=== PATIENT | female | born 1950 | race Caucasian/White ===

== ENCOUNTER → 2016-11-04 | Outpatient (CLI) | payer MEDICARE, MEDICAID | LOC: OD 08:57 | PROVIDERS: ATTEND Family Medicine | DX: R07.81 Pleurodynia (principal) ==

== ENCOUNTER 2016-12-26 09:07 | Emergency (ER) | payer MEDICARE, MEDICAID ==
[2016-12-26] MEDS ORDERED: LIDOCAINE 5% (700 MG) TRANSDERMAL ADH..PATCH TP ONE (09:23)
--- NOTE | 2016-12-26 10:14 | RADIOLOGY REPORT (SQ) ---
EXAM DESCRIPTION: T SPINE AP/LAT COMPLETED DATE/TIME: 12/26/2016 10:01 am REASON FOR STUDY: back pain 2-3 weeks COMPARISON: 12/04/2013. NUMBER OF VIEWS: Two views. TECHNIQUE: AP and lateral radiographic images acquired of the thoracic spine. LIMITATIONS: None. FINDINGS: MINERALIZATION: Normal. ALIGNMENT: Normal. No scoliosis. VERTEBRAE: No fracture or bone lesion. Maintained height, normal segmentation. DISCS: Multilevel disc space narrowing with osteophytes. HARDWARE: None in the spine. MEDIASTINUM AND SOFT TISSUES: Normal heart size and aortic contour. No soft tissue abnormality. VISUALIZED LUNG LUCAS: Clear. OTHER: No other significant finding. IMPRESSION: SPONDYLOSIS WITHOUT BONE LESION OR FRACTURE. TECHNICAL DOCUMENTATION: JOB ID: [id number] [employer]- All Rights Reserved
--- NOTE | 2016-12-26 10:15 | RADIOLOGY REPORT (SQ) ---
EXAM DESCRIPTION: L SPINE 2 VIEWS COMPLETED DATE/TIME: 12/26/2016 10:02 am REASON FOR STUDY: back pain 2-3 weeks COMPARISON: 12/10/2013. NUMBER OF VIEWS: Three views. TECHNIQUE: AP, lateral, and inferior coned down lateral views of the lumbar spine. LIMITATIONS: None. FINDINGS: MINERALIZATION: Normal. SEGMENTATION: Normal. No transitional anatomy. ALIGNMENT: Normal. VERTEBRAE: Maintained height. No fracture or worrisome bone lesion. DISCS: Multilevel disc space narrowing with osteophytes. POSTERIOR ELEMENTS: Pedicles and facets are intact. No pars defect or posterior arch defects. Facet arthropathy is present. HARDWARE: None in the spine. PARASPINAL SOFT TISSUES: Normal. PELVIS: Intact as visualized. No fractures or worrisome bone lesions. SI joints intact. OTHER: No other significant finding. IMPRESSION: SPONDYLOSIS WITHOUT BONE LESION OR FRACTURE. TECHNICAL DOCUMENTATION: JOB ID: [id number] [employer]- All Rights Reserved
--- NOTE | 2016-12-26 10:28 | ER Document Report ---
ED General - General Chief Complaint: Back Pain Stated Complaint: BACK PAIN Time Seen by Provider: 12/26/16 09:20 TRAVEL OUTSIDE OF THE [place] IN LAST 30 DAYS: No - HPI Patient complains to provider of: Right paraspinal back pain Notes: Patient is coming in from local [place] [facility] facility for evaluation of right paraspinal back pain. Patient states ongoing for the last 2-3 weeks. Patient denies fever chills nausea vomiting. Patient denies any trauma. Patient states she is under given Tylenol in a [place] [facility]. Patient denies any urinary frequency or dysuria - Related Data Allergies/Adverse Reactions: haloperidol [From Haldol] Allergy (Severe, Verified 02/28/16 04:32) LOCKJAW haloperidol lactate [From Haldol] Allergy (Severe, Verified 02/28/16 04:32) LOCKJAW chlorpromazine HCl [From Thorazine] Allergy (Verified 02/28/16 04:32) chocolate Allergy (Uncoded 02/28/16 04:32) Past Medical History - Social History Smoking Status: Never Smoker Chew tobacco use (# tins/day): No Frequency of alcohol use: None Drug Abuse: None Family History: CAD - dad and uncle with MIs in their 60s, DM - mom - Past Medical History Cardiac Medical History: Reports: Hx Hypercholesterolemia, Hx Hypertension Pulmonary Medical History: Reports: Hx Bronchitis Neurological Medical History: Reports: Hx Seizures - ? Endocrine Medical History: Reports: Hx Diabetes Mellitus Type 2, Hx Hypothyroidism GI Medical History: Reports: Hx Gastroesophageal Reflux Disease Musculoskeltal Medical History: Reports Hx Arthritis Psychiatric Medical History: Reports: Hx Bipolar Disorder, Hx Depression, Hx Schizoaffective Disorder Past Surgical History: Reports: Hx Cholecystectomy, Hx Neurologic Surgery - carpal tunnel, Hx Tonsillectomy - 1956, Hx Tubal Ligation - Immunizations Hx Diphtheria, Pertussis, Tetanus Vaccination: Yes Hx Pneumococcal Vaccination: 11/08/13 Review of Systems - Review of Systems Constitutional: No symptoms reported EENT: No symptoms reported Cardiovascular: No symptoms reported Respiratory: No symptoms reported Gastrointestinal: No symptoms reported Genitourinary: No symptoms reported Female Genitourinary: No symptoms reported Musculoskeletal: Back pain Skin: No symptoms reported Hematologic/Lymphatic: No symptoms reported Neurological/Psychological: No symptoms reported -: Yes All other systems reviewed and negative Physical Exam - Vital signs Vitals: Temp Pulse Resp BP Pulse Ox 98.9 F 56 L 16 143/46 H 96 12/26/16 09:10 12/26/16 09:10 12/26/16 09:10 12/26/16 09:10 12/26/16 09:10 Interpretation: Normal - General General appearance: Appears well, Alert - HEENT Head: Normocephalic, Atraumatic Eyes: Normal Pupils: PERRL - Respiratory Respiratory status: No respiratory distress Chest status: Nontender Breath sounds: Normal Chest palpation: Normal - Cardiovascular Rhythm: Regular Heart sounds: Normal auscultation Murmur: No - Abdominal Inspection: Normal Distension: No distension Bowel sounds: Normal Tenderness: Nontender Organomegaly: No organomegaly - Back Back: Normal, Tender - Mild paraspinal tenderness to the right thoracic right lumbar region. - Extremities General upper extremity: Normal inspection, Nontender, Normal color, Normal ROM , Normal temperature General lower extremity: Normal inspection, Nontender, Normal color, Normal ROM , Normal temperature, Normal weight bearing. No: Melody's sign - Neurological Neuro grossly intact: Yes Cognition: Normal Orientation: AAOx4 [place] Coma Scale Eye Opening: Spontaneous [place] Coma Scale Verbal: Oriented [place] Coma Scale Motor: Obeys Commands [place] Coma Scale Total: 15 Speech: Normal Motor strength normal: LUE, RUE, LLE, RLE Sensory: Normal - Psychological Associated symptoms: Normal affect, Normal mood - Skin Skin Temperature: Warm Skin Moisture: Dry Skin Color: Normal Course - Re-evaluation Re-evalutation: 12/26/16 15:55 Patient seen for back pain no critical etiology seenThe patient presents with low back pain without signs of spinal cord compression, cauda equina syndrome, infection, aneurysm, or other serious etiology. The patient is neurologically intact. Given the extremely low risk of these diagnoses further testing and evaluation for these possibilities does not appear to be indicated at this time. The patient has been instructed to return if the symptoms worsen or change in any way. .. - Vital Signs Vital signs: Temp Pulse Resp BP Pulse Ox 97.8 F 55 L 16 150/60 H 99 12/26/16 10:53 12/26/16 10:53 12/26/16 10:53 12/26/16 10:53 12/26/16 10:53 Discharge - Discharge Clinical Impression: Back pain Qualifiers: Back pain location: back pain in unspecified location Chronicity: unspecified Back pain laterality: right Qualified Code(s): M54.9 - Dorsalgia, unspecified Condition: Good Disposition: HOME, SELF-CARE Instructions: Ice Packs ([facility]), Low Back Pain ([facility]), Warm Packs ([facility]) Additional Instructions: Patient seen today for right lower back pain thoracic pain. X-rays do not show any signs of compression fracture lesions only degenerative changes. Patient was given a Lidoderm patch here in the ER for pain control. Patient will be prescribed Lidoderm patches. If patient cannot afford Lidoderm patches over-the -counter options are available patient should also continue Tylenol. Patient should follow-up primary care physician in the next week Prescriptions: Lidocaine [Lidoderm 5% (700 mg) Transdermal Patch] 1 patch TP DAILY #14 adh..patch Referrals: MORENO OHARA DO [Primary Care Provider] - Follow up in 3-5 days
[2016-12-26 10:54] VITALS: BP 150/60
== END 2016-12-26 11:14 | disposition home or self-care (01) ==
LOC: ER 09:07
DX: M54.9 Dorsalgia, unspecified (principal)
CPT/HCPCS: 72070; 72100; 99283

== ENCOUNTER 2017-01-08 00:51 | Observation (INO) | payer MEDICARE, MEDICAID ==
[2017-01-08 01:45] LABS: ABSOLUTE EOSINOPHILS # (AUTO) 0.2 10^3/uL (0.0-0.6); ABSOLUTE LYMPHOCYTES (AUTO) 1.8 10^3/uL (0.5-4.7); ABSOLUTE MONOCYTES (AUTO) 0.5 10^3/uL (0.1-1.4); ABSOLUTE NEUT (AUTO) 3.1 10^3/uL (1.7-8.2); BASOPHILS % (AUTO) 0.6 % (0-2); EOSINOPHILS % (AUTO) 3.1 % (0-6); HEMATOCRIT 32.6 % (36.0-47.0); HEMOGLOBIN 10.5 g/dL (12.0-15.5); HGB HCT DIFFERENCE -1.1; LYMPHOCYTES % (AUTO) 32.7 % (13-45); MEAN CORPUSCULAR HEMOGLOBIN 28.1 pg (27.0-33.4); MEAN CORPUSCULAR HGB CONC 32.2 g/dL (32.0-36.0); MEAN CORPUSCULAR VOLUME 87 fl (80-97); MONOCYTES % (AUTO) 8.6 % (3-13); RED BLOOD COUNT 3.73 10^6/uL (3.72-5.28); RED CELL DISTRIBUTION WIDTH 20.9 % (11.5-14.0); WHITE BLOOD COUNT 5.6 10^3/uL (4.0-10.5)
--- NOTE | 2017-01-08 01:46 | RADIOLOGY REPORT (SQ) ---
EXAM DESCRIPTION: CHEST SINGLE VIEW COMPLETED DATE/TIME: 01/08/2017 1:30 am REASON FOR STUDY: cp COMPARISON: 10/04/2015. EXAM PARAMETERS: NUMBER OF VIEWS: One view. TECHNIQUE: Single frontal radiographic view of the chest acquired. RADIATION DOSE: NA LIMITATIONS: None. FINDINGS: LUNGS AND PLEURA: No opacities, masses or pneumothorax. No pleural effusion. MEDIASTINUM AND HILAR STRUCTURES: No masses. Contour normal. HEART AND VASCULAR STRUCTURES: Heart normal in size. Normal vasculature. BONES: No acute findings. HARDWARE: None in the chest. OTHER: No other significant finding. IMPRESSION: NO ACUTE RADIOGRAPHIC FINDING IN THE CHEST. TECHNICAL DOCUMENTATION: JOB ID: [id number]
[2017-01-08 01:55] LABS: ALANINE AMINOTRANSFERASE 21 U/L (9-52); ALBUMIN 3.6 g/dL (3.5-5.0); ALKALINE PHOSPHATASE 68 U/L (38-126); ANION GAP 10 (5-19); ASPARTATE AMINO TRANSFERASE 26 U/L (14-36); BILIRUBIN,DIRECT 0.3 mg/dL (0.0-0.4); BILIRUBIN,TOTAL 0.4 mg/dL (0.2-1.3); BLOOD UREA NITROGEN 15 mg/dL (7-20); CALCIUM 9.4 mg/dL (8.4-10.2); CARBON DIOXIDE 26 mmol/L (22-30); CHLORIDE 104 mmol/L (98-107); CREATINE KINASE 79 U/L (30-135); CREATININE RESULT 1.17 mg/dL (0.52-1.25); GLUCOSE 85 mg/dL (75-110); SODIUM 139.6 mmol/L (137-145); TOTAL PROTEIN 6.3 g/dL (6.3-8.2)
[2017-01-08 02:04] LABS: CREATINE KINASE MB 0.66 ng/mL (<4.55)
[2017-01-08 02:05] LABS: TROPONIN I < 0.012 ng/mL
--- NOTE | 2017-01-08 02:23 | ER Document Report ---
ED General - General Chief Complaint: Chest Pain Stated Complaint: CHEST PRESSURE Time Seen by Provider: 01/08/17 02:21 Notes: Patient is a 66-year-old female presents with complaint of chest pressure. She says it feels like a heaviness on her chest. The low substernal region. Will improve. No difficulty breathing. No fevers. Patient denies previous pain like this before. She says nothing seems to make the pain better or worse. She says pain comes and goes. She received aspirin and nitro via the paramedics. She said it did help some. She denies previous history of coronary disease. She denies previous cardiac stress test or cath. She has no other complaints at this time. TRAVEL OUTSIDE OF THE [place] IN LAST 30 DAYS: No - Related Data Allergies/Adverse Reactions: haloperidol [From Haldol] Allergy (Severe, Verified 02/28/16 04:32) LOCKJAW haloperidol lactate [From Haldol] Allergy (Severe, Verified 02/28/16 04:32) LOCKJAW chlorpromazine HCl [From Thorazine] Allergy (Verified 02/28/16 04:32) chocolate Allergy (Uncoded 02/28/16 04:32) Past Medical History - Social History Smoking Status: Unknown if Ever Smoked Frequency of alcohol use: None Drug Abuse: None Family History: CAD - dad and uncle with MIs in their 60s, DM - mom - Past Medical History Cardiac Medical History: Reports: Hx Hypercholesterolemia, Hx Hypertension Pulmonary Medical History: Reports: Hx Bronchitis Neurological Medical History: Reports: Hx Seizures - ? Endocrine Medical History: Reports: Hx Diabetes Mellitus Type 2, Hx Hypothyroidism GI Medical History: Reports: Hx Gastroesophageal Reflux Disease Musculoskeltal Medical History: Reports Hx Arthritis Psychiatric Medical History: Reports: Hx Bipolar Disorder, Hx Depression, Hx Schizoaffective Disorder Past Surgical History: Reports: Hx Cholecystectomy, Hx Neurologic Surgery - carpal tunnel, Hx Tonsillectomy - 1957, Hx Tubal Ligation - Immunizations Hx Diphtheria, Pertussis, Tetanus Vaccination: Yes Hx Pneumococcal Vaccination: 11/08/13 Review of Systems - Review of Systems Notes: My Normal Review Basic REVIEW OF SYSTEMS: CONSTITUTIONAL : Denies fever, chills, or sweats. Denies recent illness. EENT: Denies eye, ear, throat, or mouth pain or symptoms. Denies nasal or sinus congestion. CARDIOVASCULAR: Chest pressure. RESPIRATORY: Denies cough, cold, or chest congestion. Denies shortness of breath, difficulty breathing, or wheezing. GASTROINTESTINAL: Denies abdominal pain. Denies nausea, vomiting, or diarrhea. Denies constipation. Last BM: MUSCULOSKELETAL: Denies neck or back pain or joint pain or swelling. SKIN: Denies rash or skin lesions. NEUROLOGICAL: Denies altered mental status or loss of consciousness. Denies headache. Denies weakness or paralysis or loss of use of either side. Denies problems with gait or speech. Denies sensory or motor loss. ALL OTHER SYSTEMS REVIEWED AND NEGATIVE. Physical Exam - Vital signs Vitals: Resp BP 13 121/55 L 01/08/17 03:17 01/08/17 03:17 - Notes Notes: General Appearance: Well nourished, alert, cooperative, no acute distress, no obvious discomfort. Vitals: reviewed, See vital signs table. Head: no swelling or tenderness to the head Eyes: PERRL, EOMI, Conjuctiva clear Mouth: No decreasd moisture Neck: Supple, no neck tenderness Lungs: No wheezing, No rales, No rhonci, No accessory muscle use, good air exchange bilaterally. Heart: Normal rate, Regular rythm, No murmur, no rub Chest wall: No reproducible tenderness to palpation of the chest. Abdomen: Normal BS, soft, No rigidity, No abdominal tenderness, No guarding, no rebound, no abdominal masses, no organomegaly Extremities: strength 5/5 in all extremities, good pulses in all extremities, no swelling or tenderness in the extremities, no edema. Skin: warm, dry, appropriate color, no rash Neuro: speech clear, oriented x 3, normal affect, responds appropriately to questions. Course - Vital Signs Vital signs: Temp Pulse Resp BP Pulse Ox 15 98/56 L 100 01/08/17 04:01 01/08/17 04:01 01/08/17 04:01 - Laboratory Result Diagrams: 01/08/17 01:24 01/08/17 01:24 Laboratory results interpreted by me: 01/08/17 01/08/17 01:24 01:24 Hgb 10.5 L Hct 32.6 L RDW 20.9 H Est GFR ( Amer) 56 L Est GFR (Non-Af Amer) 46 L - EKG Interpretation by Me Additional EKG results interpreted by me: 01/08/17 02:22 EKG is reviewed and interpreted by me. EKG shows sinus bradycardia with a rate of [address] segment elevation or depression. No ischemic T-wave inversions. IL interval is slightly prolonged. QRS duration and QTc intervals are within normal range. Old EKG for comparison is from February 28, 2016. 01/08/17 02:33 - Transfer of Care Notes: 01/08/17 04:22 Patient's chest pain is relieved with nitro paste here in the ER. She received aspirin in the ambulance. Her initial troponin and EKG are negative. Patient has a heart score 6. I did speak with the hospitalist who agrees to admit the patient for further workup. Dictation of this chart was performed using voice recognition software; therefore, there may be some unintended grammatical errors. Discharge - Discharge Clinical Impression: Chest pain Qualifiers: Chest pain type: unspecified Qualified Code(s): R07.9 - Chest pain, unspecified Condition: Stable Disposition: ADMITTED OBSERVATION Admitting Provider: Hospitalist Unit Admitted: Telemetry
[2017-01-08] MEDS ORDERED: NITROGLYCERIN 2% OINTMENT 1 GM PACKET TP ONE (02:41)
[2017-01-08] MEDS ORDERED: LACTULOSE SYRUP 20 GM/30 ML UDCUP PO ONE ×2 (05:02→09:30)
--- NOTE | 2017-01-08 05:02 | PDOC H&P ---
History of Present Illness Admission Date/PCP: 01/08/17 04:42 MORENO OHARA DO Patient complains of: Abdominal pain History of Present Illness: CAROLYN MEMBRENO is a 66 year old female with a past medical history of schizophrenia with tardive dyskinesia, constipation predominant irritable bowel syndrome, hypertension, diabetes, dyslipidemia, GERD, osteoarthritis, and hypothyroidism. States she was in her usual state of health until awoken from sleep with chest pressure 3 out of 5. However indicates his pain is over her epigastrium and left upper quadrant. This pain is not associated with shortness of breath palpitations nausea or vomiting also notes pain to the right arm. She admits to previous episodes she denies uncontrolled GERD though admits uncontrolled constipation. In the emergency room she receives nitroglycerin which reduces her pain and she is referred to the hospitalist for admission. Patient denies recent change in medications. Past Medical History Cardiac Medical History: Reports: Hyperlipidema, Hypertension Pulmonary Medical History: Reports: Bronchitis Neurological Medical History: Reports: Seizures - ? Endocrine Medical History: Reports: Diabetes Mellitus Type 2, Hypothyroidism GI Medical History: Reports: Gastroesophageal Reflux Disease, Other - Constipation predominant irritable bowel syndrome Musculoskeltal Medical History: Reports: Arthritis Psychiatric Medical History: Reports: Bipolar Disorder, Depression, Schizoaffective Disorder Hematology: Denies: Anemia, Hemophilia, Sickle Cell Disease Past Surgical History Past Surgical History: Reports: Cholecystectomy, Tonsillectomy - 1956, Tubal Ligation Denies: Amputation Social History Information Source: Patient Lives with: Alone Smoking Status: Former Smoker Frequency of Alcohol Use: None Hx Recreational Drug Use: No Drugs: None Hx Prescription Drug Abuse: No - Advance Directive Resuscitation Status: Full Code Family History Family History: CAD - dad and uncle with MIs in their 60s, DM - mom Parental Family History Reviewed: Yes Children Family History Reviewed: Yes Sibling(s) Family History Reviewed.: Yes Medication/Allergy Home Medications: Alendronate Sodium [Fosamax 70 mg Tablet] 1 tab PO ASDIR PRN 12/01/14 Aripiprazole [Abilify 15 mg Tablet] 30 mg PO QHS 12/01/14 Aspirin [Aspirin 81 mg Chewable Tablet] 81 mg PO DAILY 12/01/14 Benztropine Mesylate [Cogentin 1 mg Tablet] 1 tab PO BID #60 tab 12/01/14 Chlorpheniramine Maleate [Allergy Relief] 1 tab PO DAILY 12/01/14 Chlorpromazine HCl 50 mg PO BID 12/01/14 Docusate Sodium [Colace 100 mg Capsule] 100 mg PO BID 12/01/14 Duloxetine HCl [Cymbalta] 60 mg PO BID 12/01/14 Lactulose 30 ml PO TID 12/01/14 Lamotrigine 100 mg PO BID 12/01/14 Levothyroxine Sodium [Synthroid 50 Mcg Tablet] 50 mcg PO DAILY 12/01/14 Linaclotide [Linzess 145 Mcg Capsule] 145 mcg PO QAM 12/01/14 Losartan Potassium 25 mg PO DAILY 12/01/14 Magnesium Hydroxide [Milk of Magnesia 30 ml Udcup] 30 ml PO DAILY PRN 12/01/14 Meloxicam 15 mg PO DAILY 12/01/14 Metformin HCl [Glucophage 500 mg Tablet] 500 mg PO TID 12/01/14 Multivitamin [Tab-A-Oliva] 1 each PO DAILY 12/01/14 Omeprazole 20 mg PO DAILY 12/01/14 Oxybutynin Chloride 5 mg PO DAILY 12/01/14 Sennosides [Senna Laxative] 2 tab PO DAILY 12/01/14 Simvastatin [Zocor 20 mg Tablet] 20 mg PO QHS 12/01/14 Trazodone HCl [Desyrel] 100 mg PO QHS 12/01/14 Ciprofloxacin HCl [Cipro 500 mg Tablet] 500 mg PO BID #10 tablet 07/06/15 Docusate Sodium [Colace 100 mg Capsule] 100 mg PO DAILY #30 capsule 07/06/15 Quetiapine Fumarate [Seroquel 100 mg Tablet] 200 mg PO QHS 07/06/15 Magnesium Citrate 295 ml PO DAILY #7 solution 07/28/15 Polyethylene Glycol 3350 [Miralax Powder 17 gm/Packet] 1 packet PO DAILY #1 pkg 07/28/15 Lidocaine [Lidoderm 5% (700 mg) Transdermal Patch] 1 patch TP DAILY #14 adh..patch 12/26/16 Allergies/Adverse Reactions: haloperidol [From Haldol] Allergy (Severe, Verified 02/28/16 04:32) LOCKJAW haloperidol lactate [From Haldol] Allergy (Severe, Verified 02/28/16 04:32) LOCKJAW chlorpromazine HCl [From Thorazine] Allergy (Verified 02/28/16 04:32) chocolate Allergy (Uncoded 02/28/16 04:32) Review of Systems Constitutional: ABSENT: chills, fever(s), headache(s), weight gain, weight loss Eyes: ABSENT: visual disturbances Ears: ABSENT: hearing changes Cardiovascular: ABSENT: chest pain, dyspnea on exertion, edema, orthropnea, palpitations Respiratory: ABSENT: cough, hemoptysis Gastrointestinal: ABSENT: abdominal pain, constipation, diarrhea, hematemesis, hematochezia, nausea, vomiting Genitourinary: ABSENT: dysuria, hematuria Musculoskeletal: ABSENT: joint swelling Integumentary: ABSENT: rash, wounds Neurological: ABSENT: abnormal gait, abnormal speech, confusion, dizziness, focal weakness, syncope Psychiatric: ABSENT: anxiety, depression, homidical ideation, suicidal ideation Endocrine: ABSENT: cold intolerance, heat intolerance, polydipsia, polyuria Hematologic/Lymphatic: ABSENT: easy bleeding, easy bruising Physical Exam Vital Signs: Temp Pulse Resp BP Pulse Ox 15 98/56 L 100 01/08/17 04:01 01/08/17 04:01 01/08/17 04:01 General appearance: PRESENT: no acute distress, cooperative, disheveled, obese, well-developed, well-nourished Head exam: PRESENT: atraumatic, normocephalic Eye exam: PRESENT: conjunctiva pink, EOMI, PERRLA. ABSENT: scleral icterus Ear exam: PRESENT: normal external ear exam Mouth exam: PRESENT: moist, tongue midline Neck exam: ABSENT: carotid bruit, JVD, lymphadenopathy, thyromegaly Respiratory exam: PRESENT: clear to auscultation parviz. ABSENT: rales, rhonchi, wheezes Cardiovascular exam: PRESENT: RRR. ABSENT: diastolic murmur, rubs, systolic murmur Pulses: PRESENT: normal dorsalis pedis pul Vascular exam: PRESENT: normal capillary refill GI/Abdominal exam: PRESENT: distended, hypoactive bowel sounds, tenderness - Upper and lower quadrant pain. ABSENT: firm, guarding, hernia Rectal exam: PRESENT: deferred Extremities exam: PRESENT: full ROM. ABSENT: calf tenderness, clubbing, pedal edema Neurological exam: PRESENT: alert, awake, oriented to person, oriented to place , oriented to time, oriented to situation, CN II-XII grossly intact. ABSENT: motor sensory deficit Psychiatric exam: PRESENT: normal mood, unusual affect. ABSENT: agitated, depressed, homicidal ideation, suicidal ideation Skin exam: PRESENT: dry, intact, warm. ABSENT: cyanosis, rash Results Impressions: Chest X-Ray 01/08/17 00:54 IMPRESSION: NO ACUTE RADIOGRAPHIC FINDING IN THE CHEST. Assessment & Plan - Diagnosis (1) Chest pain Qualifiers: Chest pain type: unspecified Qualified Code(s): R07.9 - Chest pain, unspecified Is this a current diagnosis for this admission?: YesPlan: Atypical in that it awoke her from sleep and initially described as abdominal pain or pressure. Says she has multiple risk factors and recent cardiac stress test I will evaluate her risk factors and cycle her cardiac enzymes and consider stress testing. (2) Abdominal pain Qualifiers: Abdominal location: generalized Qualified Code(s): R10.84 - Generalized abdominal pain Plan: Abdominal pain is likely secondary to constipation predominant irritable bowel syndrome she will receive lactulose and as needed enema with symptomatic management (3) Irritable bowel syndrome with constipation Is this a current diagnosis for this admission?: YesPlan: Lactulose, mineral oil enema and Bentyl (4) Diabetes Is this a current diagnosis for this admission?: YesPlan: Home regiment evaluation of A1c and sliding scale insulin - Time Time Spent: 30 to 50 Minutes - Inpatient Certification Medical Necessity: Need Close Monitoring Due to Risk of Patient Decompensation
[2017-01-08] MEDS ORDERED: NITROGLYCERIN 0.4 MG/TAB 25 TAB/BOTTLE SL PRN (05:03)
[2017-01-08] MEDS ORDERED: DEXTROSE 40% GEL 15 GM TUBE PO PRN ×2 (05:03)
[2017-01-08] MEDS ORDERED: GLUCAGON,HUMAN RECOMB 1 MG INJ IM PRN (05:03)
[2017-01-08] MEDS ORDERED: DEXTROSE 50%-WATER 25 GM/50 ML DISP.SYRIN IV PRN ×2 (05:03)
[2017-01-08] MEDS ORDERED: INSULIN LISPRO 100 UNIT/ML 3 ML VIAL SUBCUT PRN (05:03)
[2017-01-08] MEDS ORDERED: HYDRALAZINE HCL INJ/PF 20 MG/1 ML SDV IV PRN (05:06)
[2017-01-08] MEDS ORDERED: HEPARIN SOD (PORCINE) 5,000 UNIT/ML 1 ML SYRINGE SUBCUT SCH (06:00)
[2017-01-08 08:32] LABS: CHOLESTEROL 169.99 mg/dL (0-200); Direct HDL 56 mg/dL (>40); TRIGLYCERIDES 145 mg/dL (<150)
[2017-01-08 08:41] LABS: CREATINE KINASE MB 0.77 ng/mL (<4.55)
[2017-01-08 08:42] LABS: DIRECT LDL 72 mg/dL (<100)
[2017-01-08 08:49] LABS: TROPONIN I < 0.012 ng/mL
[2017-01-08] MEDS ORDERED: LANSOPRAZOLE 30 MG TAB.RAP.DR PO ONE (09:30)
--- NOTE | 2017-01-08 10:35 | PDOC PROGRESS REPORT ---
Subjective Progress Note for:: 01/08/17 Subjective:: Complains of chest pain. I am able to reproduce the chest pain with palpation of the costochondral junction Physical Exam Vital Signs: Temp Pulse Resp BP Pulse Ox 98.0 F 73 18 150/62 H 100 01/08/17 08:22 01/08/17 08:22 01/08/17 08:22 01/08/17 08:22 01/08/17 08:22 Intake & Output 01/07/17 01/08/17 01/09/17 06:59 06:59 06:59 Weight 91 kg General appearance: PRESENT: no acute distress Eye exam: PRESENT: conjunctiva pink. ABSENT: scleral icterus Mouth exam: PRESENT: moist, tongue midline Neck exam: ABSENT: JVD Respiratory exam: PRESENT: chest wall tenderness - Costochondral tenderness, clear to auscultation parviz. ABSENT: rales, rhonchi, wheezes Cardiovascular exam: PRESENT: RRR. ABSENT: diastolic murmur, rubs, systolic murmur GI/Abdominal exam: PRESENT: normal bowel sounds, soft, tenderness - Mild epigastric tenderness. ABSENT: distended, guarding, mass, organolmegaly, rebound Extremities exam: ABSENT: calf tenderness, clubbing, pedal edema Neurological exam: PRESENT: alert, awake, oriented to person, oriented to place , oriented to time, oriented to situation, CN II-XII grossly intact. ABSENT: motor sensory deficit Psychiatric exam: PRESENT: appropriate affect Skin exam: PRESENT: dry, intact, warm. ABSENT: cyanosis, rash Results Laboratory Results: 01/08/17 08:02 Triglycerides 145 Cholesterol 169.99 LDL Cholesterol Direct 72 VLDL Cholesterol 29.0 HDL Cholesterol 56 01/08/17 08:02 CK-MB (CK-2) 0.77 Troponin I < 0.012 Impressions: Chest X-Ray 01/08/17 00:54 IMPRESSION: NO ACUTE RADIOGRAPHIC FINDING IN THE CHEST. Assessment & Plan - Diagnosis (1) Chest pain Qualifiers: Chest pain type: unspecified Qualified Code(s): R07.9 - Chest pain, unspecified Is this a current diagnosis for this admission?: YesPlan: Chest pain most likely is not secondary to cardiac. I can reproduce her pain with palpation of her costochondral junction. The admitting physician was able to reproduce the pain with abdominal palpation. The patient's chest discomfort appears to be changing in nature. Her last normal stress test was in 2013. If she has negative cardiac enzymes will be discharged home and have her follow-up as an outpatient for a stress test. (2) Hypertension Is this a current diagnosis for this admission?: YesPlan: Continue with Cozaar. (3) Hyperlipidemia Is this a current diagnosis for this admission?: Yes (4) Schizoaffective disorder Is this a current diagnosis for this admission?: Yes (5) Diabetes Is this a current diagnosis for this admission?: YesPlan: Continue with sliding scale insulin. (6) Irritable bowel syndrome with constipation Is this a current diagnosis for this admission?: Yes (7) Abdominal pain Qualifiers: Abdominal location: generalized Qualified Code(s): R10.84 - Generalized abdominal pain Is this a current diagnosis for this admission?: Yes - Time Time Spent with patient: 25-34 minutes - Inpatient Certification Medical Necessity: Need Close Monitoring Due to Risk of Patient Decompensation
[2017-01-08] MEDS: DOCUSATE SODIUM 100 MG CAPSULE PO SCH ×2 (10:46→17:42)
[2017-01-08] MEDS: ASPIRIN 81 MG TABLET, CHEWABLE PO SCH (10:46)
[2017-01-08] MEDS: BENZTROPINE MESYLATE 1 MG TABLET PO SCH ×2 (10:47→17:41)
[2017-01-08] MEDS: DULOXETINE HCL 30 MG CAPSULE.DR PO SCH ×2 (10:47→21:26)
[2017-01-08] MEDS: METFORMIN HCL 500 MG TABLET PO SCH ×3 (10:47→17:42)
[2017-01-08] MEDS: LEVOTHYROXINE SODIUM 0.05 MG TABLET PO SCH (10:47)
[2017-01-08] MEDS: LAMOTRIGINE 100 MG TABLET PO SCH ×2 (10:48→17:42)
[2017-01-08] MEDS: HEPARIN SOD (PORCINE) 5,000 UNIT/ML 1 ML SYRINGE SUBCUT SCH ×2 (10:48→17:41)
[2017-01-08] MEDS: LOSARTAN POTASSIUM 25 MG TABLET PO SCH (10:53)
[2017-01-08] MEDS: LANSOPRAZOLE 30 MG TAB.RAP.DR PO SCH ×2 (10:56→17:42)
[2017-01-08 15:10] LABS: CREATINE KINASE MB 0.78 ng/mL (<4.55)
[2017-01-08 15:13] LABS: TROPONIN I < 0.012 ng/mL
[2017-01-08 20:37] LABS: CREATINE KINASE MB 1.02 ng/mL (<4.55)
[2017-01-08 20:44] LABS: TROPONIN I < 0.012 ng/mL
[2017-01-08] MEDS ORDERED: TRAZODONE HCL 50 MG TABLET PO SCH (22:00)
[2017-01-08] MEDS ORDERED: SIMVASTATIN 10 MG TABLET PO SCH (22:00)
[2017-01-08] MEDS ORDERED: (PENDING PHARMACY ID) (Trazodone Hcl [Desyrel] 100 MG) PO SCH (22:00)
[2017-01-08] MEDS ORDERED: ARIPIPRAZOLE 30 MG PO SCH (22:00)
[2017-01-08] MEDS ORDERED: QUETIAPINE FUMARATE 100 MG TABLET PO SCH (22:00)
[2017-01-08] MEDS ORDERED: ARIPIPRAZOLE 5 MG TABLET PO SCH (22:00)
[2017-01-09] MEDS: HEPARIN SOD (PORCINE) 5,000 UNIT/ML 1 ML SYRINGE SUBCUT SCH ×2 (03:28→09:11)
[2017-01-09] MEDS: LANSOPRAZOLE 30 MG TAB.RAP.DR PO SCH (06:13)
[2017-01-09 06:33] LABS: ABSOLUTE EOSINOPHILS # (AUTO) 0.1 10^3/uL (0.0-0.6); ABSOLUTE LYMPHOCYTES (AUTO) 1.3 10^3/uL (0.5-4.7); ABSOLUTE MONOCYTES (AUTO) 0.4 10^3/uL (0.1-1.4); BASOPHILS % (AUTO) 0.6 % (0-2); HEMATOCRIT 33.9 % (36.0-47.0); HGB HCT DIFFERENCE -0.9; LYMPHOCYTES % (AUTO) 26.1 % (13-45); MEAN CORPUSCULAR HEMOGLOBIN 28.3 pg (27.0-33.4); MEAN CORPUSCULAR HGB CONC 32.3 g/dL (32.0-36.0); MEAN CORPUSCULAR VOLUME 88 fl (80-97); MONOCYTES % (AUTO) 8.9 % (3-13); RED BLOOD COUNT 3.88 10^6/uL (3.72-5.28); RED CELL DISTRIBUTION WIDTH 20.6 % (11.5-14.0); SEGMENTED NEUTROPHILS % (AUTO) 61.4 % (42-78); WHITE BLOOD COUNT 4.9 10^3/uL (4.0-10.5)
[2017-01-09 06:50] LABS: ANION GAP 9 (5-19); BLOOD UREA NITROGEN 15 mg/dL (7-20); CALCIUM 9.6 mg/dL (8.4-10.2); CARBON DIOXIDE 25 mmol/L (22-30); CHLORIDE 109 mmol/L (98-107); CREATINE KINASE 59 U/L (30-135); CREATININE RESULT 1.06 mg/dL (0.52-1.25); GLUCOSE 83 mg/dL (75-110); POTASSIUM 4.5 mmol/L (3.6-5.0); SODIUM 142.7 mmol/L (137-145)
[2017-01-09] MEDS: METFORMIN HCL 500 MG TABLET PO SCH (09:07)
[2017-01-09] MEDS: LAMOTRIGINE 100 MG TABLET PO SCH (09:07)
[2017-01-09] MEDS: DULOXETINE HCL 30 MG CAPSULE.DR PO SCH (09:07)
[2017-01-09] MEDS: ASPIRIN 81 MG TABLET, CHEWABLE PO SCH (09:07)
[2017-01-09] MEDS: LEVOTHYROXINE SODIUM 0.05 MG TABLET PO SCH (09:07)
[2017-01-09] MEDS: BENZTROPINE MESYLATE 1 MG TABLET PO SCH (09:07)
[2017-01-09] MEDS: DOCUSATE SODIUM 100 MG CAPSULE PO SCH (09:08)
[2017-01-09] MEDS: LOSARTAN POTASSIUM 25 MG TABLET PO SCH (09:10)
--- NOTE | 2017-01-09 10:11 | PDOC DISCHARGE SUMMARY ---
General - Admit/Disc Date/PCP Admission Date/Primary Care Provider: 01/08/17 05:03 MORENO OHARA, Discharge Date: 01/09/17 - Discharge Diagnosis (1) Chest pain Is this a current diagnosis for this admission?: YesSummary: This likely secondary to costochondritis. It was reproducible with palpation of the costochondral area (2) Hypertension Is this a current diagnosis for this admission?: Yes (3) Hyperlipidemia Is this a current diagnosis for this admission?: Yes (4) Schizoaffective disorder Is this a current diagnosis for this admission?: Yes (5) Diabetes Is this a current diagnosis for this admission?: Yes (6) Irritable bowel syndrome with constipation Is this a current diagnosis for this admission?: Yes (7) Abdominal pain Is this a current diagnosis for this admission?: YesSummary: Resolved - Additional Information Resuscitation Status: Full Code Discharge Diet: Regular Discharge Activity: Activity As Tolerated Home Medications: Alendronate Sodium [Fosamax 70 mg Tablet] 70 mg PO FR@0800 12/01/14 Aripiprazole [Abilify 15 mg Tablet] 30 mg PO QHS 12/01/14 Aspirin [Aspirin 81 mg Chewable Tablet] 81 mg PO DAILY 12/01/14 Chlorpheniramine Maleate [Allergy Relief] 4 mg PO DAILY 12/01/14 Chlorpromazine HCl 50 mg PO BID 12/01/14 Duloxetine HCl [Cymbalta] 60 mg PO Q12 12/01/14 Lactulose 30 ml PO Q12 12/01/14 Levothyroxine Sodium [Synthroid 0.05 mg Tablet] 50 mcg PO DAILY 12/01/14 Losartan Potassium 25 mg PO DAILY 12/01/14 Magnesium Hydroxide [Milk of Magnesia 30 ml Udcup] 30 ml PO DAILY PRN 12/01/14 Metformin HCl [Glucophage 500 mg Tablet] 500 mg PO BIDACBS 12/01/14 Multivitamin [Tab-A-Oliva] 1 each PO DAILY 12/01/14 Omeprazole 20 mg PO DAILY 12/01/14 Oxybutynin Chloride 5 mg PO DAILY 12/01/14 Simvastatin [Zocor 20 mg Tablet] 20 mg PO QHS 12/01/14 Trazodone HCl [Desyrel] 100 mg PO QHS 12/01/14 Docusate Sodium [Colace 100 mg Capsule] 100 mg PO DAILY #30 capsule 07/06/15 Acetaminophen [Tylenol 325 mg Tablet] 325 mg PO Q4HP PRN 01/08/17 Acetaminophen [Tylenol Arthritis 650 mg Tablet] 650 mg PO Q12HP PRN 01/08/17 Benztropine Mesylate [Cogentin 1 mg Tablet] 1 mg PO Q12 01/08/17 Ferrous Sulfate [Feosol 325 mg Tablet] 325 mg PO DAILY 01/08/17 Guaifenesin/D-Methorphan Hb [Robitussin-Dm Syrup 10 ml Udcup] 10 ml PO Q4HP PRN 01/08/17 Insulin Aspart [Novolog Insulin (Aspart) 100 unit/mL] 0 unit SUBCUT .SLD SCALE 01/08/17 Lamotrigine [Lamictal] 150 mg PO Q12 01/08/17 Linaclotide [Linzess] 290 mcg PO Q6AM 01/08/17 Magnesium Hydroxide [Milk of Magnesia 30 ml Udcup] 30 ml PO DAILYP PRN 01/08/17 Multivitamin [Tab-A-Oliva (Multiple Vitamin) Tablet] 1 tab PO DAILY 01/08/17 Quetiapine Fumarate [Seroquel Xr] 50 mg PO QAM 01/08/17 Quetiapine Fumarate [Seroquel Xr] 300 mg PO QPM 01/08/17 History of Present Illness History of Present Illness: CAROLYN MEMBRENO is a 66 year old female history of schizoaffective disorder who also has diabetes and hypertension presented with atypical chest pain. The patient reports the pain was initially in the epigastric area and also was reproducible with palpation of the costochondral junction. The patient was admitted for monitoring. Hospital Course Hospital Course: 56-year-old female with no history of coronary artery disease who presented with atypical chest pain. I was able to reproduce her pain by pressing on her costochondral junction. The admitting physician was able to reproduce pain with palpating her abdomen in the epigastric area. The patient was monitored on telemetry and had no cardiac arrhythmias. Serial cardiac enzymes were unremarkable. Patient on the day of discharge no longer was having any pain. If she any more pain in the future a stress test could be done however the possibility this representing cardiac disease is very unlikely. The rest of her medical problems were stable during this hospitalization. Physical Exam Vital Signs: Temp Pulse Resp BP Pulse Ox 98.0 F 58 L 17 129/53 H 99 01/09/17 07:18 01/09/17 07:18 01/09/17 07:18 01/09/17 07:18 01/09/17 07:18 Intake & Output 01/08/17 01/09/17 01/10/17 06:59 06:59 06:59 Intake Total 1100 Output Total 4000 Balance -2900 Weight 91 kg General appearance: PRESENT: no acute distress Eye exam: PRESENT: conjunctiva pink. ABSENT: scleral icterus Mouth exam: PRESENT: moist, tongue midline Neck exam: ABSENT: JVD Respiratory exam: PRESENT: clear to auscultation parviz. ABSENT: rales, rhonchi, wheezes Cardiovascular exam: PRESENT: RRR. ABSENT: diastolic murmur, rubs, systolic murmur GI/Abdominal exam: PRESENT: normal bowel sounds, soft. ABSENT: distended, guarding, mass, organolmegaly, rebound, tenderness Extremities exam: ABSENT: calf tenderness, clubbing, pedal edema Neurological exam: PRESENT: alert, awake, oriented to person, oriented to place , oriented to time, oriented to situation, CN II-XII grossly intact. ABSENT: motor sensory deficit Psychiatric exam: PRESENT: appropriate affect Skin exam: PRESENT: dry, intact, warm. ABSENT: cyanosis, rash Results Laboratory Results: 01/09/17 05:21 01/09/17 05:21 01/09/17 01/09/17 05:21 05:21 WBC 4.9 RBC 3.88 Hgb 11.0 L Hct 33.9 L MCV 88 MCH 28.3 MCHC 32.3 RDW 20.6 H Plt Count 243 Seg Neutrophils % 61.4 Lymphocytes % 26.1 Monocytes % 8.9 Eosinophils % 3.0 Basophils % 0.6 Absolute Neutrophils 3.0 Absolute Lymphocytes 1.3 Absolute Monocytes 0.4 Absolute Eosinophils 0.1 Absolute Basophils 0.0 Sodium 142.7 Potassium 4.5 Chloride 109 H Carbon Dioxide 25 Anion Gap 9 BUN 15 Creatinine 1.06 Est GFR ( Amer) > 60 Est GFR (Non-Af Amer) 52 L Glucose 83 Calcium 9.6 01/08/17 01/08/17 01/08/17 08:02 13:57 19:51 Creatine Kinase CK-MB (CK-2) 0.77 0.78 1.02 Troponin I < 0.012 < 0.012 < 0.012 01/09/17 05:21 Creatine Kinase 59 CK-MB (CK-2) Troponin I Impressions: Chest X-Ray 01/08/17 00:54 IMPRESSION: NO ACUTE RADIOGRAPHIC FINDING IN THE CHEST. Qualifiers PATEINT BEING DISCHARGED WITH ANY OF THE FOLLOWING DIAGNOSIS?: No Plan Discharge Plan: Is to be transferred back to her assisted living facility. Time Spent: Less than 30 Minutes
[2017-01-09 11:15] VITALS: BP 103/49
--- NOTE | 2017-01-10 09:35 | EKG REPORT ---
SEVERITY:- NORMAL ECG - SINUS RHYTHM : Confirmed by: Pearl Maurice 10-Jan-2017 09:35:35
== END 2017-01-09 11:34 | disposition home health service (06) ==
LOC: ER 00:51 → EH 04:42 → UNDOADMOB 04:42 → EH 05:03 → 4N 08:21
PROVIDERS: ADMIT Internal Medicine; ATTEND Internal Medicine
DX: R07.89 Other chest pain (principal); I10 Essential (primary) hypertension; E78.5 Hyperlipidemia, unspecified; F25.9 Schizoaffective disorder, unspecified; E11.9 Type 2 diabetes mellitus without complications; K58.1 Irritable bowel syndrome with constipation; R10.84 Generalized abdominal pain; K21.9 Gastro-esophageal reflux disease without esophagitis; E03.9 Hypothyroidism, unspecified; R00.1 Bradycardia, unspecified; G24.01 Drug induced subacute dyskinesia; M19.90 Unspecified osteoarthritis, unspecified site; Z79.899 Other long term (current) drug therapy; Z79.82 Long term (current) use of aspirin; Z79.4 Long term (current) use of insulin; Z98.51 Tubal ligation status; Z90.49 Acquired absence of other specified parts of digestive tract; Z82.49 Family history of ischemic heart disease and other diseases of the circulatory system; Z87.891 Personal history of nicotine dependence
CPT/HCPCS: 93005; 99285; 36415 ×2; 82553; 82962 ×2; 82550 ×2; 85025 ×2; 80048; 80053; 84484; 83036; 80061; 71010; 93010; G0378 ×3; A9270 ×24; J1644; J3490 ×2

== ENCOUNTER 2017-04-11 18:48 | Emergency (ER) | payer MEDICARE, MEDICAID ==
--- NOTE | 2017-04-11 22:52 | RADIOLOGY REPORT (SQ) ---
EXAM DESCRIPTION: CHEST PA/LAT COMPLETED DATE/TIME: 04/11/2017 10:20 pm REASON FOR STUDY: cough COMPARISON: 10/04/2015 EXAM PARAMETERS: NUMBER OF VIEWS: two views TECHNIQUE: Digital Frontal and Lateral radiographic views of the chest acquired. RADIATION DOSE: NA LIMITATIONS: none FINDINGS: LUNGS AND PLEURA: No consolidation, masses or pneumothorax. Trace right pleural effusion versus subpleural scarring. MEDIASTINUM AND HILAR STRUCTURES: Stable. HEART AND VASCULAR STRUCTURES: Stable. BONES: No acute findings. HARDWARE: None in the chest. OTHER: No other significant finding. IMPRESSION: Trace right pleural effusion versus subpleural scarring. No consolidation. TECHNICAL DOCUMENTATION: JOB ID: [id number] Auth0- All Rights Reserved
--- NOTE | 2017-04-11 23:02 | ER Document Report ---
ED Respiratory Problem - General Chief Complaint: Cough Stated Complaint: COUGH Time Seen by Provider: 04/11/17 22:01 Notes: Patient is a 66-year-old female who comes in complaining of a nonproductive cough, sore throat, and congestion. No fever. No difficulty breathing. No history of COPD or asthma per patient. TRAVEL OUTSIDE OF THE [place] IN LAST 30 DAYS: No - HPI Patient complains to provider of: Cough Quality of pain: No pain Severity: None - Related Data Allergies/Adverse Reactions: haloperidol [From Haldol] Allergy (Severe, Verified 04/11/17 18:56) LOCKJAW haloperidol lactate [From Haldol] Allergy (Severe, Verified 04/11/17 18:56) LOCKJAW chlorpromazine HCl [From Thorazine] Allergy (Verified 04/11/17 18:56) chocolate Allergy (Uncoded 04/11/17 18:56) Past Medical History - Social History Smoking Status: Unknown if Ever Smoked Family History: Reviewed & Not Pertinent, CAD - dad and uncle with MIs in their 60s, DM - mom - Past Medical History Cardiac Medical History: Reports: Hx Hypercholesterolemia, Hx Hypertension Pulmonary Medical History: Reports: Hx Bronchitis Neurological Medical History: Reports: Hx Seizures Endocrine Medical History: Reports: Hx Diabetes Mellitus Type 2, Hx Hypothyroidism Renal/ Medical History: Denies: Hx Peritoneal Dialysis GI Medical History: Reports: Hx Gastroesophageal Reflux Disease Musculoskeltal Medical History: Reports Hx Arthritis Psychiatric Medical History: Reports: Hx Bipolar Disorder, Hx Depression, Hx Schizoaffective Disorder, Hx Schizophrenia Past Surgical History: Reports: Hx Cholecystectomy, Hx Neurologic Surgery - carpal tunnel, Hx Tonsillectomy - 1956, Hx Tubal Ligation - Immunizations Hx Diphtheria, Pertussis, Tetanus Vaccination: Yes Hx Pneumococcal Vaccination: 11/08/13 Review of Systems - Review of Systems Constitutional: No symptoms reported EENT: See HPI Cardiovascular: No symptoms reported Respiratory: See HPI Gastrointestinal: No symptoms reported Genitourinary: No symptoms reported Female Genitourinary: No symptoms reported Musculoskeletal: No symptoms reported Skin: No symptoms reported Hematologic/Lymphatic: No symptoms reported Neurological/Psychological: No symptoms reported Physical Exam - Vital signs Vitals: Temp Pulse Resp BP Pulse Ox 98.7 F 72 22 H 125/47 L 100 04/11/17 18:53 04/11/17 18:53 04/11/17 18:53 04/11/17 18:53 04/11/17 18:53 Interpretation: Normal - General General appearance: Appears well, Alert - HEENT Head: Normocephalic, Atraumatic Eyes: Normal Pupils: PERRL - Respiratory Respiratory status: No respiratory distress Chest status: Nontender Breath sounds: Normal Chest palpation: Normal - Cardiovascular Rhythm: Regular Heart sounds: Normal auscultation Murmur: No - Abdominal Inspection: Normal Distension: No distension Bowel sounds: Normal Tenderness: Nontender Organomegaly: No organomegaly - Back Back: Normal, Nontender - Extremities General upper extremity: Normal inspection, Nontender, Normal color, Normal ROM , Normal temperature General lower extremity: Normal inspection, Nontender, Normal color, Normal ROM , Normal temperature, Normal weight bearing. No: Melody's sign - Neurological Neuro grossly intact: Yes Cognition: Normal Orientation: AAOx4 Sterling Coma Scale Eye Opening: Spontaneous [place] Coma Scale Verbal: Oriented Mechelle Coma Scale Motor: Obeys Commands Sterling Coma Scale Total: 15 Speech: Normal Motor strength normal: LUE, RUE, LLE, RLE Sensory: Normal - Psychological Associated symptoms: Normal affect, Normal mood - Skin Skin Temperature: Warm Skin Moisture: Dry Skin Color: Normal Course - Re-evaluation Re-evalutation: 04/12/17 00:01 Patient with no wheezing or evidence for pneumonia. Symptoms are consistent with upper respiratory infection, most likely viral. Follow-up PMD. Return if any worsening or concerning symptoms. - Vital Signs Vital signs: Temp Pulse Resp BP Pulse Ox 98.7 F 72 22 H 125/47 L 100 04/11/17 18:53 04/11/17 18:53 04/11/17 18:53 04/11/17 18:53 04/11/17 18:53 - Diagnostic Test Radiology reviewed: Reports reviewed Discharge - Discharge Clinical Impression: Upper respiratory infection Qualifiers: URI type: unspecified URI Qualified Code(s): J06.9 - Acute upper respiratory infection, unspecified Condition: Stable Disposition: HOME, SELF-CARE Instructions: Upper Respiratory Illness ([facility]) Referrals: MORENO OHARA DO [Primary Care Provider] - Follow up as needed Scribe Attestation: 04/12/17 00:02 I personally performed the services described in the documentation, reviewed and edited the documentation which was dictated to the scribe in my presence, and it accurately records my words and actions.
[2017-04-12 00:05] VITALS: BP 120/78
== END 2017-04-12 00:33 | disposition home or self-care (01) ==
LOC: ER 18:48
DX: J06.9 Acute upper respiratory infection, unspecified (principal); R05 Cough; J02.9 Acute pharyngitis, unspecified; R09.81 Nasal congestion
CPT/HCPCS: 71020; 99284

== ENCOUNTER 2017-07-18 04:29 | Emergency (ER) | payer MEDICARE, MEDICAID ==
[2017-07-18] MEDS ORDERED: LIDOCAINE 2% VISCOUS SOLN 20 ML UDCUP PO ONE (04:43)
[2017-07-18] MEDS ORDERED: MAG HYDROX/AL HYDROX/SIMETH SUSP 30 ML UDCUP PO ONE (04:43)
--- NOTE | 2017-07-18 04:45 | ER Document Report ---
ED General - General Stated Complaint: POSSIBLE ALLERGIC REACTION Time Seen by Provider: 07/18/17 04:36 Notes: Patient is a 67-year-old female that comes emergency department for chief complaint of possible allergic reaction. She states this evening she started getting a burning sensation in the back of her throat and on her tongue, she states she thinks her tongue is swelling up. She denies difficulty swallowing or breathing, she denies rash, she denies any obvious allergic exposures. She is not on any TYRA inhibitor. She comes from [facility] , past medical history of schizophrenia. EMS gave her 50 mg of Benadryl IV en route. TRAVEL OUTSIDE OF THE [place] IN LAST 30 DAYS: No - Related Data Allergies/Adverse Reactions: haloperidol [From Haldol] Allergy (Severe, Verified 04/11/17 18:56) LOCKJAW haloperidol lactate [From Haldol] Allergy (Severe, Verified 04/11/17 18:56) LOCKJAW chlorpromazine HCl [From Thorazine] Allergy (Verified 04/11/17 18:56) chocolate Allergy (Uncoded 04/11/17 18:56) Past Medical History - General Information source: Patient - Social History Smoking Status: Never Smoker Frequency of alcohol use: None Drug Abuse: None Lives with: Family Family History: Reviewed & Not Pertinent, CAD - dad and uncle with MIs in their 60s, DM - mom - Past Medical History Cardiac Medical History: Reports: Hx Hypercholesterolemia, Hx Hypertension Pulmonary Medical History: Reports: Hx Bronchitis Neurological Medical History: Reports: Hx Seizures Endocrine Medical History: Reports: Hx Diabetes Mellitus Type 2, Hx Hypothyroidism Renal/ Medical History: Denies: Hx Peritoneal Dialysis GI Medical History: Reports: Hx Gastroesophageal Reflux Disease. Denies: Hx Pancreatitis Musculoskeltal Medical History: Reports Hx Arthritis Psychiatric Medical History: Reports: Hx Bipolar Disorder, Hx Depression, Hx Schizoaffective Disorder, Hx Schizophrenia Past Surgical History: Reports: Hx Cholecystectomy, Hx Neurologic Surgery - carpal tunnel, Hx Tonsillectomy - 7, Hx Tubal Ligation - Immunizations Hx Diphtheria, Pertussis, Tetanus Vaccination: Yes Hx Pneumococcal Vaccination: 11/08/13 Review of Systems - Review of Systems Constitutional: No symptoms reported EENT: See HPI Cardiovascular: No symptoms reported Respiratory: No symptoms reported Gastrointestinal: No symptoms reported Genitourinary: No symptoms reported Female Genitourinary: No symptoms reported Musculoskeletal: No symptoms reported Skin: No symptoms reported Hematologic/Lymphatic: No symptoms reported Neurological/Psychological: No symptoms reported Physical Exam - Vital signs Vitals: Resp 21 H 07/18/17 04:37 Interpretation: Normal - General General appearance: Appears well, Alert In distress: None - Patient alert, well-appearing, no signs of distress - HEENT Head: Normocephalic, Atraumatic Eyes: Normal Conjunctiva: Normal Extraocular movements intact: Yes Eyelashes: Normal Pupils: PERRL Ears: Normal Sinus: Normal Nasal: Normal Mouth/Lips: Normal. No: Angioedema Mucous membranes: Normal Pharynx: Normal. No: Uvular edema, Potential airway comprom. Neck: Normal - Respiratory Respiratory status: No respiratory distress Chest status: Nontender Breath sounds: Normal. No: Decreased air movement, Wheezing Chest palpation: Normal - Cardiovascular Rhythm: Regular. No: Tachycardia Heart sounds: Normal auscultation, S1 appreciated, S2 appreciated Murmur: No - Abdominal Inspection: Normal Distension: No distension Bowel sounds: Normal Tenderness: Nontender Organomegaly: No organomegaly - Back Back: Normal, Nontender - Extremities General upper extremity: Normal inspection, Nontender, Normal color, Normal ROM , Normal temperature General lower extremity: Normal inspection, Nontender, Normal color, Normal ROM , Normal temperature, Normal weight bearing. No: Melody's sign - Neurological Neuro grossly intact: Yes Cognition: Normal Orientation: AAOx4 Mechelle Coma Scale Eye Opening: Spontaneous [place] Coma Scale Verbal: Oriented [place] Coma Scale Motor: Obeys Commands [place]ro Coma Scale Total: 15 Speech: Normal Motor strength normal: LUE, RUE, LLE, RLE Sensory: Normal - Psychological Associated symptoms: Normal affect, Normal mood - Skin Skin Temperature: Warm Skin Moisture: Dry Skin Color: Normal Course - Re-evaluation Re-evalutation: Patient alert and well-appearing. Complaining of a tickling sensation in the back of her throat. Oropharynx is completely normal on exam. Tongue examination is completely normal. No facial swelling. No rash. No wheezing. No evidence of allergic reaction. I suspect a psychological component of patient's reported symptoms tonight. Patient is pleasant, patient states she feels fine after given GI cocktail medications. Patient discharged back to facility, given return precautions. - Vital Signs Vital signs: Temp Pulse Resp BP Pulse Ox 98.9 F 23 H 140/72 H 93 12/18/17 04:40 07/18/17 05:01 07/18/17 05:01 07/18/17 05:01 Discharge - Discharge Clinical Impression: Throat discomfort, Mouth symptom Condition: Stable Disposition: HOME, SELF-CARE Additional Instructions: No evidence of allergic reaction is seen on your evaluation tonight. Follow-up with primary care. Return to emergency department for any concerning or worsening symptoms including swelling of the face, difficulty breathing or swallowing, or any other concerning symptoms.
[2017-07-18 06:43] VITALS: BP 141/73
== END 2017-07-18 07:30 | disposition home or self-care (01) ==
LOC: ER 04:29
DX: R09.89 Other specified symptoms and signs involving the circulatory and respiratory systems (principal); R19.8 Other specified symptoms and signs involving the digestive system and abdomen; I10 Essential (primary) hypertension; E11.9 Type 2 diabetes mellitus without complications; Z88.8 Allergy status to other drugs, medicaments and biological substances; Z91.018 Allergy to other foods
CPT/HCPCS: 99283; J3490

== ENCOUNTER 2017-08-25 14:53 | Emergency (ER) | payer MEDICARE, MEDICAID ==
--- NOTE | 2017-08-25 16:05 | ER Document Report ---
ED Fever - General Chief Complaint: Fever Stated Complaint: FEVER Time Seen by Provider: 08/25/17 16:05 Mode of Arrival: Wheelchair Information source: Patient TRAVEL OUTSIDE OF THE [place] IN LAST 30 DAYS: No - HPI Onset: Yesterday Onset/Duration: Sudden Quality of pain: Achy Severity: Moderate Context: Cough. denies: Cancer, Chemotherapy, Dialysis Associated symptoms: Productive cough, Fever, Headache Similar symptoms previously: Yes - NOT RECENT Recently seen / treated by doctor: No - Related Data Allergies/Adverse Reactions: haloperidol [From Haldol] Allergy (Severe, Verified 04/11/17 18:56) LOCKJAW haloperidol lactate [From Haldol] Allergy (Severe, Verified 04/11/17 18:56) LOCKJAW chlorpromazine HCl [From Thorazine] Allergy (Verified 04/11/17 18:56) chocolate Allergy (Uncoded 04/11/17 18:56) Past Medical History - General Information source: Patient, Transfer Record, [facility] Records - Social History Smoking Status: Former Smoker Cigarette use (# per day): No Chew tobacco use (# tins/day): No Frequency of alcohol use: None Drug Abuse: None Lives with: [facility] Family History: Reviewed & Not Pertinent, CAD - dad and uncle with MIs in their 60s, DM - mom Patient has suicidal ideation: No Patient has homicidal ideation: No - Past Medical History Cardiac Medical History: Reports: Hx Hypercholesterolemia, Hx Hypertension Pulmonary Medical History: Reports: Hx Bronchitis Neurological Medical History: Reports: Hx Seizures Endocrine Medical History: Reports: Hx Diabetes Mellitus Type 2, Hx Hypothyroidism Renal/ Medical History: Denies: Hx Peritoneal Dialysis GI Medical History: Reports: Hx Gastroesophageal Reflux Disease. Denies: Hx Pancreatitis Musculoskeltal Medical History: Reports Hx Arthritis Psychiatric Medical History: Reports: Hx Bipolar Disorder, Hx Depression, Hx Schizoaffective Disorder, Hx Schizophrenia Past Surgical History: Reports: Hx Cholecystectomy, Hx Neurologic Surgery - carpal tunnel, Hx Tonsillectomy - 1957, Hx Tubal Ligation - Immunizations Hx Diphtheria, Pertussis, Tetanus Vaccination: Yes Hx Pneumococcal Vaccination: 11/08/13 Review of Systems - Review of Systems Constitutional: See HPI EENT: See HPI, Throat pain - SLIGHT Cardiovascular: No symptoms reported. denies: Dyspnea, Lightheaded Respiratory: See HPI, Cough, Sputum. denies: Short of breath, Wheezing Gastrointestinal: Poor appetite. denies: Diarrhea, Nausea, Vomiting Genitourinary: No symptoms reported Female Genitourinary: Post menopausal Musculoskeletal: Other - GENERALIZED ACHES Skin: No symptoms reported Neurological/Psychological: Headaches Physical Exam - Vital signs Interpretation: Hypotensive - ON ARRIVAL TO E.D., LATER SPONTANEOUSLY CORRECTED. , Febrile. No: Tachycardic, Hypoxic, Tachypneic - General General appearance: Appears well, Alert In distress: None - HEENT Head: Normocephalic Eyes: Normal Conjunctiva: Normal Ears: Normal External canal: Normal Tympanic membrane: Normal Nasal: Normal Mouth/Lips: Normal Mucous membranes: Normal Pharynx: Normal Neck: Normal, Supple - Respiratory Respiratory status: No respiratory distress Breath sounds: Normal - Cardiovascular Rhythm: Regular Heart sounds: Normal auscultation Murmur: No - Abdominal Inspection: Obese Distension: No distension Bowel sounds: Hypoactive Tenderness: Nontender - Back Back: Normal - Extremities General upper extremity: Normal inspection General lower extremity: Normal inspection - Neurological Neuro grossly intact: Yes Cognition: Normal Orientation: AAOx4 - Psychological Associated symptoms: Normal affect, Normal mood - Skin Skin Temperature: Warm Skin Moisture: Dry Skin Color: Normal Skin Turgor: Elastic Course - Laboratory Result Diagrams: 08/25/17 16:06 08/25/17 16:15 Laboratory results interpreted by me: 08/25/17 08/25/17 08/25/17 16:06 16:15 18:10 Seg Neutrophils % 84.1 H Lymphocytes % 8.0 L Absolute Lymphocytes 0.4 L Sodium 136.4 L Est GFR ( Amer) 55 L Est GFR (Non-Af Amer) 46 L AST 38 H Urine Protein 30 H Urine Blood MODERATE H Ur Leukocyte Esterase LARGE H Discharge - Discharge Clinical Impression: Flu-like symptoms Fever Qualifiers: Fever type: unspecified Qualified Code(s): R50.9 - Fever, unspecified Condition: Stable Disposition: HOME, SELF-CARE Instructions: Influenza ([facility]), Viral Syndrome ([facility]) Additional Instructions: REST, DRINK PLENTY OF FLUIDS. TAKE TAMIFLU DIRECTED. CONTINUE YOUR OTHER MEDICATIONS USUAL. FOLLOW UP WITH YOUR PRIMARY CARE PROVIDER OR RETURN TO E.R. IF PROBLEMS. Prescriptions: Oseltamivir Phosphate [Tamiflu 75 mg Capsule] 75 mg PO BID #10 capsule Referrals: MORENO OHARA DO [Primary Care Provider] - Follow up as needed
[2017-08-25] MEDS ORDERED: NORMAL SALINE 1000 ML 1,000 ML IV ONE (16:06)
[2017-08-25] MEDS ORDERED: CEFTRIAXONE 1 GM/D5W RTU 1 GM/50 ML RTUPB IV ONE (16:06)
[2017-08-25 16:33] LABS: VENOUS BLOOD BASE EXCESS 1.4 mmol/L; VENOUS BLOOD HCO3 28.8 mmol/L (20-32); VENOUS BLOOD PCO2 56.6 mmHg (35-63); VENOUS BLOOD PH 7.32 (7.30-7.42)
[2017-08-25 16:39] LABS: INTERNATIONAL RATION (INR) 0.94; PROTHROMBIN TIME 13.2 SEC (11.4-15.4)
[2017-08-25 16:53] LABS: ABSOLUTE EOSINOPHILS # (AUTO) 0.1 10^3/uL (0.0-0.6); ABSOLUTE LYMPHOCYTES (AUTO) 0.4 10^3/uL (0.5-4.7); ABSOLUTE MONOCYTES (AUTO) 0.3 10^3/uL (0.1-1.4); BASOPHILS % (AUTO) 0.5 % (0-2); EOSINOPHILS % (AUTO) 2.1 % (0-6); HEMATOCRIT 38.8 % (36.0-47.0); HEMOGLOBIN 13.3 g/dL (12.0-15.5); MEAN CORPUSCULAR HEMOGLOBIN 32.2 pg (27.0-33.4); MEAN CORPUSCULAR HGB CONC 34.2 g/dL (32.0-36.0); MEAN CORPUSCULAR VOLUME 94 fl (80-97); MONOCYTES % (AUTO) 5.3 % (3-13); PLATELET COUNT 181 10^3/uL (150-450); RED BLOOD COUNT 4.12 10^6/uL (3.72-5.28); RED CELL DISTRIBUTION WIDTH 13.3 % (11.5-14.0); SEGMENTED NEUTROPHILS % (AUTO) 84.1 % (42-78); TOTAL CELLS COUNTED % (AUTO) 100 %; WHITE BLOOD COUNT 4.8 10^3/uL (4.0-10.5)
[2017-08-25 16:55] LABS: ALANINE AMINOTRANSFERASE 26 U/L (9-52); ALBUMIN 3.9 g/dL (3.5-5.0); ALKALINE PHOSPHATASE 67 U/L (38-126); ANION GAP 9 (5-19); ASPARTATE AMINO TRANSFERASE 38 U/L (14-36); BILIRUBIN,DIRECT 0.3 mg/dL (0.0-0.4); BILIRUBIN,TOTAL 0.6 mg/dL (0.2-1.3); BLOOD UREA NITROGEN 18 mg/dL (7-20); CALCIUM 9.3 mg/dL (8.4-10.2); CARBON DIOXIDE 27 mmol/L (22-30); CHLORIDE 100 mmol/L (98-107); GLUCOSE 76 mg/dL (75-110); POTASSIUM 3.9 mmol/L (3.6-5.0); SODIUM 136.4 mmol/L (137-145); TOTAL PROTEIN 6.4 g/dL (6.3-8.2)
--- NOTE | 2017-08-25 17:36 | RADIOLOGY REPORT (SQ) ---
EXAM DESCRIPTION: CHEST SINGLE VIEW COMPLETED DATE/TIME: 08/25/2017 4:33 pm REASON FOR STUDY: FEVER COMPARISON: April 2017. EXAM PARAMETERS: NUMBER OF VIEWS: One view. TECHNIQUE: Single frontal radiographic view of the chest acquired. RADIATION DOSE: NA LIMITATIONS: None. FINDINGS: LUNGS AND PLEURA: No opacities, masses or pneumothorax. No pleural effusion. MEDIASTINUM AND HILAR STRUCTURES: No masses. Contour normal. HEART AND VASCULAR STRUCTURES: Heart normal in size. Normal vasculature. BONES: No acute findings. HARDWARE: None in the chest. OTHER: No other significant finding. IMPRESSION: NO ACUTE RADIOGRAPHIC FINDING IN THE CHEST. TECHNICAL DOCUMENTATION: JOB ID: [id number] [employer] [facility]- All Rights Reserved
[2017-08-25] MEDS ORDERED: OSELTAMIVIR PHOSPHATE 75 MG CAPSULE PO ONE (18:06)
[2017-08-25 18:55] LABS: APPEARANCE,URINE SLIGHTLY-CLOUDY; BILIRUBIN,URINE NEGATIVE (NEGATIVE); COLOR,URINE YELLOW; GLUCOSE, URINE NEGATIVE (NEGATIVE); KETONES,URINE NEGATIVE (NEGATIVE); LEUKOCYTE ESTERASE,URINE LARGE (NEGATIVE); NITRITE,URINE NEGATIVE (NEGATIVE); PROTEIN,URINE 30 mg/dL (NEGATIVE); URINE SPECIFIC GRAVITY 1.012; UROBILINOGEN,URINE NEGATIVE mg/dL (<2.0)
[2017-08-25 22:57] VITALS: BP 133/60
--- NOTE | 2017-08-26 07:39 | EKG REPORT ---
SEVERITY:- NORMAL ECG - SINUS RHYTHM : Confirmed by: Janie Pulido MD 26-Aug-2017 07:38:15
== END 2017-08-25 17:52 | disposition home or self-care (01) ==
LOC: ER 14:53
DX: R50.9 Fever, unspecified (principal); Z87.891 Personal history of nicotine dependence
CPT/HCPCS: 93005; 99285; 96360; 36415; 87040; 87086; 85025; 85610; 87088; 80053; 81001; 87186; 82803; 83605; 71045; 93010; A9270; J7030; J3490

== ENCOUNTER 2017-09-01 04:23 | Emergency (ER) | payer MEDICARE, MEDICAID ==
--- NOTE | 2017-09-01 07:57 | ER Document Report ---
ED General - General Chief Complaint: Depression Stated Complaint: PSYCH PROBLEM Time Seen by Provider: 09/01/17 05:59 Notes: She is sent here from assisted for evaluation of agitation. She denies any suicidal ideation. States that she gets frustrated with her boyfriend. Denies any homicidal ideation. Was recently seen in the emergency department. Was started on Tamiflu. Has been taking it. Has been having some agitation since that time. Should have finished her last dose yesterday. Patient states that her urine is cloudy. Denies any fever or chills at this time. An occasional cough. TRAVEL OUTSIDE OF THE [place] IN LAST 30 DAYS: No - HPI Onset: Just prior to arrival Onset/Duration: Gradual Quality of pain: No pain Severity: Mild Pain Level: 0 Associated symptoms: Nonproductive cough Exacerbated by: Denies Relieved by: Denies - Related Data Allergies/Adverse Reactions: haloperidol [From Haldol] Allergy (Severe, Verified 09/01/17 04:55) LOCKJAW haloperidol lactate [From Haldol] Allergy (Severe, Verified 09/01/17 04:55) LOCKJAW chlorpromazine HCl [From Thorazine] Allergy (Verified 09/01/17 04:55) chocolate Allergy (Uncoded 09/01/17 04:55) Past Medical History - General Information source: Patient, [facility] Records, Outside Facility Records - Social History Smoking Status: Unknown if Ever Smoked Cigarette use (# per day): No Frequency of alcohol use: None Drug Abuse: None Lives with: [facility] Family History: Reviewed & Not Pertinent, CAD - dad and uncle with MIs in their 60s, DM - mom Patient has suicidal ideation: No Patient has homicidal ideation: No - Past Medical History Cardiac Medical History: Reports: Hx Hypercholesterolemia, Hx Hypertension Pulmonary Medical History: Reports: Hx Bronchitis Neurological Medical History: Reports: Hx Seizures Endocrine Medical History: Reports: Hx Diabetes Mellitus Type 2, Hx Hypothyroidism Renal/ Medical History: Denies: Hx Peritoneal Dialysis GI Medical History: Reports: Hx Gastroesophageal Reflux Disease. Denies: Hx Pancreatitis Musculoskeltal Medical History: Reports Hx Arthritis Psychiatric Medical History: Reports: Hx Bipolar Disorder, Hx Depression, Hx Schizoaffective Disorder, Hx Schizophrenia Past Surgical History: Reports: Hx Cholecystectomy, Hx Neurologic Surgery - carpal tunnel, Hx Tonsillectomy - 1957, Hx Tubal Ligation - Immunizations Hx Diphtheria, Pertussis, Tetanus Vaccination: Yes Hx Pneumococcal Vaccination: 11/08/13 Review of Systems - Review of Systems Constitutional: denies: Fever, Malaise, Weakness EENT: denies: Blurred vision, Tearing, Double vision, Throat pain, Difficulty swallowing, Mouth swelling Cardiovascular: denies: Chest pain, Palpitations, Heart racing Gastrointestinal: denies: Abdominal pain, Diarrhea, Nausea, Vomiting Genitourinary: Dysuria, Urgency. denies: Discharge, Hematuria Musculoskeletal: denies: Back pain, Gout, Joint pain Skin: denies: Dryness, Lesions, Rash Hematologic/Lymphatic: denies: Easy bleeding, Easy bruising Physical Exam - Vital signs Vitals: Temp Pulse Resp BP Pulse Ox 99.9 F 85 18 138/80 H 97 09/01/17 04:33 09/01/17 04:33 09/01/17 04:33 09/01/17 04:33 09/01/17 04:33 Interpretation: Normal - General General appearance: Appears well, Alert - HEENT Head: Normocephalic, Atraumatic Eyes: Normal Pupils: PERRL - Respiratory Respiratory status: No respiratory distress Chest status: Nontender Breath sounds: Normal Chest palpation: Normal - Cardiovascular Rhythm: Regular Heart sounds: Normal auscultation Murmur: No - Abdominal Inspection: Normal Distension: No distension Bowel sounds: Normal Tenderness: Nontender Organomegaly: No organomegaly - Back Back: Normal, Nontender - Extremities General upper extremity: Normal inspection, Nontender, Normal color, Normal ROM , Normal temperature General lower extremity: Normal inspection, Nontender, Normal color, Normal ROM , Normal temperature, Normal weight bearing. No: Melody's sign - Neurological Neuro grossly intact: Yes Cognition: Normal Orientation: AAOx4 [place]le Coma Scale Eye Opening: Spontaneous [place] Coma Scale Verbal: Oriented [place] Coma Scale Motor: Obeys Commands [place] Coma Scale Total: 15 Speech: Normal Motor strength normal: LUE, RUE, LLE, RLE Sensory: Normal - Psychological Associated symptoms: Normal affect, Normal mood - Skin Skin Temperature: Warm Skin Moisture: Dry Skin Color: Normal Course - Re-evaluation Re-evalutation: 09/01/17 07:58 This is patient was like at her baseline. Afebrile. Not tachycardic. Normal blood pressure. Was seen here a few days ago and diagnosed with influenza. Was started on Tamiflu. Patient has a very fragile mental health history as well. On multiple medications for her mental health. It is well-known that Tamiflu can sometimes cause mental health disturbances especially people prone to that. Of note patient did have some dysuria. A review of the cultures from the previous visit show that she did grow out E. coli. She does is currently not on treatment for that. It will benefit her to start antibiotics at this time. We will give her her first dose. Will get blood sugar on her. Review of the labs do not show any significant history of severe hyponatremia or significant electrolyte abnormalities so we will not feel compelled at this time to do blood work. Patient is comfortable with this plan. Patient is cleared from a medical standpoint. I find no further emergency medical conditions at this time which need treatment. I do not feel the patient needs to be seen by mental health. During my extensive evaluation in speaking with the patient she denied any suicidal ideation, homicidal ideation, visions of disturbing natures or other acute psychotic concerns. - Vital Signs Vital signs: Temp Pulse Resp BP Pulse Ox 99.9 F 85 18 138/80 H 97 09/01/17 04:33 09/01/17 04:33 09/01/17 04:40 09/01/17 04:33 09/01/17 04:33 Discharge - Discharge Clinical Impression: Urinary tract infection Qualifiers: Urinary tract infection type: site unspecified Hematuria presence: without hematuria Qualified Code(s): N39.0 - Urinary tract infection, site not specified Condition: Good Disposition: HOME, SELF-CARE Instructions: Amoxicillin ([facility]), Urinary Tract Infection ([facility]) Additional Instructions: Based on your culture results from the other day you are experiencing a urinary tract infection. We are starting you on antibiotics today. Please make sure that the nursing facility that you are living that gets her prescriptions filled and begins treatment today. Please follow-up with your regular doctor soon as possible as well. Prescriptions: Amox Tr/Potassium Clavulanate [Augmentin 875-125 Tablet] 1 tab PO BID 7 Days # 14 tablet Referrals: MORENO OHARA DO [Primary Care Provider] - Follow up as needed
[2017-09-01] MEDS ORDERED: AMOXICILLIN TR/POT CLAVULANATE 500-125 MG TAB PO ONE (08:05)
[2017-09-01 08:45] VITALS: BP 132/74
== END 2017-09-01 08:45 | disposition home or self-care (01) ==
LOC: ER 04:23
DX: N39.0 Urinary tract infection, site not specified (principal); F32.9 Major depressive disorder, single episode, unspecified
CPT/HCPCS: 99284; 82962; A9270

== ENCOUNTER 2017-09-30 21:35 | Emergency (ER) | payer MEDICARE, MEDICAID ==
--- NOTE | 2017-09-30 23:11 | RADIOLOGY REPORT (SQ) ---
EXAM DESCRIPTION: CT HEAD WITHOUT CLINICAL HISTORY: 67 years Female, fall COMPARISON: None. TECHNIQUE: No contrast. This exam was performed according to our departmental dose-optimization program, which includes automated exposure control, adjustment of the mA and/or kV according to patient size and/or use of iterative reconstruction technique. FINDINGS: No hemorrhage or infarct. No mass, mass effect, or midline shift. Moderate right parietal scalp swelling. Brain and extra-axial structures appear otherwise intact. IMPRESSION: Scalp swelling. No acute intracranial findings.
--- NOTE | 2017-09-30 23:29 | RADIOLOGY REPORT (SQ) ---
EXAM DESCRIPTION: CT CERVICAL SPINE WITHOUT CLINICAL HISTORY: 67 years Female, fall COMPARISON: None. TECHNIQUE: No contrast. Coronal and sagittal reformat. This exam was performed according to our departmental dose-optimization program, which includes automated exposure control, adjustment of the mA and/or kV according to patient size and/or use of iterative reconstruction technique. FINDINGS: Mild C4 and C5 anterior vertebral height loss. Mild disc desiccation between C4 and C6. Normal alignment and curvature. Unenhanced nuchal soft tissues, inferior cranium, and upper thorax appear otherwise grossly intact. Impression: Mild C4 and C5 anterior vertebral height loss, of indeterminate age.
--- NOTE | 2017-09-30 23:31 | ER Document Report ---
ED General - General Chief Complaint: Fall Injury Stated Complaint: FALL Time Seen by Provider: 09/30/17 22:12 Notes: Patient is a 67-year-old female with a past medical history of schizoaffective disorder, currently living in a intermediate at [facility] who presents after a fall out of her bed. The patient reports that this occurred as she tried a role in her bed and landed on her head on the side of the floor. Patient states that since that time she has had a dull, constant, throbbing pain to the right side of her scalp. Symptoms have been unchanged since onset. Nothing improves or worsens that pain. She denies a history of similar injuries in the past. Since the injury she denies any focal weakness, numbness , confusion, vomiting, or inability to ambulate. She does not use any form of anticoagulation. She does arrive by EMS. She denies any injury to any other location on her body. TRAVEL OUTSIDE OF THE [place] IN LAST 30 DAYS: No - Related Data Allergies/Adverse Reactions: haloperidol [From Haldol] Allergy (Severe, Verified 09/01/17 04:55) LOCKJAW haloperidol lactate [From Haldol] Allergy (Severe, Verified 09/01/17 04:55) LOCKJAW chlorpromazine HCl [From Thorazine] Allergy (Verified 09/01/17 04:55) chocolate Allergy (Uncoded 09/01/17 04:55) Past Medical History - General Information source: Patient - Social History Smoking Status: Never Smoker Frequency of alcohol use: None Drug Abuse: None Lives with: Other - prison Family History: Reviewed & Not Pertinent, CAD - dad and uncle with MIs in their 60s, DM - mom Patient has suicidal ideation: No Patient has homicidal ideation: No - Past Medical History Cardiac Medical History: Reports: Hx Hypercholesterolemia, Hx Hypertension Pulmonary Medical History: Reports: Hx Bronchitis Neurological Medical History: Reports: Hx Seizures Endocrine Medical History: Reports: Hx Diabetes Mellitus Type 2, Hx Hypothyroidism Renal/ Medical History: Denies: Hx Peritoneal Dialysis GI Medical History: Reports: Hx Gastroesophageal Reflux Disease. Denies: Hx Pancreatitis Musculoskeltal Medical History: Reports Hx Arthritis Psychiatric Medical History: Reports: Hx Bipolar Disorder, Hx Depression, Hx Schizoaffective Disorder, Hx Schizophrenia Past Surgical History: Reports: Hx Cholecystectomy, Hx Neurologic Surgery - carpal tunnel, Hx Tonsillectomy - 1957, Hx Tubal Ligation - Immunizations Hx Diphtheria, Pertussis, Tetanus Vaccination: Yes Hx Pneumococcal Vaccination: 11/08/13 Review of Systems - Review of Systems Notes: Constitutional: Negative for fever. Eyes: Negative for visual changes. ENT: Negative for facial injury Cardiovascular: Negative for chest injury. Respiratory: Negative for shortness of breath. Gastrointestinal: Negative for abdominal injury. Genitourinary: Negative for genital injury Musculoskeletal: Negative for back injury. Skin: Positive for laceration/abrasions. Neurological: Positive for head injury. Physical Exam - Vital signs Interpretation: Normal Notes: PHYSICAL EXAMINATION: GENERAL: Well-appearing, no acute distress. HEAD: There is a right parietal scalp hematoma with an associated 2 cm laceration EYES: Pupils equal round and reactive to light, extraocular movements intact, sclera anicteric, conjunctiva are normal. ENT: nares patent, no oral pharyngeal trauma. No hemotympanum, no Green's sign , no raccoon eyes. NECK: No midline cervical spine tenderness. Patient able to move their head to 45 bilaterally without any discomfort. LUNGS: Breath sounds clear to auscultation bilaterally and equal. No wheezes rales or rhonchi. HEART: Regular rate and rhythm without murmurs. CHEST WALL: No ecchymosis over the chest wall. ABDOMEN: Soft, nontender, normoactive bowel sounds. No guarding, no rebound. No abdominal bruising EXTREMITIES: Normal range of motion, no pitting or edema. No long bone deformities. BACK: No midline spinal tenderness, step-offs, or deformities. NEUROLOGICAL: Face symmetric. Tongue protrudes midline. Extraocular motions intact. Pupils are 2 mm and equally reactive. Normal speech, normal gait. 5 out of 5 strength in both the distal and proximal upper and lower extremities bilaterally. Sensation is grossly intact throughout. Finger to nose testing normal. Pronator drift normal. PSYCH: Normal mood, normal affect. SKIN: Warm, Dry, normal turgor, scalp hematoma and laceration as above Course - Re-evaluation Re-evalutation: 09/30/17 23:30 Presentation of a well appearing elderly patient in no acute distress, vitals within normal limits after a mechanical fall. Patient denies a syncopal episode as the cause for today's fall. No focal neurologic deficits on exam, no evidence of basilar skull fracture on exam without evidence of hemotympanum, raccoon eyes, or periauricular hematoma. No papilledema. Patient is not on anticoagulation. GCS is 15. No loss of consciousness. No episodes of vomiting. However, based on patient's age a CT of the head has been obtained which is negative for any acute intracranial bleed. Likewise, patient was unable to be clinically cleared due to age by Weber cervical spine criteria. A CT of the cervical spine was also obtained and likewise is negative for any acute fracture. No indication for further imaging of the cervical spine. Patient has no focal deformities or limited range of motion in any joint space. Chest and abdominal exam are benign without any focal tenderness, shortness of breath, or bruising over the chest or abdominal wall. Patient has no flank tenderness. Patient did have a right sided parietal scalp laceration that was cleaned and irrigated. 4 christo were placed for closure of the wound without difficulty. The patient's tetanus immunization was updated. At this time will discharge with return precautions and follow-up recommendations. Verbal discharge instructions given a the bedside and opportunity for questions given. Medication warnings reviewed. Patient is in agreement with this plan and has verbalized understanding of return precautions and the need for primary care follow-up in the next 24-72 hours. - Diagnostic Test Radiology reviewed: Image reviewed, Reports reviewed Radiology results interpreted by me: 10/01/17 03:18 CT head: No acute intracranial bleed Procedures - Laceration/Wound Repair Right Head Wound length (cm): 2 Wound's Depth, Shape: Superficial, Contused tissue Laceration pre-procedure: Sterile PPE donned, Shur-Clens applied Wound explored: Clean Irrigated w/ Saline (mLs): 300 Wound Debrided: Minimal Wound Repaired With: Murphy Number of Sutures: 4 Discharge - Discharge Clinical Impression: Fall Qualifiers: Encounter type: initial encounter Qualified Code(s): W19.XXXA - Unspecified fall, initial encounter Head trauma Qualifiers: Encounter type: initial encounter Qualified Code(s): S09.90XA - Unspecified injury of head, initial encounter Scalp hematoma Qualifiers: Encounter type: initial encounter Qualified Code(s): S00.03XA - Contusion of scalp, initial encounter Scalp laceration Qualifiers: Encounter type: initial encounter Qualified Code(s): S01.01XA - Laceration without foreign body of scalp, initial encounter Condition: Good Disposition: HOME, SELF-CARE Additional Instructions: You have likely sustained a contusion (bruise) to your head. If you had a CT scan done, it did not show any evidence of serious injury or bleeding. Symptoms to expect from a concussion include nausea, mild to moderate headache, difficulty concentrating or sleeping, and mild lightheadedness. These symptoms should improve over the next few days to weeks. Return to the emergency department or follow-up with your primary care doctor if your symptoms are not improving over this time. Signs of a more serious head injury include vomiting , severe headache, excessive sleepiness or confusion, and weakness or numbness in your face, arms or legs. Return immediately to the Emergency Department if you experience any of these more concerning symptoms. Rest, avoid strenuous physical or mental activity, and avoid activities that could potentially result in another head injury until all your symptoms from this head injury are completely resolved for at least 2-3 weeks. If you participate in sports, get cleared by your doctor or product trainer before returning to play. You may take ibuprofen or acetaminophen over the counter according to label instructions for mild headache or scalp soreness. Please return to your primary doctor, the ED, or an urgent care in 7 days for staple removal. Return immediately if you develop spreading redness around the wound, pus from the wound, worsening pain, or a fever of >100.4. Keep the area clean and dry. Wash gently with soap and water twice daily and cover with antibiotic ointment. Referrals: MORENO OHARA, [Primary Care Provider] - Follow up as needed
[2017-09-30] MEDS ORDERED: DIPH/PERTUSS(ACELL)/TETANUS VAC/PF 0.5 ML SYR (>=10YO) IM ONE (23:39)
== END 2017-10-01 00:40 | disposition home or self-care (01) ==
LOC: ER 21:35
PROC: 0HQ0XZZ Repair Scalp Skin, External Approach (ICD-10-PCS; principal; 2017-09-30)
DX: S09.90XA Unspecified injury of head, initial encounter (principal); S00.03XA Contusion of scalp, initial encounter; S01.01XA Laceration without foreign body of scalp, initial encounter; F25.9 Schizoaffective disorder, unspecified; W06.XXXA Fall from bed, initial encounter
CPT/HCPCS: 70450; 72125; 90471; 90715; 99284

== ENCOUNTER → 2017-10-21 | Outpatient (CLI) | payer MEDICARE, MEDICAID ==
[2017-10-21 08:35] LABS: ABSOLUTE EOSINOPHILS # (AUTO) 0.1 10^3/uL (0.0-0.6); ABSOLUTE LYMPHOCYTES (AUTO) 1.2 10^3/uL (0.5-4.7); ABSOLUTE MONOCYTES (AUTO) 0.4 10^3/uL (0.1-1.4); ABSOLUTE NEUT (AUTO) 5.3 10^3/uL (1.7-8.2); BASOPHILS % (AUTO) 0.3 % (0-2); HEMATOCRIT 37.7 % (36.0-47.0); HEMOGLOBIN 12.7 g/dL (12.0-15.5); LYMPHOCYTES % (AUTO) 17.1 % (13-45); MEAN CORPUSCULAR HEMOGLOBIN 31.7 pg (27.0-33.4); MEAN CORPUSCULAR HGB CONC 33.7 g/dL (32.0-36.0); MEAN CORPUSCULAR VOLUME 94 fl (80-97); MONOCYTES % (AUTO) 5.1 % (3-13); PLATELET COUNT 369 10^3/uL (150-450); RED CELL DISTRIBUTION WIDTH 13.8 % (11.5-14.0); SEGMENTED NEUTROPHILS % (AUTO) 75.5 % (42-78); TOTAL CELLS COUNTED % (AUTO) 100 %; WHITE BLOOD COUNT 7.1 10^3/uL (4.0-10.5)
[2017-10-21 08:56] LABS: ALANINE AMINOTRANSFERASE 36 U/L (9-52); ALBUMIN 3.8 g/dL (3.5-5.0); ALKALINE PHOSPHATASE 85 U/L (38-126); ANION GAP 7 (5-19); ASPARTATE AMINO TRANSFERASE 25 U/L (14-36); BILIRUBIN,DIRECT 0.2 mg/dL (0.0-0.4); BILIRUBIN,TOTAL 0.4 mg/dL (0.2-1.3); BLOOD UREA NITROGEN 16 mg/dL (7-20); CALCIUM 10.3 mg/dL (8.4-10.2); CARBON DIOXIDE 33 mmol/L (22-30); CHLORIDE 102 mmol/L (98-107); CHOLESTEROL 175.27 mg/dL (0-200); GLUCOSE 105 mg/dL (75-110); POTASSIUM 4.7 mmol/L (3.6-5.0); TOTAL PROTEIN 6.3 g/dL (6.3-8.2); TRIGLYCERIDES 108 mg/dL (<150)
[2017-10-21 09:07] LABS: DIRECT LDL 79 mg/dL (<100)
== END ==
LOC: OD 08:00
PROVIDERS: ATTEND Nurse Practitioner Psychiatric/Mental Health
DX: F25.0 Schizoaffective disorder, bipolar type (principal); Z79.899 Other long term (current) drug therapy
CPT/HCPCS: 36415; 80053; 80061; 83036; 84443; 85025

== ENCOUNTER → 2017-10-28 | Outpatient (CLI) | payer MEDICARE, MEDICAID ==
[2017-10-28 08:35] LABS: ABSOLUTE EOSINOPHILS # (AUTO) 0.2 10^3/uL (0.0-0.6); ABSOLUTE LYMPHOCYTES (AUTO) 1.4 10^3/uL (0.5-4.7); ABSOLUTE MONOCYTES (AUTO) 0.5 10^3/uL (0.1-1.4); ABSOLUTE NEUT (AUTO) 4.7 10^3/uL (1.7-8.2); BASOPHILS % (AUTO) 0.3 % (0-2); EOSINOPHILS % (AUTO) 2.5 % (0-6); HEMATOCRIT 37.7 % (36.0-47.0); HEMOGLOBIN 12.7 g/dL (12.0-15.5); LYMPHOCYTES % (AUTO) 20.3 % (13-45); MEAN CORPUSCULAR HEMOGLOBIN 31.6 pg (27.0-33.4); MEAN CORPUSCULAR HGB CONC 33.7 g/dL (32.0-36.0); MEAN CORPUSCULAR VOLUME 94 fl (80-97); MONOCYTES % (AUTO) 7.7 % (3-13); PLATELET COUNT 294 10^3/uL (150-450); RED BLOOD COUNT 4.02 10^6/uL (3.72-5.28); RED CELL DISTRIBUTION WIDTH 13.8 % (11.5-14.0); SEGMENTED NEUTROPHILS % (AUTO) 69.2 % (42-78); TOTAL CELLS COUNTED % (AUTO) 100 %; WHITE BLOOD COUNT 6.8 10^3/uL (4.0-10.5)
== END ==
LOC: OD 07:50
PROVIDERS: ATTEND Nurse Practitioner Psychiatric/Mental Health
DX: F25.0 Schizoaffective disorder, bipolar type (principal); Z79.899 Other long term (current) drug therapy
CPT/HCPCS: 36415; 85025

== ENCOUNTER → 2017-11-04 | Outpatient (CLI) | payer MEDICARE, MEDICAID ==
[2017-11-04 10:27] LABS: ABSOLUTE EOSINOPHILS # (AUTO) 0.2 10^3/uL (0.0-0.6); ABSOLUTE LYMPHOCYTES (AUTO) 1.2 10^3/uL (0.5-4.7); ABSOLUTE MONOCYTES (AUTO) 0.4 10^3/uL (0.1-1.4); BASOPHILS % (AUTO) 0.2 % (0-2); EOSINOPHILS % (AUTO) 3.9 % (0-6); HEMATOCRIT 38.6 % (36.0-47.0); HEMOGLOBIN 13.3 g/dL (12.0-15.5); LYMPHOCYTES % (AUTO) 24.5 % (13-45); MEAN CORPUSCULAR HEMOGLOBIN 32.3 pg (27.0-33.4); MEAN CORPUSCULAR HGB CONC 34.4 g/dL (32.0-36.0); MEAN CORPUSCULAR VOLUME 94 fl (80-97); MONOCYTES % (AUTO) 8.2 % (3-13); PLATELET COUNT 280 10^3/uL (150-450); RED BLOOD COUNT 4.11 10^6/uL (3.72-5.28); RED CELL DISTRIBUTION WIDTH 13.9 % (11.5-14.0); SEGMENTED NEUTROPHILS % (AUTO) 63.2 % (42-78); TOTAL CELLS COUNTED % (AUTO) 100 %; WHITE BLOOD COUNT 4.8 10^3/uL (4.0-10.5)
== END ==
LOC: OD 09:05
PROVIDERS: ATTEND Nurse Practitioner Psychiatric/Mental Health
DX: F25.0 Schizoaffective disorder, bipolar type (principal); Z79.899 Other long term (current) drug therapy
CPT/HCPCS: 36415; 85025

== ENCOUNTER → 2017-11-11 | Outpatient (CLI) | payer MEDICARE, MEDICAID ==
[2017-11-11 09:10] LABS: ABSOLUTE EOSINOPHILS # (AUTO) 0.2 10^3/uL (0.0-0.6); ABSOLUTE LYMPHOCYTES (AUTO) 1.2 10^3/uL (0.5-4.7); ABSOLUTE MONOCYTES (AUTO) 0.5 10^3/uL (0.1-1.4); BASOPHILS % (AUTO) 0.4 % (0-2); EOSINOPHILS % (AUTO) 3.6 % (0-6); HEMATOCRIT 40.7 % (36.0-47.0); HEMOGLOBIN 13.9 g/dL (12.0-15.5); LYMPHOCYTES % (AUTO) 20.7 % (13-45); MEAN CORPUSCULAR HEMOGLOBIN 31.9 pg (27.0-33.4); MEAN CORPUSCULAR HGB CONC 34.1 g/dL (32.0-36.0); MEAN CORPUSCULAR VOLUME 93 fl (80-97); MONOCYTES % (AUTO) 8.3 % (3-13); PLATELET COUNT 271 10^3/uL (150-450); RED BLOOD COUNT 4.36 10^6/uL (3.72-5.28); RED CELL DISTRIBUTION WIDTH 13.7 % (11.5-14.0); TOTAL CELLS COUNTED % (AUTO) 100 %
== END ==
LOC: OD 08:21
PROVIDERS: ATTEND Nurse Practitioner Psychiatric/Mental Health
DX: F25.0 Schizoaffective disorder, bipolar type (principal); Z79.899 Other long term (current) drug therapy
CPT/HCPCS: 36415; 85025

== ENCOUNTER → 2017-11-18 | Outpatient (CLI) | payer MEDICARE, MEDICAID ==
[2017-11-18 08:15] LABS: ABSOLUTE LYMPHOCYTES (AUTO) 1.3 10^3/uL (0.5-4.7); ABSOLUTE MONOCYTES (AUTO) 0.4 10^3/uL (0.1-1.4); ABSOLUTE NEUT (AUTO) 3.9 10^3/uL (1.7-8.2); BASOPHILS % (AUTO) 0.3 % (0-2); EOSINOPHILS % (AUTO) 0.8 % (0-6); HEMATOCRIT 39.8 % (36.0-47.0); HEMOGLOBIN 13.7 g/dL (12.0-15.5); LYMPHOCYTES % (AUTO) 22.3 % (13-45); MEAN CORPUSCULAR HGB CONC 34.3 g/dL (32.0-36.0); MEAN CORPUSCULAR VOLUME 93 fl (80-97); MONOCYTES % (AUTO) 7.6 % (3-13); PLATELET COUNT 286 10^3/uL (150-450); RED BLOOD COUNT 4.27 10^6/uL (3.72-5.28); RED CELL DISTRIBUTION WIDTH 13.5 % (11.5-14.0); TOTAL CELLS COUNTED % (AUTO) 100 %; WHITE BLOOD COUNT 5.6 10^3/uL (4.0-10.5)
== END ==
LOC: OD 07:42
PROVIDERS: ATTEND Nurse Practitioner Psychiatric/Mental Health
DX: F25.0 Schizoaffective disorder, bipolar type (principal); Z79.899 Other long term (current) drug therapy
CPT/HCPCS: 36415; 85025

== ENCOUNTER → 2017-11-25 | Outpatient (CLI) | payer MEDICARE, MEDICAID ==
[2017-11-25 09:57] LABS: ABSOLUTE LYMPHOCYTES (AUTO) 1.3 10^3/uL (0.5-4.7); ABSOLUTE MONOCYTES (AUTO) 0.5 10^3/uL (0.1-1.4); BASOPHILS % (AUTO) 0.3 % (0-2); EOSINOPHILS % (AUTO) 0.6 % (0-6); HEMATOCRIT 38.9 % (36.0-47.0); HEMOGLOBIN 13.3 g/dL (12.0-15.5); LYMPHOCYTES % (AUTO) 19.6 % (13-45); MEAN CORPUSCULAR HEMOGLOBIN 31.9 pg (27.0-33.4); MEAN CORPUSCULAR HGB CONC 34.1 g/dL (32.0-36.0); MEAN CORPUSCULAR VOLUME 93 fl (80-97); MONOCYTES % (AUTO) 6.7 % (3-13); PLATELET COUNT 282 10^3/uL (150-450); RED BLOOD COUNT 4.17 10^6/uL (3.72-5.28); RED CELL DISTRIBUTION WIDTH 13.4 % (11.5-14.0); SEGMENTED NEUTROPHILS % (AUTO) 72.8 % (42-78); TOTAL CELLS COUNTED % (AUTO) 100 %; WHITE BLOOD COUNT 6.9 10^3/uL (4.0-10.5)
== END ==
LOC: OD 08:44
PROVIDERS: ATTEND Nurse Practitioner Psychiatric/Mental Health
DX: F25.0 Schizoaffective disorder, bipolar type (principal); Z79.899 Other long term (current) drug therapy
CPT/HCPCS: 36415; 85025

== ENCOUNTER → 2017-12-02 | Outpatient (CLI) | payer MEDICARE, MEDICAID ==
[2017-12-02 10:23] LABS: ABSOLUTE LYMPHOCYTES (AUTO) 1.1 10^3/uL (0.5-4.7); ABSOLUTE MONOCYTES (AUTO) 0.5 10^3/uL (0.1-1.4); ABSOLUTE NEUT (AUTO) 5.9 10^3/uL (1.7-8.2); BASOPHILS % (AUTO) 0.1 % (0-2); EOSINOPHILS % (AUTO) 0.4 % (0-6); HEMATOCRIT 38.6 % (36.0-47.0); HEMOGLOBIN 13.4 g/dL (12.0-15.5); LYMPHOCYTES % (AUTO) 14.9 % (13-45); MEAN CORPUSCULAR HEMOGLOBIN 32.2 pg (27.0-33.4); MEAN CORPUSCULAR HGB CONC 34.6 g/dL (32.0-36.0); MEAN CORPUSCULAR VOLUME 93 fl (80-97); MONOCYTES % (AUTO) 6.7 % (3-13); PLATELET COUNT 290 10^3/uL (150-450); RED BLOOD COUNT 4.15 10^6/uL (3.72-5.28); SEGMENTED NEUTROPHILS % (AUTO) 77.9 % (42-78); TOTAL CELLS COUNTED % (AUTO) 100 %; WHITE BLOOD COUNT 7.6 10^3/uL (4.0-10.5)
== END ==
LOC: OD 09:06
PROVIDERS: ATTEND Nurse Practitioner Psychiatric/Mental Health
DX: F25.0 Schizoaffective disorder, bipolar type (principal); Z79.899 Other long term (current) drug therapy
CPT/HCPCS: 36415; 85025

== ENCOUNTER 2017-12-05 19:39 | Emergency (ER) | payer MEDICARE, MEDICAID ==
--- NOTE | 2017-12-05 21:04 | RADIOLOGY REPORT (SQ) ---
EXAM DESCRIPTION: CT HEAD WITHOUT COMPLETED DATE/TIME: 12/05/2017 8:51 pm REASON FOR STUDY: fall COMPARISON: None. TECHNIQUE: Axial images acquired through the brain without intravenous contrast. Images reviewed wi th bone, brain and subdural windows. Additional sagittal and coronal reconstructions were generated. Images stored on PACS. All CT scanners at this facility use dose modulation, iterative reconstruction, and/or weight based d osing when appropriate to reduce radiation dose to as low as reasonably achievable (ALARA). [facility]: Dose Right [facility]: CareDose [facility]: Dose Right [facility]: Teradose 4D [facility]: [employer] RADIATION DOSE: CT Rad equipment meets quality standard of care and radiation dose reduction techniq ues were employed. CTDIvol: 53.2 mGy. DLP: 1177 mGy-cm. mGy. LIMITATIONS: None. FINDINGS: VENTRICLES: Prominent. CEREBRUM: No masses. No hemorrhage. No midline shift. Areas of low density in the white matter mos t likely due to chronic micro-vascular ischemic change. No evidence for acute infarction. CEREBELLUM: No masses. No hemorrhage. No alteration of density. No evidence for acute infarction. EXTRAAXIAL SPACES: Mild age-related involutional change. No fluid collections. No masses. ORBITS AND GLOBE: No intra- or extraconal masses. Normal contour of globe without masses. CALVARIUM: No fracture. PARANASAL SINUSES: No fluid or mucosal thickening. SOFT TISSUES: No mass or hematoma. OTHER: No other significant finding. IMPRESSION: No acute abnormality in the brain. EVIDENCE OF ACUTE STROKE: NO. TECHNICAL DOCUMENTATION: JOB ID: [id number] Quality ID # [id number]: Final reports with documentation of one or more dose reduction techniques (e.g., Au tomated exposure control, adjustment of the mA and/or kV according to patient size, use of iterative reconstruction technique) 2010 [employer]- All Rights Reserved Reading location - IP/workstation name: [email or web address]
--- NOTE | 2017-12-05 21:06 | RADIOLOGY REPORT (SQ) ---
EXAM DESCRIPTION: CT CERVICAL SPINE WITHOUT COMPLETED DATE/TIME: 12/05/2017 8:51 pm REASON FOR STUDY: fall COMPARISON: 09/30/2017. TECHNIQUE: Axial images acquired through the cervical spine without intravenous contrast. Images re viewed with lung, soft tissue and bone windows. Reconstructed coronal and sagittal MPR images review ed. Images stored on PACS. All CT scanners at this facility use dose modulation, iterative reconstruction, and/or weight based d osing when appropriate to reduce radiation dose to as low as reasonably achievable (ALARA). [facility]: Dose Right [facility]: CareDose [facility]: Dose Right [facility]: Teradose 4D [facility]: [employer] RADIATION DOSE: CT Rad equipment meets quality standard of care and radiation dose reduction techniq ues were employed. CTDIvol: 25.7 mGy. DLP: 520 mGy-cm. mGy. LIMITATIONS: Patient motion. FINDINGS: ALIGNMENT: Anatomic. MINERALIZATION: Normal. VERTEBRAL BODIES: No fractures or dislocation. DISCS: Multilevel disc space narrowing with osteophytes. FACETS, LATERAL MASSES, POSTERIOR ELEMENTS: Facet arthropathy. No fractures. No dislocation. No ac mashpee findings. HARDWARE: None in the spine. VISUALIZED RIBS: No fractures. LUNG APICES AND SOFT TISSUES: No significant or acute findings. OTHER: No other significant finding. IMPRESSION: CHRONIC DEGENERATIVE CHANGES. NO ACUTE FINDINGS. TECHNICAL DOCUMENTATION: JOB ID: [id number] Quality ID # [id number]: Final reports with documentation of one or more dose reduction techniques (e.g., Au tomated exposure control, adjustment of the mA and/or kV according to patient size, use of iterative reconstruction technique) 2010 [employer]- All Rights Reserved Reading location - IP/workstation name: [email or web address]
[2017-12-05] MEDS ORDERED: ACETAMINOPHEN 325 MG TABLET PO ONE (22:14)
--- NOTE | 2017-12-05 22:16 | ER Document Report ---
ED General - General Chief Complaint: Fall Injury Stated Complaint: FALL Time Seen by Provider: 12/05/17 21:32 Notes: Patient is a 67-year-old female with a past medical history of schizoaffective disorder who currently resides in a custodial who presents after having a mechanical fall. Patient states that she tripped and fell striking her right posterior scalp on a table. She notes that since that time she has had a dull, constant, throbbing pain to the area. Touching the area worsens the pain. Nothing improves the pain. Patient states that she recently had a fall with head trauma to almost the exact same location. She denies any weakness, numbness, confusion or vomiting since the fall. She is not anticoagulated. She arrives by EMS. She denies any trauma to any other location of her body or pain to any of the location of her body. She has not seen her primary doctor regarding today's concerns. TRAVEL OUTSIDE OF THE [place] IN LAST 30 DAYS: No - Related Data Allergies/Adverse Reactions: haloperidol [From Haldol] Allergy (Severe, Verified 09/01/17 04:55) LOCKJAW haloperidol lactate [From Haldol] Allergy (Severe, Verified 09/01/17 04:55) LOCKJAW chlorpromazine HCl [From Thorazine] Allergy (Verified 09/01/17 04:55) chocolate Allergy (Uncoded 09/01/17 04:55) Past Medical History - General Information source: Patient - Social History Smoking Status: Never Smoker Chew tobacco use (# tins/day): No Frequency of alcohol use: None Drug Abuse: None Lives with: Other - alf Family History: Reviewed & Not Pertinent, CAD - dad and uncle with MIs in their 60s, DM - mom Patient has suicidal ideation: No Patient has homicidal ideation: No - Past Medical History Cardiac Medical History: Reports: Hx Hypercholesterolemia, Hx Hypertension Pulmonary Medical History: Reports: Hx Bronchitis Neurological Medical History: Reports: Hx Seizures Endocrine Medical History: Reports: Hx Diabetes Mellitus Type 2, Hx Hypothyroidism Renal/ Medical History: Denies: Hx Peritoneal Dialysis GI Medical History: Reports: Hx Gastroesophageal Reflux Disease. Denies: Hx Pancreatitis Musculoskeltal Medical History: Reports Hx Arthritis Psychiatric Medical History: Reports: Hx Bipolar Disorder, Hx Depression, Hx Schizoaffective Disorder, Hx Schizophrenia Past Surgical History: Reports: Hx Cholecystectomy, Hx Neurologic Surgery - carpal tunnel, Hx Tonsillectomy - 1957, Hx Tubal Ligation - Immunizations Hx Diphtheria, Pertussis, Tetanus Vaccination: Yes Hx Pneumococcal Vaccination: 11/08/13 Review of Systems - Review of Systems Notes: Constitutional: Negative for fever. Eyes: Negative for visual changes. ENT: Negative for facial injury Cardiovascular: Negative for chest injury. Respiratory: Negative for shortness of breath. Gastrointestinal: Negative for abdominal injury. Genitourinary: Negative for genital injury Musculoskeletal: Negative for back injury. Skin: Positive for laceration/abrasions. Neurological: Positive for head injury. Physical Exam - Vital signs Vitals: Temp Pulse Resp BP Pulse Ox 97.7 F 62 18 118/57 L 95 12/05/17 20:12 12/05/17 20:12 12/05/17 20:12 12/05/17 20:12 12/05/17 20:12 Interpretation: Normal Notes: PHYSICAL EXAMINATION: GENERAL: Well-appearing, no acute distress. HEAD: Small scalp hematoma to the right temporal scalp. Otherwise atraumatic EYES: Pupils equal round and reactive to light, extraocular movements intact, sclera anicteric, conjunctiva are normal. ENT: nares patent, no oral pharyngeal trauma. No hemotympanum, no Green's sign , no raccoon eyes. NECK: No midline cervical spine tenderness. Patient able to move their head to 45 bilaterally without any discomfort. LUNGS: Breath sounds clear to auscultation bilaterally and equal. No wheezes rales or rhonchi. HEART: Regular rate and rhythm without murmurs. CHEST WALL: No ecchymosis over the chest wall. ABDOMEN: Soft, nontender, normoactive bowel sounds. No guarding, no rebound. No abdominal bruising. EXTREMITIES: Normal range of motion, no pitting or edema. No long bone deformities. BACK: No midline spinal tenderness, step-offs, or deformities. NEUROLOGICAL: Face symmetric. Tongue protrudes midline. Extraocular motions intact. Pupils are 2 mm and equally reactive. Normal speech, normal gait. 5 out of 5 strength in both the distal and proximal upper and lower extremities bilaterally. Sensation is grossly intact throughout. Finger to nose testing normal. Pronator drift normal. PSYCH: Normal mood, normal affect. SKIN: Warm, Dry, normal turgor, superficial abrasion over the right parietal scalp with underlying hematoma as above Course - Re-evaluation Re-evalutation: 12/05/17 22:14 Presentation of a well appearing elderly patient in no acute distress, vitals within normal limits after a mechanical fall. Patient denies a syncopal episode as the cause for today's fall. No focal neurologic deficits on exam, no evidence of basilar skull fracture on exam without evidence of hemotympanum, raccoon eyes, or periauricular hematoma. No papilledema. Patient is not on anticoagulation. GCS is 15. No loss of consciousness. No episodes of vomiting. However, based on patient's age a CT of the head has been obtained which is negative for any acute intracranial bleed. Likewise, patient was unable to be clinically cleared due to age by [place] cervical spine criteria. A CT of the cervical spine was also obtained and likewise is negative for any acute fracture. No indication for further imaging of the cervical spine. Patient has no focal deformities or limited range of motion in any joint space. Chest and abdominal exam are benign without any focal tenderness, shortness of breath, or bruising over the chest or abdominal wall. Patient has no flank tenderness. There is no obvious findings on trauma exam today and therefore no further imaging or evaluation will be obtained at this time. At this time will discharge with return precautions and follow-up recommendations. Verbal discharge instructions given a the bedside and opportunity for questions given. Medication warnings reviewed. Patient is in agreement with this plan and has verbalized understanding of return precautions and the need for primary care follow-up in the next 24-72 hours. - Vital Signs Vital signs: Temp Pulse Resp BP Pulse Ox 98.2 F 61 20 118/62 100 12/06/17 01:26 12/06/17 01:26 12/06/17 01:26 12/06/17 01:26 12/06/17 01:26 - Diagnostic Test Radiology reviewed: Image reviewed, Reports reviewed Radiology results interpreted by me: 12/06/17 03:21 CT head: No acute intracranial bleed Discharge - Discharge Clinical Impression: Fall Qualifiers: Encounter type: initial encounter Qualified Code(s): W19.XXXA - Unspecified fall, initial encounter Head trauma Qualifiers: Encounter type: initial encounter Qualified Code(s): S09.90XA - Unspecified injury of head, initial encounter Scalp abrasion Qualifiers: Encounter type: initial encounter Qualified Code(s): S00.01XA - Abrasion of scalp, initial encounter Condition: Good Disposition: HOME, SELF-CARE Additional Instructions: You have likely sustained a contusion (bruise) to your head. If you had a CT scan done, it did not show any evidence of serious injury or bleeding. Symptoms to expect from a concussion include nausea, mild to moderate headache, difficulty concentrating or sleeping, and mild lightheadedness. These symptoms should improve over the next few days to weeks. Return to the emergency department or follow-up with your primary care doctor if your symptoms are not improving over this time. Signs of a more serious head injury include vomiting , severe headache, excessive sleepiness or confusion, and weakness or numbness in your face, arms or legs. Return immediately to the Emergency Department if you experience any of these more concerning symptoms. Rest, avoid strenuous physical or mental activity, and avoid activities that could potentially result in another head injury until all your symptoms from this head injury are completely resolved for at least 2-3 weeks. If you participate in sports, get cleared by your doctor or personal fitness trainer before returning to play. You may take ibuprofen or acetaminophen over the counter according to label instructions for mild headache or scalp soreness.
[2017-12-06] MEDS ORDERED: LIDOCAINE 5% (700 MG) TRANSDERMAL ADH..PATCH TP ONE (00:33)
[2017-12-06 01:29] VITALS: BP 118/62
== END 2017-12-06 01:30 | disposition home or self-care (01) ==
LOC: ER 19:39
DX: S00.03XA Contusion of scalp, initial encounter (principal); R51 Headache; W19.XXXA Unspecified fall, initial encounter; I10 Essential (primary) hypertension; E11.9 Type 2 diabetes mellitus without complications; Z88.8 Allergy status to other drugs, medicaments and biological substances; Z91.018 Allergy to other foods
CPT/HCPCS: 99284; 70450; 72125; A9270

== ENCOUNTER → 2017-12-16 | Outpatient (CLI) | payer MEDICARE, MEDICAID ==
[2017-12-16 11:00] LABS: ABSOLUTE EOSINOPHILS # (AUTO) 0.1 10^3/uL (0.0-0.6); ABSOLUTE LYMPHOCYTES (AUTO) 1.3 10^3/uL (0.5-4.7); ABSOLUTE MONOCYTES (AUTO) 0.5 10^3/uL (0.1-1.4); ABSOLUTE NEUT (AUTO) 5.4 10^3/uL (1.7-8.2); BASOPHILS % (AUTO) 0.2 % (0-2); EOSINOPHILS % (AUTO) 1.1 % (0-6); HEMATOCRIT 38.9 % (36.0-47.0); HEMOGLOBIN 13.4 g/dL (12.0-15.5); LYMPHOCYTES % (AUTO) 18.5 % (13-45); MEAN CORPUSCULAR HGB CONC 34.5 g/dL (32.0-36.0); MEAN CORPUSCULAR VOLUME 93 fl (80-97); MONOCYTES % (AUTO) 6.6 % (3-13); PLATELET COUNT 306 10^3/uL (150-450); RED BLOOD COUNT 4.19 10^6/uL (3.72-5.28); RED CELL DISTRIBUTION WIDTH 13.2 % (11.5-14.0); SEGMENTED NEUTROPHILS % (AUTO) 73.6 % (42-78); TOTAL CELLS COUNTED % (AUTO) 100 %; WHITE BLOOD COUNT 7.3 10^3/uL (4.0-10.5)
== END ==
LOC: OD 09:49
PROVIDERS: ATTEND Nurse Practitioner Psychiatric/Mental Health
DX: F25.0 Schizoaffective disorder, bipolar type (principal); Z79.899 Other long term (current) drug therapy
CPT/HCPCS: 36415; 85025

== ENCOUNTER → 2017-12-23 | Outpatient (CLI) | payer MEDICARE, MEDICAID ==
[2017-12-23 09:59] LABS: ABSOLUTE EOSINOPHILS # (AUTO) 0.1 10^3/uL (0.0-0.6); ABSOLUTE LYMPHOCYTES (AUTO) 1.4 10^3/uL (0.5-4.7); ABSOLUTE MONOCYTES (AUTO) 0.5 10^3/uL (0.1-1.4); ABSOLUTE NEUT (AUTO) 5.5 10^3/uL (1.7-8.2); BASOPHILS % (AUTO) 0.2 % (0-2); EOSINOPHILS % (AUTO) 1.6 % (0-6); HEMATOCRIT 38.3 % (36.0-47.0); HEMOGLOBIN 13.1 g/dL (12.0-15.5); LYMPHOCYTES % (AUTO) 18.2 % (13-45); MEAN CORPUSCULAR HEMOGLOBIN 31.9 pg (27.0-33.4); MEAN CORPUSCULAR HGB CONC 34.2 g/dL (32.0-36.0); MEAN CORPUSCULAR VOLUME 93 fl (80-97); PLATELET COUNT 304 10^3/uL (150-450); RED CELL DISTRIBUTION WIDTH 13.5 % (11.5-14.0); TOTAL CELLS COUNTED % (AUTO) 100 %; WHITE BLOOD COUNT 7.5 10^3/uL (4.0-10.5)
== END ==
LOC: OD 08:43
PROVIDERS: ATTEND Nurse Practitioner Psychiatric/Mental Health
DX: F25.0 Schizoaffective disorder, bipolar type (principal); Z79.899 Other long term (current) drug therapy
CPT/HCPCS: 36415; 85025

== ENCOUNTER → 2017-12-30 | Outpatient (CLI) | payer MEDICARE, MEDICAID ==
[2017-12-30 10:47] LABS: ABSOLUTE EOSINOPHILS # (AUTO) 0.1 10^3/uL (0.0-0.6); ABSOLUTE LYMPHOCYTES (AUTO) 0.9 10^3/uL (0.5-4.7); ABSOLUTE MONOCYTES (AUTO) 0.6 10^3/uL (0.1-1.4); ABSOLUTE NEUT (AUTO) 2.7 10^3/uL (1.7-8.2); BASOPHILS % (AUTO) 0.2 % (0-2); EOSINOPHILS % (AUTO) 1.6 % (0-6); HEMATOCRIT 38.1 % (36.0-47.0); HEMOGLOBIN 13.2 g/dL (12.0-15.5); LYMPHOCYTES % (AUTO) 21.6 % (13-45); MEAN CORPUSCULAR HEMOGLOBIN 31.8 pg (27.0-33.4); MEAN CORPUSCULAR HGB CONC 34.5 g/dL (32.0-36.0); MEAN CORPUSCULAR VOLUME 92 fl (80-97); MONOCYTES % (AUTO) 13.4 % (3-13); PLATELET COUNT 239 10^3/uL (150-450); RED BLOOD COUNT 4.14 10^6/uL (3.72-5.28); RED CELL DISTRIBUTION WIDTH 13.4 % (11.5-14.0); SEGMENTED NEUTROPHILS % (AUTO) 63.2 % (42-78); TOTAL CELLS COUNTED % (AUTO) 100 %; WHITE BLOOD COUNT 4.3 10^3/uL (4.0-10.5)
== END ==
LOC: OD 09:52
PROVIDERS: ATTEND Nurse Practitioner Psychiatric/Mental Health
DX: F25.0 Schizoaffective disorder, bipolar type (principal); Z79.899 Other long term (current) drug therapy
CPT/HCPCS: 36415; 85025

== ENCOUNTER → 2018-01-06 | Outpatient (CLI) | payer MEDICARE, MEDICAID ==
[2018-01-06 09:57] LABS: ABSOLUTE EOSINOPHILS # (AUTO) 0.2 10^3/uL (0.0-0.6); ABSOLUTE LYMPHOCYTES (AUTO) 1.3 10^3/uL (0.5-4.7); ABSOLUTE MONOCYTES (AUTO) 0.4 10^3/uL (0.1-1.4); ABSOLUTE NEUT (AUTO) 4.4 10^3/uL (1.7-8.2); BASOPHILS % (AUTO) 0.2 % (0-2); EOSINOPHILS % (AUTO) 2.6 % (0-6); HEMATOCRIT 38.9 % (36.0-47.0); HEMOGLOBIN 13.3 g/dL (12.0-15.5); LYMPHOCYTES % (AUTO) 21.1 % (13-45); MEAN CORPUSCULAR HEMOGLOBIN 31.5 pg (27.0-33.4); MEAN CORPUSCULAR HGB CONC 34.1 g/dL (32.0-36.0); MEAN CORPUSCULAR VOLUME 92 fl (80-97); MONOCYTES % (AUTO) 5.7 % (3-13); PLATELET COUNT 346 10^3/uL (150-450); RED BLOOD COUNT 4.22 10^6/uL (3.72-5.28); RED CELL DISTRIBUTION WIDTH 13.6 % (11.5-14.0); SEGMENTED NEUTROPHILS % (AUTO) 70.4 % (42-78); TOTAL CELLS COUNTED % (AUTO) 100 %; WHITE BLOOD COUNT 6.2 10^3/uL (4.0-10.5)
== END ==
LOC: OD 08:51
PROVIDERS: ATTEND Nurse Practitioner Psychiatric/Mental Health
DX: F25.0 Schizoaffective disorder, bipolar type (principal)
CPT/HCPCS: 36415; 85025

== ENCOUNTER → 2018-01-13 | Outpatient (CLI) | payer MEDICARE, MEDICAID ==
[2018-01-13 10:06] LABS: ABSOLUTE EOSINOPHILS # (AUTO) 0.2 10^3/uL (0.0-0.6); ABSOLUTE LYMPHOCYTES (AUTO) 1.2 10^3/uL (0.5-4.7); ABSOLUTE MONOCYTES (AUTO) 0.4 10^3/uL (0.1-1.4); ABSOLUTE NEUT (AUTO) 6.5 10^3/uL (1.7-8.2); BASOPHILS % (AUTO) 0.1 % (0-2); EOSINOPHILS % (AUTO) 1.9 % (0-6); HEMATOCRIT 39.5 % (36.0-47.0); HEMOGLOBIN 13.5 g/dL (12.0-15.5); MEAN CORPUSCULAR HEMOGLOBIN 32.2 pg (27.0-33.4); MEAN CORPUSCULAR HGB CONC 34.3 g/dL (32.0-36.0); MEAN CORPUSCULAR VOLUME 94 fl (80-97); MONOCYTES % (AUTO) 5.4 % (3-13); PLATELET COUNT 278 10^3/uL (150-450); RED CELL DISTRIBUTION WIDTH 13.9 % (11.5-14.0); SEGMENTED NEUTROPHILS % (AUTO) 78.6 % (42-78); TOTAL CELLS COUNTED % (AUTO) 100 %; WHITE BLOOD COUNT 8.3 10^3/uL (4.0-10.5)
== END ==
LOC: OD 09:24
PROVIDERS: ATTEND Nurse Practitioner Psychiatric/Mental Health
DX: F25.0 Schizoaffective disorder, bipolar type (principal)
CPT/HCPCS: 36415; 85025

== ENCOUNTER 2018-01-17 05:29 | Emergency (ER) | payer MEDICARE, MEDICAID ==
--- NOTE | 2018-01-17 06:58 | RADIOLOGY REPORT (SQ) ---
EXAM DESCRIPTION: XR ANKLE 2 VIEWS COMPLETED DATE/TME: 01/17/2018 05:37 CLINICAL HISTORY: 67 years, Female, pain COMPARISON: None. NUMBER OF VIEWS: 3 LIMITATIONS: None. FINDINGS: 0.3 cm ossicular chronic avulsive fragment of the left medial malleolus, and small Achilles tendinous enthesophyte. Mild osteoarthritis at the dorsal talonavicular joint. IMPRESSION: No acute findings.
[2018-01-17] MEDS ORDERED: ACETAMINOPHEN 325 MG TABLET PO ONE (08:25)
--- NOTE | 2018-01-17 09:20 | RADIOLOGY REPORT (SQ) ---
EXAM DESCRIPTION: TIBIA FIBULA RIGHT COMPLETED DATE/TIME: 01/17/2018 9:00 am REASON FOR STUDY: fall COMPARISON: New NUMBER OF VIEWS: Two views. TECHNIQUE: Two radiographic images acquired of the right tibia and fibula to include the knee and an kle in at least one projection. LIMITATIONS: None. FINDINGS: MINERALIZATION: Normal. BONES: On the lateral view of the right lower tibia and fibula, there is a lucency in the anterior as pect of the talus which could represent a fracture. Dedicated right ankle three views is recommended for followup. SOFT TISSUES: There is a suprapatellar knee joint effusion OTHER: No other significant finding. IMPRESSION: Moderate size suprapatellar knee joint effusion. No gross fracture of the distal femur or proximal tibia/fibula Question hairline fracture through the anterior talar neck on lateral view of the tib fib. Three-vie w right ankle films are recommended for followup TECHNICAL DOCUMENTATION: JOB ID: [id number] [employer]- All Rights Reserved Reading location - IP/workstation name: [email or web address]
--- NOTE | 2018-01-17 10:20 | RADIOLOGY REPORT (SQ) ---
EXAM DESCRIPTION: ANKLE RIGHT COMPLETE COMPLETED DATE/TIME: 01/17/2018 9:51 am REASON FOR STUDY: fall COMPARISON: None. NUMBER OF VIEWS: Three views. TECHNIQUE: AP, lateral, and oblique radiographic images acquired of the right ankle. LIMITATIONS: None. FINDINGS: MINERALIZATION: Normal. BONES: No acute fracture. Specifically, no acute talus fracture is identified. There is an old avul margie fragment off the distal tip medial malleolus. Small plantar and dorsal calcaneal spurs. JOINTS: No ankle joint effusions. No disruption of the ankle mortise SOFT TISSUES: No soft tissue swelling. No foreign body. OTHER: No other significant finding. IMPRESSION: No acute fracture TECHNICAL DOCUMENTATION: JOB ID: [id number] [employer]- All Rights Reserved Reading location - IP/workstation name: [email or web address]
--- NOTE | 2018-01-17 10:21 | RADIOLOGY REPORT (SQ) ---
EXAM DESCRIPTION: KNEE LEFT 4 VIEW COMPLETED DATE/TIME: 01/17/2018 9:51 am REASON FOR STUDY: fall COMPARISON: Left knee films 11/27/2007 NUMBER OF VIEWS: Four views. TECHNIQUE: AP, lateral, and both oblique radiographic images acquired of the left knee. LIMITATIONS: None. FINDINGS: MINERALIZATION: Normal. BONES: No acute fracture or dislocation. No worrisome bone lesions. JOINT: Small suprapatellar knee joint effusion. SOFT TISSUES: No soft tissue swelling. No radio-opaque foreign body. OTHER: No other significant finding. IMPRESSION: Small suprapatellar knee joint effusion. No acute fracture. TECHNICAL DOCUMENTATION: JOB ID: [id number] [employer]- All Rights Reserved Reading location - IP/workstation name: [email or web address]
--- NOTE | 2018-01-17 10:45 | ER Document Report ---
HPI - HPI Patient complains to provider of: Fall Onset: This morning Onset/Duration: Sudden Quality of pain: Achy Pain Level: 4 Context: Patient states that she was placing her hand on a cabinet and her hand slipped causing her to fall. Patient complains of left knee, left ankle, right tibia pain. Patient denies any head injury or loss of consciousness. Patient denies any abdominal pain, back pain, nausea or vomiting. Associated Symptoms: Other - Left knee, ankle and right lower leg pain Exacerbated by: Movement, Walking Relieved by: Denies Similar symptoms previously: No Recently seen / treated by doctor: No - ROS ROS below otherwise negative: Yes Systems Reviewed and Negative: Yes All other systems reviewed and negative - CONSTITUTIONAL Constitutional: DENIES: Fever - NEURO Neurology: DENIES: Headache, Weakness - CARDIOVASCULAR Cardiovascular: DENIES: Chest pain - RESPIRATORY Respiratory: DENIES: Trouble Breathing, Coughing - GASTROINTESTINAL Gastrointestinal: DENIES: Abdominal Pain, Nausea, Patient vomiting - REPRODUCTIVE Reproductive: DENIES: : - MUSCULOSKELETAL Musculoskeletal: REPORTS: Extremity pain - Bilateral knee, right lower le - DERM Skin Color: Normal Skin Problems: None Past Medical History - General Information source: Patient - Social History Smoking Status: Never Smoker Chew tobacco use (# tins/day): No Frequency of alcohol use: None Drug Abuse: None Lives with: Other - [facility] Family History: Reviewed & Not Pertinent, CAD - dad and uncle with MIs in their 60s, DM - mom Patient has suicidal ideation: No Patient has homicidal ideation: No - Past Medical History Cardiac Medical History: Reports: Hx Hypercholesterolemia, Hx Hypertension Pulmonary Medical History: Reports: Hx Bronchitis Neurological Medical History: Reports: Hx Seizures Endocrine Medical History: Reports: Hx Diabetes Mellitus Type 2, Hx Hypothyroidism Renal/ Medical History: Denies: Hx Peritoneal Dialysis GI Medical History: Reports: Hx Gastroesophageal Reflux Disease. Denies: Hx Pancreatitis Musculoskeltal Medical History: Reports Hx Arthritis Psychiatric Medical History: Reports: Hx Bipolar Disorder, Hx Depression, Hx Schizoaffective Disorder, Hx Schizophrenia Past Surgical History: Reports: Hx Cholecystectomy, Hx Neurologic Surgery - carpal tunnel, Hx Tonsillectomy - 1957, Hx Tubal Ligation - Immunizations Hx Diphtheria, Pertussis, Tetanus Vaccination: Yes Hx Pneumococcal Vaccination: 11/08/13 Vertical Provider Document - CONSTITUTIONAL Agree With Documented VS: Yes Exam Limitations: No Limitations General Appearance: WD/WN, No Apparent Distress - INFECTION CONTROL TRAVEL OUTSIDE OF THE [place] IN LAST 30 DAYS: No - HEENT HEENT: Atraumatic, Normal ENT Exam, Normocephalic - NECK Neck: Normal Inspection, Supple. negative: Lymphadenopathy-Left, Lymphadenopathy-Right - RESPIRATORY Respiratory: Breath Sounds Normal, No Respiratory Distress - CARDIOVASCULAR Cardiovascular: Regular Rate, Regular Rhythm Pulses: Normal: Radial, Dorsalis pedis - BACK Back: Normal Inspection. negative: CVA Tenderness-Right, CVA Tenderness-Left Notes: No midline tenderness, step-off or deformity - MUSCULOSKELETAL/EXTREMETIES Musculoskeletal/Extremeties: MAEW, FROM, Tender - Patient with right lower extremity tenderness along tibia into her right knee. Patient also complains of left knee pain and left ankle pain. No laxity with varus or valgus maneuvers. No obvious deformity, No Edema. negative: Eccymosis - NEURO Level of Consciousness: Awake, Alert, Appropriate Motor/Sensory: No Motor Deficit - DERM Integumentary: Warm, Dry Course - Vital Signs Vital signs: Temp Pulse Resp BP Pulse Ox 98.2 F 79 16 112/62 97 01/17/18 05:42 01/17/18 05:42 01/17/18 05:42 01/17/18 05:42 01/17/18 05:42 - Diagnostic Test Radiology reviewed: Image reviewed, Reports reviewed Procedures - Immobilization Left Knee Pre-Proc Neuro Vasc Exam: Normal Immobilizer type: Rikki wrap Performed by: PCT Post-Proc Neuro Vasc Exam: Normal Alignment checked and good: Yes Right Knee Pre-Proc Neuro Vasc Exam: Normal Immobilizer type: Rikki wrap Performed by: PCT Post-Proc Neuro Vasc Exam: Normal Alignment checked and good: Yes Left Ankle Pre-Proc Neuro Vasc Exam: Normal Immobilizer type: Ankle stirrup Performed by: PCT Post-Proc Neuro Vasc Exam: Normal Alignment checked and good: Yes Discharge - Discharge Clinical Impression: Knee sprain, bilateral Left ankle sprain Qualifiers: Encounter type: initial encounter Involved ligament of ankle: unspecified ligament Qualified Code(s): S93.402A - Sprain of unspecified ligament of left ankle, initial encounter Fall Qualifiers: Encounter type: initial encounter Qualified Code(s): W19.XXXA - Unspecified fall, initial encounter Condition: Stable Disposition: HOME, SELF-CARE Instructions: Acetaminophen, Use of Crutches ([facility]), Ice & Elevation ([facility]), Splint Precautions ([facility]), Sprained Ankle ([facility]), Sprained Knee ([facility]) Additional Instructions: Return immediately for any new or worsening symptoms Followup with your primary care provider, call tomorrow to make a followup appointment Prescriptions: Walker [Folding Walker] 1 each [facility] ASDIR PRN #1 each PRN Reason: Referrals: [facility] [Provider Group] - Follow up in 3-5 days MORENO OHARA DO [Primary Care Provider] - Follow up tomorrow
[2018-01-17 11:14] VITALS: BP 136/86
== END 2018-01-17 11:14 | disposition home or self-care (01) ==
LOC: ER 05:29
DX: S93.402A Sprain of unspecified ligament of left ankle, initial encounter (principal); M25.562 Pain in left knee; W19.XXXA Unspecified fall, initial encounter; S83.92XA Sprain of unspecified site of left knee, initial encounter; S83.91XA Sprain of unspecified site of right knee, initial encounter; W18.30XA Fall on same level, unspecified, initial encounter
CPT/HCPCS: 99283; 73610 ×2; 73564; 73590; L4350; A9270

== ENCOUNTER → 2018-01-20 | Outpatient (CLI) | payer MEDICARE, MEDICAID ==
[2018-01-20 11:33] LABS: ABSOLUTE EOSINOPHILS # (AUTO) 0.2 10^3/uL (0.0-0.6); ABSOLUTE LYMPHOCYTES (AUTO) 1.3 10^3/uL (0.5-4.7); ABSOLUTE MONOCYTES (AUTO) 0.6 10^3/uL (0.1-1.4); ABSOLUTE NEUT (AUTO) 4.7 10^3/uL (1.7-8.2); BASOPHILS % (AUTO) 0.2 % (0-2); EOSINOPHILS % (AUTO) 3.5 % (0-6); HEMATOCRIT 35.7 % (36.0-47.0); HEMOGLOBIN 12.4 g/dL (12.0-15.5); LYMPHOCYTES % (AUTO) 18.4 % (13-45); MEAN CORPUSCULAR HEMOGLOBIN 32.1 pg (27.0-33.4); MEAN CORPUSCULAR HGB CONC 34.8 g/dL (32.0-36.0); MEAN CORPUSCULAR VOLUME 92 fl (80-97); MONOCYTES % (AUTO) 8.8 % (3-13); PLATELET COUNT 312 10^3/uL (150-450); RED BLOOD COUNT 3.87 10^6/uL (3.72-5.28); RED CELL DISTRIBUTION WIDTH 13.3 % (11.5-14.0); SEGMENTED NEUTROPHILS % (AUTO) 69.1 % (42-78); TOTAL CELLS COUNTED % (AUTO) 100 %; WHITE BLOOD COUNT 6.8 10^3/uL (4.0-10.5)
== END ==
LOC: OD 10:54
PROVIDERS: ATTEND Nurse Practitioner Psychiatric/Mental Health
DX: F25.0 Schizoaffective disorder, bipolar type (principal); Z79.899 Other long term (current) drug therapy
CPT/HCPCS: 36415; 85025

== ENCOUNTER 2018-01-24 05:26 | Emergency (ER) | payer MEDICARE, MEDICAID ==
--- NOTE | 2018-01-24 07:19 | RADIOLOGY REPORT (SQ) ---
EXAM DESCRIPTION: CT HEAD WITHOUT IV CONTRAST COMPLETED DATE/TME: 01/24/2018 06:08 CLINICAL HISTORY: 67 years, Female, fall COMPARISON: 01/23/2018 TECHNIQUE: Axial CT images of the head were obtained without contrast. Images stored on PACS. All CT scanners at this facility use dose modulation, iterative reconstruction, and/or weight based dosing when appropriate to reduce radiation dose to as low as reasonably achievable (ALARA). [facility]: Dose Right [facility]: CareDose [facility]: Dose Right [facility]: Teradose 4D [facility]: [employer] LIMITATIONS: None. FINDINGS: There is soft tissue swelling along the left parietal scalp. There is no acute infarct, hemorrhage, mass, edema, hydrocephalus, or extra-axial fluid collection. There is mild diffuse cerebral atrophy with mild periventricular deep white matter chronic microvascular changes. The paranasal sinuses and mastoid air cells are clear. There is no acute fracture. IMPRESSION: No acute intracranial abnormality TECHNICAL DOCUMENTATION: Quality ID # 436: Final reports with documentation of one or more dose reduction techniques (e.g., Automated exposure control, adjustment of the mA and/or kV according to patient size, use of iterative reconstruction technique) 2010 [employer]- All Rights Reserved
--- NOTE | 2018-01-24 07:22 | RADIOLOGY REPORT (SQ) ---
EXAM DESCRIPTION: CT CERVICAL SPINE WITHOUT IV CONTRAST COMPLETED DATE/TME: 01/24/2018 06:52 CLINICAL HISTORY: 67 years, Female, fall COMPARISON: None. TECHNIQUE: Axial CT images of the cervical spine were obtained without contrast Images stored on PACS. All CT scanners at this facility use dose modulation, iterative reconstruction, and/or weight based dosing when appropriate to reduce radiation dose to as low as reasonably achievable (ALARA). [facility]: Dose Right [facility]: CareDose [facility]: Dose Right [facility]: Teradose 4D [facility]: [email or web address] LIMITATIONS: None. FINDINGS: The alignment of the cervical spine is satisfactory. There is no acute fracture or subluxation. The vertebral heights are maintained. There is no significant spinal canal stenosis or neural foraminal narrowing at any level. The prevertebral soft tissues are normal. The visualized lung apices are clear. IMPRESSION: No acute fracture or subluxation TECHNICAL DOCUMENTATION: Quality ID # [id number]: Final reports with documentation of one or more dose reduction techniques (e.g., Automated exposure control, adjustment of the mA and/or kV according to patient size, use of iterative reconstruction technique) 2010 [employer]- All Rights Reserved
[2018-01-24] MEDS ORDERED: LAMOTRIGINE 100 MG TABLET PO ONE (07:41)
[2018-01-24] MEDS ORDERED: DULOXETINE HCL 30 MG CAPSULE.DR PO ONE ×2 (07:41→07:45)
[2018-01-24] MEDS ORDERED: BENZTROPINE MESYLATE 1 MG TABLET PO ONE (07:42)
--- NOTE | 2018-01-24 07:43 | ER Document Report ---
ED General - General Chief Complaint: Fall Stated Complaint: FALL Time Seen by Provider: 01/24/18 06:08 TRAVEL OUTSIDE OF THE [place] IN LAST 30 DAYS: No - HPI Patient complains to provider of: Fall Notes: Patient coming in today after a fall from the local [facility] facility. Most of the HPI is obtained from the original notes were stated patient was ambulating with staff members she fell patient has C-spine precautions applied by EMS. Upon my evaluation patient is at her normal baseline - Related Data Allergies/Adverse Reactions: haloperidol [From Haldol] Allergy (Severe, Verified 01/22/18 23:26) LOCKJAW haloperidol lactate [From Haldol] Allergy (Severe, Verified 01/22/18 23:26) LOCKJAW chlorpromazine HCl [From Thorazine] Allergy (Verified 01/22/18 23:26) chocolate Allergy (Uncoded 01/17/18 08:24) Past Medical History - Social History Smoking Status: Unknown if Ever Smoked Family History: Reviewed & Not Pertinent, CAD - dad and uncle with MIs in their 60s, DM - mom Patient has suicidal ideation: No Patient has homicidal ideation: No - Past Medical History Cardiac Medical History: Reports: Hx Hypercholesterolemia, Hx Hypertension Pulmonary Medical History: Reports: Hx Bronchitis Neurological Medical History: Reports: Hx Seizures Endocrine Medical History: Reports: Hx Diabetes Mellitus Type 2, Hx Hypothyroidism Renal/ Medical History: Denies: Hx Peritoneal Dialysis GI Medical History: Reports: Hx Gastroesophageal Reflux Disease. Denies: Hx Pancreatitis Musculoskeltal Medical History: Reports Hx Arthritis Psychiatric Medical History: Reports: Hx Bipolar Disorder, Hx Depression, Hx Schizoaffective Disorder, Hx Schizophrenia Past Surgical History: Reports: Hx Cholecystectomy, Hx Neurologic Surgery - carpal tunnel, Hx Tonsillectomy - 1956, Hx Tubal Ligation - Immunizations Hx Diphtheria, Pertussis, Tetanus Vaccination: Yes Hx Pneumococcal Vaccination: 11/08/13 Review of Systems - Review of Systems Constitutional: No symptoms reported EENT: No symptoms reported Cardiovascular: No symptoms reported Respiratory: No symptoms reported Gastrointestinal: No symptoms reported Genitourinary: No symptoms reported Female Genitourinary: No symptoms reported Musculoskeletal: No symptoms reported Skin: No symptoms reported Hematologic/Lymphatic: No symptoms reported Neurological/Psychological: No symptoms reported -: Yes All other systems reviewed and negative Physical Exam - Vital signs Vitals: Temp Pulse Resp BP Pulse Ox 98.3 F 70 16 125/52 L 96 01/24/18 05:36 01/24/18 05:36 01/24/18 05:36 01/24/18 05:36 01/24/18 05:36 Interpretation: Normal - General General appearance: Appears well, Alert - HEENT Head: Normocephalic, Atraumatic Eyes: Normal Pupils: PERRL Neck: Other - C spine precautions applied - Respiratory Respiratory status: No respiratory distress Chest status: Nontender Breath sounds: Normal Chest palpation: Normal - Cardiovascular Rhythm: Regular Heart sounds: Normal auscultation Murmur: No - Abdominal Inspection: Normal Distension: No distension Bowel sounds: Normal Tenderness: Nontender Organomegaly: No organomegaly - Back Back: Normal, Nontender - Extremities General upper extremity: Normal inspection, Nontender, Normal color, Normal ROM , Normal temperature General lower extremity: Normal inspection, Nontender, Normal color, Normal ROM , Normal temperature, Normal weight bearing. No: Melody's sign - Neurological Neuro grossly intact: Yes Mechelle Coma Scale Eye Opening: Spontaneous Mechelle Coma Scale Verbal: Oriented Mechelle Coma Scale Motor: Obeys Commands Mechelle Coma Scale Total: 15 Motor strength normal: LUE, RUE, LLE, RLE - Skin Skin Temperature: Warm Skin Moisture: Dry Skin Color: Normal Course - Re-evaluation Re-evalutation: 01/24/18 08:45 No acute traumatic findings found patient's physical examination or CAT scans. Patient was discharged back to fpc care facility - Vital Signs Vital signs: Temp Pulse Resp BP Pulse Ox 99.4 F 75 17 117/59 L 96 01/24/18 08:19 01/24/18 08:19 01/24/18 08:19 01/24/18 08:19 01/24/18 08:19 Discharge - Discharge Clinical Impression: Fall Qualifiers: Encounter type: initial encounter Qualified Code(s): W19.XXXA - Unspecified fall, initial encounter Condition: Good Disposition: HOME, SELF-CARE Instructions: Contusion ([facility]) Additional Instructions: Patient CT of her head and of her neck today shows no acute traumatic findings. Patient has been seen in the ER multiple visits for falls over the last few days. Please make sure that the patient is using all ambulation physical therapy assistant instructor devices please make sure the patient is wearing good shoes or good socks with principal ios developer support. Please create a safe environment around the patient to prevent any falls. Referrals: JULIUS MAYER NP [Primary Care Provider] - Follow up as needed
[2018-01-24 08:21] VITALS: BP 117/59
== END 2018-01-24 08:21 | disposition home or self-care (01) ==
LOC: ER 05:26
DX: Z04.3 Encounter for examination and observation following other accident (principal); W18.30XA Fall on same level, unspecified, initial encounter; Y92.129 Unspecified place in nursing home as the place of occurrence of the external cause; E78.00 Pure hypercholesterolemia, unspecified; I10 Essential (primary) hypertension; E11.9 Type 2 diabetes mellitus without complications; E03.9 Hypothyroidism, unspecified; Z90.49 Acquired absence of other specified parts of digestive tract; Z98.51 Tubal ligation status
CPT/HCPCS: 99285; 70450; 72125; A9270 ×3; J3490

== ENCOUNTER 2018-01-25 15:42 | Inpatient (IN) | payer MEDICARE, MEDICAID ==
[2018-01-25 17:01] LABS: ABSOLUTE BASOPHILS # (AUTO) 0.1 10^3/uL (0.0-0.2); ABSOLUTE EOSINOPHILS # (AUTO) 0.1 10^3/uL (0.0-0.6); ABSOLUTE LYMPHOCYTES (AUTO) 0.7 10^3/uL (0.5-4.7); ABSOLUTE MONOCYTES (AUTO) 0.8 10^3/uL (0.1-1.4); ABSOLUTE NEUT (AUTO) 9.7 10^3/uL (1.7-8.2); BASOPHILS % (AUTO) 0.8 % (0-2); EOSINOPHILS % (AUTO) 0.6 % (0-6); HEMATOCRIT 32.9 % (36.0-47.0); HEMOGLOBIN 11.2 g/dL (12.0-15.5); LYMPHOCYTES % (AUTO) 5.9 % (13-45); MEAN CORPUSCULAR HEMOGLOBIN 31.4 pg (27.0-33.4); MEAN CORPUSCULAR HGB CONC 33.9 g/dL (32.0-36.0); MEAN CORPUSCULAR VOLUME 93 fl (80-97); MONOCYTES % (AUTO) 6.8 % (3-13); PLATELET COUNT 421 10^3/uL (150-450); RED BLOOD COUNT 3.55 10^6/uL (3.72-5.28); RED CELL DISTRIBUTION WIDTH 13.4 % (11.5-14.0); SEGMENTED NEUTROPHILS % (AUTO) 85.9 % (42-78); TOTAL CELLS COUNTED % (AUTO) 100 %; WHITE BLOOD COUNT 11.3 10^3/uL (4.0-10.5)
--- NOTE | 2018-01-25 17:08 | ER Document Report ---
ED Medical Screen (RME) - General Chief Complaint: Altered Mental Status Stated Complaint: ALTERED MENTAL STATUS Time Seen by Provider: 01/25/18 17:02 Notes: RAPID MEDICAL EVALUATION DISCLOSURE I have seen this patient as part of a Rapid Medical Evaluation and, if applicable, placed any initially appropriate orders. The patient will be seen and fully evaluated, including a full history and physical exam, by a provider ( in Main ED or Fast Track) when a room becomes available. 67-year-old female brought here by EMS. The patient is unable to provide an accurate history or review of systems due to her condition. EXAM CTAB RRR Chest wall and LUE TTP Arouses to verbal Disoriented TRAVEL OUTSIDE OF THE [place] IN LAST 30 DAYS: No - Related Data Allergies/Adverse Reactions: haloperidol [From Haldol] Allergy (Severe, Verified 01/25/18 16:20) LOCKJAW haloperidol lactate [From Haldol] Allergy (Severe, Verified 01/25/18 16:20) LOCKJAW chlorpromazine HCl [From Thorazine] Allergy (Verified 01/25/18 16:20) chocolate Allergy (Uncoded 01/25/18 16:20) Past Medical History - Social History Chew tobacco use (# tins/day): No Frequency of alcohol use: None - Past Medical History Cardiac Medical History: Reports: Hx Hypercholesterolemia, Hx Hypertension Pulmonary Medical History: Reports: Hx Bronchitis Neurological Medical History: Reports: Hx Seizures Endocrine Medical History: Reports: Hx Diabetes Mellitus Type 2, Hx Hypothyroidism Renal/ Medical History: Denies: Hx Peritoneal Dialysis GI Medical History: Reports: Hx Gastroesophageal Reflux Disease. Denies: Hx Pancreatitis Musculoskeltal Medical History: Reports Hx Arthritis Psychiatric Medical History: Reports: Hx Bipolar Disorder, Hx Depression, Hx Schizoaffective Disorder, Hx Schizophrenia Past Surgical History: Reports: Hx Cholecystectomy, Hx Neurologic Surgery - carpal tunnel, Hx Tonsillectomy - 1957, Hx Tubal Ligation - Immunizations Hx Diphtheria, Pertussis, Tetanus Vaccination: Yes Physical Exam - Vital signs Vitals: Pulse Ox 95 01/25/18 16:05 Course - Vital Signs Vital signs: Temp Pulse Resp BP Pulse Ox 98.4 F 18 123/66 97 01/25/18 16:12 01/25/18 16:09 01/25/18 16:09 01/25/18 16:09 - Laboratory Result Diagrams: 01/25/18 16:09 01/25/18 16:09 Doctor's Discharge - Discharge Referrals: JULIUS MAYER NP [Primary Care Provider] - Follow up as needed
[2018-01-25 17:13] LABS: ALANINE AMINOTRANSFERASE 35 U/L (9-52); ALBUMIN 3.4 g/dL (3.5-5.0); ALKALINE PHOSPHATASE 155 U/L (38-126); ANION GAP 9 (5-19); ASPARTATE AMINO TRANSFERASE 38 U/L (14-36); BILIRUBIN,DIRECT 0.6 mg/dL (0.0-0.4); BILIRUBIN,TOTAL 0.8 mg/dL (0.2-1.3); BLOOD UREA NITROGEN 49 mg/dL (7-20); CALCIUM 9.8 mg/dL (8.4-10.2); CARBON DIOXIDE 33 mmol/L (22-30); CHLORIDE 102 mmol/L (98-107); GLUCOSE 107 mg/dL (75-110); POTASSIUM 4.3 mmol/L (3.6-5.0); SODIUM 144.2 mmol/L (137-145); TOTAL PROTEIN 6.2 g/dL (6.3-8.2)
[2018-01-25 17:14] LABS: ALCOHOL < 10 mg/dL (NONE DETECTED)
[2018-01-25 18:08] LABS: VENOUS BLOOD BASE EXCESS 4.6 mmol/L; VENOUS BLOOD HCO3 29.9 mmol/L (20-32); VENOUS BLOOD PCO2 48.8 mmHg (35-63); VENOUS BLOOD PH 7.41 (7.30-7.42)
--- NOTE | 2018-01-25 18:08 | RADIOLOGY REPORT (SQ) ---
EXAM DESCRIPTION: CHEST 2 VIEWS COMPLETED DATE/TIME: 01/25/2018 5:55 pm REASON FOR STUDY: AMS COMPARISON: 08/25/2017 EXAM PARAMETERS: NUMBER OF VIEWS: two views TECHNIQUE: Digital Frontal and Lateral radiographic views of the chest acquired. RADIATION DOSE: NA LIMITATIONS: none FINDINGS: LUNGS AND PLEURA: No opacities, masses or pneumothorax. No pleural effusion. MEDIASTINUM AND HILAR STRUCTURES: No masses or contour abnormalities. HEART AND VASCULAR STRUCTURES: Heart normal size. No evidence for failure. BONES: No acute findings. HARDWARE: None in the chest. OTHER: No other significant finding. IMPRESSION: NO ACUTE RADIOGRAPHIC FINDING IN THE CHEST. TECHNICAL DOCUMENTATION: JOB ID: [id number] [employer]- All Rights Reserved Reading location - IP/workstation name: [email or web address]
[2018-01-25 18:46] LABS: APPEARANCE,URINE SLIGHTLY-CLOUDY; BILIRUBIN,URINE NEGATIVE (NEGATIVE); COLOR,URINE AMBER; GLUCOSE, URINE NEGATIVE (NEGATIVE); KETONES,URINE TRACE mg/dL (NEGATIVE); LEUKOCYTE ESTERASE,URINE NEGATIVE (NEGATIVE); NITRITE,URINE NEGATIVE (NEGATIVE); PROTEIN,URINE NEGATIVE (NEGATIVE); URINE SPECIFIC GRAVITY 1.017; UROBILINOGEN,URINE NEGATIVE mg/dL (<2.0)
[2018-01-25 18:47] LABS: AMORPHOUS SEDIMENT,URINE TRACE /HPF
[2018-01-25 18:59] LABS: URINE AMPHETAMINES SCREEN NEGATIVE; URINE BARBITURATES SCREEN NEGATIVE; URINE BENZODIAZEPINES SCREEN NEGATIVE; URINE COCAINE SCREEN NEGATIVE; URINE MARIJUANA (THC) SCREEN NEGATIVE; URINE METHADONE SCREEN NEGATIVE; URINE PHENCYCLIDINE SCREEN NEGATIVE
--- NOTE | 2018-01-25 19:01 | ER Document Report ---
ED General - General Chief Complaint: Altered Mental Status Stated Complaint: ALTERED MENTAL STATUS Time Seen by Provider: 01/25/18 17:02 Mode of Arrival: Medic Information source: [facility], [facility] Records, Outside Facility Records Cannot obtain history due to: Altered mental status Notes: Patient with history of schizoaffective or disorder is sent to the emergency department from [facility] for altered mental status, elevated lithium level and decreased renal function. Patient is actually been seen at this facility several times over the past week for multiple falls but had not had altered mental status any of those times per review of the [facility] records. [facility] states that the patient has been altered since last , apparently laboratory studies were performed recently as an outpatient and they found an elevated lithium level and decreased renal function however this was not provided to us today. Records from facility state that her altered mental status is not at her baseline. Patient is completely disoriented and cannot answer my questions. She provides no history whatsoever. TRAVEL OUTSIDE OF THE [place] IN LAST 30 DAYS: No - Related Data Allergies/Adverse Reactions: haloperidol [From Haldol] Allergy (Severe, Verified 01/25/18 16:20) LOCKJAW haloperidol lactate [From Haldol] Allergy (Severe, Verified 01/25/18 16:20) LOCKJAW chlorpromazine HCl [From Thorazine] Allergy (Verified 01/25/18 16:20) chocolate Allergy (Uncoded 01/25/18 16:20) Past Medical History - General Information source: [facility] Records, Outside Facility Records Cannot obtain history due to: Altered mental status - Social History Smoking Status: Never Smoker Chew tobacco use (# tins/day): No Frequency of alcohol use: None Lives with: Other - Assisted-living facility, [facility]. Family History: CAD - dad and uncle with MIs in their 60s, DM - mom Patient has suicidal ideation: No - unable to assess Patient has homicidal ideation: No - unable to assess - Past Medical History Cardiac Medical History: Reports: Hx Hypercholesterolemia, Hx Hypertension Pulmonary Medical History: Reports: Hx Bronchitis Neurological Medical History: Reports: Hx Seizures Endocrine Medical History: Reports: Hx Diabetes Mellitus Type 2, Hx Hypothyroidism Renal/ Medical History: Denies: Hx Peritoneal Dialysis GI Medical History: Reports: Hx Gastroesophageal Reflux Disease. Denies: Hx Pancreatitis Musculoskeltal Medical History: Reports Hx Arthritis Psychiatric Medical History: Reports: Hx Bipolar Disorder, Hx Depression, Hx Schizoaffective Disorder, Hx Schizophrenia Past Surgical History: Reports: Hx Cholecystectomy, Hx Neurologic Surgery - carpal tunnel, Hx Tonsillectomy - 1957, Hx Tubal Ligation - Immunizations Hx Diphtheria, Pertussis, Tetanus Vaccination: Yes Hx Pneumococcal Vaccination: 11/08/13 Review of Systems - Review of Systems -: Yes ROS unobtainable due to patient's medical condition - Altered mental status and confusion. Physical Exam - Vital signs Vitals: Pulse Ox 95 01/25/18 16:05 Interpretation: Hypertensive - Notes Notes: GENERAL: Awake, confused, speech does not make any sense. Does not appear short of breath, does not appear to be in pain. Asks me for help but cannot tell me what she needs help with. HEAD: Normocephalic, atraumatic EYES: Pupils equal, round and reactive to light, extraocular movements intact. ENT: Oral mucosa dry, tongue midline. NECK: Full range of motion, supple, trachea midline. LUNGS: Clear to auscultation bilaterally, no wheezes, rales or rhonchi, no respiratory distress. HEART: 2 out of 6 systolic ejection murmur, no gallops or rubs, regular rate and rhythm. ABDOMEN: Soft, nontender, nondistended, bowel sounds present in all 4 quadrants. EXTREMITIES: Moves all 4 extremities spontaneously, 1+ pitting edema bilateral ankles, radial and dorsalis pedis pulses 2/4 bilaterally. No cyanosis. NEUROLOGICAL: Awake, disoriented, cannot answer orientation questions however she can follow commands to sit up and to squeeze my hands. Speech is generally disoriented and nonsensical, asks for help but then cannot say with what, cannot answer my questions regarding where she is having pain. biceps and patellar DTRs 2+ bilaterally. PSYCH: Confused SKIN: Warm, Dry, normal turgor. Course - Re-evaluation Re-evalutation: 01/25/18 19:07 CBC shows leukocytosis which is new from a week ago to 11.3, anemia with hemoglobin 11.2, venous blood gas unremarkable, CMP does show acute renal failure with a BUN of 49 and creatinine of 1.9, lactic acid is somewhat elevated 2.6 but this is not yet meeting sepsis criteria, magnesium is elevated at 3.6, ammonia is undetectable, troponin negative at 0.014, lipase normal at 68.2, urinalysis shows trace ketones but no signs of infection, urine drug screen is pending, lithium level is actually not toxic at this point at 1.2, alcohol level is undetectable. I see no indication for emergent dialysis at this time. Chest x-ray is unremarkable. Blood cultures have been obtained. Patient will be discussed with hospitalist for possible admission given her acute renal failure and altered mental status. Patient does not have a fever, is flexing and extending her neck without any difficulty, not consistent with meningitis. I do not see a source for infection at this time, patient does not meet SIRS criteria. Currently antibiotics will not be given. Gore catheter is being placed for the acute renal failure, patient will be hydrated. 01/25/18 19:10 Urine drug screen negative. 01/25/18 19:[address] Deras the hospitalist, agrees to admit for acute renal failure, recommends telemetry bed observation status. - Vital Signs Vital signs: Temp Pulse Resp BP Pulse Ox 98.4 F 19 146/67 H 97 01/25/18 16:12 01/25/18 17:18 01/25/18 17:18 01/25/18 17:18 - Laboratory Result Diagrams: 01/25/18 16:09 01/25/18 16:09 Laboratory results interpreted by me: 01/25/18 01/25/18 01/25/18 16:09 16:09 17:41 WBC 11.3 H RBC 3.55 L Hgb 11.2 L Hct 32.9 L Seg Neutrophils % 85.9 H Lymphocytes % 5.9 L Absolute Neutrophils 9.7 H Carbon Dioxide 33 H BUN 49 H Creatinine 1.90 H Est GFR ( Amer) 32 L Est GFR (Non-Af Amer) 26 L Lactic Acid 2.6 H Magnesium 3.6 H Direct Bilirubin 0.6 H AST 38 H Alkaline Phosphatase 155 H Ammonia Total Protein 6.2 L Albumin 3.4 L Urine Ketones 01/25/18 01/25/18 17:41 18:32 WBC RBC Hgb Hct Seg Neutrophils % Lymphocytes % Absolute Neutrophils Carbon Dioxide BUN Creatinine Est GFR ( Amer) Est GFR (Non-Af Amer) Lactic Acid Magnesium Direct Bilirubin AST Alkaline Phosphatase Ammonia < 8.7 L Total Protein Albumin Urine Ketones TRACE H Discharge - Discharge Clinical Impression: Elevated lactic acid level Altered mental status Qualifiers: Altered mental status type: disorientation Qualified Code(s): R41.0 - Disorientation, unspecified Acute renal failure Qualifiers: Acute renal failure type: unspecified Qualified Code(s): N17.9 - Acute kidney failure, unspecified Condition: Fair Disposition: ADMITTED OBSERVATION Admitting Provider: [facility] Unit Admitted: Telemetry Referrals: JULIUS MAYER NP [Primary Care Provider] - Follow up as needed
[2018-01-25] MEDS ORDERED: MAG HYDROX/AL HYDROX/SIMETH SUSP 30 ML UDCUP PO PRN (19:25)
[2018-01-25] MEDS ORDERED: IPRATROPIUM/ALBUTEROL 0.5-2.5 MG/3 ML AMPUL NEB PRN (19:25)
[2018-01-25] MEDS ORDERED: NORMAL SALINE 1000 ML 1,000 ML IV ONE (19:26)
[2018-01-25] MEDS: NORMAL SALINE 1000 ML 1,000 ML IV SCH (19:46)
[2018-01-25] MEDS ORDERED: LORAZEPAM INJ 2 MG/1 ML VIAL IV ONE (20:34)
--- NOTE | 2018-01-25 21:40 | RADIOLOGY REPORT (SQ) ---
EXAM DESCRIPTION: CT HEAD WITHOUT COMPLETED DATE/TIME: 01/25/2018 9:16 pm REASON FOR STUDY: fell out of bed W06.XXXA FALL FROM BED, INITIAL ENCOUNTER COMPARISON: 01/24/2018 TECHNIQUE: Axial images acquired through the brain without intravenous contrast. Images reviewed wi th bone, brain and subdural windows. Additional sagittal and coronal reconstructions were generated. Images stored on PACS. All CT scanners at this facility use dose modulation, iterative reconstruction, and/or weight based d osing when appropriate to reduce radiation dose to as low as reasonably achievable (ALARA). [facility]: Dose Right [facility]: CareDose [facility]: Dose Right [facility]: Teradose 4D [facility]: [employer] RADIATION DOSE: CT Rad equipment meets quality standard of care and radiation dose reduction techniq ues were employed. CTDIvol: 55.2 mGy. DLP: 1167 mGy-cm. mGy. LIMITATIONS: None. FINDINGS: VENTRICLES: Normal size and contour. CEREBRUM: Mild cortical atrophy. No masses. No hemorrhage. No midline shift. No evidence for acut e infarction. Small areas of low density in the white matter most likely chronic small vessel ischemi c changes. CEREBELLUM: No masses. No hemorrhage. No alteration of density. No evidence for acute infarction. EXTRAAXIAL SPACES: No fluid collections. No masses. ORBITS AND GLOBE: No intra- or extraconal masses. Normal contour of globe without masses. CALVARIUM: No fracture. PARANASAL SINUSES: No fluid or mucosal thickening. SOFT TISSUES: No mass or hematoma. OTHER: No other significant finding. IMPRESSION: MILD CHRONIC MICROVASCULAR ISCHEMIA. NO ACUTE IMAGING FINDINGS IN THE BRAIN. EVIDENCE OF ACUTE STROKE: NO. COMMENT: Quality ID # [id number]: Final reports with documentation of one or more dose reduction techniques (e.g., Automated exposure control, adjustment of the mA and/or kV according to patient size, use of iterative reconstruction technique) TECHNICAL DOCUMENTATION: JOB ID: [id number] [employer]- All Rights Reserved Reading location - IP/workstation name: [email or web address]
--- NOTE | 2018-01-25 21:42 | RADIOLOGY REPORT (SQ) ---
EXAM DESCRIPTION: CT CERVICAL SPINE WITHOUT COMPLETED DATE/TIME: 01/25/2018 9:17 pm REASON FOR STUDY: fall W06.XXXA FALL FROM BED, INITIAL ENCOUNTER COMPARISON: None. TECHNIQUE: Axial images acquired through the cervical spine without intravenous contrast. Images re viewed with lung, soft tissue and bone windows. Reconstructed coronal and sagittal MPR images review ed. Images stored on PACS. All CT scanners at this facility use dose modulation, iterative reconstruction, and/or weight based d osing when appropriate to reduce radiation dose to as low as reasonably achievable (ALARA). [facility]: Dose Right [facility]: CareDose [facility]: Dose Right [facility]: Teradose 4D [facility]: [employer] RADIATION DOSE: mGy. LIMITATIONS: None. FINDINGS: ALIGNMENT: Anatomic. MINERALIZATION: Normal. VERTEBRAL BODIES: No fractures or dislocation. DISCS: Minimal disc space narrowing from C4-C7. FACETS, LATERAL MASSES, POSTERIOR ELEMENTS: No fractures. No dislocation. No acute findings. HARDWARE: None in the spine. VISUALIZED RIBS: No fractures. LUNG APICES AND SOFT TISSUES: No significant or acute findings. OTHER: No other significant finding. IMPRESSION: Minimal disc space narrowing. No acute findings. TECHNICAL DOCUMENTATION: JOB ID: [id number] Quality ID # [id number]: Final reports with documentation of one or more dose reduction techniques (e.g., Au tomated exposure control, adjustment of the mA and/or kV according to patient size, use of iterative reconstruction technique) 2010 [employer]- All Rights Reserved Reading location - IP/workstation name: [email or web address]
[2018-01-25] MEDS ORDERED: (PENDING PHARMACY ID) (Lamotrigine [Lamictal] 150 MG) PO SCH (22:00)
[2018-01-25] MEDS ORDERED: ARIPIPRAZOLE 30 MG PO SCH (22:00)
[2018-01-25] MEDS ORDERED: (PENDING PHARMACY ID) (Lactulose [Lactulose] 30 ML) PO SCH (22:00)
[2018-01-25] MEDS ORDERED: ARIPIPRAZOLE 5 MG TABLET PO SCH (22:00)
[2018-01-25] MEDS: LACTULOSE SYRUP 20 GM/30 ML UDCUP PO SCH (22:51)
[2018-01-25] MEDS: LAMOTRIGINE 100 MG TABLET PO SCH (22:57)
[2018-01-25] MEDS: HEPARIN SOD (PORCINE) 5,000 UNIT/ML 1 ML SYRINGE SUBCUT SCH (22:59)
[2018-01-26] MEDS: NORMAL SALINE 1000 ML 1,000 ML IV SCH ×2 (04:27→12:07)
[2018-01-26] MEDS: HEPARIN SOD (PORCINE) 5,000 UNIT/ML 1 ML SYRINGE SUBCUT SCH ×3 (04:27→22:25)
[2018-01-26 05:18] LABS: ABSOLUTE EOSINOPHILS # (AUTO) 0.2 10^3/uL (0.0-0.6); ABSOLUTE LYMPHOCYTES (AUTO) 0.6 10^3/uL (0.5-4.7); ABSOLUTE MONOCYTES (AUTO) 0.7 10^3/uL (0.1-1.4); BASOPHILS % (AUTO) 0.5 % (0-2); EOSINOPHILS % (AUTO) 3.3 % (0-6); HEMATOCRIT 28.6 % (36.0-47.0); LYMPHOCYTES % (AUTO) 7.8 % (13-45); MEAN CORPUSCULAR HEMOGLOBIN 32.7 pg (27.0-33.4); MEAN CORPUSCULAR HGB CONC 35.1 g/dL (32.0-36.0); MEAN CORPUSCULAR VOLUME 93 fl (80-97); MONOCYTES % (AUTO) 9.4 % (3-13); PLATELET COUNT 343 10^3/uL (150-450); RED BLOOD COUNT 3.07 10^6/uL (3.72-5.28); RED CELL DISTRIBUTION WIDTH 13.6 % (11.5-14.0); TOTAL CELLS COUNTED % (AUTO) 100 %; WHITE BLOOD COUNT 7.6 10^3/uL (4.0-10.5)
[2018-01-26 05:35] LABS: ANION GAP 8 (5-19); BLOOD UREA NITROGEN 36 mg/dL (7-20); CALCIUM 8.8 mg/dL (8.4-10.2); CARBON DIOXIDE 29 mmol/L (22-30); CHLORIDE 111 mmol/L (98-107); GLUCOSE 75 mg/dL (75-110); POTASSIUM 3.8 mmol/L (3.6-5.0); SODIUM 147.9 mmol/L (137-145)
--- NOTE | 2018-01-26 06:12 | PDOC H&P ---
History of Present Illness Admission Date/PCP: 01/25/18 19:42 JULIUS MAYER NP Patient complains of: Altered mental status History of Present Illness: CAROLYN MEMBRENO is a 67 year old female resident of the [facility] with medical history of schizophrenia and recurrent falls. Patient is completely disoriented and unable to provide any history. She proceeds to jump out of bed only to land on the floor which results in the small hematoma to this the occipital scalp. She is placed in a c spine collar, images returned negative. She is placed in soft wrist restraints, her workup otherwise reveals prerenal azotemia. Medications are under reconciliation. Normal saline, Lamictal and Abilify initiated Past Medical History Cardiac Medical History: Reports: Hyperlipidema, Hypertension Pulmonary Medical History: Reports: Bronchitis Neurological Medical History: Reports: Seizures Endocrine Medical History: Reports: Diabetes Mellitus Type 2, Hypothyroidism GI Medical History: Reports: Gastroesophageal Reflux Disease Musculoskeltal Medical History: Reports: Arthritis Psychiatric Medical History: Reports: Bipolar Disorder, Depression, Schizoaffective Disorder Hematology: Denies: Anemia, Hemophilia, Sickle Cell Disease Past Surgical History Past Surgical History: Reports: Cholecystectomy, Tonsillectomy - 1956, Tubal Ligation Denies: Amputation Social History Information Source: [facility] Records Lives with: Other - Assisted-living facility, [facility]. Smoking Status: Never Smoker Frequency of Alcohol Use: None Hx Recreational Drug Use: No Drugs: None Hx Prescription Drug Abuse: No - Advance Directive Resuscitation Status: Full Code Family History Family History: CAD - dad and uncle with MIs in their 60s, DM - mom Parental Family History Reviewed: Yes - Unobtainable Children Family History Reviewed: Yes Sibling(s) Family History Reviewed.: Yes Medication/Allergy Home Medications: Alendronate Sodium [Fosamax 70 mg Tablet] 70 mg PO CLAYTON@0800 01/25/18 Aripiprazole [Abilify 30 mg Tablet] 30 mg PO DAILY 01/25/18 Asenapine Maleate [Saphris] 5 mg PO Q12 01/25/18 Benztropine Mesylate [Cogentin 1 mg Tablet] 1 mg PO BID 01/25/18 Clozapine [Clozaril 100 mg Tablet] 100 mg PO DAILY 01/25/18 Clozapine [Clozaril 25 mg Tablet] 25 mg PO DAILY 01/25/18 Cyclobenzaprine HCl [Flexeril 5 mg Tablet] 5 mg PO Q8HP PRN 01/25/18 Duloxetine HCl [Cymbalta] 60 mg PO Q12 01/25/18 Lactulose [Enulose 10 gm/15 mL Oral Solution] 30 ml PO BID 01/25/18 Lamotrigine [Lamictal] 200 mg PO Q12 01/25/18 Levothyroxine Sodium [Synthroid 0.05 mg Tablet] 0.05 mg PO Q6AM 01/25/18 Linaclotide [Linzess] 290 mcg PO DAILY 01/25/18 [place] Carbonate [Lithobid 300 mg Capsule] 300 mg PO DAILY 01/25/18 Losartan Potassium [Cozaar 25 mg Tablet] 25 mg PO DAILY 01/25/18 Metformin HCl [Glucophage 500 mg Tablet] 500 mg PO BID 01/25/18 Omeprazole 20 mg PO DAILY 01/25/18 Oxybutynin Chloride [Ditropan 5 mg Tablet] 5 mg PO DAILY 01/25/18 Simvastatin [Zocor 20 mg Tablet] 20 mg PO DAILY 01/25/18 Trazodone HCl [Desyrel] 100 mg PO QHS 01/25/18 Allergies/Adverse Reactions: haloperidol [From Haldol] Allergy (Severe, Verified 01/25/18 16:20) LOCKJAW haloperidol lactate [From Haldol] Allergy (Severe, Verified 01/25/18 16:20) LOCKJAW chlorpromazine HCl [From Thorazine] Allergy (Verified 01/25/18 16:20) chocolate Allergy (Uncoded 01/25/18 16:20) Review of Systems ROS unobtainable: Due to mental status Physical Exam Vital Signs: Temp Pulse Resp BP Pulse Ox 98.7 F 69 21 H 124/53 L 98 01/26/18 03:37 01/26/18 03:37 01/26/18 03:37 01/26/18 03:37 01/26/18 03:37 Intake & Output 01/24/18 01/25/18 01/26/18 11:59 11:59 11:59 Output Total 200 Balance -200 Weight 79.6 kg General appearance: PRESENT: disheveled, mild distress. ABSENT: no acute distress, cooperative Head exam: PRESENT: other - 2 cm a septal hematoma without laceration. ABSENT: atraumatic Eye exam: PRESENT: conjunctiva pink, EOMI, PERRLA. ABSENT: scleral icterus Ear exam: PRESENT: normal external ear exam Mouth exam: PRESENT: dry mucosa, tongue midline Neck exam: ABSENT: carotid bruit, JVD, lymphadenopathy, thyromegaly Respiratory exam: PRESENT: clear to auscultation parviz. ABSENT: rales, rhonchi, wheezes Cardiovascular exam: PRESENT: RRR. ABSENT: diastolic murmur, rubs, systolic murmur Pulses: PRESENT: normal dorsalis pedis pul Vascular exam: PRESENT: normal capillary refill GI/Abdominal exam: PRESENT: normal bowel sounds, soft. ABSENT: distended, guarding, mass, organolmegaly, rebound, tenderness Rectal exam: PRESENT: deferred Extremities exam: PRESENT: full ROM. ABSENT: calf tenderness, clubbing, pedal edema Neurological exam: PRESENT: alert, altered, awake, CN II-XII grossly intact. ABSENT: motor sensory deficit Psychiatric exam: PRESENT: agitated, unusual affect Focused psych exam: PRESENT: internal stimuli, psychomotor agitation, restlessness Skin exam: PRESENT: dry, intact, warm. ABSENT: cyanosis, rash Results Laboratory Results: 01/26/18 04:25 01/26/18 04:25 01/25/18 01/26/18 01/26/18 21:42 04:25 04:25 WBC 7.6 RBC 3.07 L Hgb 10.0 L Hct 28.6 L MCV 93 MCH 32.7 MCHC 35.1 RDW 13.6 Plt Count 343 Seg Neutrophils % 79.0 H Lymphocytes % 7.8 L Monocytes % 9.4 Eosinophils % 3.3 Basophils % 0.5 Absolute Neutrophils 6.0 Absolute Lymphocytes 0.6 Absolute Monocytes 0.7 Absolute Eosinophils 0.2 Absolute Basophils 0.0 Sodium 147.9 H Potassium 3.8 Chloride 111 H Carbon Dioxide 29 Anion Gap 8 BUN 36 H Creatinine 1.61 H Est GFR ( Amer) 39 L Est GFR (Non-Af Amer) 32 L Glucose 75 Lactic Acid 1.1 Calcium 8.8 Impressions: Cervical Spine CT 01/25/18 00:00 IMPRESSION: Minimal disc space narrowing. No acute findings. Chest X-Ray 01/25/18 17:06 IMPRESSION: NO ACUTE RADIOGRAPHIC FINDING IN THE CHEST. Head CT 01/25/18 20:34 IMPRESSION: MILD CHRONIC MICROVASCULAR ISCHEMIA. NO ACUTE IMAGING FINDINGS IN THE BRAIN. EVIDENCE OF ACUTE STROKE: NO. Assessment & Plan - Diagnosis (1) Acute renal failure Qualifiers: Acute renal failure type: unspecified Qualified Code(s): N17.9 - Acute kidney failure, unspecified Is this a current diagnosis for this admission?: Yes Plan: IV fluid challenge, avoid nephrotoxic meds and doses, follow-up chemistry (2) Altered mental status Qualifiers: Altered mental status type: disorientation Qualified Code(s): R41.0 - Disorientation, unspecified Is this a current diagnosis for this admission?: Yes Plan: Likely polypharmacy, Abilify, Lamictal and as needed benzodiazepine. (3) Diabetes Is this a current diagnosis for this admission?: Yes Plan: Home regiment with Humalog sliding scale (4) Schizoaffective disorder Is this a current diagnosis for this admission?: Yes Plan: Abilify and Lamictal ordered, as needed benzodiazepine - Time Time Spent: 50 to 70 Minutes - Inpatient Certification Medical Necessity: Need Close Monitoring Due to Risk of Patient Decompensation
[2018-01-26] MEDS: LAMOTRIGINE 100 MG TABLET PO SCH ×2 (09:53→22:25)
[2018-01-26] MEDS: LACTULOSE SYRUP 20 GM/30 ML UDCUP PO SCH ×2 (09:54→18:20)
[2018-01-26] MEDS ORDERED: (PENDING PHARMACY ID) (Cyclobenzaprine Hcl [Flexeril 5 Mg Tablet] 5 MG) PO PRN (11:18)
[2018-01-26] MEDS ORDERED: CYCLOBENZAPRINE HCL 10 MG TABLET PO PRN (13:55)
[2018-01-26] MEDS ORDERED: LITHIUM CARBONATE 300 MG CAPSULE PO ONE (14:00)
[2018-01-26] MEDS ORDERED: CLOZAPINE 100 MG TABLET PO ONE (14:00)
[2018-01-26] MEDS ORDERED: NORMAL SALINE 1000 ML 1,000 ML IV PRN (15:14)
--- NOTE | 2018-01-26 15:27 | PDOC PROGRESS REPORT ---
Subjective Progress Note for:: 01/26/18 Subjective:: This is a 67 years old female patient brought from [facility] admitted for altered mental status. Patient is also found to have acute kidney injury for which she has been on normal saline at a rate of 135 mL/h. I restarted all her antipsychotic medications. Patient is awake alert but she just murmuring. She has soft restraints at wrist and ankle. Reason For Visit: ARF SCHIZOPHRENIA Physical Exam Vital Signs: Temp Pulse Resp BP Pulse Ox 98.8 F 99 16 139/62 H 96 01/26/18 11:26 01/26/18 14:00 01/26/18 11:26 01/26/18 11:26 01/26/18 11:26 Intake & Output 01/25/18 01/26/18 01/27/18 06:59 06:59 06:59 Output Total 200 Balance -200 Weight 79.6 kg Results Laboratory Results: 01/26/18 04:25 01/26/18 04:25 01/25/18 01/26/18 01/26/18 21:42 04:25 04:25 WBC 7.6 RBC 3.07 L Hgb 10.0 L Hct 28.6 L MCV 93 MCH 32.7 MCHC 35.1 RDW 13.6 Plt Count 343 Seg Neutrophils % 79.0 H Lymphocytes % 7.8 L Monocytes % 9.4 Eosinophils % 3.3 Basophils % 0.5 Absolute Neutrophils 6.0 Absolute Lymphocytes 0.6 Absolute Monocytes 0.7 Absolute Eosinophils 0.2 Absolute Basophils 0.0 Sodium 147.9 H Potassium 3.8 Chloride 111 H Carbon Dioxide 29 Anion Gap 8 BUN 36 H Creatinine 1.61 H Est GFR ( Amer) 39 L Est GFR (Non-Af Amer) 32 L Glucose 75 Lactic Acid 1.1 Calcium 8.8 Impressions: Cervical Spine CT 01/25/18 00:00 IMPRESSION: Minimal disc space narrowing. No acute findings. Chest X-Ray 01/25/18 17:06 IMPRESSION: NO ACUTE RADIOGRAPHIC FINDING IN THE CHEST. Head CT 01/25/18 20:34 IMPRESSION: MILD CHRONIC MICROVASCULAR ISCHEMIA. NO ACUTE IMAGING FINDINGS IN THE BRAIN. EVIDENCE OF ACUTE STROKE: NO. Assessment & Plan - Diagnosis (1) Altered mental status Qualifiers: Altered mental status type: disorientation Qualified Code(s): R41.0 - Disorientation, unspecified Is this a current diagnosis for this admission?: Yes Plan: We do not know her baseline mental status. Continue to monitor. (2) Schizoaffective disorder Qualifiers: Schizoaffective disorder type: bipolar Qualified Code(s): F25.0 - Schizoaffective disorder, bipolar type Is this a current diagnosis for this admission?: Yes Plan: Continue lithium and other antipsychotic medications. (3) Type 2 diabetes mellitus Is this a current diagnosis for this admission?: Yes Plan: Continue sliding scale. (4) Acute kidney injury Is this a current diagnosis for this admission?: Yes Plan: Continue gentle hydration and avoid nephrotoxic agents
[2018-01-26] MEDS ORDERED: (PENDING PHARMACY ID) (Lactulose [Enulose 10 Gm/15 Ml Oral Solution] 30 ML) PO SCH (18:00)
[2018-01-26] MEDS: BENZTROPINE MESYLATE 1 MG TABLET PO SCH (20:11)
[2018-01-26] MEDS: METFORMIN HCL 500 MG TABLET PO SCH (20:12)
[2018-01-26] MEDS ORDERED: POTASSI CL 20 MEQ/D5-1/2NS 1L 1,000 ML IV ONE (21:02)
[2018-01-26] MEDS ORDERED: ASENAPINE MALEATE 5 MG PO SCH (22:00)
[2018-01-26] MEDS ORDERED: (PENDING PHARMACY ID) (Lamotrigine [Lamictal] 200 MG) PO SCH (22:00)
[2018-01-26] MEDS ORDERED: (PENDING PHARMACY ID) (Trazodone Hcl [Desyrel] 100 MG) PO SCH (22:00)
[2018-01-26] MEDS: ARIPIPRAZOLE 5 MG TABLET PO SCH (22:25)
[2018-01-26] MEDS: POTASSI CL 20 MEQ/D5-1/2NS 1L 1000 ML IV PRN (22:26)
[2018-01-26] MEDS: TRAZODONE HCL 50 MG TABLET PO SCH (22:27)
[2018-01-26] MEDS: DULOXETINE HCL 30 MG CAPSULE.DR PO SCH (22:27)
--- NOTE | 2018-01-27 00:20 | EKG REPORT ---
SEVERITY:- ABNORMAL ECG - SINUS RHYTHM NONSPECIFIC INTRAVENTRICULAR CONDUCTION DELAY : Confirmed by: Janie Pulido MD 27-Jan-2018 00:19:52
[2018-01-27] MEDS: HEPARIN SOD (PORCINE) 5,000 UNIT/ML 1 ML SYRINGE SUBCUT SCH ×3 (04:32→21:09)
[2018-01-27] MEDS: LEVOTHYROXINE SODIUM 0.05 MG TABLET PO SCH (04:32)
[2018-01-27] MEDS: POTASSI CL 20 MEQ/D5-1/2NS 1L 1000 ML IV PRN ×3 (04:32→23:53)
[2018-01-27] MEDS: LANSOPRAZOLE 15 MG TAB.RAP.DR PO SCH (04:32)
[2018-01-27 06:31] LABS: ABSOLUTE EOSINOPHILS # (AUTO) 0.2 10^3/uL (0.0-0.6); ABSOLUTE LYMPHOCYTES (AUTO) 0.7 10^3/uL (0.5-4.7); ABSOLUTE MONOCYTES (AUTO) 0.7 10^3/uL (0.1-1.4); BASOPHILS % (AUTO) 0.8 % (0-2); EOSINOPHILS % (AUTO) 3.8 % (0-6); HEMATOCRIT 28.1 % (36.0-47.0); HEMOGLOBIN 9.8 g/dL (12.0-15.5); LYMPHOCYTES % (AUTO) 15.9 % (13-45); MEAN CORPUSCULAR HEMOGLOBIN 31.9 pg (27.0-33.4); MEAN CORPUSCULAR HGB CONC 34.7 g/dL (32.0-36.0); MEAN CORPUSCULAR VOLUME 92 fl (80-97); MONOCYTES % (AUTO) 14.4 % (3-13); PLATELET COUNT 326 10^3/uL (150-450); RED BLOOD COUNT 3.06 10^6/uL (3.72-5.28); RED CELL DISTRIBUTION WIDTH 13.5 % (11.5-14.0); SEGMENTED NEUTROPHILS % (AUTO) 65.1 % (42-78); TOTAL CELLS COUNTED % (AUTO) 100 %; WHITE BLOOD COUNT 4.7 10^3/uL (4.0-10.5)
[2018-01-27 06:50] LABS: ANION GAP 7 (5-19); BLOOD UREA NITROGEN 16 mg/dL (7-20); CALCIUM 8.8 mg/dL (8.4-10.2); CARBON DIOXIDE 26 mmol/L (22-30); CHLORIDE 114 mmol/L (98-107); GLUCOSE 100 mg/dL (75-110); POTASSIUM 3.8 mmol/L (3.6-5.0); SODIUM 146.8 mmol/L (137-145)
[2018-01-27] MEDS ORDERED: LACTULOSE SYRUP 20 GM/30 ML UDCUP PO ONE (07:00)
--- NOTE | 2018-01-27 09:04 | PDOC PROGRESS REPORT ---
Subjective Progress Note for:: 01/27/18 Subjective:: Patient seen and examined with nurse. Asleep but easily arousable, mumbling in no acute distress. Requiring soft wrist restraints for protection of self given attempts for jumping out of bed with poor insight and balance. Patient only tolerating minimal p.o. intake. No new nursing issues Reason For Visit: ARF SCHIZOPHRENIA Physical Exam Vital Signs: Temp Pulse Resp BP Pulse Ox 98.8 F 64 16 120/50 L 95 01/27/18 03:00 01/27/18 03:00 01/27/18 03:00 01/27/18 03:00 01/27/18 03:00 Intake & Output 01/25/18 01/26/18 01/27/18 11:59 11:59 11:59 Intake Total 670 Output Total 200 Balance -200 670 Weight 79.6 kg 78.1 kg General appearance: PRESENT: no acute distress, well-developed, well-nourished Head exam: PRESENT: atraumatic, normocephalic Eye exam: PRESENT: conjunctiva pink, EOMI, PERRLA. ABSENT: scleral icterus Ear exam: PRESENT: normal external ear exam Mouth exam: PRESENT: moist, tongue midline Neck exam: ABSENT: carotid bruit, JVD, lymphadenopathy, thyromegaly Respiratory exam: PRESENT: clear to auscultation parviz. ABSENT: rales, rhonchi, wheezes Cardiovascular exam: PRESENT: RRR. ABSENT: diastolic murmur, rubs, systolic murmur Pulses: PRESENT: normal dorsalis pedis pul Vascular exam: PRESENT: normal capillary refill GI/Abdominal exam: PRESENT: normal bowel sounds, soft. ABSENT: distended, guarding, mass, organolmegaly, rebound, tenderness Rectal exam: PRESENT: deferred Extremities exam: PRESENT: full ROM. ABSENT: calf tenderness, clubbing, pedal edema Neurological exam: PRESENT: alert, awake, oriented to person, oriented to place , oriented to time, oriented to situation, CN II-XII grossly intact. ABSENT: motor sensory deficit Psychiatric exam: PRESENT: appropriate affect, normal mood. ABSENT: homicidal ideation, suicidal ideation Skin exam: PRESENT: dry, intact, warm. ABSENT: cyanosis, rash Results Laboratory Results: 01/27/18 05:37 01/27/18 05:37 01/27/18 01/27/18 05:37 05:37 WBC 4.7 RBC 3.06 L Hgb 9.8 L Hct 28.1 L MCV 92 MCH 31.9 MCHC 34.7 RDW 13.5 Plt Count 326 Seg Neutrophils % 65.1 Lymphocytes % 15.9 Monocytes % 14.4 H Eosinophils % 3.8 Basophils % 0.8 Absolute Neutrophils 3.0 Absolute Lymphocytes 0.7 Absolute Monocytes 0.7 Absolute Eosinophils 0.2 Absolute Basophils 0.0 Sodium 146.8 H Potassium 3.8 Chloride 114 H Carbon Dioxide 26 Anion Gap 7 BUN 16 Creatinine 1.16 Est GFR ( Amer) 56 L Est GFR (Non-Af Amer) 47 L Glucose 100 Calcium 8.8 Impressions: Cervical Spine CT 01/25/18 00:00 IMPRESSION: Minimal disc space narrowing. No acute findings. Chest X-Ray 01/25/18 17:06 IMPRESSION: NO ACUTE RADIOGRAPHIC FINDING IN THE CHEST. Head CT 01/25/18 20:34 IMPRESSION: MILD CHRONIC MICROVASCULAR ISCHEMIA. NO ACUTE IMAGING FINDINGS IN THE BRAIN. EVIDENCE OF ACUTE STROKE: NO. Assessment & Plan - Diagnosis (1) Acute renal failure Qualifiers: Acute renal failure type: unspecified Qualified Code(s): N17.9 - Acute kidney failure, unspecified Is this a current diagnosis for this admission?: Yes Plan: Resolved (2) Altered mental status Qualifiers: Altered mental status type: disorientation Qualified Code(s): R41.0 - Disorientation, unspecified Is this a current diagnosis for this admission?: Yes Plan: Unclear baseline, antipsychotic medications resumed 24 hours ago. Still not directable, with poor p.o. intake. Continue supportive care, encourage p.o. diet (3) Diabetes Is this a current diagnosis for this admission?: Yes Plan: Home regiment with Humalog sliding scale (4) Schizoaffective disorder Is this a current diagnosis for this admission?: Yes Plan: Entire outpatient regiment resumed 24 hours ago. Patient still unable to converse or follow commands. Continue supportive care - Time Time Spent with patient: Less than 15 minutes - Inpatient Certification Medical Necessity: Need Close Monitoring Due to Risk of Patient Decompensation
[2018-01-27] MEDS ORDERED: LITHIUM CARBONATE 300 MG CAPSULE PO SCH (10:00)
[2018-01-27] MEDS: LACTULOSE SYRUP 20 GM/30 ML UDCUP PO SCH ×2 (11:16→17:09)
[2018-01-27] MEDS: DULOXETINE HCL 30 MG CAPSULE.DR PO SCH ×2 (11:20→21:09)
[2018-01-27] MEDS: LAMOTRIGINE 100 MG TABLET PO SCH ×2 (11:22→21:09)
[2018-01-27] MEDS: LOSARTAN POTASSIUM 25 MG TABLET PO SCH (11:22)
[2018-01-27] MEDS: CLOZAPINE 100 MG TABLET PO SCH (11:23)
[2018-01-27] MEDS: CLOZAPINE 25 MG TABLET PO SCH (11:23)
[2018-01-27] MEDS: BENZTROPINE MESYLATE 1 MG TABLET PO SCH ×2 (11:23→17:10)
[2018-01-27] MEDS: OXYBUTYNIN CHLORIDE 5 MG TABLET PO SCH (11:23)
[2018-01-27] MEDS: METFORMIN HCL 500 MG TABLET PO SCH ×2 (11:41→17:10)
[2018-01-27] MEDS: TRAZODONE HCL 50 MG TABLET PO SCH (21:09)
[2018-01-27] MEDS: ARIPIPRAZOLE 5 MG TABLET PO SCH (21:09)
[2018-01-27] MEDS: SIMVASTATIN 10 MG TABLET PO SCH (21:09)
[2018-01-28 06:34] LABS: HEMATOCRIT 30.5 % (36.0-47.0); HEMOGLOBIN 10.8 g/dL (12.0-15.5); MEAN CORPUSCULAR HEMOGLOBIN 32.8 pg (27.0-33.4); MEAN CORPUSCULAR HGB CONC 35.5 g/dL (32.0-36.0); MEAN CORPUSCULAR VOLUME 93 fl (80-97); PLATELET COUNT 350 10^3/uL (150-450); RED CELL DISTRIBUTION WIDTH 13.5 % (11.5-14.0); WHITE BLOOD COUNT 5.6 10^3/uL (4.0-10.5)
[2018-01-28 06:42] LABS: ANION GAP 7 (5-19); BLOOD UREA NITROGEN 9 mg/dL (7-20); CALCIUM 9.7 mg/dL (8.4-10.2); CARBON DIOXIDE 26 mmol/L (22-30); CHLORIDE 116 mmol/L (98-107); GLUCOSE 109 mg/dL (75-110); POTASSIUM 4.4 mmol/L (3.6-5.0); SODIUM 148.5 mmol/L (137-145)
[2018-01-28] MEDS: LEVOTHYROXINE SODIUM 0.05 MG TABLET PO SCH (06:53)
[2018-01-28] MEDS: LANSOPRAZOLE 15 MG TAB.RAP.DR PO SCH (06:53)
[2018-01-28] MEDS: HEPARIN SOD (PORCINE) 5,000 UNIT/ML 1 ML SYRINGE SUBCUT SCH (06:53)
[2018-01-28 07:39] LABS: ABSOLUTE LYMPHOCYTES# (MANUAL) 1.9 10^3/uL (0.5-4.7); ABSOLUTE MONOCYTES # (MANUAL) 0.5 10^3/uL (0.1-1.4); ABSOLUTE NEUTROPHILS# (MANUAL) 3.1 10^3/uL (1.7-8.2); BASOPHILS % (MANUAL) 0 % (0-2); EOSINOPHILS % (MANUAL) 1 % (0-6); LYMPHOCYTES % (MANUAL) 34 % (13-45); METAMYELOCYTES % (MANUAL) 1 % (0); MONOCYTES % (MANUAL) 9 % (3-13); SEGMENTED NEUTROPHILS % (MAN) 55 % (42-78); TOTAL CELLS COUNTED 100
[2018-01-28 07:40] LABS: PLATELET COMMENT ADEQUATE; RBC MORPHOLOGY COMMENT NORMO-CYTIC/CHROMIC
[2018-01-28] MEDS: POTASSI CL 20 MEQ/D5-1/2NS 1L 1000 ML IV PRN (08:25)
[2018-01-28] MEDS: CLOZAPINE 25 MG TABLET PO SCH (09:46)
[2018-01-28] MEDS: LACTULOSE SYRUP 20 GM/30 ML UDCUP PO SCH ×2 (09:46→17:31)
[2018-01-28] MEDS: LOSARTAN POTASSIUM 25 MG TABLET PO SCH (09:46)
[2018-01-28] MEDS: BENZTROPINE MESYLATE 1 MG TABLET PO SCH ×2 (09:46→17:31)
[2018-01-28] MEDS: CLOZAPINE 100 MG TABLET PO SCH (09:46)
[2018-01-28] MEDS: LAMOTRIGINE 100 MG TABLET PO SCH ×2 (09:46→22:21)
[2018-01-28] MEDS: DULOXETINE HCL 30 MG CAPSULE.DR PO SCH ×2 (09:46→22:18)
[2018-01-28] MEDS: OXYBUTYNIN CHLORIDE 5 MG TABLET PO SCH (09:47)
[2018-01-28] MEDS: METFORMIN HCL 500 MG TABLET PO SCH ×2 (09:47→17:32)
[2018-01-28 09:55] LABS: PHOSPHORUS 2.9 mg/dL (2.5-4.5)
[2018-01-28] MEDS ORDERED: ENOXAPARIN SODIUM INJ 40 MG/0.4 ML DISP.SYRIN SUBCUT ONE (11:30)
[2018-01-28] MEDS: MAGNESIUM SULFATE/D5W 1 GM/100 ML RTUPB IV SCH ×2 (11:39→12:50)
--- NOTE | 2018-01-28 11:48 | PDOC PROGRESS REPORT ---
Subjective Progress Note for:: 01/28/18 Subjective:: 67-year-old female, longterm facility resident. Past medical history: Schizophrenia Recurrent falls. Bipolar disorder Type 2 diabetes Hypothyroidism Seizures Hypertension Hyperlipidemia Arthritis GERD She presented to the hospital on January 25 after she jumped out of bed to land on the floor and developed a small hematoma in the occipital region of the scalp. She was placed in a C-spine collar. CT of the head and cervical spine were negative for acute fracture or dislocation. The patient was found to have altered mental status which was felt to be secondary to polypharmacy, and also acute renal failure for which she was started on IV fluids. She was agitated and confused and had to be placed in soft limb restraints due to multiple attempts to jump out of bed. He No complaints at present. Reason For Visit: ACUTE RENAL FAILURE, SCHIZOPHRENIA Physical Exam Vital Signs: Temp Pulse Resp BP Pulse Ox 98.4 F 74 18 135/56 H 99 01/28/18 07:49 01/28/18 07:49 01/28/18 07:49 01/28/18 07:49 01/28/18 07:49 Intake & Output 01/27/18 01/28/18 01/29/18 06:59 06:59 06:59 Output Total 300 Balance -300 Weight 74 kg General appearance: PRESENT: no acute distress, well-nourished Head exam: PRESENT: atraumatic Ear exam: PRESENT: normal external ear exam Mouth exam: PRESENT: moist Teeth exam: PRESENT: edentulous - He is is patient Neck exam: ABSENT: tracheal deviation Respiratory exam: PRESENT: symmetrical, unlabored. ABSENT: wheezes Cardiovascular exam: PRESENT: RRR - Is GI/Abdominal exam: PRESENT: normal bowel sounds, soft. ABSENT: tenderness Rectal exam: PRESENT: deferred Extremities exam: ABSENT: pedal edema Neurological exam: PRESENT: alert, awake Skin exam: ABSENT: rash Results Laboratory Results: 01/28/18 05:21 01/28/18 05:21 01/28/18 01/28/18 05:21 05:21 WBC 5.6 RBC 3.30 L Hgb 10.8 L Hct 30.5 L MCV 93 MCH 32.8 MCHC 35.5 RDW 13.5 Plt Count 350 Seg Neutrophils % Not Reportable Lymphocytes % Not Reportable Monocytes % Not Reportable Eosinophils % Not Reportable Basophils % Not Reportable Absolute Neutrophils Not Reportable Absolute Lymphocytes Not Reportable Absolute Monocytes Not Reportable Absolute Eosinophils Not Reportable Absolute Basophils Not Reportable Sodium 148.5 H Potassium 4.4 Chloride 116 H Carbon Dioxide 26 Anion Gap 7 BUN 9 Creatinine 0.99 Est GFR ( Amer) > 60 Est GFR (Non-Af Amer) 56 L Glucose 109 Calcium 9.7 Impressions: Cervical Spine CT 01/25/18 00:00 IMPRESSION: Minimal disc space narrowing. No acute findings. Chest X-Ray 01/25/18 17:06 IMPRESSION: NO ACUTE RADIOGRAPHIC FINDING IN THE CHEST. Head CT 01/25/18 20:34 IMPRESSION: MILD CHRONIC MICROVASCULAR ISCHEMIA. NO ACUTE IMAGING FINDINGS IN THE BRAIN. EVIDENCE OF ACUTE STROKE: NO. Assessment & Plan - Diagnosis (1) Altered mental status Qualifiers: Altered mental status type: disorientation Qualified Code(s): R41.0 - Disorientation, unspecified Is this a current diagnosis for this admission?: Yes Plan: Due to acute renal failure and polypharmacy (2) Acute kidney injury Is this a current diagnosis for this admission?: Yes Plan: Likely secondary to poor p.o. intake. Resolved with IV fluids. (3) Schizoaffective disorder Qualifiers: Schizoaffective disorder type: bipolar Qualified Code(s): F25.0 - Schizoaffective disorder, bipolar type Is this a current diagnosis for this admission?: Yes Plan: Continue outpatient medications including Cogentin, clozapine, Cymbalta, Lamictal, lithium. (4) Hypothyroidism Is this a current diagnosis for this admission?: Yes Plan: On Synthroid. (5) Type 2 diabetes mellitus Is this a current diagnosis for this admission?: Yes Plan: On metformin. (6) Hyperlipidemia Is this a current diagnosis for this admission?: Yes Plan: On Statin (7) Hypertension Is this a current diagnosis for this admission?: Yes Plan: On Losartan - Time Time Spent with patient: 25-34 minutes
[2018-01-28] MEDS ORDERED: MAGNESIUM OXIDE 400 MG TABLET PO ONE (12:00)
[2018-01-28] MEDS: LACTOBACILLUS ACIDOPHILUS 250 MG TAB PO SCH (17:31)
[2018-01-28] MEDS: MAGNESIUM OXIDE 400 MG TABLET PO SCH (17:31)
[2018-01-28] MEDS: SIMVASTATIN 10 MG TABLET PO SCH (22:18)
[2018-01-28] MEDS: ARIPIPRAZOLE 5 MG TABLET PO SCH (22:19)
[2018-01-28] MEDS: TRAZODONE HCL 50 MG TABLET PO SCH (22:20)
[2018-01-29] MEDS: LANSOPRAZOLE 15 MG TAB.RAP.DR PO SCH (05:00)
[2018-01-29] MEDS: LEVOTHYROXINE SODIUM 0.05 MG TABLET PO SCH (05:00)
[2018-01-29] MEDS ORDERED: (PENDING PHARMACY ID) (Alendronate Sodium [Fosamax 70 Mg Tablet] 70 MG) PO SCH (08:00)
[2018-01-29] MEDS: CLOZAPINE 25 MG TABLET PO SCH (08:53)
[2018-01-29] MEDS: ENOXAPARIN SODIUM INJ 40 MG/0.4 ML DISP.SYRIN SUBCUT SCH (08:53)
[2018-01-29] MEDS: CLOZAPINE 100 MG TABLET PO SCH (08:53)
[2018-01-29] MEDS: BENZTROPINE MESYLATE 1 MG TABLET PO SCH ×2 (08:53→17:42)
[2018-01-29] MEDS: DULOXETINE HCL 30 MG CAPSULE.DR PO SCH ×2 (08:53→21:36)
[2018-01-29] MEDS: LACTOBACILLUS ACIDOPHILUS 250 MG TAB PO SCH ×2 (08:54→17:42)
[2018-01-29] MEDS: LAMOTRIGINE 100 MG TABLET PO SCH ×2 (08:54→21:36)
[2018-01-29] MEDS: METFORMIN HCL 500 MG TABLET PO SCH ×2 (08:55→17:42)
[2018-01-29] MEDS: OXYBUTYNIN CHLORIDE 5 MG TABLET PO SCH (08:55)
[2018-01-29] MEDS: MAGNESIUM OXIDE 400 MG TABLET PO SCH ×2 (08:55→17:42)
[2018-01-29] MEDS: LOSARTAN POTASSIUM 25 MG TABLET PO SCH (08:55)
[2018-01-29] MEDS ORDERED: MAGNESIUM SULFATE/D5W 1 GM/100 ML RTUPB IV SCH (09:00)
[2018-01-29] MEDS: LACTULOSE SYRUP 20 GM/30 ML UDCUP PO SCH ×2 (12:38→17:43)
--- NOTE | 2018-01-29 13:48 | PDOC PROGRESS REPORT ---
Subjective Progress Note for:: 01/29/18 Subjective:: 67-year-old female, group home facility resident. Past medical history: Schizophrenia Recurrent falls. Bipolar disorder Type 2 diabetes Hypothyroidism Seizures Hypertension Hyperlipidemia Arthritis GERD She presented to the hospital on January 25 after she jumped out of bed to land on the floor and developed a small hematoma in the occipital region of the scalp. She was placed in a C-spine collar. CT of the head and cervical spine were negative for acute fracture or dislocation. The patient was found to have altered mental status which was felt to be secondary to polypharmacy, and also acute renal failure for which she was started on IV fluids. She was agitated and confused and had to be placed in soft limb restraints due to multiple attempts to jump out of bed. She is doing much better and has not required restraints or one to one monitoring for the past 24 hours. Plan to discharge back to SNF in am. Reason For Visit: ACUTE RENAL FAILURE, SCHIZOPHRENIA Physical Exam Vital Signs: Temp Pulse Resp BP Pulse Ox 99.1 F 79 18 104/57 L 98 01/29/18 11:41 01/29/18 11:41 01/29/18 11:41 01/29/18 11:41 01/29/18 11:41 Intake & Output 01/28/18 01/29/18 01/30/18 06:59 06:59 06:59 Intake Total 650 Output Total 300 1400 Balance -300 -750 Weight 74 kg 73.2 kg General appearance: PRESENT: no acute distress Head exam: PRESENT: normocephalic Eye exam: PRESENT: PERRLA Mouth exam: PRESENT: moist Teeth exam: PRESENT: poor dentation Neck exam: ABSENT: tracheal deviation Respiratory exam: PRESENT: symmetrical, unlabored Cardiovascular exam: PRESENT: RRR GI/Abdominal exam: PRESENT: normal bowel sounds, soft. ABSENT: tenderness Rectal exam: PRESENT: deferred Results Laboratory Results: 01/28/18 05:21 01/28/18 05:21 Impressions: Cervical Spine CT 01/25/18 00:00 IMPRESSION: Minimal disc space narrowing. No acute findings. Chest X-Ray 01/25/18 17:06 IMPRESSION: NO ACUTE RADIOGRAPHIC FINDING IN THE CHEST. Head CT 01/25/18 20:34 IMPRESSION: MILD CHRONIC MICROVASCULAR ISCHEMIA. NO ACUTE IMAGING FINDINGS IN THE BRAIN. EVIDENCE OF ACUTE STROKE: NO. Assessment & Plan - Diagnosis (1) Altered mental status Qualifiers: Altered mental status type: disorientation Qualified Code(s): R41.0 - Disorientation, unspecified Is this a current diagnosis for this admission?: Yes Plan: Due to acute renal failure and polypharmacy. Improved. (2) Acute kidney injury Is this a current diagnosis for this admission?: Yes Plan: Likely secondary to poor p.o. intake. Resolved with IV fluids. (3) Schizoaffective disorder Qualifiers: Schizoaffective disorder type: bipolar Qualified Code(s): F25.0 - Schizoaffective disorder, bipolar type Is this a current diagnosis for this admission?: Yes Plan: Continue outpatient medications including Cogentin, clozapine, Cymbalta, Lamictal, lithium. (4) Hypothyroidism Is this a current diagnosis for this admission?: Yes Plan: On Synthroid. (5) Type 2 diabetes mellitus Is this a current diagnosis for this admission?: Yes Plan: On metformin. (6) Hyperlipidemia Is this a current diagnosis for this admission?: Yes Plan: On Statin (7) Hypertension Is this a current diagnosis for this admission?: Yes Plan: On Losartan - Time Time Spent with patient: 25-34 minutes
[2018-01-29] MEDS: TRAZODONE HCL 50 MG TABLET PO SCH (21:36)
[2018-01-29] MEDS: SIMVASTATIN 10 MG TABLET PO SCH (21:36)
[2018-01-29] MEDS: ARIPIPRAZOLE 5 MG TABLET PO SCH (21:37)
[2018-01-30] MEDS: LEVOTHYROXINE SODIUM 0.05 MG TABLET PO SCH (04:56)
[2018-01-30] MEDS: LANSOPRAZOLE 15 MG TAB.RAP.DR PO SCH (04:56)
[2018-01-30 06:04] LABS: ANION GAP 5 (5-19); BLOOD UREA NITROGEN 18 mg/dL (7-20); CALCIUM 9.2 mg/dL (8.4-10.2); CARBON DIOXIDE 31 mmol/L (22-30); CHLORIDE 111 mmol/L (98-107); GLUCOSE 83 mg/dL (75-110); PHOSPHORUS 4.4 mg/dL (2.5-4.5); POTASSIUM 4.4 mmol/L (3.6-5.0); SODIUM 147.2 mmol/L (137-145)
[2018-01-30] MEDS: LACTOBACILLUS ACIDOPHILUS 250 MG TAB PO SCH ×2 (11:41→18:50)
[2018-01-30] MEDS: LACTULOSE SYRUP 20 GM/30 ML UDCUP PO SCH ×2 (11:41→18:50)
[2018-01-30] MEDS: ENOXAPARIN SODIUM INJ 40 MG/0.4 ML DISP.SYRIN SUBCUT SCH (11:41)
[2018-01-30] MEDS: METFORMIN HCL 500 MG TABLET PO SCH ×2 (11:41→18:50)
[2018-01-30] MEDS: OXYBUTYNIN CHLORIDE 5 MG TABLET PO SCH (11:42)
[2018-01-30] MEDS: BENZTROPINE MESYLATE 1 MG TABLET PO SCH ×2 (11:42→18:51)
[2018-01-30] MEDS: DULOXETINE HCL 30 MG CAPSULE.DR PO SCH ×2 (11:42→21:11)
[2018-01-30] MEDS: MAGNESIUM OXIDE 400 MG TABLET PO SCH ×2 (11:42→18:50)
[2018-01-30] MEDS: LOSARTAN POTASSIUM 25 MG TABLET PO SCH (11:43)
[2018-01-30] MEDS: CLOZAPINE 100 MG TABLET PO SCH (11:44)
[2018-01-30] MEDS: LAMOTRIGINE 100 MG TABLET PO SCH ×2 (11:44→21:12)
[2018-01-30] MEDS: CLOZAPINE 25 MG TABLET PO SCH (11:44)
--- NOTE | 2018-01-30 11:45 | PDOC TRANSFER SUMMARY ---
General - Admit/Disc Date/PCP Admission Date/Primary Care Provider: 01/27/18 14:16 JULIUS MAYER NP Discharge Date: 01/30/18 - Discharge Diagnosis (1) Altered mental status Is this a current diagnosis for this admission?: Yes (2) Acute kidney injury Is this a current diagnosis for this admission?: Yes (3) Schizoaffective disorder Is this a current diagnosis for this admission?: Yes (4) Hypothyroidism Is this a current diagnosis for this admission?: Yes (5) Type 2 diabetes mellitus Is this a current diagnosis for this admission?: Yes (6) Hyperlipidemia Is this a current diagnosis for this admission?: Yes (7) Hypertension Is this a current diagnosis for this admission?: Yes - Additional Information Resuscitation Status: Full Code Home Medications: Alendronate Sodium [Fosamax 70 mg Tablet] 70 mg PO [place]@0800 01/25/18 Aripiprazole [Abilify 30 mg Tablet] 30 mg PO DAILY 01/25/18 Asenapine Maleate [Saphris] 5 mg PO Q12 01/25/18 Benztropine Mesylate [Cogentin 1 mg Tablet] 1 mg PO BID 01/25/18 Clozapine [Clozaril 100 mg Tablet] 100 mg PO DAILY 01/25/18 Clozapine [Clozaril 25 mg Tablet] 25 mg PO DAILY 01/25/18 Cyclobenzaprine HCl [Flexeril 5 mg Tablet] 5 mg PO Q8HP PRN 01/25/18 Duloxetine HCl [Cymbalta] 60 mg PO Q12 01/25/18 Lactulose [Enulose 10 gm/15 mL Oral Solution] 30 ml PO BID 01/25/18 Lamotrigine [Lamictal] 200 mg PO Q12 01/25/18 Levothyroxine Sodium [Synthroid 0.05 mg Tablet] 0.05 mg PO Q6AM 01/25/18 Linaclotide [Linzess] 290 mcg PO DAILY 01/25/[address] [place] Carbonate [Lithobid 300 mg Capsule] 300 mg PO DAILY 01/25/18 Losartan Potassium [Cozaar 25 mg Tablet] 25 mg PO DAILY 01/25/18 Metformin HCl [Glucophage 500 mg Tablet] 500 mg PO BID 01/25/18 Omeprazole 20 mg PO DAILY 01/25/18 Oxybutynin Chloride [Ditropan 5 mg Tablet] 5 mg PO DAILY 01/25/18 Simvastatin [Zocor 20 mg Tablet] 20 mg PO DAILY 01/25/18 Trazodone HCl [Desyrel] 100 mg PO QHS 01/25/18 History of Present Illness Admission Date/PCP: 01/27/18 14:16 JULIUS MAYER NP History of Present Illness: 67-year-old female, [facility] resident. Past medical history: Schizophrenia Recurrent falls. Bipolar disorder Type 2 diabetes Hypothyroidism Seizures Hypertension Hyperlipidemia Arthritis GERD The patient presented to the hospital on January 25 after she jumped out of bed to land on the floor and developed a small hematoma in the occipital region of the scalp. She was placed in a C-spine collar. CT of the head and cervical spine were negative for acute fracture or dislocation. The patient was agitated and confused and was found to have acute renal failure for which she was started on IV fluids. She had to be given parenteral antipsychotics and was placed in soft limb restraints due to multiple attempts to jump out of bed. It was noted that she would pocket her medications and her mouth and spit them out at a later time. The nurse started crushing of her meds and pudding which improved compliance and led to improvement in her behavior. She has not required soft limb restraints or a sitter for the past 2 days. Renal function has normalized. The patient is stable for discharge. No changes were made to her outpatient medications. She is to follow-up with her primary care physician and psychiatrist in 1 week. Hospital Course Hospital Course: The plan has been to crush meds and give in applesauce or pudding since patient has been noted to pocket them in her cheek and spit them out Physical Exam Vital Signs: Temp Pulse Resp BP Pulse Ox 98.4 F 68 19 110/54 L 99 01/30/18 07:41 01/30/18 07:41 01/30/18 07:41 01/30/18 07:41 01/30/18 07:41 Intake & Output 01/29/18 01/30/18 01/31/18 06:59 06:59 06:59 Intake Total 650 1524 Output Total 1400 1650 Balance -750 -126 Weight 73.2 kg 80.5 kg General appearance: PRESENT: no acute distress Respiratory exam: PRESENT: symmetrical, unlabored Results Laboratory Results: 01/28/18 05:21 01/30/18 04:10 01/30/18 04:10 Sodium 147.2 H Potassium 4.4 Chloride 111 H Carbon Dioxide 31 H Anion Gap 5 BUN 18 Creatinine 1.15 Est GFR ( Amer) 57 L Est GFR (Non-Af Amer) 47 L Glucose 83 Calcium 9.2 Phosphorus 4.4 Magnesium 2.1 Impressions: Cervical Spine CT 01/25/18 00:00 IMPRESSION: Minimal disc space narrowing. No acute findings. Chest X-Ray 01/25/18 17:06 IMPRESSION: NO ACUTE RADIOGRAPHIC FINDING IN THE CHEST. Head CT 01/25/18 20:34 IMPRESSION: MILD CHRONIC MICROVASCULAR ISCHEMIA. NO ACUTE IMAGING FINDINGS IN THE BRAIN. EVIDENCE OF ACUTE STROKE: NO. Qualifiers - * PATIENT BEING DISCHARGED WITH ANY OF THE FOLLOWING DIAGNOSIS: No Plan Time Spent: Greater than 30 Minutes
--- NOTE | 2018-01-30 15:50 | PDOC PROGRESS REPORT ---
Subjective Progress Note for:: 01/30/18 Subjective:: No complaints. Doing better. has been in bed. PT flori requested by [facility] staff since she was ambulatory and independent prior to this hospitalization. Reason For Visit: ACUTE RENAL FAILURE, SCHIZOPHRENIA Physical Exam Vital Signs: Temp Pulse Resp BP Pulse Ox 99.1 F 84 20 132/62 H 98 01/30/18 11:34 01/30/18 11:34 01/30/18 11:34 01/30/18 11:34 01/30/18 11:34 Intake & Output 01/29/18 01/30/18 01/31/18 06:59 06:59 06:59 Intake Total 650 1524 Output Total 1400 1650 Balance -750 -126 Weight 73.2 kg 80.5 kg General appearance: PRESENT: no acute distress Head exam: PRESENT: normocephalic Mouth exam: PRESENT: moist Teeth exam: PRESENT: edentulous Neck exam: ABSENT: tracheal deviation Respiratory exam: PRESENT: symmetrical, unlabored. ABSENT: rhonchi Cardiovascular exam: PRESENT: RRR GI/Abdominal exam: PRESENT: normal bowel sounds, soft. ABSENT: tenderness Rectal exam: PRESENT: deferred Gentrourinary exam: ABSENT: indwelling catheter Extremities exam: ABSENT: pedal edema Neurological exam: PRESENT: alert, awake Psychiatric exam: PRESENT: anxious Results Laboratory Results: 01/28/18 05:21 01/30/18 04:10 01/30/18 04:10 Sodium 147.2 H Potassium 4.4 Chloride 111 H Carbon Dioxide 31 H Anion Gap 5 BUN 18 Creatinine 1.15 Est GFR ( Amer) 57 L Est GFR (Non-Af Amer) 47 L Glucose 83 Calcium 9.2 Phosphorus 4.4 Magnesium 2.1 Impressions: Cervical Spine CT 01/25/18 00:00 IMPRESSION: Minimal disc space narrowing. No acute findings. Chest X-Ray 01/25/18 17:06 IMPRESSION: NO ACUTE RADIOGRAPHIC FINDING IN THE CHEST. Head CT 01/25/18 20:34 IMPRESSION: MILD CHRONIC MICROVASCULAR ISCHEMIA. NO ACUTE IMAGING FINDINGS IN THE BRAIN. EVIDENCE OF ACUTE STROKE: NO. Assessment & Plan - Diagnosis (1) Altered mental status Qualifiers: Altered mental status type: disorientation Qualified Code(s): R41.0 - Disorientation, unspecified Is this a current diagnosis for this admission?: Yes Plan: Agitation and confusion due to non compliance with psychiatric medications. Improved. (2) Acute kidney injury Is this a current diagnosis for this admission?: Yes Plan: Likely secondary to poor p.o. intake. Resolved with IV fluids. (3) Schizoaffective disorder Qualifiers: Schizoaffective disorder type: bipolar Qualified Code(s): F25.0 - Schizoaffective disorder, bipolar type Is this a current diagnosis for this admission?: Yes Plan: Continue outpatient medications including Cogentin, clozapine, Cymbalta, Lamictal, [place]- crush with applesauce or pudding to ensure compliance (4) Hypothyroidism Is this a current diagnosis for this admission?: Yes Plan: On Synthroid. (5) Type 2 diabetes mellitus Is this a current diagnosis for this admission?: Yes Plan: Continue Metformin. (6) Hyperlipidemia Is this a current diagnosis for this admission?: Yes Plan: On Statin (7) Hypertension Is this a current diagnosis for this admission?: Yes Plan: On Losartan - Time Time Spent with patient: 25-34 minutes
[2018-01-30] MEDS: SIMVASTATIN 10 MG TABLET PO SCH (21:11)
[2018-01-30] MEDS: TRAZODONE HCL 50 MG TABLET PO SCH (21:12)
[2018-01-30] MEDS: ARIPIPRAZOLE 5 MG TABLET PO SCH (21:12)
[2018-01-31] MEDS: LEVOTHYROXINE SODIUM 0.05 MG TABLET PO SCH (05:59)
[2018-01-31] MEDS: LANSOPRAZOLE 15 MG TAB.RAP.DR PO SCH (05:59)
--- NOTE | 2018-01-31 09:32 | PDOC TRANSFER SUMMARY ---
General - Admit/Disc Date/PCP Admission Date/Primary Care Provider: 01/27/18 14:16 JULIUS MAYER NP Discharge Date: 01/31/18 - Discharge Diagnosis (1) Altered mental status Is this a current diagnosis for this admission?: Yes (2) Acute kidney injury Is this a current diagnosis for this admission?: Yes (3) Schizoaffective disorder Is this a current diagnosis for this admission?: Yes (4) Hypothyroidism Is this a current diagnosis for this admission?: Yes (5) Type 2 diabetes mellitus Is this a current diagnosis for this admission?: Yes (6) Hyperlipidemia Is this a current diagnosis for this admission?: Yes (7) Hypertension Is this a current diagnosis for this admission?: Yes - Additional Information Resuscitation Status: Full Code Discharge Diet: Diabetic - Okay for thin liquids per speech therapy. No straws Discharge Activity: Activity As Tolerated, Slowly Increase Activity Home Medications: Alendronate Sodium [Fosamax 70 mg Tablet] 70 mg PO [place]@0800 01/25/18 Aripiprazole [Abilify 30 mg Tablet] 30 mg PO DAILY 01/25/18 Asenapine Maleate [Saphris] 5 mg PO Q12 01/25/18 Benztropine Mesylate [Cogentin 1 mg Tablet] 1 mg PO BID 01/25/18 Clozapine [Clozaril 100 mg Tablet] 100 mg PO DAILY 01/25/18 Clozapine [Clozaril 25 mg Tablet] 25 mg PO DAILY 01/25/18 Cyclobenzaprine HCl [Flexeril 5 mg Tablet] 5 mg PO Q8HP PRN 01/25/18 Duloxetine HCl [Cymbalta] 60 mg PO Q12 01/25/18 Lactulose [Enulose 10 gm/15 mL Oral Solution] 30 ml PO BID 01/25/18 Lamotrigine [Lamictal] 200 mg PO Q12 01/25/18 Levothyroxine Sodium [Synthroid 0.05 mg Tablet] 0.05 mg PO Q6AM 01/25/18 Linaclotide [Linzess] 290 mcg PO DAILY 01/25/18 [place] Carbonate [Lithobid 300 mg Capsule] 300 mg PO DAILY 01/25/18 Losartan Potassium [Cozaar 25 mg Tablet] 25 mg PO DAILY 01/25/18 Metformin HCl [Glucophage 500 mg Tablet] 500 mg PO BID 01/25/18 Omeprazole 20 mg PO DAILY 01/25/18 Oxybutynin Chloride [Ditropan 5 mg Tablet] 5 mg PO DAILY 01/25/18 Simvastatin [Zocor 20 mg Tablet] 20 mg PO DAILY 01/25/18 Trazodone HCl [Desyrel] 100 mg PO QHS 01/25/18 Aripiprazole [Abilify 5 mg Tablet] 30 mg PO QHS tablet 01/30/18 Lactobacillus Acidophilus [Bacid 250 mg Tablet] 500 mg PO BID 10 Days tab 01/30 Magnesium Oxide [Mag-Ox 400 mg Tablet] 400 mg PO BID tablet 01/30/18 History of Present Illness Admission Date/PCP: 01/27/18 14:16 JULIUS MAYER NP History of Present Illness: 67-year-old female, [facility] resident. Past medical history: Schizophrenia Recurrent falls. Bipolar disorder Type 2 diabetes Hypothyroidism Seizures Hypertension Hyperlipidemia Arthritis GERD The patient presented to the hospital on January 25 after she jumped out of bed to land on the floor and developed a small hematoma in the occipital region of the scalp. She was placed in a C-spine collar. CT of the head and cervical spine were negative for acute fracture or dislocation. The patient was agitated and confused and was found to have acute renal failure for which she was started on IV fluids. She had to be given parenteral antipsychotics and was placed in soft limb restraints due to multiple attempts to jump out of bed. It was noted that she would pocket her medications and her mouth and spit them out at a later time. The nurse started crushing of her meds and pudding which improved compliance and led to improvement in her behavior. She has not required soft limb restraints or a sitter for the past 2 days. Renal function has normalized. The patient is stable for discharge. No changes were made to her outpatient medications. She is to follow-up with her primary care physician and psychiatrist in 1 week. The plan has been to crush meds and give in applesauce or pudding since patient has been noted to pocket them in her cheek and spit them out. She was given a rolling walker and will need home health and Home PT at the [facility] Course Hospital Course: As above Physical Exam Vital Signs: Temp Pulse Resp BP Pulse Ox 97.9 F 66 18 120/58 L 100 01/31/18 08:00 01/31/18 08:00 01/31/18 08:00 01/31/18 08:00 01/31/18 08:00 Intake & Output 01/30/18 01/31/18 02/01/18 06:59 06:59 06:59 Intake Total 1524 537 Output Total 1650 1500 Balance -126 -963 Weight 80.5 kg 75.4 kg General appearance: PRESENT: no acute distress Respiratory exam: PRESENT: symmetrical, unlabored Results Laboratory Results: 01/28/18 05:21 01/30/18 04:10 Impressions: Cervical Spine CT 01/25/18 00:00 IMPRESSION: Minimal disc space narrowing. No acute findings. Chest X-Ray 01/25/18 17:06 IMPRESSION: NO ACUTE RADIOGRAPHIC FINDING IN THE CHEST. Head CT 01/25/18 20:34 IMPRESSION: MILD CHRONIC MICROVASCULAR ISCHEMIA. NO ACUTE IMAGING FINDINGS IN THE BRAIN. EVIDENCE OF ACUTE STROKE: NO. Transfer Plan - Time Spent with Patient Time spent with patient: Less than 30 Minutes Qualifiers - * PATIENT BEING DISCHARGED WITH ANY OF THE FOLLOWING DIAGNOSIS: No Plan Time Spent: Less than 30 Minutes
[2018-01-31] MEDS: BENZTROPINE MESYLATE 1 MG TABLET PO SCH ×2 (11:01→18:07)
[2018-01-31] MEDS: DULOXETINE HCL 30 MG CAPSULE.DR PO SCH ×2 (11:01→22:59)
[2018-01-31] MEDS: ENOXAPARIN SODIUM INJ 40 MG/0.4 ML DISP.SYRIN SUBCUT SCH (11:01)
[2018-01-31] MEDS: CLOZAPINE 25 MG TABLET PO SCH (11:02)
[2018-01-31] MEDS: LAMOTRIGINE 100 MG TABLET PO SCH ×2 (11:02→22:59)
[2018-01-31] MEDS: LOSARTAN POTASSIUM 25 MG TABLET PO SCH (11:02)
[2018-01-31] MEDS: MAGNESIUM OXIDE 400 MG TABLET PO SCH ×2 (11:02→18:08)
[2018-01-31] MEDS: LACTOBACILLUS ACIDOPHILUS 250 MG TAB PO SCH ×2 (11:03→18:07)
[2018-01-31] MEDS: CLOZAPINE 100 MG TABLET PO SCH (11:03)
[2018-01-31] MEDS: OXYBUTYNIN CHLORIDE 5 MG TABLET PO SCH (11:04)
[2018-01-31] MEDS: METFORMIN HCL 500 MG TABLET PO SCH ×2 (11:04→18:08)
[2018-01-31] MEDS: LACTULOSE SYRUP 20 GM/30 ML UDCUP PO SCH ×2 (11:05→18:07)
--- NOTE | 2018-01-31 17:54 | PDOC PROGRESS REPORT ---
Subjective Progress Note for:: 01/31/18 Subjective:: 67-year-old female, [facility] resident. Past medical history: Schizophrenia Recurrent falls. Bipolar disorder Type 2 diabetes Hypothyroidism Seizures Hypertension Hyperlipidemia Arthritis GERD The patient presented to the hospital on January 25 after she jumped out of bed to land on the floor and developed a small hematoma in the occipital region of the scalp. She was placed in a C-spine collar. CT of the head and cervical spine were negative for acute fracture or dislocation. The patient was agitated and confused and was found to have acute renal failure for which she was started on IV fluids. She had to be given parenteral antipsychotics and was placed in soft limb restraints due to multiple attempts to jump out of bed. It was noted that she would pocket her medications and her mouth and spit them out at a later time. The nurse started crushing of her meds and pudding which improved compliance and led to improvement in her behavior. She has not required soft limb restraints or a sitter for the past 3 days. Renal function has normalized. The patient is stable for discharge, however the [facility] staff had multiple questions regarding her meds and this led to a delay and they finally said they couldnt take her back since it is already 5 pm. PT eval recommendation was home physical therapy and there was no indication for [facility] facility for rehab. Unfortunately, the [facility] will not be able to take her back until February 02. The patient is calm and not in any distress. She has no complaints. Reason For Visit: ACUTE RENAL FAILURE, SCHIZOPHRENIA Physical Exam Vital Signs: Temp Pulse Resp BP Pulse Ox 98.3 F 87 18 140/53 H 99 01/31/18 16:42 01/31/18 16:42 01/31/18 16:42 01/31/18 16:42 01/31/18 16:42 Intake & Output 01/30/18 01/31/18 02/01/18 06:59 06:59 06:59 Intake Total 1524 537 Output Total 1650 1500 Balance -126 -963 Weight 80.5 kg 75.4 kg General appearance: PRESENT: no acute distress Head exam: PRESENT: normocephalic Mouth exam: PRESENT: moist Teeth exam: PRESENT: edentulous Respiratory exam: PRESENT: symmetrical, unlabored Cardiovascular exam: PRESENT: RRR GI/Abdominal exam: PRESENT: normal bowel sounds, soft Neurological exam: PRESENT: alert, awake Results Laboratory Results: 01/28/18 05:21 01/30/18 04:10 Impressions: Cervical Spine CT 01/25/18 00:00 IMPRESSION: Minimal disc space narrowing. No acute findings. Chest X-Ray 01/25/18 17:06 IMPRESSION: NO ACUTE RADIOGRAPHIC FINDING IN THE CHEST. Head CT 01/25/18 20:34 IMPRESSION: MILD CHRONIC MICROVASCULAR ISCHEMIA. NO ACUTE IMAGING FINDINGS IN THE BRAIN. EVIDENCE OF ACUTE STROKE: NO. Assessment & Plan - Diagnosis (1) Altered mental status Qualifiers: Altered mental status type: disorientation Qualified Code(s): R41.0 - Disorientation, unspecified Is this a current diagnosis for this admission?: Yes Plan: Agitation and confusion due to non compliance with psychiatric medications. Improved. (2) Acute kidney injury Is this a current diagnosis for this admission?: Yes Plan: Likely secondary to poor p.o. intake. Resolved with IV fluids. (3) Schizoaffective disorder Qualifiers: Schizoaffective disorder type: bipolar Qualified Code(s): F25.0 - Schizoaffective disorder, bipolar type Is this a current diagnosis for this admission?: Yes Plan: Continue outpatient medications including Cogentin, clozapine, Cymbalta, Lamictal, [place]- crush with applesauce or pudding to ensure compliance (4) Hypothyroidism Is this a current diagnosis for this admission?: Yes Plan: On Synthroid. (5) Type 2 diabetes mellitus Is this a current diagnosis for this admission?: Yes Plan: Continue Metformin. (6) Hyperlipidemia Is this a current diagnosis for this admission?: Yes Plan: On Statin (7) Hypertension Is this a current diagnosis for this admission?: Yes Plan: On Losartan - Time Time Spent with patient: 25-34 minutes - Plan Summary Plan Summary: Awaiting discharge back to the [facility].
[2018-01-31] MEDS: SIMVASTATIN 10 MG TABLET PO SCH (23:00)
[2018-01-31] MEDS: ARIPIPRAZOLE 5 MG TABLET PO SCH (23:00)
[2018-01-31] MEDS: TRAZODONE HCL 50 MG TABLET PO SCH (23:00)
[2018-02-01] MEDS: LANSOPRAZOLE 15 MG TAB.RAP.DR PO SCH (06:56)
[2018-02-01] MEDS: LEVOTHYROXINE SODIUM 0.05 MG TABLET PO SCH (06:57)
[2018-02-01] MEDS: ENOXAPARIN SODIUM INJ 40 MG/0.4 ML DISP.SYRIN SUBCUT SCH (09:25)
[2018-02-01] MEDS: METFORMIN HCL 500 MG TABLET PO SCH ×2 (09:25→17:57)
[2018-02-01] MEDS: BENZTROPINE MESYLATE 1 MG TABLET PO SCH ×2 (09:26→17:57)
[2018-02-01] MEDS: OXYBUTYNIN CHLORIDE 5 MG TABLET PO SCH (09:26)
[2018-02-01] MEDS: DULOXETINE HCL 30 MG CAPSULE.DR PO SCH ×2 (09:26→22:20)
[2018-02-01] MEDS: MAGNESIUM OXIDE 400 MG TABLET PO SCH ×2 (09:26→17:58)
[2018-02-01] MEDS: LAMOTRIGINE 100 MG TABLET PO SCH ×2 (09:27→22:18)
[2018-02-01] MEDS: CLOZAPINE 25 MG TABLET PO SCH (09:27)
[2018-02-01] MEDS: CLOZAPINE 100 MG TABLET PO SCH (09:27)
[2018-02-01] MEDS: LOSARTAN POTASSIUM 25 MG TABLET PO SCH (09:28)
[2018-02-01] MEDS: LACTULOSE SYRUP 20 GM/30 ML UDCUP PO SCH ×2 (09:31→17:58)
[2018-02-01] MEDS: LACTOBACILLUS ACIDOPHILUS 250 MG TAB PO SCH ×2 (09:31→17:58)
[2018-02-01] MEDS ORDERED: POLYETHYLENE GLYCOL 3350 POWDER 17 GM/1 PACKET PO ONE (14:45)
--- NOTE | 2018-02-01 15:41 | PDOC PROGRESS REPORT ---
Subjective Progress Note for:: 02/01/18 Subjective:: No overnight events. Only complaint is that she has not had a bowel movement "for days" and wants aggressive treatment. Has mild abdominal pain. No nausea or vomiting. Appetite good. Reason For Visit: ACUTE RENAL FAILURE, SCHIZOPHRENIA Physical Exam Vital Signs: Temp Pulse Resp BP Pulse Ox 98.1 F 72 18 117/59 L 96 02/01/18 11:43 02/01/18 11:43 02/01/18 11:43 02/01/18 11:43 02/01/18 11:43 Intake & Output 01/31/18 02/01/18 02/02/18 06:59 06:59 06:59 Intake Total 537 1610 Output Total 1500 600 Balance -963 1010 Weight 75.4 kg 75.3 kg General appearance: PRESENT: no acute distress, well-developed, well-nourished Head exam: PRESENT: normocephalic Mouth exam: PRESENT: moist Respiratory exam: PRESENT: unlabored Cardiovascular exam: PRESENT: RRR GI/Abdominal exam: PRESENT: normal bowel sounds, soft, tenderness - mild suprapubic tenderness Neurological exam: PRESENT: alert, awake, CN II-XII grossly intact Psychiatric exam: PRESENT: unusual affect Skin exam: PRESENT: dry Results Laboratory Results: 01/28/18 05:21 01/30/18 04:10 Impressions: Cervical Spine CT 01/25/18 00:00 IMPRESSION: Minimal disc space narrowing. No acute findings. Chest X-Ray 01/25/18 17:06 IMPRESSION: NO ACUTE RADIOGRAPHIC FINDING IN THE CHEST. Head CT 01/25/18 20:34 IMPRESSION: MILD CHRONIC MICROVASCULAR ISCHEMIA. NO ACUTE IMAGING FINDINGS IN THE BRAIN. EVIDENCE OF ACUTE STROKE: NO. Assessment & Plan - Diagnosis (1) Constipation Is this a current diagnosis for this admission?: Yes Plan: Does not appear to be an issue previously. Patient is already on lactulose and magOx which should help with bowels. There are reports of patient not taking her medications. - Added miralax to continue regimen - If continues to persist would consider suppository vs. enema (2) Acute kidney injury Is this a current diagnosis for this admission?: Yes Plan: Resolved (3) Schizoaffective disorder Qualifiers: Schizoaffective disorder type: bipolar Qualified Code(s): F25.0 - Schizoaffective disorder, bipolar type Is this a current diagnosis for this admission?: Yes Plan: Continue outpatient medications including Cogentin, clozapine, Cymbalta, Lamictal, [place] - Due to history of hiding pills, encourage to crush with applesauce or pudding to ensure compliance (4) Type 2 diabetes mellitus Is this a current diagnosis for this admission?: Yes Plan: Continue Metformin - Time Time Spent with patient: Less than 15 minutes Within: within 24 hours, Other - Plan Summary Plan Summary: Awaiting discharge back to the [facility].
[2018-02-01] MEDS: ARIPIPRAZOLE 5 MG TABLET PO SCH (22:17)
[2018-02-01] MEDS: TRAZODONE HCL 50 MG TABLET PO SCH (22:19)
[2018-02-01] MEDS: SIMVASTATIN 10 MG TABLET PO SCH (22:19)
[2018-02-02] MEDS: LANSOPRAZOLE 15 MG TAB.RAP.DR PO SCH (05:55)
[2018-02-02] MEDS: LEVOTHYROXINE SODIUM 0.05 MG TABLET PO SCH (05:55)
--- NOTE | 2018-02-02 09:28 | PDOC TRANSFER SUMMARY ---
General - Admit/Disc Date/PCP Admission Date/Primary Care Provider: 01/27/18 14:16 JULIUS MAYER NP Discharge Date: 02/02/18 - Discharge Diagnosis (1) Altered mental status Is this a current diagnosis for this admission?: Yes Summary: Agitation due to noncompliance with medications-resolved. (2) Acute kidney injury Is this a current diagnosis for this admission?: Yes Summary: Resolved with IV fluids (3) Schizoaffective disorder Is this a current diagnosis for this admission?: Yes (4) Hypothyroidism Is this a current diagnosis for this admission?: Yes (5) Type 2 diabetes mellitus Is this a current diagnosis for this admission?: Yes (6) Hyperlipidemia Is this a current diagnosis for this admission?: Yes (7) Hypertension Is this a current diagnosis for this admission?: Yes - Additional Information Resuscitation Status: Full Code Discharge Diet: Diabetic Discharge Activity: Activity As Tolerated, Slowly Increase Activity Home Medications: Alendronate Sodium [Fosamax 70 mg Tablet] 70 mg PO CLAYTON@0800 01/25/18 Aripiprazole [Abilify 30 mg Tablet] 30 mg PO DAILY 01/25/18 Asenapine Maleate [Saphris] 5 mg PO Q12 01/25/18 Benztropine Mesylate [Cogentin 1 mg Tablet] 1 mg PO BID 01/25/18 Clozapine [Clozaril 100 mg Tablet] 100 mg PO DAILY 01/25/18 Clozapine [Clozaril 25 mg Tablet] 25 mg PO DAILY 01/25/18 Cyclobenzaprine HCl [Flexeril 5 mg Tablet] 5 mg PO Q8HP PRN 01/25/18 Duloxetine HCl [Cymbalta] 60 mg PO Q12 01/25/18 Lactulose [Enulose 10 gm/15 mL Oral Solution] 30 ml PO BID 01/25/18 Lamotrigine [Lamictal] 200 mg PO Q12 01/25/18 Levothyroxine Sodium [Synthroid 0.05 mg Tablet] 0.05 mg PO Q6AM 01/25/18 Linaclotide [Linzess] 290 mcg PO DAILY 01/25/18 [place] Carbonate [Lithobid 300 mg Capsule] 300 mg PO DAILY 01/25/18 Losartan Potassium [Cozaar 25 mg Tablet] 25 mg PO DAILY 01/25/18 Metformin HCl [Glucophage 500 mg Tablet] 500 mg PO BID 01/25/18 Omeprazole 20 mg PO DAILY 01/25/18 Oxybutynin Chloride [Ditropan 5 mg Tablet] 5 mg PO DAILY 01/25/18 Simvastatin [Zocor 20 mg Tablet] 20 mg PO DAILY 01/25/18 Trazodone HCl [Desyrel] 100 mg PO QHS 01/25/18 Aripiprazole [Abilify 5 mg Tablet] 30 mg PO QHS tablet 01/30/18 Lactobacillus Acidophilus [Bacid 250 mg Tablet] 500 mg PO BID 10 Days tab 01/30 Magnesium Oxide [Mag-Ox 400 mg Tablet] 400 mg PO BID tablet 01/30/18 History of Present Illness Admission Date/PCP: 01/27/18 14:16 JULIUS MAYER NP History of Present Illness: 67-year-old female, nursing home facility resident. Past medical history: Schizophrenia Recurrent falls. Bipolar disorder Type 2 diabetes Hypothyroidism Seizures Hypertension Hyperlipidemia Arthritis GERD The patient presented to the hospital on January 25 after she jumped out of bed to land on the floor and developed a small hematoma in the occipital region of the scalp. She was placed in a C-spine collar. CT of the head and cervical spine were negative for acute fracture or dislocation. The patient was agitated and confused and was found to have acute renal failure for which she was started on IV fluids. She had to be given parenteral antipsychotics and was placed in soft limb restraints due to multiple attempts to jump out of bed. It was noted that she would pocket her medications and her mouth and spit them out at a later time. The nurse started crushing of her meds and pudding which improved compliance and led to improvement in her behavior. She has not required soft limb restraints or a sitter for the past 2 days. Renal function has normalized. The patient is stable for discharge. No changes were made to her outpatient medications. She is to follow-up with her primary care physician and psychiatrist in 1 week. The plan has been to crush meds and give in applesauce or pudding since patient has been noted to pocket them in her cheek and spit them out. She was given a rolling walker and will need home health and Home PT at the [facility] Physical Exam Vital Signs: Temp Pulse Resp BP Pulse Ox 98.9 F 65 17 117/58 L 100 02/02/18 00:27 02/02/18 00:27 02/02/18 00:27 02/02/18 00:27 02/02/18 00:27 Intake & Output 02/01/18 02/02/18 02/03/18 06:59 06:59 06:59 Intake Total 1610 1596 Output Total 600 2250 Balance 1010 -654 Weight 75.3 kg 75.1 kg General appearance: PRESENT: no acute distress Respiratory exam: PRESENT: symmetrical, unlabored Results Laboratory Results: 01/28/18 05:21 01/30/18 04:10 Impressions: Cervical Spine CT 01/25/18 00:00 IMPRESSION: Minimal disc space narrowing. No acute findings. Chest X-Ray 01/25/18 17:06 IMPRESSION: NO ACUTE RADIOGRAPHIC FINDING IN THE CHEST. Head CT 01/25/18 20:34 IMPRESSION: MILD CHRONIC MICROVASCULAR ISCHEMIA. NO ACUTE IMAGING FINDINGS IN THE BRAIN. EVIDENCE OF ACUTE STROKE: NO. Qualifiers - * PATIENT BEING DISCHARGED WITH ANY OF THE FOLLOWING DIAGNOSIS: No Plan Time Spent: Less than 30 Minutes
[2018-02-02] MEDS ORDERED: POLYETHYLENE GLYCOL 3350 POWDER 17 GM/1 PACKET PO SCH (10:00)
[2018-02-02 10:10] VITALS: BP 108/52
[2018-02-02] MEDS: ENOXAPARIN SODIUM INJ 40 MG/0.4 ML DISP.SYRIN SUBCUT SCH (10:45)
[2018-02-02] MEDS: LOSARTAN POTASSIUM 25 MG TABLET PO SCH (10:54)
[2018-02-02] MEDS: BENZTROPINE MESYLATE 1 MG TABLET PO SCH (10:58)
[2018-02-02] MEDS: LAMOTRIGINE 100 MG TABLET PO SCH (10:58)
[2018-02-02] MEDS: METFORMIN HCL 500 MG TABLET PO SCH (11:00)
[2018-02-02] MEDS: OXYBUTYNIN CHLORIDE 5 MG TABLET PO SCH (11:00)
[2018-02-02] MEDS: DULOXETINE HCL 30 MG CAPSULE.DR PO SCH (11:00)
[2018-02-02] MEDS: MAGNESIUM OXIDE 400 MG TABLET PO SCH (11:00)
[2018-02-02] MEDS: CLOZAPINE 25 MG TABLET PO SCH (11:00)
[2018-02-02] MEDS: LACTOBACILLUS ACIDOPHILUS 250 MG TAB PO SCH (11:00)
[2018-02-02] MEDS: LACTULOSE SYRUP 20 GM/30 ML UDCUP PO SCH (11:00)
[2018-02-02] MEDS: CLOZAPINE 100 MG TABLET PO SCH (11:00)
== END 2018-02-02 13:25 | DRG 684 ==
LOC: ER 15:42 → EH 19:42 → 4N 23:43 → OBSVTOIN 01-27 14:16
PROVIDERS: ADMIT Internal Medicine; ATTEND Internal Medicine
DX: N17.9 Acute kidney failure, unspecified (principal); F25.0 Schizoaffective disorder, bipolar type; E03.9 Hypothyroidism, unspecified; T43.96XA Underdosing of unspecified psychotropic drug, initial encounter; E11.9 Type 2 diabetes mellitus without complications; E78.5 Hyperlipidemia, unspecified; R41.0 Disorientation, unspecified; W06.XXXA Fall from bed, initial encounter; I10 Essential (primary) hypertension; S00.03XA Contusion of scalp, initial encounter; M19.90 Unspecified osteoarthritis, unspecified site; K59.00 Constipation, unspecified; Z91.81 History of falling; Y92.122 Bedroom in nursing home as the place of occurrence of the external cause; Z78.1 Physical restraint status; K21.9 Gastro-esophageal reflux disease without esophagitis; Z90.49 Acquired absence of other specified parts of digestive tract; Z82.49 Family history of ischemic heart disease and other diseases of the circulatory system; Z83.3 Family history of diabetes mellitus; Z79.899 Other long term (current) drug therapy; Z79.84 Long term (current) use of oral hypoglycemic drugs; Z88.8 Allergy status to other drugs, medicaments and biological substances; Z91.14 Patient's other noncompliance with medication regimen
CPT/HCPCS: 36415; 51701; 70450; 71046; 72125; 80048; 80053; 80178; 80307; 81001; 82140; 82550; 82553; 82803; 82962; 83605; 83690; 83735; 84100; 84443; 84484; 85025; 87040; 87086; 93005; 93010; 96360; 96361; 99285; G0378; G8996-GN; G8997-GN; G8998-GN; J1644; J1650; J2060; J3475; J3480; J3490; J7030; L0120

== ENCOUNTER → 2018-02-07 | Outpatient (CLI) | payer MEDICARE, MEDICAID ==
[2018-02-07 09:58] LABS: ABSOLUTE EOSINOPHILS # (AUTO) 0.1 10^3/uL (0.0-0.6); ABSOLUTE LYMPHOCYTES (AUTO) 1.2 10^3/uL (0.5-4.7); ABSOLUTE MONOCYTES (AUTO) 0.4 10^3/uL (0.1-1.4); ABSOLUTE NEUT (AUTO) 3.9 10^3/uL (1.7-8.2); BASOPHILS % (AUTO) 0.6 % (0-2); EOSINOPHILS % (AUTO) 2.1 % (0-6); HEMATOCRIT 34.4 % (36.0-47.0); HEMOGLOBIN 11.6 g/dL (12.0-15.5); LYMPHOCYTES % (AUTO) 20.7 % (13-45); MEAN CORPUSCULAR HGB CONC 33.7 g/dL (32.0-36.0); MEAN CORPUSCULAR VOLUME 95 fl (80-97); MONOCYTES % (AUTO) 7.1 % (3-13); PLATELET COUNT 555 10^3/uL (150-450); RED BLOOD COUNT 3.63 10^6/uL (3.72-5.28); RED CELL DISTRIBUTION WIDTH 14.8 % (11.5-14.0); SEGMENTED NEUTROPHILS % (AUTO) 69.5 % (42-78); TOTAL CELLS COUNTED % (AUTO) 100 %; WHITE BLOOD COUNT 5.6 10^3/uL (4.0-10.5)
== END ==
LOC: OD 09:31
PROVIDERS: ATTEND Nurse Practitioner Psychiatric/Mental Health
DX: F25.0 Schizoaffective disorder, bipolar type (principal); Z79.899 Other long term (current) drug therapy
CPT/HCPCS: 36415; 85025

== ENCOUNTER → 2018-02-16 | Outpatient (CLI) | payer MEDICARE, MEDICAID ==
[2018-02-16 15:48] LABS: ABSOLUTE EOSINOPHILS # (AUTO) 0.2 10^3/uL (0.0-0.6); ABSOLUTE LYMPHOCYTES (AUTO) 1.2 10^3/uL (0.5-4.7); ABSOLUTE MONOCYTES (AUTO) 0.3 10^3/uL (0.1-1.4); ABSOLUTE NEUT (AUTO) 2.5 10^3/uL (1.7-8.2); BASOPHILS % (AUTO) 0.5 % (0-2); EOSINOPHILS % (AUTO) 3.7 % (0-6); HEMATOCRIT 32.5 % (36.0-47.0); HEMOGLOBIN 11.3 g/dL (12.0-15.5); LYMPHOCYTES % (AUTO) 29.1 % (13-45); MEAN CORPUSCULAR HEMOGLOBIN 32.8 pg (27.0-33.4); MEAN CORPUSCULAR HGB CONC 34.7 g/dL (32.0-36.0); MEAN CORPUSCULAR VOLUME 94 fl (80-97); MONOCYTES % (AUTO) 8.2 % (3-13); PLATELET COUNT 278 10^3/uL (150-450); RED BLOOD COUNT 3.44 10^6/uL (3.72-5.28); RED CELL DISTRIBUTION WIDTH 14.8 % (11.5-14.0); SEGMENTED NEUTROPHILS % (AUTO) 58.5 % (42-78); TOTAL CELLS COUNTED % (AUTO) 100 %; WHITE BLOOD COUNT 4.2 10^3/uL (4.0-10.5)
== END ==
LOC: OD 14:32
PROVIDERS: ATTEND Nurse Practitioner Psychiatric/Mental Health
DX: F25.0 Schizoaffective disorder, bipolar type (principal); Z79.899 Other long term (current) drug therapy
CPT/HCPCS: 36415; 85025

== ENCOUNTER → 2018-02-22 | Outpatient (CLI) | payer MEDICARE, MEDICAID ==
[2018-02-22 10:06] LABS: ABSOLUTE EOSINOPHILS # (AUTO) 0.1 10^3/uL (0.0-0.6); ABSOLUTE LYMPHOCYTES (AUTO) 0.9 10^3/uL (0.5-4.7); ABSOLUTE MONOCYTES (AUTO) 0.2 10^3/uL (0.1-1.4); ABSOLUTE NEUT (AUTO) 2.4 10^3/uL (1.7-8.2); BASOPHILS % (AUTO) 0.5 % (0-2); EOSINOPHILS % (AUTO) 3.4 % (0-6); HEMATOCRIT 37.4 % (36.0-47.0); HEMOGLOBIN 12.8 g/dL (12.0-15.5); MEAN CORPUSCULAR HEMOGLOBIN 32.4 pg (27.0-33.4); MEAN CORPUSCULAR HGB CONC 34.2 g/dL (32.0-36.0); MEAN CORPUSCULAR VOLUME 95 fl (80-97); MONOCYTES % (AUTO) 6.9 % (3-13); PLATELET COUNT 263 10^3/uL (150-450); RED BLOOD COUNT 3.94 10^6/uL (3.72-5.28); SEGMENTED NEUTROPHILS % (AUTO) 65.2 % (42-78); TOTAL CELLS COUNTED % (AUTO) 100 %; WHITE BLOOD COUNT 3.6 10^3/uL (4.0-10.5)
== END ==
LOC: OD 08:53
PROVIDERS: ATTEND Nurse Practitioner Psychiatric/Mental Health
DX: F25.0 Schizoaffective disorder, bipolar type (principal); Z79.899 Other long term (current) drug therapy
CPT/HCPCS: 36415; 85025

== ENCOUNTER 2018-03-01 07:53 | Emergency (ER) | payer MEDICARE, MEDICAID ==
--- NOTE | 2018-03-01 08:06 | ER Document Report ---
ED General - General Chief Complaint: Fall Stated Complaint: FALL NECK PAIN Time Seen by Provider: 03/01/18 08:05 Mode of Arrival: Ambulatory Information source: Patient, Emergency Med Personnel TRAVEL OUTSIDE OF THE [place] IN LAST 30 DAYS: No - HPI Notes: 64-year-old female presents to the ED with mis-stepping while trying to sit down , states she tripped and fell forward while she was at her assisted living facility approximately 2 hours ago.. Denies any change in level consciousness or neuro changes. Patient is not on blood thinners. Pain is 3 out of 10, throbbing achy. Patient does report she has a sore throat that started yesterday. Denies any other area of pain. No walk-alm-zisxkmx medications have been tried. Denies fevers, chills, chest pain,palpitations, shortness of breath, dyspnea, nausea, vomiting, diarrhea, abdominal pain, hematuria, blurred vision, double vision, loss of vision, speech changes, LH, dizziness, syncope,wheezing, URI, neck pain, weakness, bowel or bladder dysfunction, saddle anesthesia, numbness or tingling in bilateral upper or lower extremities equally, muscle paralysis, weakness in bilateral upper or lower extremities equally or rash. Denies IV drug use. - Related Data Allergies/Adverse Reactions: haloperidol [From Haldol] Allergy (Severe, Verified 03/01/18 08:29) LOCKJAW haloperidol lactate [From Haldol] Allergy (Severe, Verified 03/01/18 08:29) LOCKJAW chlorpromazine HCl [From Thorazine] Allergy (Verified 03/01/18 08:29) chocolate Allergy (Uncoded 03/01/18 08:29) Past Medical History - General Information source: Patient - Social History Smoking Status: Unknown if Ever Smoked Family History: CAD - dad and uncle with MIs in their 60s, DM - mom Patient has suicidal ideation: No Patient has homicidal ideation: No - Past Medical History Cardiac Medical History: Reports: Hx Hypercholesterolemia, Hx Hypertension Pulmonary Medical History: Reports: Hx Bronchitis Neurological Medical History: Reports: Hx Seizures Endocrine Medical History: Reports: Hx Diabetes Mellitus Type 2, Hx Hypothyroidism Renal/ Medical History: Denies: Hx Peritoneal Dialysis GI Medical History: Reports: Hx Gastroesophageal Reflux Disease. Denies: Hx Pancreatitis Musculoskeletal Medical History: Reports Hx Arthritis Psychiatric Medical History: Reports: Hx Bipolar Disorder, Hx Depression, Hx Schizoaffective Disorder, Hx Schizophrenia Past Surgical History: Reports: Hx Cholecystectomy, Hx Neurologic Surgery - carpal tunnel, Hx Tonsillectomy - 1957, Hx Tubal Ligation - Immunizations Hx Diphtheria, Pertussis, Tetanus Vaccination: Yes Hx Pneumococcal Vaccination: 11/08/13 Review of Systems - Review of Systems Constitutional: No symptoms reported EENT: See HPI Cardiovascular: No symptoms reported Respiratory: No symptoms reported Gastrointestinal: No symptoms reported Genitourinary: No symptoms reported Female Genitourinary: No symptoms reported Musculoskeletal: No symptoms reported Skin: No symptoms reported Hematologic/Lymphatic: No symptoms reported Neurological/Psychological: See HPI Physical Exam - Vital signs Vitals: Temp Pulse Resp BP Pulse Ox 98.0 F 70 16 126/62 H 100 03/01/18 08:01 03/01/18 08:01 03/01/18 08:01 03/01/18 08:01 03/01/18 08:01 - Notes Notes: PHYSICAL EXAMINATION: GENERAL: Well-appearing, well-nourished and in no acute distress. HEAD: Atraumatic, normocephalic. EYES: Pupils equal round and reactive to light, extraocular movements intact, conjunctiva are normal. ENT: tympanic membranes are normal appearing with pearly color, normal- appearing landmarks and normal light reflex. Hearing is grossly intact. Has normal facial sensation to light touch in 3 branches of the trigeminal nerve. Normal facial movement. No clicking or popping when jaw opens or closes. The nasal mucosa is moist. The septum is midline. There is no evidence of septal hematoma. The turbinates are without abnormality. No obvious abnormalities to the lips. The teeth are unremarkable. No swelling no erythema no exudate no angioedema no drooling no trismus bilateral arches equal. Uvula midline. The salivary glands appear unremarkable. The tongue is midline. The posterior pharynx is with erythema or exudate. The tonsils are normal appearing. NECK: Normal range of motion, supple without lymphadenopathy. full APROM of cervical spine, noted cervical spinal tenderness on palpation from C4-C5. like negative spurlings test. Document Control Supervisor + 2 bilaterally and equally. Dtr +2 bilaterally and equally in BUE. Perrla, full eomi. Face symmetrical. No rashes observed. Point tenderness to right paraspinal muscles near C6. No lymphadenopathy. Full APROM with shoulders. TM intact bilaterally. No meningismus. No noted lymphadenopathy. LUNGS: Breath sounds clear to auscultation bilaterally and equal. No wheezes rales or rhonchi. HEART: Regular rate and rhythm without murmurs ABDOMEN: Soft, nontender, nondistended abdomen. No guarding, no rebound. No masses appreciated. Female : deferred Musculoskeletal: Normal range of motion, no pitting or edema. No cyanosis NEUROLOGICAL: PERRLA, EOMI. Full motor and sensory function throughout. Document Control Supervisor + 2 equal bilaterally in BUE. Tongue midline. No pronator drift. No ataxia. Neck with APROM. Raises eyebrows. Strength is 5 out of 5 in bilateral upper and lower extremities equally.Speaks in full sentences. No weakness on one side. Romberg gait steady able to walk straight line. Able to recall 5 objects. PSYCH: Normal mood, normal affect. SKIN: Warm, Dry, normal turgor, no rashes or lesions noted. Course - Re-evaluation Re-evalutation: 03/01/18 08:23 67-year-old female vitals stable, afebrile and in no distress for evaluation status post fall from snf. Patient states she was bending over to sit on a chair but she tripped and fell. States she just lost her balance. This is the patient's seventh fall in the last month. She reports she hit her head and has neck pain. CBC and CMP unremarkable. 2 sets of cardiac enzymes unremarkable. EKG negative. CT head and cervical spine negative for any acute findings per radiology, no stroke. No dislocation or fracture. Rapid strep positive. discussed concussion protocol such as being woken up every hour by someone you live with, be asked orientation questions and to call 911 if any neurological changes occur such as speech changes, weakness on one side, unable to orient, nausea, vomiting, or severe headache, etc. pt verbalized understanding of this care and agreed to plan of care. discussed worrisome symptoms as well as reasons for return over what time frame. patient states understanding and is agreeable with plan. 9 After performing a Medical Screening Examination, I estimate there is LOW risk for ACUTE GLAUCOMA, TEMPORAL ARTERITIS, MENINGITIS, INCRANIAL HEMORRHAGE, or ISCHEMIC STROKE thus I consider the discharge disposition reasonable. I have reevaluated this patient multiple times and no significant life threatening changes are noted. The patient and I have discussed the diagnosis and risks, and we agree with discharging home with close follow-up with the understanding that symptoms and presentations can change. We also discussed returning to the Emergency Department immediately if new or worsening symptoms occur. We have discussed the symptoms which are most concerning (e.g., changing or worsening symptoms, new numbness or weakness, vomiting, fever) that necessitate immediate return. After performing a Medical Screening Examination, I estimate there is LOW risk for CENTRAL CORD SYNDROME, EPIDURAL MASS LESION, SEVERE SPINAL STENOSIS, ARTERIAL DISSECTION, MENINGITIS, or ACUTE CORONARY SYNDROME, thus I consider the discharge disposition reasonable. I have reevaluated this patient multiple times and no significant life threatening changes are noted. The patient and I have discussed the diagnosis and risks, and we agree with discharging home to follow-up on an outpatient basis with the understanding that symptoms and presentations can change. We also discussed returning to the Emergency Department immediately if new or worsening symptoms occur. We have discussed the symptoms which are most concerning (e.g., saddle anesthesia, urinary or bowel incontinence or retention, changing or worsening pain) that necessitate immediate return. - Vital Signs Vital signs: Temp Pulse Resp BP Pulse Ox 98.2 F 89 18 133/57 H 99 03/01/18 15:31 03/01/18 15:31 03/01/18 15:31 03/01/18 15:31 03/01/18 15:31 - Laboratory Result Diagrams: 03/01/18 08:40 03/01/18 08:40 Laboratory results interpreted by me: 03/01/18 03/01/18 03/01/18 08:40 08:40 08:48 WBC 3.8 L RBC 3.66 L Hgb 11.7 L Hct 34.7 L RDW 14.9 H Carbon Dioxide 31 H Est GFR (Non-Af Amer) 51 L Alkaline Phosphatase 132 H Total Protein 5.7 L Albumin 3.2 L Ur Leukocyte Esterase SMALL H Discharge - Discharge Clinical Impression: Strep throat, Closed head injury, Acute neck sprain Condition: Stable Disposition: HOME, SELF-CARE Instructions: Head Injury Precautions ([facility]), Neck Injury (Cervical Strain) ([facility] ), Strep Throat ([facility]) Additional Instructions: You have likely sustained a contusion (bruise) to your head. Your CT of the head it did not show any evidence of serious injury or bleeding. Symptoms to expect from a concussion include nausea, mild to moderate headache, difficulty concentrating or sleeping, and mild lightheadedness. These symptoms should improve over the next few days to weeks. Return to the emergency department or follow-up with your primary care doctor if your symptoms are not improving over this time. Signs of a more serious head injury include vomiting, severe headache, excessive sleepiness or confusion, and weakness or numbness in your face, arms or legs. Return immediately to the Emergency Department if you experience any of these more concerning symptoms. Rest, avoid strenuous physical or mental activity, and avoid activities that could potentially result in another head injury until all your symptoms from this head injury are completely resolved for at least 2-3 weeks. If you participate in sports, get cleared by your doctor or marine mammal trainer before returning to play. You may take ibuprofen or acetaminophen over the counter according to label instructions for mild headache or scalp soreness. Your pain is related to impingement one of your cervical nerve roots and will take 6-8 weeks completely resolved. For your pain: Take ibuprofen 600 mg and acetaminophen 1000 mg every 6 hours together as needed for pain. If this does not control your pain you may take 15 mg of oral morphine every 4 hours as needed. Please be very careful about using the oral morphine and only use this for severe pain. In addition to this, purchased the product that is sold over- the-counter cold Aspercreme with lidocaine. Apply to the affected area per bottle instructions. You should also apply heat to the area regularly using an electric heating plant pad. Return to the emergency department immediately if you develop weakness, loss of sensation, chest pain, shortness of breath, have worsening of your symptoms, or any other symptoms that are worrisome to you. discussed concussion protocol such as being woken up every hour by at the assisted living facility, be asked orientation questions and to call 911 if any neurological changes occur such as speech changes, weakness on one side, unable to orient, nausea, vomiting, or severe headache, etc. pt verbalized understanding of this care and agreed to plan of care. discussed worrisome symptoms as well as reasons for return over what time frame. patient states understanding and is agreeable with plan. Prescriptions: Amoxicillin 1 tab PO TID #30 tab Referrals: JULIUS MAYER NP [Primary Care Provider] - Follow up tomorrow
[2018-03-01 09:01] LABS: ABSOLUTE EOSINOPHILS # (AUTO) 0.1 10^3/uL (0.0-0.6); ABSOLUTE LYMPHOCYTES (AUTO) 1.1 10^3/uL (0.5-4.7); ABSOLUTE MONOCYTES (AUTO) 0.3 10^3/uL (0.1-1.4); ABSOLUTE NEUT (AUTO) 2.3 10^3/uL (1.7-8.2); BASOPHILS % (AUTO) 0.5 % (0-2); EOSINOPHILS % (AUTO) 2.3 % (0-6); HEMATOCRIT 34.7 % (36.0-47.0); HEMOGLOBIN 11.7 g/dL (12.0-15.5); LYMPHOCYTES % (AUTO) 27.7 % (13-45); MEAN CORPUSCULAR HGB CONC 33.8 g/dL (32.0-36.0); MEAN CORPUSCULAR VOLUME 95 fl (80-97); MONOCYTES % (AUTO) 8.8 % (3-13); PLATELET COUNT 244 10^3/uL (150-450); RED BLOOD COUNT 3.66 10^6/uL (3.72-5.28); RED CELL DISTRIBUTION WIDTH 14.9 % (11.5-14.0); SEGMENTED NEUTROPHILS % (AUTO) 60.7 % (42-78); TOTAL CELLS COUNTED % (AUTO) 100 %; WHITE BLOOD COUNT 3.8 10^3/uL (4.0-10.5)
[2018-03-01 09:22] LABS: ALANINE AMINOTRANSFERASE 25 U/L (9-52); ALBUMIN 3.2 g/dL (3.5-5.0); ALKALINE PHOSPHATASE 132 U/L (38-126); ANION GAP 8 (5-19); ASPARTATE AMINO TRANSFERASE 20 U/L (14-36); BILIRUBIN,DIRECT 0.3 mg/dL (0.0-0.4); BILIRUBIN,TOTAL 0.5 mg/dL (0.2-1.3); BLOOD UREA NITROGEN 18 mg/dL (7-20); C-REACTIVE PROTEIN 8.9 mg/L (<10.0); CALCIUM 9.5 mg/dL (8.4-10.2); CARBON DIOXIDE 31 mmol/L (22-30); CHLORIDE 106 mmol/L (98-107); CREATINE KINASE 48 U/L (30-135); GLUCOSE 92 mg/dL (75-110); POTASSIUM 3.8 mmol/L (3.6-5.0); TOTAL PROTEIN 5.7 g/dL (6.3-8.2)
[2018-03-01 09:22] LABS: APPEARANCE,URINE CLEAR; BILIRUBIN,URINE NEGATIVE (NEGATIVE); COLOR,URINE YELLOW; GLUCOSE, URINE NEGATIVE (NEGATIVE); KETONES,URINE NEGATIVE (NEGATIVE); LEUKOCYTE ESTERASE,URINE SMALL (NEGATIVE); NITRITE,URINE NEGATIVE (NEGATIVE); PROTEIN,URINE NEGATIVE (NEGATIVE); URINE SPECIFIC GRAVITY 1.006; UROBILINOGEN,URINE NEGATIVE mg/dL (<2.0)
--- NOTE | 2018-03-01 09:29 | RADIOLOGY REPORT (SQ) ---
EXAM DESCRIPTION: CT HEAD WITHOUT COMPLETED DATE/TIME: 03/01/2018 9:15 am REASON FOR STUDY: s/p fall from wheelchair this morning COMPARISON: 01/25/2018. TECHNIQUE: Axial images acquired through the brain without intravenous contrast. Images reviewed wi th bone, brain and subdural windows. Additional sagittal and coronal reconstructions were generated. Images stored on PACS. All CT scanners at this facility use dose modulation, iterative reconstruction, and/or weight based d osing when appropriate to reduce radiation dose to as low as reasonably achievable (ALARA). [facility]: Dose Right [facility]: CareDose [facility]: Dose Right [facility]: Teradose 4D [facility]: [employer] RADIATION DOSE: CT Rad equipment meets quality standard of care and radiation dose reduction techniq ues were employed. CTDIvol: 53.2 mGy. DLP: 1044 mGy-cm. mGy. LIMITATIONS: None. FINDINGS: VENTRICLES: Prominent. CEREBRUM: No masses. No hemorrhage. No midline shift. Areas of low density in the white matter mos t likely due to chronic micro-vascular ischemic change. No evidence for acute infarction. CEREBELLUM: No masses. No hemorrhage. No alteration of density. No evidence for acute infarction. EXTRAAXIAL SPACES: Mild age-related involutional change. No fluid collections. No masses. ORBITS AND GLOBE: No intra- or extraconal masses. Normal contour of globe without masses. CALVARIUM: No fracture. PARANASAL SINUSES: No fluid or mucosal thickening. SOFT TISSUES: No mass or hematoma. OTHER: No other significant finding. IMPRESSION: MILD CHRONIC CHANGES OF ATROPHY AND MICROVASCULAR ISCHEMIA. NO ACUTE PROCESS. EVIDENCE OF ACUTE STROKE: NO. TECHNICAL DOCUMENTATION: JOB ID: [id number] Quality ID # [id number]: Final reports with documentation of one or more dose reduction techniques (e.g., Au tomated exposure control, adjustment of the mA and/or kV according to patient size, use of iterative reconstruction technique) 2010 [employer]- All Rights Reserved Reading location - IP/workstation name: [email or web address]
[2018-03-01 09:31] LABS: CREATINE KINASE MB 0.98 ng/mL (<4.55); TROPONIN I 0.014 ng/mL
--- NOTE | 2018-03-01 09:35 | RADIOLOGY REPORT (SQ) ---
EXAM DESCRIPTION: CT CERVICAL SPINE WITHOUT COMPLETED DATE/TIME: 03/01/2018 9:15 am REASON FOR STUDY: s/p fall from wheelchair this morning COMPARISON: 01/25/2018. TECHNIQUE: Axial images acquired through the cervical spine without intravenous contrast. Images re viewed with lung, soft tissue and bone windows. Reconstructed coronal and sagittal MPR images review ed. Images stored on PACS. All CT scanners at this facility use dose modulation, iterative reconstruction, and/or weight based d osing when appropriate to reduce radiation dose to as low as reasonably achievable (ALARA). [facility]: Dose Right [facility]: CareDose [facility]: Dose Right [facility]: Teradose 4D [facility]: [employer] RADIATION DOSE: CT Rad equipment meets quality standard of care and radiation dose reduction techniq ues were employed. CTDIvol: 25.1 mGy. DLP: 462 mGy-cm. mGy. LIMITATIONS: None. FINDINGS: ALIGNMENT: Anatomic. MINERALIZATION: Normal. VERTEBRAL BODIES: No fractures or dislocation. DISCS: No significant disc disease. FACETS, LATERAL MASSES, POSTERIOR ELEMENTS: No fractures. No dislocation. No acute findings. HARDWARE: None in the spine. VISUALIZED RIBS: No fractures. LUNG APICES AND SOFT TISSUES: No significant or acute findings. OTHER: No other significant finding. IMPRESSION: NO ACUTE OR SIGNIFICANT FINDINGS IN THE CERVICAL SPINE. TECHNICAL DOCUMENTATION: JOB ID: [id number] Quality ID # [id number]: Final reports with documentation of one or more dose reduction techniques (e.g., Au tomated exposure control, adjustment of the mA and/or kV according to patient size, use of iterative reconstruction technique) 2010 [employer]- All Rights Reserved Reading location - IP/workstation name: [email or web address]
[2018-03-01] MEDS ORDERED: AMOXICILLIN TRIHYDRATE 500 MG CAPSULE PO ONE (10:42)
[2018-03-01 15:33] VITALS: BP 133/57
--- NOTE | 2018-03-01 21:47 | EKG REPORT ---
SEVERITY:- BORDERLINE ECG - SINUS RHYTHM BORDERLINE R WAVE PROGRESSION, ANTERIOR LEADS : Confirmed by: Pearl Maurice 01-Mar-2018 21:47:05
== END 2018-03-01 15:33 | disposition home or self-care (01) ==
LOC: ER 07:53
DX: S13.9XXA Sprain of joints and ligaments of unspecified parts of neck, initial encounter (principal); S09.90XA Unspecified injury of head, initial encounter; M54.2 Cervicalgia; W01.0XXA Fall on same level from slipping, tripping and stumbling without subsequent striking against object, initial encounter; Y93.89 Activity, other specified; Y92.199 Unspecified place in other specified residential institution as the place of occurrence of the external cause; J02.0 Streptococcal pharyngitis; I10 Essential (primary) hypertension; E11.9 Type 2 diabetes mellitus without complications; Z88.8 Allergy status to other drugs, medicaments and biological substances; Z91.018 Allergy to other foods
CPT/HCPCS: 93005; 99284; 36415; 87086; 82553; 87880; 82550; 83735; 84100; 85025; 86140; 80053; 81001; 84484; 70450; 72125; 93010; A9270

== ENCOUNTER → 2018-03-10 | Outpatient (CLI) | payer MEDICARE, MEDICAID ==
[2018-03-10 11:19] LABS: ABSOLUTE EOSINOPHILS # (AUTO) 0.1 10^3/uL (0.0-0.6); ABSOLUTE LYMPHOCYTES (AUTO) 1.2 10^3/uL (0.5-4.7); ABSOLUTE MONOCYTES (AUTO) 0.4 10^3/uL (0.1-1.4); ABSOLUTE NEUT (AUTO) 3.6 10^3/uL (1.7-8.2); BASOPHILS % (AUTO) 0.4 % (0-2); EOSINOPHILS % (AUTO) 1.4 % (0-6); HEMOGLOBIN 12.2 g/dL (12.0-15.5); LYMPHOCYTES % (AUTO) 22.5 % (13-45); MEAN CORPUSCULAR HEMOGLOBIN 32.6 pg (27.0-33.4); MEAN CORPUSCULAR VOLUME 96 fl (80-97); PLATELET COUNT 358 10^3/uL (150-450); RED BLOOD COUNT 3.76 10^6/uL (3.72-5.28); RED CELL DISTRIBUTION WIDTH 15.1 % (11.5-14.0); SEGMENTED NEUTROPHILS % (AUTO) 68.7 % (42-78); TOTAL CELLS COUNTED % (AUTO) 100 %; WHITE BLOOD COUNT 5.3 10^3/uL (4.0-10.5)
== END ==
LOC: OD 09:42
PROVIDERS: ATTEND Nurse Practitioner Psychiatric/Mental Health
DX: F25.0 Schizoaffective disorder, bipolar type (principal)
CPT/HCPCS: 36415; 85025

== ENCOUNTER → 2018-03-20 | Outpatient (CLI) | payer MEDICARE, MEDICAID ==
[2018-03-20 14:29] LABS: ABSOLUTE EOSINOPHILS # (AUTO) 0.1 10^3/uL (0.0-0.6); ABSOLUTE LYMPHOCYTES (AUTO) 1.4 10^3/uL (0.5-4.7); ABSOLUTE MONOCYTES (AUTO) 0.4 10^3/uL (0.1-1.4); ABSOLUTE NEUT (AUTO) 2.8 10^3/uL (1.7-8.2); BASOPHILS % (AUTO) 0.2 % (0-2); EOSINOPHILS % (AUTO) 1.9 % (0-6); HEMATOCRIT 34.9 % (36.0-47.0); HEMOGLOBIN 11.9 g/dL (12.0-15.5); LYMPHOCYTES % (AUTO) 30.2 % (13-45); MEAN CORPUSCULAR HEMOGLOBIN 32.1 pg (27.0-33.4); MEAN CORPUSCULAR HGB CONC 34.1 g/dL (32.0-36.0); MEAN CORPUSCULAR VOLUME 94 fl (80-97); MONOCYTES % (AUTO) 8.4 % (3-13); PLATELET COUNT 314 10^3/uL (150-450); RED BLOOD COUNT 3.71 10^6/uL (3.72-5.28); RED CELL DISTRIBUTION WIDTH 14.3 % (11.5-14.0); SEGMENTED NEUTROPHILS % (AUTO) 59.3 % (42-78); TOTAL CELLS COUNTED % (AUTO) 100 %; WHITE BLOOD COUNT 4.7 10^3/uL (4.0-10.5)
== END ==
LOC: OD 13:44
PROVIDERS: ATTEND Nurse Practitioner Psychiatric/Mental Health
DX: F25.0 Schizoaffective disorder, bipolar type (principal); Z79.899 Other long term (current) drug therapy
CPT/HCPCS: 36415; 85025

== ENCOUNTER 2018-03-25 10:55 | Emergency (ER) | payer MEDICARE, MEDICAID ==
--- NOTE | 2018-03-25 11:08 | ER Document Report ---
ED General - General Chief Complaint: Fall Injury Stated Complaint: ALTERED MENTAL STATUS FALL Time Seen by Provider: 03/25/18 10:59 Notes: 67-year-old female to the emergency department for evaluation of altered mental status. Patient lives at a long term. Has a history of underlying schizophrenia. Supposedly fell onto the floor. Patient was telling EMS she had a right-sided headache. On arrival patient is mumbling. Anytime I touch her she started saying that she hurts everywhere. Patient cannot really tell me why she is here. TRAVEL OUTSIDE OF THE [place] IN LAST 30 DAYS: No - HPI Onset: Just prior to arrival - Related Data Allergies/Adverse Reactions: haloperidol [From Haldol] Allergy (Severe, Verified 03/01/18 08:29) LOCKJAW haloperidol lactate [From Haldol] Allergy (Severe, Verified 03/01/18 08:29) LOCKJAW chlorpromazine HCl [From Thorazine] Allergy (Verified 03/01/18 08:29) chocolate Allergy (Uncoded 03/01/18 08:29) Past Medical History - General Information source: [facility] Records - Social History Smoking Status: Former Smoker Frequency of alcohol use: None Drug Abuse: None Lives with: [facility] Family History: CAD - dad and uncle with MIs in their 60s, DM - mom - Past Medical History Cardiac Medical History: Reports: Hx Hypercholesterolemia, Hx Hypertension Pulmonary Medical History: Reports: Hx Bronchitis Neurological Medical History: Reports: Hx Seizures Endocrine Medical History: Reports: Hx Diabetes Mellitus Type 2, Hx Hypothyroidism Renal/ Medical History: Denies: Hx Peritoneal Dialysis GI Medical History: Reports: Hx Gastroesophageal Reflux Disease. Denies: Hx Pancreatitis Musculoskeletal Medical History: Reports Hx Arthritis Psychiatric Medical History: Reports: Hx Bipolar Disorder, Hx Depression, Hx Schizoaffective Disorder, Hx Schizophrenia Past Surgical History: Reports: Hx Cholecystectomy, Hx Neurologic Surgery - carpal tunnel, Hx Tonsillectomy - 1957, Hx Tubal Ligation - Immunizations Hx Diphtheria, Pertussis, Tetanus Vaccination: Yes Hx Pneumococcal Vaccination: 11/08/13 Review of Systems - Review of Systems -: Yes ROS unobtainable due to patient's medical condition - Patient either uncooperative or mentally impaired Physical Exam - Vital signs Vitals: Temp Pulse Resp BP Pulse Ox 98.2 F 70 18 136/61 H 99 03/25/18 11:15 03/25/18 11:15 03/25/18 11:15 03/25/18 11:15 03/25/18 11:15 Interpretation: Normal - General General appearance: Appears well, Alert In distress: None - HEENT Head: Normocephalic, Atraumatic Eyes: Normal Pupils: PERRL Nasal: Normal Mouth/Lips: Normal Mucous membranes: Normal Pharynx: Normal Neck: Normal, Other - Patient seems to complain of tenderness when palpating lightly over her cervical spine. - Respiratory Respiratory status: No respiratory distress Chest status: Nontender Breath sounds: Normal Chest palpation: Normal - Cardiovascular Rhythm: Regular Heart sounds: Normal auscultation Murmur: No - Abdominal Inspection: Normal Distension: No distension Bowel sounds: Normal Tenderness: Nontender Organomegaly: No organomegaly - Back Back: Normal, Nontender - Extremities General upper extremity: Normal inspection, Nontender, Normal color, Normal ROM , Normal temperature General lower extremity: Normal inspection, Nontender, Normal color, Normal ROM , Normal temperature, Normal weight bearing. No: Melody's sign - Neurological Neuro grossly intact: Yes Cognition: Normal Orientation: Disoriented to person, Disoriented to time, Disoriented to events [place] Coma Scale Eye Opening: Spontaneous [place] Coma Scale Verbal: Confused [place] Coma Scale Motor: Obeys Commands [place] Coma Scale Total: 14 Speech: Other - She mumbling, will not communicate Cranial nerves: Normal Motor strength normal: LUE, RUE, LLE, RLE Sensory: Normal - Psychological Associated symptoms: Agitated, Confused, Psychomotor agitation - Skin Skin Temperature: Warm Skin Moisture: Dry Skin Color: Normal Course - Re-evaluation Re-evalutation: 03/25/18 12:32 She is on quite a few mental health medications. She does seem to have some muscle twitching. Could be having some antipsychotic overtones but on benztropine. Will order imaging studies and basic labs and reassess 03/25/18 14:05 I find nothing acutely wrong with the patient at this time. Patient does have some significant underlying mental health issues which is why she is in a long term. I did go and speak with her after some fluids were given and she states that she feels much better. I have no concerns at this time that she is a harm to herself or others. Does not meet criteria for inpatient admission. She states that she feels much better. At this time I will discharge her to home. - Vital Signs Vital signs: Temp Pulse Resp BP Pulse Ox 98.2 F 70 18 136/61 H 99 03/25/18 11:15 03/25/18 11:15 03/25/18 11:15 03/25/18 11:15 03/25/18 11:15 - Laboratory Result Diagrams: 03/25/18 11:43 03/25/18 11:43 Laboratory results interpreted by me: 03/25/18 03/25/18 03/25/18 11:43 11:43 13:15 RDW 14.9 H BUN 22 H Est GFR ( Amer) 53 L Est GFR (Non-Af Amer) 44 L Total Protein 5.7 L Albumin 3.1 L [place] < 0.2 L - EKG Interpretation by Me EKG shows normal: Sinus rhythm, [place], Intervals, QRS Complexes, ST-T Waves Discharge - Discharge Clinical Impression: Altered mental status, unspecified Qualifiers: Altered mental status type: unspecified Qualified Code(s): R41.82 - Altered mental status, unspecified Condition: Good Disposition: HOME-ASSISTED LIVING Instructions: Altered Mental Status ([facility]) Referrals: JULIUS MAYER NP [Primary Care Provider] - Follow up as needed
--- NOTE | 2018-03-25 11:45 | RADIOLOGY REPORT (SQ) ---
EXAM DESCRIPTION: CT HEAD WITHOUT COMPLETED DATE/TIME: 03/25/2018 11:33 am REASON FOR STUDY: altered, fall, closed head injury COMPARISON: 7 head CTs in the past 5 months, most recent dated 03/01/2018. TECHNIQUE: Axial images acquired through the brain without intravenous contrast. Images reviewed wi th bone, brain and subdural windows. Additional sagittal and coronal reconstructions were generated. Images stored on PACS. All CT scanners at this facility use dose modulation, iterative reconstruction, and/or weight based d osing when appropriate to reduce radiation dose to as low as reasonably achievable (ALARA). [facility]: Dose Right [facility]: CareDose [facility]: Dose Right [facility]: Teradose 4D [facility]: [employer] RADIATION DOSE: CT Rad equipment meets quality standard of care and radiation dose reduction techniq ues were employed. CTDIvol: 53.2 mGy. DLP: 964 mGy-cm. mGy. LIMITATIONS: None. FINDINGS: VENTRICLES: Prominent. CEREBRUM: No masses. No hemorrhage. No midline shift. Areas of low density in the white matter mos t likely due to chronic micro-vascular ischemic change. No evidence for acute infarction. CEREBELLUM: No masses. No hemorrhage. No alteration of density. No evidence for acute infarction. EXTRAAXIAL SPACES: Mild age-related involutional change. No fluid collections. No masses. ORBITS AND GLOBE: No intra- or extraconal masses. Normal contour of globe without masses. CALVARIUM: No fracture. PARANASAL SINUSES: No fluid or mucosal thickening. SOFT TISSUES: No mass or hematoma. OTHER: No other significant finding. IMPRESSION: MILD CHRONIC CHANGES OF ATROPHY AND MICROVASCULAR ISCHEMIA. NO ACUTE PROCESS. EVIDENCE OF ACUTE STROKE: NO. TECHNICAL DOCUMENTATION: JOB ID: [id number] Quality ID # [id number]: Final reports with documentation of one or more dose reduction techniques (e.g., Au tomated exposure control, adjustment of the mA and/or kV according to patient size, use of iterative reconstruction technique) 2010 [employer]- All Rights Reserved Reading location - IP/workstation name: [email or web address]
--- NOTE | 2018-03-25 11:47 | RADIOLOGY REPORT (SQ) ---
EXAM DESCRIPTION: CT CERVICAL SPINE WITHOUT COMPLETED DATE/TIME: 03/25/2018 11:33 am REASON FOR STUDY: fall pain COMPARISON: 6 C-spine CTs in the past 5 months, most recent dated 03/01/2018. TECHNIQUE: Axial images acquired through the cervical spine without intravenous contrast. Images re viewed with lung, soft tissue and bone windows. Reconstructed coronal and sagittal MPR images review ed. Images stored on PACS. All CT scanners at this facility use dose modulation, iterative reconstruction, and/or weight based d osing when appropriate to reduce radiation dose to as low as reasonably achievable (ALARA). [facility]: Dose Right [facility]: CareDose [facility]: Dose Right [facility]: Teradose 4D [facility]: [employer] RADIATION DOSE: CT Rad equipment meets quality standard of care and radiation dose reduction techniq ues were employed. CTDIvol: 24.0 mGy. DLP: 488 mGy-cm. mGy. LIMITATIONS: None. FINDINGS: ALIGNMENT: Anatomic. MINERALIZATION: Normal. VERTEBRAL BODIES: No fractures or dislocation. DISCS: No significant disc disease. FACETS, LATERAL MASSES, POSTERIOR ELEMENTS: No fractures. No dislocation. No acute findings. HARDWARE: None in the spine. VISUALIZED RIBS: No fractures. LUNG APICES AND SOFT TISSUES: No significant or acute findings. OTHER: No other significant finding. IMPRESSION: NO ACUTE OR SIGNIFICANT FINDINGS IN THE CERVICAL SPINE. TECHNICAL DOCUMENTATION: JOB ID: [id number] Quality ID # [id number]: Final reports with documentation of one or more dose reduction techniques (e.g., Au tomated exposure control, adjustment of the mA and/or kV according to patient size, use of iterative reconstruction technique) 2010 [employer]- All Rights Reserved Reading location - IP/workstation name: [email or web address]
[2018-03-25 12:03] LABS: ABSOLUTE EOSINOPHILS # (AUTO) 0.1 10^3/uL (0.0-0.6); ABSOLUTE LYMPHOCYTES (AUTO) 1.1 10^3/uL (0.5-4.7); ABSOLUTE MONOCYTES (AUTO) 0.3 10^3/uL (0.1-1.4); ABSOLUTE NEUT (AUTO) 2.6 10^3/uL (1.7-8.2); BASOPHILS % (AUTO) 0.3 % (0-2); EOSINOPHILS % (AUTO) 1.5 % (0-6); HEMATOCRIT 36.8 % (36.0-47.0); HEMOGLOBIN 12.3 g/dL (12.0-15.5); LYMPHOCYTES % (AUTO) 27.1 % (13-45); MEAN CORPUSCULAR HEMOGLOBIN 31.9 pg (27.0-33.4); MEAN CORPUSCULAR HGB CONC 33.5 g/dL (32.0-36.0); MEAN CORPUSCULAR VOLUME 95 fl (80-97); MONOCYTES % (AUTO) 7.3 % (3-13); PLATELET COUNT 258 10^3/uL (150-450); RED BLOOD COUNT 3.87 10^6/uL (3.72-5.28); RED CELL DISTRIBUTION WIDTH 14.9 % (11.5-14.0); SEGMENTED NEUTROPHILS % (AUTO) 63.8 % (42-78); TOTAL CELLS COUNTED % (AUTO) 100 %
[2018-03-25 12:05] LABS: APPEARANCE,URINE CLEAR; BILIRUBIN,URINE NEGATIVE (NEGATIVE); COLOR,URINE YELLOW; GLUCOSE, URINE NEGATIVE (NEGATIVE); KETONES,URINE NEGATIVE (NEGATIVE); LEUKOCYTE ESTERASE,URINE NEGATIVE (NEGATIVE); NITRITE,URINE NEGATIVE (NEGATIVE); PROTEIN,URINE NEGATIVE (NEGATIVE); URINE SPECIFIC GRAVITY 1.012; UROBILINOGEN,URINE NEGATIVE mg/dL (<2.0)
--- NOTE | 2018-03-25 12:16 | RADIOLOGY REPORT (SQ) ---
EXAM DESCRIPTION: CHEST SINGLE VIEW COMPLETED DATE/TIME: 03/25/2018 11:26 am REASON FOR STUDY: chest pain COMPARISON: 01/25/2018. EXAM PARAMETERS: NUMBER OF VIEWS: One view. TECHNIQUE: Single frontal radiographic view of the chest acquired. RADIATION DOSE: NA LIMITATIONS: None. FINDINGS: LUNGS AND PLEURA: No opacities, masses or pneumothorax. No pleural effusion. MEDIASTINUM AND HILAR STRUCTURES: No masses. Contour normal. HEART AND VASCULAR STRUCTURES: Heart normal in size. Normal vasculature. BONES: No acute findings. HARDWARE: None in the chest. OTHER: No other significant finding. IMPRESSION: NO ACUTE RADIOGRAPHIC FINDING IN THE CHEST. TECHNICAL DOCUMENTATION: JOB ID: [id number] [employer]- All Rights Reserved Reading location - IP/workstation name: [email or web address]
[2018-03-25 12:22] LABS: ALANINE AMINOTRANSFERASE 25 U/L (9-52); ALBUMIN 3.1 g/dL (3.5-5.0); ALKALINE PHOSPHATASE 98 U/L (38-126); ANION GAP 11 (5-19); ASPARTATE AMINO TRANSFERASE 21 U/L (14-36); BILIRUBIN,DIRECT 0.4 mg/dL (0.0-0.4); BILIRUBIN,TOTAL 0.4 mg/dL (0.2-1.3); BLOOD UREA NITROGEN 22 mg/dL (7-20); CALCIUM 9.4 mg/dL (8.4-10.2); CARBON DIOXIDE 27 mmol/L (22-30); CHLORIDE 107 mmol/L (98-107); GLUCOSE 81 mg/dL (75-110); POTASSIUM 4.2 mmol/L (3.6-5.0); SODIUM 144.8 mmol/L (137-145); TOTAL PROTEIN 5.7 g/dL (6.3-8.2)
[2018-03-25] MEDS ORDERED: BENZTROPINE MESYLATE INJ 2 MG/2 ML AMPULE IM ONE (12:35)
[2018-03-25] MEDS ORDERED: RINGERS SOLUTION,LACTATED 1,000 ML IV ONE (12:43)
[2018-03-25 15:00] VITALS: BP 122/53
--- NOTE | 2018-03-25 20:49 | EKG REPORT ---
SEVERITY:- NORMAL ECG - SINUS RHYTHM : Confirmed by: Pearl Maurice 25-Mar-2018 20:48:32
== END 2018-03-25 15:00 | disposition home health service (06) ==
LOC: ER 10:55
DX: R41.82 Altered mental status, unspecified (principal); E78.00 Pure hypercholesterolemia, unspecified; I10 Essential (primary) hypertension; E11.9 Type 2 diabetes mellitus without complications; E03.9 Hypothyroidism, unspecified; Z90.49 Acquired absence of other specified parts of digestive tract; Z98.51 Tubal ligation status
CPT/HCPCS: 93005; 99285; 96360; 36415; 80178; 85025; 80053; 80175; 81001; 84484; 71045; 70450; 72125; 93010; J0515; J7120

== ENCOUNTER 2018-03-27 13:09 | Emergency (ER) | payer MEDICARE, MEDICAID ==
--- NOTE | 2018-03-27 13:46 | ER Document Report ---
ED General - General Mode of Arrival: Ambulatory Information source: Patient TRAVEL OUTSIDE OF THE [place] IN LAST 30 DAYS: No <MÓNICA ANAND - Last Filed: 03/27/18 14:15> <DEANGELO WILSON - Last Filed: 03/27/18 22:38> <CHRISTIE RIOS - Last Filed: 03/28/18 08:09> - General Stated Complaint: POSSIBLE STROKE Time Seen by Provider: 03/27/18 13:25 Notes: Patient is a 67-year-old female presenting to the emergency department via EMS from custodial due to altered mental status. According to EMS, patient's last know well was around 10 AM this morning further stating she was up walking around. Patient went for a nap shortly after and was later found unresponsive, fecal incontinent and having vomited on herself. EMS reports falling approximately 2 days ago and hitting left side of the head. At bedside patient is unresponsive to auditory stimuli. (MÓNICA ANAND) - Related Data Allergies/Adverse Reactions: haloperidol [From Haldol] Allergy (Severe, Verified 03/01/18 08:29) LOCKJAW haloperidol lactate [From Haldol] Allergy (Severe, Verified 03/01/18 08:29) LOCKJAW chlorpromazine HCl [From Thorazine] Allergy (Verified 03/01/18 08:29) chocolate Allergy (Uncoded 03/01/18 08:29) Past Medical History - General Information source: Emergency Med Personnel - Social History Smoking Status: Unknown if Ever Smoked Family History: CAD - dad and uncle with MIs in their 60s, DM - mom - Past Medical History Cardiac Medical History: Reports: Hx Hypercholesterolemia, Hx Hypertension Pulmonary Medical History: Reports: Hx Bronchitis Neurological Medical History: Reports: Hx Seizures Endocrine Medical History: Reports: Hx Diabetes Mellitus Type 2, Hx Hypothyroidism GI Medical History: Reports: Hx Gastroesophageal Reflux Disease Musculoskeletal Medical History: Reports Hx Arthritis Psychiatric Medical History: Reports: Hx Bipolar Disorder, Hx Depression, Hx Schizoaffective Disorder, Hx Schizophrenia Past Surgical History: Reports: Hx Cholecystectomy, Hx Neurologic Surgery - carpal tunnel, Hx Tonsillectomy - 1956, Hx Tubal Ligation - Immunizations Hx Diphtheria, Pertussis, Tetanus Vaccination: Yes Hx Pneumococcal Vaccination: 11/08/13 <MÓNICA ANAND - Last Filed: 03/27/18 14:15> Review of Systems - Review of Systems Constitutional: No symptoms reported EENT: No symptoms reported Cardiovascular: No symptoms reported Respiratory: No symptoms reported Gastrointestinal: See HPI, Vomiting Genitourinary: No symptoms reported Female Genitourinary: No symptoms reported Musculoskeletal: No symptoms reported Skin: No symptoms reported Hematologic/Lymphatic: No symptoms reported Neurological/Psychological: See HPI -: Yes All other systems reviewed and negative <MÓNICA ANAND - Last Filed: 03/27/18 14:15> Physical Exam <VIC ANANDKIKA - Last Filed: 03/27/18 14:15> <DEANGELO WILSON - Last Filed: 03/27/18 22:38> <CHRISTIE RIOS - Last Filed: 03/28/18 08:09> - Vital signs Vitals: Pulse Ox 98 03/27/18 13:12 - Notes Notes: GENERAL: Unresponsive to auditory stimuli. Moving around in bed. Appears confused. HEAD: Normocephalic, linear dark red bruise of the left side of the face. EYES: Pupils equal, round, and reactive to light. Extraocular movements intact. ENT: Oral mucosa dry, tongue midline. NECK: Full range of motion. Supple. Trachea midline. LUNGS: Clear to auscultation bilaterally, no wheezes, rales, or rhonchi. No respiratory distress. HEART: Regular rate and rhythm. No murmurs, gallops, or rubs. ABDOMEN: Soft. Non-distended. Bowel sounds present in all 4 quadrants. EXTREMITIES: Moves all 4 extremities spontaneously. No edema. NEUROLOGICAL: Unresponsive to auditory stimuli. Hyperreflexive DTRs bilaterally. Sustained clonus at the ankles bilaterally. PSYCH: Unresponsive to auditory stimuli. SKIN: Warm, dry.. (MÓNICA ANAND) At 1620, the physical exam is essentially unchanged. The patient did have a Gore catheter placed and there was about 1200 mL's of urine drained. The patient's neck remains supple, I am able to lift her head place her chin on her chest without difficulty, she seems completely unaware of any of this activity. She does respond to painful stimulus or noxious stimulus. She was found to be hypothermic and a warming blanket was placed on her. (CHRISTIE RIOS ) Course - Laboratory Result Diagrams: 03/27/18 13:52 03/27/18 13:52 <MÓNCIA ANAND - Last Filed: 03/27/18 14:15> - Laboratory Result Diagrams: 03/27/18 13:52 03/27/18 13:52 <DEANGELO WILSON - Last Filed: 03/27/18 22:38> - Laboratory Result Diagrams: 03/27/18 13:52 03/27/18 13:52 - Diagnostic Test Radiology reviewed: Reports reviewed - CT scan of the head does not show any acute process. Chest x-ray does not show an acute process. - EKG Interpretation by Me EKG shows normal: Sinus rhythm, [place], Intervals, QRS Complexes, ST-T Waves Rate: Normal - 66 Rhythm: NSR - Consults Dr. Javier Consulted provider: other Dr. Montgomery Time consulted: 15:40 Consulted provider: other - Will accept at [facility]. - Transfer of Care Care transferred to following provider: Dr. Wilson <CHRISTIE RIOS - Last Filed: 03/28/18 08:09> - Re-evaluation Re-evalutation: 03/27/18 22:39 Accu-Cheks showed hypoglycemia. We will give an amp of D50. (DEANGELO WILSON) 03/27/18 15:17 Gore catheter was placed and the patient had about 1200 mL's of urine output. The patient's mouth is quite dry and the tongue sticks to the lips. She is sonorous. I find it difficult to believe that she was up walking around with a walker 3 hours prior to arrival as was reported by the facility. 03/27/18 15:23 The patient is not a TPA candidate. She moves all extremities with equal strength. She had acute urinary retention. She is hyperreflexic in all 4 extremities with bilateral ankle clonus. The reported last known normal cannot be accurate based on our findings in the emergency room. The patient has schizoaffective disorder. The patient did suffer a head injury 2 days ago. The patient has an altered mental status that seems to be more likely be a toxic or infectious problem. 03/27/18 17:21 On reevaluation about 5 PM, I found the patient became quite awake and yelling when I palpated her low back in anticipation of doing a lumbar puncture. We are able to sit her up, and get her talking although she does not make a lot of sense but she would answer simple questions. Her hyperreflexia is a little improved. She has warmed up some because the warming blanket has been on her for quite some time now. She has also received IV fluids. 03/27/18 17:32 I just discussed the patient situation at length with the physician that saw her 2 days ago. At that time she was in here for a fall with altered mental status. She was babbling and seemed to have some dystonia with her mouth and tongue, and he did give her some Cogentin. After that she seemed to improve and at one point ask him if he could make her normal again, she was tired of being crazy. He discussed the patient with her family at length, and they told him that her speech and behavior would get that way when she was starting to become psychotic. She also had recent medication changes. Her acute urinary retention, with her somnolence suggests that she may be overmedicated with her antipsychotic medications. I am not sure if this explains her hyperreflexia and ankle clonus. She may benefit from a brief drug holiday and then slowly reinstitute medications. I did attempt to get her admitted to this facility, however we do not have neurology backup, so the hospitalist was unwilling to admit her here. 03/28/18 08:03 When I return to the emergency room for the morning shift, found the patient was still here pending transfer. She is now alert, reasonably oriented and definitely at her baseline. She stated she was hungry and would like to eat. Patient was given a meal and ate without problems. I suspect all these symptoms are due to overmedication with her antipsychotics causing her to have the acute urinary retention and the near stupor presentation. The Gore catheter will be left in. Patient will be transferred back to [facility] with recommendations that she get all of her regular medications she is due this morning and to call her primary care provider to discuss reviewing her psychiatric medications. She will also need to follow up with the urologist to determine when it is safe to remove the Gore catheter, due to the massive distention of the bladder prior to placement of the catheter. (CHRISTIE RIOS) - Vital Signs Vital signs: Temp Pulse Resp BP Pulse Ox 97.4 F 78 22 H 91/61 L 99 03/28/18 06:01 03/27/18 15:00 03/28/18 07:01 03/28/18 07:01 03/28/18 07:01 - Laboratory Laboratory results interpreted by me: 03/27/18 03/27/18 03/27/18 13:52 13:52 13:52 RBC 3.71 L Hct 35.5 L RDW 14.9 H Seg Neutrophils % 81.9 H Lymphocytes % 12.1 L APTT 36.5 H Chloride 108 H BUN 25 H Est GFR ( Amer) 55 L Est GFR (Non-Af Amer) 45 L Glucose 145 H POC Glucose Magnesium Total Protein 5.6 L Albumin 3.0 L 03/27/18 03/27/18 03/27/18 13:52 14:29 22:36 RBC Hct RDW Seg Neutrophils % Lymphocytes % APTT Chloride BUN Est GFR ( Amer) Est GFR (Non-Af Amer) Glucose POC Glucose 146 H 54 L Magnesium 2.4 H Total Protein Albumin 03/27/18 03/28/18 23:12 07:22 RBC Hct RDW Seg Neutrophils % Lymphocytes % APTT Chloride BUN Est GFR ( Amer) Est GFR (Non-Af Amer) Glucose POC Glucose 167 H 62 L Magnesium Total Protein Albumin - Transfer of Care Notes: 03/27/18 17:48 Pending transfer to [facility], patient is on a warming blanket. (CHRISTIE RIOS) Critical Care Note - Critical Care Note Total time excluding time spent on procedures (mins): 45 <CHRISTIE RIOS - Last Filed: 03/28/18 08:09> Discharge <MÓNICA ANAND - Last Filed: 03/27/18 14:15> <DEANGELO WILSON - Last Filed: 03/27/18 22:38> <CHRISTIE RIOS - Last Filed: 03/28/18 08:09> - Discharge Clinical Impression: Acute urinary retention, Hyper-reflexia Hypothermia Qualifiers: Encounter type: initial encounter Qualified Code(s): T68.XXXA - Hypothermia, initial encounter Altered mental status Qualifiers: Altered mental status type: unspecified Qualified Code(s): R41.82 - Altered mental status, unspecified Condition: Stable Disposition: HOME, SELF-CARE Additional Instructions: You presented to the emergency room with altered mental status, nearly unresponsive, hypothermic and with acute urinary retention. You are now alert, oriented and at your baseline after being here for 20 hours and not receiving any antipsychotic medications. I suspect all of your symptoms were due to excessive antipsychotic medications. Your bladder did suffer injury from being so extremely distended, and will require leaving a catheter in for several days. Your primary care provider should be contacted today to discuss medication changes to prevent this from happening again. An appointment should be made with a local urologist to be seen sometime in the next few days. RETURN TO THE EMERGENCY ROOM IF ANY NEW OR WORSENING SYMPTOMS. Referrals: JULIUS MAYER NP [Primary Care Provider] - 03/28/18 [place] Attestation: 03/27/18 17:47 I personally performed the services described in the documentation, reviewed and edited the documentation which was dictated to the scribe in my presence, and it accurately records my words and actions. (CHRISTIE RIOS) Scribe Documentation - Scribe Written by El:: [place], 03/27/2018 14:05 acting as scribe for :: Yusra <MÓNICA ANAND - Last Filed: 03/27/18 14:15>
--- NOTE | 2018-03-27 13:56 | RADIOLOGY REPORT (SQ) ---
EXAM DESCRIPTION: CT HEAD WITHOUT COMPLETED DATE/TIME: 03/27/2018 1:29 pm REASON FOR STUDY: Facial Droop COMPARISON: 03/25/2018 TECHNIQUE: Axial images acquired through the brain without intravenous contrast. Images reviewed wi th bone, brain and subdural windows. Additional sagittal and coronal reconstructions were generated. Images stored on PACS. All CT scanners at this facility use dose modulation, iterative reconstruction, and/or weight based d osing when appropriate to reduce radiation dose to as low as reasonably achievable (ALARA). [facility]: Dose Right [facility]: CareDose [facility]: Dose Right [facility]: Teradose 4D [facility]: Itugo RADIATION DOSE: CT Rad equipment meets quality standard of care and radiation dose reduction techniq ues were employed. CTDIvol: 53.2 mGy. DLP: 1124 mGy-cm. mGy. LIMITATIONS: None. FINDINGS: VENTRICLES: Prominent. CEREBRUM: No masses. No hemorrhage. No midline shift. Areas of low density in the white matter mos t likely due to chronic micro-vascular ischemic change. No evidence for acute infarction. CEREBELLUM: No masses. No hemorrhage. No alteration of density. No evidence for acute infarction. EXTRAAXIAL SPACES: Mild age-related involutional change. No fluid collections. No masses. ORBITS AND GLOBE: No intra- or extraconal masses. Normal contour of globe without masses. CALVARIUM: No fracture. PARANASAL SINUSES: No fluid or mucosal thickening. SOFT TISSUES: No mass or hematoma. OTHER: No other significant finding. IMPRESSION: MILD CHRONIC CHANGES OF ATROPHY AND MICROVASCULAR ISCHEMIA. NO ACUTE PROCESS. EVIDENCE OF ACUTE STROKE: NO. COMMENT: Pertinent positive or negative findings of the imaging study reported as a CRITICAL EXAM rose RIOS MD at13:50 on 03/27/2018. Category of Critical Exam: Stroke alert TECHNICAL DOCUMENTATION: JOB ID: [id number] Quality ID # [id number]: Final reports with documentation of one or more dose reduction techniques (e.g., Au tomated exposure control, adjustment of the mA and/or kV according to patient size, use of iterative reconstruction technique) 2010 [email or web address]- All Rights Reserved Reading location - IP/workstation name: [email or web address]
[2018-03-27] MEDS ORDERED: NORMAL SALINE 1000 ML 1,000 ML IV ONE ×2 (14:05→22:31)
[2018-03-27 14:10] LABS: ABSOLUTE LYMPHOCYTES (AUTO) 0.5 10^3/uL (0.5-4.7); ABSOLUTE MONOCYTES (AUTO) 0.2 10^3/uL (0.1-1.4); ABSOLUTE NEUT (AUTO) 3.6 10^3/uL (1.7-8.2); BASOPHILS % (AUTO) 0.4 % (0-2); EOSINOPHILS % (AUTO) 0.4 % (0-6); HEMATOCRIT 35.5 % (36.0-47.0); HEMOGLOBIN 12.1 g/dL (12.0-15.5); LYMPHOCYTES % (AUTO) 12.1 % (13-45); MEAN CORPUSCULAR HEMOGLOBIN 32.7 pg (27.0-33.4); MEAN CORPUSCULAR HGB CONC 34.1 g/dL (32.0-36.0); MEAN CORPUSCULAR VOLUME 96 fl (80-97); MONOCYTES % (AUTO) 5.2 % (3-13); PLATELET COUNT 222 10^3/uL (150-450); RED BLOOD COUNT 3.71 10^6/uL (3.72-5.28); RED CELL DISTRIBUTION WIDTH 14.9 % (11.5-14.0); SEGMENTED NEUTROPHILS % (AUTO) 81.9 % (42-78); TOTAL CELLS COUNTED % (AUTO) 100 %; WHITE BLOOD COUNT 4.3 10^3/uL (4.0-10.5)
[2018-03-27 14:12] LABS: INTERNATIONAL RATION (INR) 0.99; PARTIAL THROMBOPLASTIN TIME 36.5 SEC (23.5-35.8); PROTHROMBIN TIME 13.6 SEC (11.4-15.4)
[2018-03-27 14:15] LABS: APPEARANCE,URINE CLEAR; BILIRUBIN,URINE NEGATIVE (NEGATIVE); COLOR,URINE YELLOW; GLUCOSE, URINE NEGATIVE (NEGATIVE); KETONES,URINE NEGATIVE (NEGATIVE); LEUKOCYTE ESTERASE,URINE NEGATIVE (NEGATIVE); NITRITE,URINE NEGATIVE (NEGATIVE); PROTEIN,URINE NEGATIVE (NEGATIVE); URINE SPECIFIC GRAVITY 1.013; UROBILINOGEN,URINE NEGATIVE mg/dL (<2.0)
--- NOTE | 2018-03-27 14:38 | RADIOLOGY REPORT (SQ) ---
EXAM DESCRIPTION: CHEST SINGLE VIEW COMPLETED DATE/TIME: 03/27/2018 2:08 pm REASON FOR STUDY: Facial Droop COMPARISON: 03/25/2018. EXAM PARAMETERS: NUMBER OF VIEWS: One view. TECHNIQUE: Single frontal radiographic view of the chest acquired. RADIATION DOSE: NA LIMITATIONS: None. FINDINGS: LUNGS AND PLEURA: No acute infiltrates or effusions. . MEDIASTINUM AND HILAR STRUCTURES: No masses. Contour normal. HEART AND VASCULAR STRUCTURES: The heart is normal. The pulmonary vasculature is normal. BONES: Dorsal spondylosis noted. HARDWARE: None in the chest. OTHER: Chest leads in place. IMPRESSION: NO ACUTE DISEASE. TECHNICAL DOCUMENTATION: JOB ID: [id number] SC-69 2010 [employer]- All Rights Reserved Reading location - IP/workstation name: [email or web address]
[2018-03-27 14:42] LABS: ALANINE AMINOTRANSFERASE 21 U/L (9-52); ALKALINE PHOSPHATASE 100 U/L (38-126); ANION GAP 11 (5-19); ASPARTATE AMINO TRANSFERASE 22 U/L (14-36); BILIRUBIN,DIRECT 0.4 mg/dL (0.0-0.4); BILIRUBIN,TOTAL 0.4 mg/dL (0.2-1.3); BLOOD UREA NITROGEN 25 mg/dL (7-20); CALCIUM 9.4 mg/dL (8.4-10.2); CARBON DIOXIDE 24 mmol/L (22-30); CHLORIDE 108 mmol/L (98-107); CREATINE KINASE 95 U/L (30-135); GLUCOSE 145 mg/dL (75-110); POTASSIUM 4.2 mmol/L (3.6-5.0); SODIUM 142.8 mmol/L (137-145); TOTAL PROTEIN 5.6 g/dL (6.3-8.2)
[2018-03-27 14:52] LABS: CREATINE KINASE MB 1.58 ng/mL (<4.55)
[2018-03-27 14:54] LABS: TROPONIN I < 0.012 ng/mL
[2018-03-27] MEDS ORDERED: LIDOCAINE 1% INJ-PF (10 MG/ML) 30 ML SDV INJ ONE (16:31)
--- NOTE | 2018-03-27 19:28 | EKG REPORT ---
SEVERITY:- NORMAL ECG - SINUS RHYTHM : Confirmed by: Tanner Vyas MD 27-Mar-2018 19:27:57
[2018-03-27] MEDS ORDERED: DEXTROSE 50%-WATER 25 GM/50 ML DISP.SYRIN IV ONE ×2 (22:38→22:41)
[2018-03-28 09:38] VITALS: BP 104/56
== END 2018-03-28 09:30 | disposition home or self-care (01) ==
LOC: ER 13:09
DX: R41.82 Altered mental status, unspecified (principal); R29.2 Abnormal reflex; R11.10 Vomiting, unspecified; T68.XXXA Hypothermia, initial encounter; R33.9 Retention of urine, unspecified; E78.00 Pure hypercholesterolemia, unspecified; X58.XXXA Exposure to other specified factors, initial encounter; I10 Essential (primary) hypertension; E11.9 Type 2 diabetes mellitus without complications; E03.9 Hypothyroidism, unspecified; Z90.49 Acquired absence of other specified parts of digestive tract; Z98.51 Tubal ligation status
CPT/HCPCS: 93005; 99291; 96361; 51702; 96374; 36415; 87040; 82553; 82962; 82550; 83735; 85025; 85610; 85730; 80053; 81001; 84484; 83605; 71045; 70450; 93010; J3490; J7030

== ENCOUNTER 2018-04-04 09:54 | Inpatient (IN) | payer MEDICARE, MEDICAID ==
--- NOTE | 2018-04-04 11:06 | ER Document Report ---
ED General - General Chief Complaint: Altered Mental Status Stated Complaint: FALL Time Seen by Provider: 04/04/18 10:33 Notes: This is a 67-year-old female patient to the emergency department for evaluation of mumbling and questionable fall. On reported what happened with the "fall". Patient lives at a psychiatric assisted living facility. Patient has been seen multiple times recently. The most recent visit that she had urinary retention and had to have a Gore catheter placed in approximately 1200 cc of urine was obtained. Patient was subsequently discharged the following day as stopping all of her medications improved her symptoms. TRAVEL OUTSIDE OF THE [place] IN LAST 30 DAYS: No - HPI Onset: Other - Unknown Onset/Duration: Gradual - Related Data Allergies/Adverse Reactions: haloperidol [From Haldol] Allergy (Severe, Verified 03/01/18 08:29) LOCKJAW haloperidol lactate [From Haldol] Allergy (Severe, Verified 03/01/18 08:29) LOCKJAW chlorpromazine HCl [From Thorazine] Allergy (Verified 03/01/18 08:29) chocolate Allergy (Uncoded 03/01/18 08:29) Past Medical History - General Information source: [facility] Records Cannot obtain history due to: Mentally challenged, Altered mental status - Social History Smoking Status: Never Smoker Chew tobacco use (# tins/day): No Frequency of alcohol use: None Drug Abuse: None Lives with: [facility] Family History: CAD - dad and uncle with MIs in their 60s, DM - mom Patient has suicidal ideation: No Patient has homicidal ideation: No - Past Medical History Cardiac Medical History: Reports: Hx Hypercholesterolemia, Hx Hypertension Pulmonary Medical History: Reports: Hx Bronchitis Neurological Medical History: Reports: Hx Seizures Endocrine Medical History: Reports: Hx Diabetes Mellitus Type 2, Hx Hypothyroidism Renal/ Medical History: Denies: Hx Peritoneal Dialysis GI Medical History: Reports: Hx Gastroesophageal Reflux Disease. Denies: Hx Pancreatitis Musculoskeletal Medical History: Reports Hx Arthritis Psychiatric Medical History: Reports: Hx Bipolar Disorder, Hx Depression, Hx Schizoaffective Disorder, Hx Schizophrenia Past Surgical History: Reports: Hx Cholecystectomy, Hx Neurologic Surgery - carpal tunnel, Hx Tonsillectomy - 1957, Hx Tubal Ligation - Immunizations Hx Diphtheria, Pertussis, Tetanus Vaccination: Yes Hx Pneumococcal Vaccination: 11/08/13 Review of Systems - Review of Systems -: Yes ROS unobtainable due to patient's medical condition - Patient with mental challenges making review of systems unreliable Physical Exam - Vital signs Vitals: Temp Pulse Resp BP Pulse Ox 97.6 F 152 H 18 121/51 L 98 04/04/18 10:07 04/04/18 10:07 04/04/18 10:07 04/04/18 10:07 04/04/18 10:07 Interpretation: Normal - General General appearance: Appears well, Alert - HEENT Head: Normocephalic, Atraumatic Eyes: Normal Pupils: PERRL Notes: There is some bruising that appear approximately 1 week age on the left side of her face - Respiratory Respiratory status: No respiratory distress Chest status: Nontender Breath sounds: Normal Chest palpation: Normal - Cardiovascular Rhythm: Regular Heart sounds: Normal auscultation Murmur: No - Abdominal Inspection: Normal Distension: No distension Bowel sounds: Normal Tenderness: Nontender Organomegaly: No organomegaly - Back Back: Normal, Nontender - Extremities General upper extremity: Normal inspection, Nontender, Normal color, Normal ROM , Normal temperature General lower extremity: Normal inspection, Nontender, Normal color, Normal ROM , Normal temperature, Normal weight bearing. No: Melody's sign - Neurological Neuro grossly intact: Yes Cognition: Confused, Short term memory loss [place] Coma Scale Motor: Obeys Commands Speech: Other - Mumbling Motor strength normal: LUE, RUE, LLE, RLE Sensory: Normal - Psychological Associated symptoms: Other - Patient is able to talk. Patient does state that she is depressed but denies any attempt to hurt herself - Skin Skin Temperature: Warm Skin Moisture: Dry Skin Color: Normal, Other - bruising noted on the left side of the face Course - Re-evaluation Re-evalutation: 04/04/18 12:51 Patient has obvious UTI has had an indwelling Gore catheter. Feeling uncomfortable at this time discharging her. Patient needs to have the Gore removed, antibiotics started I also think the patient more than likely needs a medication adjustment with all of her psychiatric medications. It would benefit to have her evaluated by mental health and consult with psychiatry to see if there is anything we can do to minimize her psychiatric medications. After her labs are all back will consult with hospitalist for admission. Urinalysis shows gross UTI. I did a bedside ultrasound which did not show any urinary retention and did demonstrate the Gore bulb in the bladder. I DC'd the indwelling Gore catheter and have started her on IV antibiotics. 04/04/18 13:49 Laboratory 04/04/18 04/04/18 04/04/18 10:10 10:10 11:40 WBC 4.6 RBC 3.93 Hgb 12.4 Hct 37.4 MCV 95 MCH 31.7 MCHC 33.3 RDW 14.7 H Plt Count 354 Seg Neutrophils % 70.9 Lymphocytes % 20.4 Monocytes % 6.8 Eosinophils % 1.6 Basophils % 0.3 Absolute Neutrophils 3.2 Absolute Lymphocytes 0.9 Absolute Monocytes 0.3 Absolute Eosinophils 0.1 Absolute Basophils 0.0 Sodium Potassium Chloride Carbon Dioxide Anion Gap BUN Creatinine Est GFR ( Amer) Est GFR (Non-Af Amer) Glucose Calcium Total Bilirubin Direct Bilirubin Neonat Total Bilirubin Neonat Direct Bilirubin Neonat Indirect Bili AST ALT Alkaline Phosphatase Creatine Kinase Total Protein Albumin Urine Color YELLOW Urine Appearance SLIGHTLY-CLOUDY Urine pH 5.0 Ur Specific Stewart 1.016 Urine Protein 30 H Urine Glucose (UA) NEGATIVE Urine Ketones TRACE H Urine Blood LARGE H Urine Nitrite POSITIVE H Urine Bilirubin NEGATIVE Urine Urobilinogen 2.0 H Ur Leukocyte Esterase MODERATE H Urine WBC (Auto) 77 Urine RBC (Auto) 118 Urine Bacteria (Auto) TRACE Squamous Epi Cells Auto 2 Urine Mucus (Auto) OCC Urine Creatinine 98.8 Urine Ascorbic Acid NEGATIVE 04/04/18 11:40 WBC RBC Hgb Hct MCV MCH MCHC RDW Plt Count Seg Neutrophils % Lymphocytes % Monocytes % Eosinophils % Basophils % Absolute Neutrophils Absolute Lymphocytes Absolute Monocytes Absolute Eosinophils Absolute Basophils Sodium 144.1 Potassium 4.5 Chloride 108 H Carbon Dioxide 27 Anion Gap 9 BUN 42 H Creatinine 1.49 H Est GFR ( Amer) 42 L Est GFR (Non-Af Amer) 35 L Glucose 87 Calcium 9.8 Total Bilirubin 0.5 Direct Bilirubin 0.5 H Neonat Total Bilirubin Not Reportable Neonat Direct Bilirubin Not Reportable Neonat Indirect Bili Not Reportable AST 41 H ALT 31 Alkaline Phosphatase 106 Creatine Kinase 421 H Total Protein 6.2 L Albumin 3.4 L Urine Color Urine Appearance Urine pH Ur Specific Stewart Urine Protein Urine Glucose (UA) Urine Ketones Urine Blood Urine Nitrite Urine Bilirubin Urine Urobilinogen Ur Leukocyte Esterase Urine WBC (Auto) Urine RBC (Auto) Urine Bacteria (Auto) Squamous Epi Cells Auto Urine Mucus (Auto) Urine Creatinine Urine Ascorbic Acid Pelvis X-Ray 04/04/18 11:04 IMPRESSION: No acute fracture or malalignment. We will admit to the hospitalist for further evaluation and treatment. Having some psychosis at this time as well. - Vital Signs Vital signs: Temp Pulse Resp BP Pulse Ox 97.6 F 152 H 18 121/51 L 98 04/04/18 10:07 04/04/18 10:07 04/04/18 10:07 04/04/18 10:07 04/04/18 10:07 - Laboratory Result Diagrams: 04/04/18 11:40 04/04/18 11:40 Laboratory results interpreted by me: 04/04/18 04/04/18 04/04/18 10:10 11:40 11:40 RDW 14.7 H Chloride 108 H BUN 42 H Creatinine 1.49 H Est GFR ( Amer) 42 L Est GFR (Non-Af Amer) 35 L Direct Bilirubin 0.5 H AST 41 H Creatine Kinase 421 H Total Protein 6.2 L Albumin 3.4 L Urine Protein 30 H Urine Ketones TRACE H Urine Blood LARGE H Urine Nitrite POSITIVE H Urine Urobilinogen 2.0 H Ur Leukocyte Esterase MODERATE H Discharge - Discharge Clinical Impression: Urinary tract infection Qualifiers: Urinary tract infection type: catheter-associated UTI Indwelling urinary catheter type: indwelling urethral catheter Encounter type: initial encounter Qualified Code(s): T83.511A - Infection and inflammatory reaction due to indwelling urethral catheter, initial encounter Condition: Good Disposition: ADMITTED INPATIENT Admitting Provider: [facility] Admitted: Telemetry
[2018-04-04 11:31] LABS: APPEARANCE,URINE SLIGHTLY-CLOUDY; BILIRUBIN,URINE NEGATIVE (NEGATIVE); COLOR,URINE YELLOW; GLUCOSE, URINE NEGATIVE (NEGATIVE); KETONES,URINE TRACE mg/dL (NEGATIVE); LEUKOCYTE ESTERASE,URINE MODERATE (NEGATIVE); NITRITE,URINE POSITIVE (NEGATIVE); PROTEIN,URINE 30 mg/dL (NEGATIVE); URINE SPECIFIC GRAVITY 1.016
[2018-04-04] MEDS ORDERED: CEFTRIAXONE INJ 1000 MG VIAL IV ONE (12:29)
[2018-04-04 12:41] LABS: ABSOLUTE EOSINOPHILS # (AUTO) 0.1 10^3/uL (0.0-0.6); ABSOLUTE LYMPHOCYTES (AUTO) 0.9 10^3/uL (0.5-4.7); ABSOLUTE MONOCYTES (AUTO) 0.3 10^3/uL (0.1-1.4); ABSOLUTE NEUT (AUTO) 3.2 10^3/uL (1.7-8.2); BASOPHILS % (AUTO) 0.3 % (0-2); EOSINOPHILS % (AUTO) 1.6 % (0-6); HEMATOCRIT 37.4 % (36.0-47.0); HEMOGLOBIN 12.4 g/dL (12.0-15.5); LYMPHOCYTES % (AUTO) 20.4 % (13-45); MEAN CORPUSCULAR HEMOGLOBIN 31.7 pg (27.0-33.4); MEAN CORPUSCULAR HGB CONC 33.3 g/dL (32.0-36.0); MEAN CORPUSCULAR VOLUME 95 fl (80-97); MONOCYTES % (AUTO) 6.8 % (3-13); PLATELET COUNT 354 10^3/uL (150-450); RED BLOOD COUNT 3.93 10^6/uL (3.72-5.28); RED CELL DISTRIBUTION WIDTH 14.7 % (11.5-14.0); SEGMENTED NEUTROPHILS % (AUTO) 70.9 % (42-78); TOTAL CELLS COUNTED % (AUTO) 100 %; WHITE BLOOD COUNT 4.6 10^3/uL (4.0-10.5)
--- NOTE | 2018-04-04 12:42 | RADIOLOGY REPORT (SQ) ---
EXAM DESCRIPTION: PELVIS AP COMPLETED DATE/TIME: 04/04/2018 12:07 pm REASON FOR STUDY: fall COMPARISON: None. NUMBER OF VIEWS: One view TECHNIQUE: AP Pelvis LIMITATIONS: None. FINDINGS: MINERALIZATION: Normal. HIPS: No acute fracture or dislocation. No worrisome bone lesions. PELVIS AND SACRUM: No acute fracture or dislocation. Dense bony sclerosis along the SI joints. PUBIS AND ISCHIUM: No acute fracture. LOWER LUMBAR SPINE: Bulky bilateral facet arthropathy at L4-5 and L5-S1 SOFT TISSUES: No findings. OTHER: No other significant finding. IMPRESSION: No acute fracture or malalignment. TECHNICAL DOCUMENTATION: JOB ID: [id number] [employer]- All Rights Reserved Reading location - IP/workstation name: [email or web address]
[2018-04-04 13:10] LABS: ALANINE AMINOTRANSFERASE 31 U/L (9-52); ALBUMIN 3.4 g/dL (3.5-5.0); ALKALINE PHOSPHATASE 106 U/L (38-126); ANION GAP 9 (5-19); ASPARTATE AMINO TRANSFERASE 41 U/L (14-36); BILIRUBIN,DIRECT 0.5 mg/dL (0.0-0.4); BILIRUBIN,TOTAL 0.5 mg/dL (0.2-1.3); BLOOD UREA NITROGEN 42 mg/dL (7-20); CALCIUM 9.8 mg/dL (8.4-10.2); CARBON DIOXIDE 27 mmol/L (22-30); CHLORIDE 108 mmol/L (98-107); CREATINE KINASE 421 U/L (30-135); GLUCOSE 87 mg/dL (75-110); POTASSIUM 4.5 mmol/L (3.6-5.0); SODIUM 144.1 mmol/L (137-145); TOTAL PROTEIN 6.2 g/dL (6.3-8.2)
[2018-04-04 13:48] LABS: FREE T4 (FREE THYROXINE) 1.1 ng/dL (0.78-2.19)
[2018-04-04 14:02] LABS: THYROID STIMULATING HORMONE 2.25 uIU/mL (0.47-4.68)
[2018-04-04] MEDS ORDERED: RINGERS SOLUTION,LACTATED 1,000 ML IV ONE (14:06)
[2018-04-04] MEDS ORDERED: ONDANSETRON 4 MG TAB.RAPDIS PO PRN (15:23)
[2018-04-04] MEDS ORDERED: NORMAL SALINE 1000 ML 1,000 ML IV PRN (15:23)
[2018-04-04] MEDS ORDERED: ACETAMINOPHEN 325 MG TABLET PO PRN (15:23)
--- NOTE | 2018-04-04 18:10 | PSYCHOLOGICAL NOTE ---
Psych Note - Psych Note Psych Note: Patient is a 67 year old female who presented the ED today from [facility] with chief complaints of mumbling and questionable fall. Her labs suggest a UTI. Her Lamictal level is pending. She is being admitted to hospitalist services for medical. She is on a long list of medications, the facility provided their MAR which is on patient's chart. UTIs in the elderly population can cause and or exacerbate mental health symptoms of psychosis (delusions, hallucinations), paranoia and aggression. This particular patient also a a Severe and Persistent Mental Illness (SPMI) which further increases chances of UTI exacerbating symptoms. Once the UTI is treated some of the symptoms may clear up and/or diminish. Preference is that this be treated to see if it is the root cause of behavioral changes, mumbling, questionable fall. Please consult the [facility] Behavioral Health team once patient is admitted to the floor if further issues need to be addressed. Thank you.
[2018-04-04] MEDS: CEFEPIME 2 GM/D5W RTU 2 GM/50 ML RTUPB IV SCH (21:51)
[2018-04-04] MEDS ORDERED: DEXTROSE 50%-WATER 25 GM/50 ML DISP.SYRIN IV ONE (23:48)
[2018-04-05] MEDS ORDERED: GLUCAGON,HUMAN RECOMB 1 MG INJ IM PRN (00:17)
[2018-04-05] MEDS ORDERED: INSULIN LISPRO 100 UNIT/ML 3 ML VIAL SUBCUT PRN (00:17)
[2018-04-05] MEDS ORDERED: DEXTROSE 40% GEL 15 GM TUBE X 2 PO PRN (00:17)
[2018-04-05] MEDS ORDERED: DEXTROSE 50%-WATER SYRINGE 25 GM/50 ML DOSE IV PRN (00:17)
[2018-04-05] MEDS ORDERED: DEXTROSE 40% GEL 15 GM TUBE PO PRN (00:17)
[2018-04-05] MEDS ORDERED: DEXTROSE 50%-WATER SYRINGE 12.5 GM/25 ML DOSE IV PRN (00:17)
[2018-04-05 06:04] LABS: HEMATOCRIT 32.7 % (36.0-47.0); HEMOGLOBIN 11.1 g/dL (12.0-15.5); MEAN CORPUSCULAR HEMOGLOBIN 32.5 pg (27.0-33.4); MEAN CORPUSCULAR HGB CONC 33.8 g/dL (32.0-36.0); MEAN CORPUSCULAR VOLUME 96 fl (80-97); PLATELET COUNT 307 10^3/uL (150-450); RED CELL DISTRIBUTION WIDTH 14.8 % (11.5-14.0); WHITE BLOOD COUNT 3.8 10^3/uL (4.0-10.5)
[2018-04-05 06:33] LABS: ALANINE AMINOTRANSFERASE 26 U/L (9-52); ALBUMIN 2.6 g/dL (3.5-5.0); ALKALINE PHOSPHATASE 77 U/L (38-126); ANION GAP 8 (5-19); ASPARTATE AMINO TRANSFERASE 30 U/L (14-36); BILIRUBIN,DIRECT 0.5 mg/dL (0.0-0.4); BILIRUBIN,TOTAL 0.5 mg/dL (0.2-1.3); BLOOD UREA NITROGEN 33 mg/dL (7-20); CALCIUM 8.8 mg/dL (8.4-10.2); CARBON DIOXIDE 23 mmol/L (22-30); CHLORIDE 113 mmol/L (98-107); GLUCOSE 46 mg/dL (75-110); PHOSPHORUS 2.6 mg/dL (2.5-4.5); POTASSIUM 4.5 mmol/L (3.6-5.0); SODIUM 144.3 mmol/L (137-145); TOTAL PROTEIN 5.1 g/dL (6.3-8.2)
[2018-04-05] MEDS: CEFEPIME 2 GM/D5W RTU 2 GM/50 ML RTUPB IV SCH ×2 (09:34→21:33)
[2018-04-05] MEDS: ENOXAPARIN SODIUM INJ 30 MG/0.3 ML DISP.SYRIN SUBCUT SCH (09:34)
[2018-04-05] MEDS ORDERED: (PENDING PHARMACY ID) (Cyclobenzaprine Hcl [Cyclobenzaprine Hcl] 5 MG) PO PRN (13:02)
[2018-04-05] MEDS ORDERED: (PENDING PHARMACY ID) (Lactulose [Lactulose] 30 ML) PO SCH (13:15)
[2018-04-05] MEDS ORDERED: (PENDING PHARMACY ID) (Lamotrigine [Lamictal] 200 MG) PO SCH (13:15)
[2018-04-05] MEDS ORDERED: (PENDING PHARMACY ID) (Duloxetine Hcl [Duloxetine Hcl] 60 MG) PO SCH (13:15)
[2018-04-05] MEDS ORDERED: CYCLOBENZAPRINE HCL 10 MG TABLET PO PRN (13:46)
--- NOTE | 2018-04-05 13:55 | EKG REPORT ---
SEVERITY:- NORMAL ECG - SINUS RHYTHM QTC 434 MS NOT PROLONGED. : Confirmed by: Tanner Vyas MD 05-Apr-2018 13:54:46
--- NOTE | 2018-04-05 14:07 | EKG REPORT ---
SEVERITY:- NORMAL ECG - SINUS RHYTHM QTC 434 MS NOT PROLONGED. : Confirmed on behalf of: Tanner Vyas MD 05-Apr-2018 14:07:14
[2018-04-05] MEDS: DULOXETINE HCL 30 MG CAPSULE.DR PO SCH ×2 (15:01→21:29)
[2018-04-05] MEDS: LANSOPRAZOLE 15 MG TAB.RAP.DR PO SCH (15:01)
[2018-04-05] MEDS: ARIPIPRAZOLE 5 MG TABLET PO SCH (15:02)
[2018-04-05] MEDS: OXYBUTYNIN CHLORIDE 5 MG TABLET PO SCH (15:03)
[2018-04-05] MEDS: LOSARTAN POTASSIUM 25 MG TABLET PO SCH (15:03)
--- NOTE | 2018-04-05 16:12 | PDOC H&P ---
<CINTHYA SNYDER [place] - Last Filed: 04/05/18 16:12> History of Present Illness Admission Date/PCP: 04/04/18 13:51 JULIUS MAYER NP Patient complains of: ALTERED MENTAL STATUS History of Present Illness: CAROLYN MEMBRENO is a 67 year old female who presented to [facility] from [facility] with altered mental status. Of note, the patient was recently treated (2017) at [facility] ED for urinary retention. She was discharged back to [facility] with an indwelling catheter with instructions to follow-up with urology. Upon arrival to the ED today, the patient still had the maddox catheter in place. She is mumbling, oriented to self only and endorsing visual hallucinations ("seeing a man dressed in black" in the room). Upon arrival to the ED, the patient's vital signs were BP 121/51 HR RR 18 T 97.6 SPO2 96%RA. Laboratory studies revealed a urinalysis (+) for UTI and an RAFFI (Cr 1.5). The Maddox catheter was removed, the patient received 1 dose of Rocephin IV and 2 L IVF in the ED. Upon assessment, the patient is resting comfortably in bed on room air. She is oriented to self only. When asked other orientation questions, the patient is able to speak clearly but not in complete sentences (WORD SALAD) and her answers are inappropriate to the questions being asked. The patient is being admitted to the hospitalist service for complicated UTI and continued need for IV antibiotics. Past Medical History Cardiac Medical History: Reports: Hyperlipidema, Hypertension Pulmonary Medical History: Reports: Bronchitis Neurological Medical History: Reports: Seizures Endocrine Medical History: Reports: Diabetes Mellitus Type 2, Hypothyroidism GI Medical History: Reports: Gastroesophageal Reflux Disease Musculoskeltal Medical History: Reports: Arthritis Psychiatric Medical History: Reports: Bipolar Disorder, Depression, Schizoaffective Disorder Hematology: Denies: Anemia, Hemophilia, Sickle Cell Disease Past Surgical History Past Surgical History: Reports: Cholecystectomy, Tonsillectomy - 1957, Tubal Ligation Denies: Amputation Social History Information Source: [facility] Records, Outside Facility Records Lives with: [facility] Smoking Status: Never Smoker Frequency of Alcohol Use: None Hx Recreational Drug Use: No Drugs: None Hx Prescription Drug Abuse: No - Advance Directive Resuscitation Status: Full Code Family History Family History: CAD - dad and uncle with MIs in their 60s, DM - mom Parental Family History Reviewed: No Children Family History Reviewed: No Sibling(s) Family History Reviewed.: No Medication/Allergy Allergies/Adverse Reactions: haloperidol [From Haldol] Allergy (Severe, Verified 03/01/18 08:29) LOCKJAW haloperidol lactate [From Haldol] Allergy (Severe, Verified 03/01/18 08:29) LOCKJAW chlorpromazine HCl [From Thorazine] Allergy (Verified 03/01/18 08:29) chocolate Allergy (Uncoded 03/01/18 08:29) Review of Systems ROS unobtainable: Due to mental status Physical Exam Vital Signs: Temp Pulse Resp BP Pulse Ox 97.6 F 152 H 18 121/51 L 98 04/04/18 10:07 04/04/18 10:07 04/04/18 10:07 04/04/18 10:07 04/04/18 10:07 General appearance: PRESENT: no acute distress, well-developed, well-nourished Head exam: PRESENT: atraumatic Eye exam: PRESENT: conjunctiva pink, PERRLA Mouth exam: PRESENT: moist, tongue midline Teeth exam: PRESENT: poor dentation Neck exam: PRESENT: full ROM Respiratory exam: PRESENT: clear to auscultation parviz, symmetrical, unlabored Cardiovascular exam: PRESENT: +S1, +S2 Pulses: PRESENT: normal radial pulses, normal dorsalis pedis pul GI/Abdominal exam: PRESENT: normal bowel sounds, soft. ABSENT: distended, tenderness Rectal exam: PRESENT: deferred Extremities exam: PRESENT: full ROM. ABSENT: joint swelling, pedal edema Musculoskeletal exam: PRESENT: full ROM Neurological exam: PRESENT: alert, awake, oriented to person. ABSENT: oriented to place, oriented to time, oriented to situation Psychiatric exam: PRESENT: appropriate affect Skin exam: PRESENT: dry, intact, normal color, warm Results Impressions: Pelvis X-Ray 04/04/18 11:04 IMPRESSION: No acute fracture or malalignment. Status: Imported from PACS Assessment & Plan - Diagnosis (1) Urinary tract infection QualifierTitle: Urinary tract infection type: catheter-associated UTI Indwelling urinary catheter type: indwelling urethral catheter Encounter type : initial encounter Qualified Code(s): T83.511A - Infection and inflammatory reaction due to indwelling urethral catheter, initial encounter; N39.0 - Urinary tract infection, site not specified; N39.0 - Urinary tract infection, site not specified Is this a current diagnosis for this admission?: Yes Plan: UA indicative of UTI. Urine and blood cultures pending. Afebrile. No leukocytosis. Previous urine cultures (+) for E.coli resistant to Cipro & Levaquin IV rocephin x 1 in ED Continue treatment with IV cefepime 2GM q12h for complicated UTI Patient was admitted from SNF with indwelling Maddox Discontinue catheter, assess for urinary retention if no void within 6hrs of removal If (+) urinary retention, will replace Maddox (2) Altered mental status QualifierTitle: Altered mental status type: disorientation Qualified Code (s): R41.0 - Disorientation, unspecified Is this a current diagnosis for this admission?: Yes Plan: Secondary to #1 (3) Schizoaffective disorder QualifierTitle: Schizoaffective disorder type: unspecified Qualified Code (s): F25.9 - Schizoaffective disorder, unspecified Is this a current diagnosis for this admission?: Yes Plan: Continue home medications Requested PSYCH evaluation for medication recommendations Patient previously was seen at [facility] () and given a lab holiday for approx. 24hrs Her mental status seemed to improve. This begs the question, is she overmedicated? (4) Acute kidney injury Is this a current diagnosis for this admission?: Yes Plan: Secondary to UTI and dehydration 2L IVF bolus in ED Continue with maintenance IVF - Time Time Spent: 30 to 50 Minutes Medications reviewed and adjusted accordingly: Yes Anticipated discharge: SNF Within: within 72 hours - Inpatient Certification Based on my medical assessment, after consideration of the patient's comorbidities, presenting symptoms, or acuity I expect that the services needed warrant INPATIENT care.: Yes I certify that my determination is in accordance with my understanding of Medicare's requirements for reasonable and necessary INPATIENT services [42 CFR 412.3e].: Yes Medical Necessity: Need for IV Antibiotics, Risk of Complication if Not Cared For in Hospital - Plan Summary Plan Summary: Admit to hospitalist service. IV antibiotics. IVF. Psych consult. <KEVIN LUA M - Last Filed: 04/10/18 06:02> History of Present Illness Admission Date/PCP: 04/04/18 13:51 JULIUS MAYER NP History of Present Illness: CAROLYN MEMBRENO is a 67 year old female Physical Exam Vital Signs: Temp Pulse Resp BP Pulse Ox 97.9 F 62 18 124/69 99 04/10/18 04:14 04/10/18 04:14 04/10/18 04:14 04/10/18 04:14 04/10/18 04:14 Intake & Output 04/08/18 04/09/18 04/10/18 06:59 06:59 06:59 Intake Total 1666 1665 910 Output Total 3975 3150 2550 [facility] -[id number] -[phone] -1640 Results Laboratory Results: 04/08/18 04:17 04/08/18 04:17 Impressions: Pelvis X-Ray 04/04/18 11:04 IMPRESSION: No acute fracture or malalignment. KUB X-Ray 04/07/18 00:00 IMPRESSION: Gaseous distention of multiple bowel loops most consistent with an ileus pattern. The possibility of an underlying obstruction cannot be completely excluded however. Other findings as noted above Provider Note Provider Note: I have discussed this patient with LAW Snyder in detail. I am in agreement with her evaluation and plan.
--- NOTE | 2018-04-05 16:26 | PDOC PROGRESS REPORT ---
<LILLIANCINTHYA Alma - Last Filed: 04/05/18 16:13> Subjective Progress Note for:: 04/05/18 Subjective:: CAROLYN MEMBRENO is a 67 year old female who presented to [facility] from [facility] with altered mental status. Of note, the patient was recently treated (2017) at [facility] ED for urinary retention. [facility] with instructions to follow-up with urology. The patient presented to [facility] ED 04/04/2018 with a UTI. The patient was seen this morning on rounds, she is sitting up in bed on room air, eating her lunch. The patient is alert and oriented to self only, she is disoriented to time place and situation. She is able to tell me about her medical history but she does not understand why she is in the hospital. The patient has remained afebrile and nontoxic-appearing since her admission. RAFFI is improving with IVF. Currently awaiting urine cultures and sensitivities. Once those have resulted, will tailor antibiotic therapy and send patient back to [facility]. Reason For Visit: URINARY TRACT INFECTION Physical Exam Vital Signs: Temp Pulse Resp BP Pulse Ox 97.9 F 71 18 106/56 L 99 04/05/18 04:06 04/05/18 07:00 04/05/18 04:06 04/05/18 04:06 04/05/18 04:06 Intake & Output 04/04/18 04/05/18 04/06/18 06:59 06:59 06:59 Intake Total 1690 Output Total 450 Balance 1240 Weight 82.2 kg General appearance: PRESENT: no acute distress, well-developed, well-nourished Head exam: PRESENT: atraumatic, normocephalic Eye exam: PRESENT: conjunctiva pink, EOMI, PERRLA. ABSENT: scleral icterus Ear exam: PRESENT: normal external ear exam Mouth exam: PRESENT: moist, tongue midline Neck exam: ABSENT: carotid bruit, JVD, lymphadenopathy, thyromegaly Respiratory exam: PRESENT: clear to auscultation parviz. ABSENT: rales, rhonchi, wheezes Cardiovascular exam: PRESENT: RRR. ABSENT: diastolic murmur, rubs, systolic murmur Pulses: PRESENT: normal dorsalis pedis pul Vascular exam: PRESENT: normal capillary refill GI/Abdominal exam: PRESENT: normal bowel sounds, soft. ABSENT: distended, guarding, mass, organolmegaly, rebound, tenderness Rectal exam: PRESENT: deferred Gentrourinary exam: PRESENT: indwelling catheter Extremities exam: PRESENT: full ROM. ABSENT: calf tenderness, clubbing, pedal edema Neurological exam: PRESENT: alert, awake, oriented to person. ABSENT: oriented to place, oriented to time, oriented to situation Psychiatric exam: PRESENT: normal mood Skin exam: PRESENT: dry, intact, warm. ABSENT: cyanosis, rash Results Laboratory Results: 04/05/18 05:28 04/05/18 05:28 04/05/18 04/05/18 04/05/18 05:28 05:28 05:28 WBC 3.8 L RBC 3.40 L Hgb 11.1 L Hct 32.7 L MCV 96 MCH 32.5 MCHC 33.8 RDW 14.8 H Plt Count 307 Sodium 144.3 Potassium 4.5 Chloride 113 H Carbon Dioxide 23 Anion Gap 8 BUN 33 H Creatinine 1.14 Est GFR ( Amer) 58 L Est GFR (Non-Af Amer) 48 L Glucose 46 L Calcium 8.8 Phosphorus 2.6 Magnesium 2.3 Total Bilirubin 0.5 AST 30 ALT 26 Alkaline Phosphatase 77 Ammonia < 8.7 L Total Protein 5.1 L Albumin 2.6 L TSH 04/05/18 05:28 WBC RBC Hgb Hct MCV MCH MCHC RDW Plt Count Sodium Potassium Chloride Carbon Dioxide Anion Gap BUN Creatinine Est GFR ( Amer) Est GFR (Non-Af Amer) Glucose Calcium Phosphorus Magnesium Total Bilirubin AST ALT Alkaline Phosphatase Ammonia Total Protein Albumin TSH 1.50 Impressions: Pelvis X-Ray 04/04/18 11:04 IMPRESSION: No acute fracture or malalignment. Status: Imported from PACS Assessment & Plan - Diagnosis (1) Urinary tract infection QualifierTitle: Urinary tract infection type: catheter-associated UTI Indwelling urinary catheter type: indwelling urethral catheter Encounter type : initial encounter Qualified Code(s): T83.511A - Infection and inflammatory reaction due to indwelling urethral catheter, initial encounter; N39.0 - Urinary tract infection, site not specified; N39.0 - Urinary tract infection, site not specified Is this a current diagnosis for this admission?: Yes Plan: UA indicative of UTI. Urine and blood cultures pending. Afebrile. No leukocytosis. Previous urine cultures (+) for E.coli resistant to Cipro & Levaquin IV rocephin x 1 in ED Continue treatment with IV cefepime 2GM q12h for complicated UTI Patient was admitted from SNF with indwelling Gore Catheter was discontinued in ED Urinary retention (>300mL) overnight, new Gore was placed (2) Altered mental status QualifierTitle: Altered mental status type: disorientation Qualified Code (s): R41.0 - Disorientation, unspecified Is this a current diagnosis for this admission?: Yes Plan: Secondary to #1 (3) Schizoaffective disorder QualifierTitle: Schizoaffective disorder type: unspecified Qualified Code (s): F25.9 - Schizoaffective disorder, unspecified Is this a current diagnosis for this admission?: Yes Plan: Continue home medications Requested PSYCH evaluation for medication recommendations PSYCH recommends waiting until UTI has been completely treated to make changes to medication regimen (4) Acute kidney injury Is this a current diagnosis for this admission?: Yes Plan: Improved with IVF Creatinine 1.49-->1.19 Secondary to UTI and dehydration 2L IVF bolus in ED Continue with maintenance IVF - Time Time Spent with patient: 15-24 minutes Medications reviewed and adjusted accordingly: Yes Anticipated discharge: SNF Within: within 48 hours - Inpatient Certification Based on my medical assessment, after consideration of the patient's comorbidities, presenting symptoms, or acuity I expect that the services needed warrant INPATIENT care.: Yes I certify that my determination is in accordance with my understanding of Medicare's requirements for reasonable and necessary INPATIENT services [42 CFR 412.3e].: Yes Medical Necessity: Need for IV Antibiotics, Risk of Complication if Not Cared For in Hospital - Plan Summary Plan Summary: CONTINUE IV ABX. D/C BACK TO [facility] ONCE URINE C&S RESULTED <KEVIN LUA - Last Filed: 04/10/18 06:03> Subjective Reason For Visit: URINARY TRACT INFECTION Physical Exam Vital Signs: Temp Pulse Resp BP Pulse Ox 97.9 F 62 18 124/69 99 04/10/18 04:14 04/10/18 04:14 04/10/18 04:14 04/10/18 04:14 04/10/18 04:14 Intake & Output 04/08/18 04/09/18 04/10/18 06:59 06:59 06:59 Intake Total 1666 1665 910 Output Total 4565 3150 2550 Banner [phone] Results Laboratory Results: 04/08/18 04:17 04/08/18 04:17 Impressions: Pelvis X-Ray 04/04/18 11:04 IMPRESSION: No acute fracture or malalignment. KUB X-Ray 04/07/18 00:00 IMPRESSION: Gaseous distention of multiple bowel loops most consistent with an ileus pattern. The possibility of an underlying obstruction cannot be completely excluded however. Other findings as noted above Provider Note Provider Note: I have discussed this patient with LAW Dawkins in detail. I am in agreement with her evaluation and plans.
[2018-04-05] MEDS: METFORMIN HCL 500 MG TABLET PO SCH (17:05)
[2018-04-05] MEDS: LACTULOSE SYRUP 20 GM/30 ML UDCUP PO SCH (17:10)
[2018-04-05] MEDS: BENZTROPINE MESYLATE 1 MG TABLET PO SCH (17:12)
[2018-04-05] MEDS: LAMOTRIGINE 100 MG TABLET PO SCH (17:12)
[2018-04-05] MEDS: CLOZAPINE 100 MG TABLET PO SCH ×2 (17:13→21:30)
[2018-04-05] MEDS ORDERED: CLOZAPINE 50 MG PO SCH (18:00)
[2018-04-05] MEDS: SIMVASTATIN 10 MG TABLET PO SCH (21:29)
[2018-04-06] MEDS: METFORMIN HCL 500 MG TABLET PO SCH ×2 (09:11→18:37)
[2018-04-06] MEDS: LOSARTAN POTASSIUM 25 MG TABLET PO SCH (09:13)
[2018-04-06] MEDS: ARIPIPRAZOLE 5 MG TABLET PO SCH (09:13)
[2018-04-06] MEDS: BENZTROPINE MESYLATE 1 MG TABLET PO SCH ×2 (09:13→18:38)
[2018-04-06] MEDS: OXYBUTYNIN CHLORIDE 5 MG TABLET PO SCH (09:14)
[2018-04-06] MEDS: LACTULOSE SYRUP 20 GM/30 ML UDCUP PO SCH ×2 (09:16→18:41)
[2018-04-06] MEDS: DULOXETINE HCL 30 MG CAPSULE.DR PO SCH ×2 (09:16→21:50)
[2018-04-06] MEDS: CEFEPIME 2 GM/D5W RTU 2 GM/50 ML RTUPB IV SCH ×2 (09:17→21:50)
[2018-04-06] MEDS: ENOXAPARIN SODIUM INJ 30 MG/0.3 ML DISP.SYRIN SUBCUT SCH (09:18)
[2018-04-06 09:22] LABS: HEMATOCRIT 35.6 % (36.0-47.0); HEMOGLOBIN 11.8 g/dL (12.0-15.5); MEAN CORPUSCULAR HEMOGLOBIN 31.5 pg (27.0-33.4); MEAN CORPUSCULAR HGB CONC 33.2 g/dL (32.0-36.0); MEAN CORPUSCULAR VOLUME 95 fl (80-97); PLATELET COUNT 298 10^3/uL (150-450); RED BLOOD COUNT 3.75 10^6/uL (3.72-5.28); RED CELL DISTRIBUTION WIDTH 14.6 % (11.5-14.0); WHITE BLOOD COUNT 5.1 10^3/uL (4.0-10.5)
[2018-04-06 09:30] LABS: ALANINE AMINOTRANSFERASE 29 U/L (9-52); ALBUMIN 2.5 g/dL (3.5-5.0); ALKALINE PHOSPHATASE 80 U/L (38-126); ANION GAP 5 (5-19); ASPARTATE AMINO TRANSFERASE 24 U/L (14-36); BILIRUBIN,DIRECT 0.4 mg/dL (0.0-0.4); BILIRUBIN,TOTAL 0.4 mg/dL (0.2-1.3); BLOOD UREA NITROGEN 25 mg/dL (7-20); CALCIUM 9.5 mg/dL (8.4-10.2); CARBON DIOXIDE 23 mmol/L (22-30); CHLORIDE 109 mmol/L (98-107); GLUCOSE 125 mg/dL (75-110); POTASSIUM 4.6 mmol/L (3.6-5.0); SODIUM 136.9 mmol/L (137-145); TOTAL PROTEIN 4.6 g/dL (6.3-8.2)
[2018-04-06] MEDS: LAMOTRIGINE 100 MG TABLET PO SCH ×2 (10:42→18:39)
[2018-04-06] MEDS: LANSOPRAZOLE 15 MG TAB.RAP.DR PO SCH (10:42)
[2018-04-06] MEDS: LEVOTHYROXINE SODIUM 0.05 MG TABLET PO SCH (10:43)
--- NOTE | 2018-04-06 18:16 | PDOC PROGRESS REPORT ---
Addendum entered and electronically signed by CINTHYA SNYDER NP 04/06/18 18 :19: Provider Note Provider Note: CONTINUED URINARY RETENTION LIKELY DUE TO OXYBUTYNIN. DISCONTINUED TODAY. WILL RE-EVALUATE NEED FOR STEWART CATHETER IN 24-48 HRS. Original Note: <CINTHYA SNYDER - Last Filed: 04/06/18 18:18> Subjective Progress Note for:: 04/06/18 Subjective:: CAROLYN MEMBRENO is a 67 year old female who presented to [facility] from [facility] with altered mental status. Of note, the patient was recently treated (2017) at [facility] ED for urinary retention. She was discharged back to [facility] with an indwelling catheter with instructions to follow-up with urology. The patient presented to [facility] ED 04/04/2018 with a UTI. The patient was seen this morning on rounds, she is sitting up in bed on room air. The patient is alert and oriented to self only, she is disoriented to time place and situation. She idoes not understand why she is in the hospital. The patient has remained afebrile and nontoxic-appearing since her admission. Urine culture positive for multidrug-resistant Pseudomonas. Continue IV cefepime. Plan to consult ID tomorrow. Reason For Visit: URINARY TRACT INFECTION Physical Exam Vital Signs: Temp Pulse Resp BP Pulse Ox 97.9 F 73 16 108/51 L 100 04/06/18 09:04 04/06/18 14:00 04/06/18 09:04 04/06/18 09:04 04/06/18 09:04 Intake & Output 04/05/18 04/06/18 04/07/18 06:59 06:59 06:59 Intake Total 1690 2020 50 Output Total 450 1350 Balance 1240 670 50 Weight 82.2 kg 83.2 kg General appearance: PRESENT: no acute distress, well-developed, well-nourished Head exam: PRESENT: atraumatic, normocephalic Eye exam: PRESENT: conjunctiva pink, EOMI, PERRLA. ABSENT: scleral icterus Ear exam: PRESENT: normal external ear exam Mouth exam: PRESENT: moist, tongue midline Neck exam: ABSENT: carotid bruit, JVD, lymphadenopathy, thyromegaly Respiratory exam: PRESENT: clear to auscultation parviz. ABSENT: rales, rhonchi, wheezes Cardiovascular exam: PRESENT: RRR. ABSENT: diastolic murmur, rubs, systolic murmur Pulses: PRESENT: normal dorsalis pedis pul Vascular exam: PRESENT: normal capillary refill GI/Abdominal exam: PRESENT: normal bowel sounds, soft. ABSENT: distended, guarding, mass, organolmegaly, rebound, tenderness Rectal exam: PRESENT: deferred Gentrourinary exam: PRESENT: indwelling catheter Extremities exam: PRESENT: full ROM. ABSENT: calf tenderness, clubbing, pedal edema Musculoskeletal exam: PRESENT: ambulatory - with assistance Neurological exam: PRESENT: alert, awake, oriented to person. ABSENT: oriented to place, oriented to time, oriented to situation Psychiatric exam: PRESENT: appropriate affect, normal mood. ABSENT: homicidal ideation, suicidal ideation Skin exam: PRESENT: dry, intact, warm. ABSENT: cyanosis, rash Results Laboratory Results: 04/06/18 04:41 04/06/18 04:41 04/06/18 04/06/18 04:41 04:41 WBC 5.1 RBC 3.75 Hgb 11.8 L Hct 35.6 L MCV 95 MCH 31.5 MCHC 33.2 RDW 14.6 H Plt Count 298 Sodium 136.9 L Potassium 4.6 Chloride 109 H Carbon Dioxide 23 Anion Gap 5 BUN 25 H Creatinine 1.12 Est GFR ( Amer) 59 L Est GFR (Non-Af Amer) 49 L Glucose 125 H Calcium 9.5 Total Bilirubin 0.4 AST 24 ALT 29 Alkaline Phosphatase 80 Total Protein 4.6 L Albumin 2.5 L Impressions: Pelvis X-Ray 04/04/18 11:04 IMPRESSION: No acute fracture or malalignment. Status: Imported from PACS Assessment & Plan - Diagnosis (1) Urinary tract infection QualifierTitle: Urinary tract infection type: catheter-associated UTI Indwelling urinary catheter type: indwelling urethral catheter Encounter type : initial encounter Qualified Code(s): T83.511A - Infection and inflammatory reaction due to indwelling urethral catheter, initial encounter; N39.0 - Urinary tract infection, site not specified; N39.0 - Urinary tract infection, site not specified Is this a current diagnosis for this admission?: Yes Plan: UA indicative of UTI. Urine culture positive for multidrug-resistant Pseudomonas Blood cultures no growth Afebrile. No leukocytosis. IV rocephin x 1 in ED Continue treatment with IV cefepime 2GM q12h for complicated UTI Patient was admitted from SNF with indwelling Stewart Catheter was discontinued in ED but eventually replaced for urinary retention Plan to consult ID (2) Altered mental status QualifierTitle: Altered mental status type: disorientation Qualified Code (s): R41.0 - Disorientation, unspecified Is this a current diagnosis for this admission?: Yes Plan: Secondary to #1 (3) Schizoaffective disorder QualifierTitle: Schizoaffective disorder type: unspecified Qualified Code (s): F25.9 - Schizoaffective disorder, unspecified Is this a current diagnosis for this admission?: Yes Plan: Continue home medications Requested PSYCH evaluation for medication recommendations PSYCH recommends waiting until UTI has been completely treated to make changes to medication regimen (4) Acute kidney injury Is this a current diagnosis for this admission?: Yes Plan: Resolved Creatinine 1.12 Secondary to UTI and dehydration 2L IVF bolus in ED Continue with maintenance IVF - Time Time Spent with patient: 15-24 minutes Medications reviewed and adjusted accordingly: Yes Anticipated discharge: Home Within: within 48 hours - Inpatient Certification Based on my medical assessment, after consideration of the patient's comorbidities, presenting symptoms, or acuity I expect that the services needed warrant INPATIENT care.: Yes I certify that my determination is in accordance with my understanding of Medicare's requirements for reasonable and necessary INPATIENT services [42 CFR 412.3e].: Yes Medical Necessity: Need for IV Antibiotics, Risk of Complication if Not Cared For in Hospital - Plan Summary Plan Summary: CONTINUE ABX. CONSULT ID <KEVIN LUA M - Last Filed: 04/10/18 06:05> Subjective Reason For Visit: URINARY TRACT INFECTION Physical Exam Vital Signs: Temp Pulse Resp BP Pulse Ox 97.9 F 62 18 124/69 99 04/10/18 04:14 04/10/18 04:14 04/10/18 04:14 04/10/18 04:14 04/10/18 04:14 Intake & Output 04/08/18 04/09/18 04/10/18 06:59 06:59 06:59 Intake Total 1666 1665 910 Output Total 5327 5478 4278 Banner [phone] Results Laboratory Results: 04/08/18 04:17 04/08/18 04:17 Impressions: Pelvis X-Ray 04/04/18 11:04 IMPRESSION: No acute fracture or malalignment. KUB X-Ray 04/07/18 00:00 IMPRESSION: Gaseous distention of multiple bowel loops most consistent with an ileus pattern. The possibility of an underlying obstruction cannot be completely excluded however. Other findings as noted above Provider Note Provider Note: I have discussed this patient in detail with LAW Snyder. I am in agreement with her evaluation and plan.
[2018-04-06] MEDS: CLOZAPINE 100 MG TABLET PO SCH ×2 (18:39→22:58)
[2018-04-06] MEDS: SIMVASTATIN 10 MG TABLET PO SCH (21:50)
[2018-04-07] MEDS: LANSOPRAZOLE 15 MG TAB.RAP.DR PO SCH (06:39)
[2018-04-07] MEDS: LEVOTHYROXINE SODIUM 0.05 MG TABLET PO SCH (06:39)
[2018-04-07] MEDS: LAMOTRIGINE 100 MG TABLET PO SCH ×2 (06:39→17:20)
[2018-04-07] MEDS: METFORMIN HCL 500 MG TABLET PO SCH (08:59)
[2018-04-07] MEDS: ARIPIPRAZOLE 5 MG TABLET PO SCH (09:37)
[2018-04-07] MEDS: ENOXAPARIN SODIUM INJ 30 MG/0.3 ML DISP.SYRIN SUBCUT SCH (09:37)
[2018-04-07] MEDS: LACTULOSE SYRUP 20 GM/30 ML UDCUP PO SCH ×2 (09:37→17:24)
[2018-04-07] MEDS: DULOXETINE HCL 30 MG CAPSULE.DR PO SCH ×2 (09:37→21:35)
[2018-04-07] MEDS: LOSARTAN POTASSIUM 25 MG TABLET PO SCH (09:38)
[2018-04-07] MEDS: BENZTROPINE MESYLATE 1 MG TABLET PO SCH ×2 (09:38→17:20)
[2018-04-07] MEDS: CEFEPIME 2 GM/D5W RTU 2 GM/50 ML RTUPB IV SCH ×2 (09:39→21:35)
[2018-04-07] MEDS ORDERED: (PENDING PHARMACY ID) (Alendronate Sodium [Fosamax] 70 MG) PO SCH (10:00)
[2018-04-07] MEDS ORDERED: BISACODYL 10 MG SUPP.RECT PR PRN (11:53)
--- NOTE | 2018-04-07 14:24 | RADIOLOGY REPORT (SQ) ---
EXAM DESCRIPTION: KUB/ABDOMEN (SINGLE VIEW) COMPLETED DATE/TIME: 04/07/2018 2:07 pm REASON FOR STUDY: constipation. evaluate for bowel obstruction COMPARISON: June 2017 NUMBER OF VIEWS: One view. TECHNIQUE: Supine radiographic image of the abdomen acquired. LIMITATIONS: None. FINDINGS: BOWEL GAS PATTERN: There is gaseous distention of multiple bowel loops most consistent wit h an ileus pattern. Moderate amount of fecal material is identified in the sigmoid and rectosigmoid. The possibility of an underlying obstruction cannot be completely excluded. CALCIFICATIONS: No suspicious calcifications. SOFT TISSUES: No gross mass or suggestion of organomegaly. HARDWARE: Surgical clips are identified in the right upper quadrant. BONES: No acute fracture. No worrisome bone lesions. OTHER: No other significant finding. IMPRESSION: Gaseous distention of multiple bowel loops most consistent with an ileus pattern. The p ossibility of an underlying obstruction cannot be completely excluded however. Other findings as not ed above TECHNICAL DOCUMENTATION: JOB ID: [id number] [employer] All Rights Reserved Reading location - IP/workstation name: [email or web address]
[2018-04-07] MEDS: CLOZAPINE 100 MG TABLET PO SCH ×2 (17:21→21:35)
--- NOTE | 2018-04-07 17:33 | Progress Note ---
Provider Note Provider Note: ID Consult Note Asked to review patient's chart by Dara Dawkins NP. Pt not seen or examined. Ms Levy is a 67 yo woman with PMH including schizoaffective d/o, diabetes, obesity, and indwelling urinary catheter that was recently placed on 03/27/18 for urinary retention. She was sent from her living facility to [facility] ED for altered mental status. Of note, pt had prior admission to [facility] in January 2018 for similar presentation with mild prerenal azotemia, falls, disorientation, and response to internal stimuli and agitation noted on exam at that time. Per discharge summary for that visit, pt's agitation and confusion were due to noncompliance with psychiatric medications - would pocket her medications in her mouth and spit them out at a later time; crushing her medications into pudding improved compliance and led to improvement in behavior. On admission on 04/04, pt noted to be oriented only to herself, provided inappropriate responses to questions, and had visual hallucinations. She had no fever and no tenderness was noted on abdominal exam. She had no leukocytosis. Urinalysis had pyuria, +nitrites, trace bacteria, moderate leukocyte esterase. Pt was suspected of having a complicated or catheter associated UTI based on the U/A results and Gore was removed and later replaced due to continued retention. Cefepime was started on admission in light of prior urine cultures that grew E coli resistant to fluoroquinolones. Input from Psych was that UTI may be the root cause of her behavioral changes, mubling and questionable fall and that, once her UTI is treated, some of her symptoms may clear up or diminish. Urine culture grew >100k cfu Pseudomonas aeruginosa resistant to fluoroquinolones but otherwise sensitive. A 2nd organism is also reported in the urine culture, >100k cfu of Gram positive cocci in chains. Blood cultures have shown no growth. Impression/Recommendations In elderly patients, UTI is one of many factors, including but not limited to polypharmacy and dehydration, for example, that can cause or contribute to altered mental status and falls. Diagnosis of UTI should be made based on compatible symptoms and signs. Although lack of pyuria on U/A is strong evidence UTI is absent, the presence of pyuria on U/A is not strong evidence that UTI is present. Pyuria is not specific and can be seen in patients who have an indwelling urinary catheter. Diagnosis of UTI depends on compatible clinical manifestations. Classic symptoms of active infection in a catheterized patient are more difficult to assess, but evidence of systemic infection (fever , leukocytosis) or pelvic discomfort or suprapubic tenderness on exam would help support diagnosis of UTI. Altered mental status could potentially be related to a UTI if no other identifiable etiology is present in an elderly person with an indwelling catheter. Currently, the patient is receiving treatment for complicated or catheter associated UTI with cefepime. Recommend completing 7 days of treatment. Unfortunately, with a fluoroquinolone resistant Pseudomonas isolate, there is no reliable PO alternative. Completing the remainder of treatment with IM gentamicin 5 mg/kg daily could potentially be an option, however. Regarding the second urinary isolate preliminarily identified as GPCs in chains - I anticipate this is likely an Enterococcus species. The pathogenicity of enterococci in mixed nonsterile cultres is questionable, and if patient has shown improvement on cefepime (which lacks enterococcal activity), this speaks to the lack of clinical significance of this isolate and the lack of an indication to add additional antibiotic therapy for Enterococcus. If there is suspicion that the patient has not shown improvement due to lack of antibiotic therapy effective against this organism, then base treatment on susceptibility results and treat for 7 days duration. Khoi Crowell MD [facility] Infectious Diseases pager [phone]
--- NOTE | 2018-04-07 21:03 | PDOC PROGRESS REPORT ---
Addendum entered and electronically signed by CINTHYA SNYDER NP 04/07/18 21 :06: Provider Note Provider Note: NURSING STAFF REPORTS THAT THE PATIENT HAS NOT HAD A BOWEL MOVEMENT IN 3 DAYS. KUB PREFORMED, DEMONSTRATES LARGE AMOUNT OF GASEOUS DISTENTION - LIKELY AN ILEUS. MODERATE AMOUNT OF RETAINED STOOL. PLAN FOR FURTHER IMAGING TO EVALUATE FOR A BOWEL OBSTRUCTION. Original Note: <CINTHYA SNYDER - Last Filed: 04/07/18 21:04> Subjective Progress Note for:: 04/07/18 Subjective:: CAROLYN MEMBRENO is a 67 year old female who presented to [facility] from [facility] with altered mental status. Of note, the patient was recently treated (2017) at [facility] ED for urinary retention. She was discharged back to [facility] with an indwelling catheter with instructions to follow-up with urology. The patient presented to [facility] ED 04/04/2018 with a UTI. The patient was seen this morning on rounds, she is sitting up in bed on room air. The patient is alert and oriented to self only, she is disoriented to time place and situation. She does not understand why she is in the hospital. The patient has remained afebrile and nontoxic-appearing since her admission. Urine culture positive for multidrug-resistant Pseudomonas, ID has been consulted, awaiting their recommendations. Continue IV cefepime for now. Reason For Visit: URINARY TRACT INFECTION Physical Exam Vital Signs: Temp Pulse Resp BP Pulse Ox 97.3 F 70 20 101/57 L 100 04/07/18 16:00 04/07/18 16:00 04/07/18 16:00 04/07/18 16:00 04/07/18 16:00 Intake & Output 04/06/18 04/07/18 04/08/18 06:59 06:59 06:59 Intake Total 2019 1320 1350 Output Total 1350 2350 1500 Balance 670 -1030 -150 Weight 83.2 kg 84.2 kg General appearance: PRESENT: no acute distress, well-developed, well-nourished Head exam: PRESENT: atraumatic, normocephalic Eye exam: PRESENT: conjunctiva pink, EOMI, PERRLA. ABSENT: scleral icterus Ear exam: PRESENT: normal external ear exam Mouth exam: PRESENT: moist, tongue midline Neck exam: ABSENT: carotid bruit, JVD, lymphadenopathy, thyromegaly Respiratory exam: PRESENT: clear to auscultation parviz. ABSENT: rales, rhonchi, wheezes Cardiovascular exam: PRESENT: RRR. ABSENT: diastolic murmur, rubs, systolic murmur Pulses: PRESENT: normal dorsalis pedis pul Vascular exam: PRESENT: normal capillary refill GI/Abdominal exam: PRESENT: normal bowel sounds, soft. ABSENT: distended, guarding, mass, organolmegaly, rebound, tenderness Rectal exam: PRESENT: deferred Extremities exam: PRESENT: full ROM. ABSENT: calf tenderness, clubbing, pedal edema Neurological exam: PRESENT: alert, awake, oriented to person. ABSENT: oriented to place, oriented to time, oriented to situation Psychiatric exam: PRESENT: normal mood. ABSENT: homicidal ideation, suicidal ideation Skin exam: PRESENT: dry, intact, warm. ABSENT: cyanosis, rash Results Laboratory Results: 04/06/18 04:41 04/06/18 04:41 Impressions: Pelvis X-Ray 04/04/18 11:04 IMPRESSION: No acute fracture or malalignment. KUB X-Ray 04/07/18 00:00 IMPRESSION: Gaseous distention of multiple bowel loops most consistent with an ileus pattern. The possibility of an underlying obstruction cannot be completely excluded however. Other findings as noted above Status: Imported from PACS Assessment & Plan - Diagnosis (1) Urinary tract infection QualifierTitle: Urinary tract infection type: catheter-associated UTI Indwelling urinary catheter type: indwelling urethral catheter Encounter type : initial encounter Qualified Code(s): T83.511A - Infection and inflammatory reaction due to indwelling urethral catheter, initial encounter; N39.0 - Urinary tract infection, site not specified; N39.0 - Urinary tract infection, site not specified Is this a current diagnosis for this admission?: Yes Plan: UA indicative of UTI. Urine culture positive for multidrug-resistant Pseudomonas Blood cultures no growth Afebrile. No leukocytosis. IV rocephin x 1 in ED Continue treatment with IV cefepime 2GM q12h for complicated UTI Patient was admitted from SNF with indwelling Gore Catheter was discontinued in ED but eventually replaced for urinary retention ID consulted,Dr. Crowell recommends IV antibiotics for 1 week or IM gentamycin for 1 week. Will discuss possibilities for discharge with case management. (2) Altered mental status QualifierTitle: Altered mental status type: disorientation Qualified Code (s): R41.0 - Disorientation, unspecified Is this a current diagnosis for this admission?: Yes Plan: Secondary to #1 (3) Schizoaffective disorder QualifierTitle: Schizoaffective disorder type: unspecified Qualified Code (s): F25.9 - Schizoaffective disorder, unspecified Is this a current diagnosis for this admission?: Yes Plan: Continue home medications Requested PSYCH evaluation for medication recommendations PSYCH recommends waiting until UTI has been completely treated to make changes to medication regimen (4) Acute kidney injury Is this a current diagnosis for this admission?: Yes Plan: Resolved Creatinine 1.12 Secondary to UTI and dehydration 2L IVF bolus in ED Continue with maintenance IVF - Time Time Spent with patient: 15-24 minutes Smoking Cessation Education: 3 to 10 minutes Medications reviewed and adjusted accordingly: Yes Anticipated discharge: Other - [facility] - Inpatient Certification Based on my medical assessment, after consideration of the patient's comorbidities, presenting symptoms, or acuity I expect that the services needed warrant INPATIENT care.: Yes I certify that my determination is in accordance with my understanding of Medicare's requirements for reasonable and necessary INPATIENT services [42 CFR 412.3e].: Yes Medical Necessity: Need for IV Antibiotics - Plan Summary Plan Summary: CONTINUE CEFEPIME FOR TOTAL: 7 DAYS. <KEVIN LUA - Last Filed: 04/10/18 06:04> Subjective Reason For Visit: URINARY TRACT INFECTION Physical Exam Vital Signs: Temp Pulse Resp BP Pulse Ox 97.9 F 62 18 124/69 99 04/10/18 04:14 04/10/18 04:14 04/10/18 04:14 04/10/18 04:14 04/10/18 04:14 Intake & Output 04/08/18 04/09/18 04/10/18 06:59 06:59 06:59 Intake Total 1668 1665 910 Output Total 5310 1090 3501 [facility] -[id number] [id number] [phone] Results Laboratory Results: 04/08/18 04:17 04/08/18 04:17 Impressions: Pelvis X-Ray 04/04/18 11:04 IMPRESSION: No acute fracture or malalignment. KUB X-Ray 04/07/18 00:00 IMPRESSION: Gaseous distention of multiple bowel loops most consistent with an ileus pattern. The possibility of an underlying obstruction cannot be completely excluded however. Other findings as noted above Provider Note Provider Note: I have discussed this patient with LAW Snyder in detail. I am in agreement with her evaluation and plan.
[2018-04-07] MEDS: SIMVASTATIN 10 MG TABLET PO SCH (21:36)
[2018-04-08 05:29] LABS: HEMATOCRIT 34.8 % (36.0-47.0); HEMOGLOBIN 11.7 g/dL (12.0-15.5); MEAN CORPUSCULAR HEMOGLOBIN 31.9 pg (27.0-33.4); MEAN CORPUSCULAR HGB CONC 33.8 g/dL (32.0-36.0); MEAN CORPUSCULAR VOLUME 94 fl (80-97); PLATELET COUNT 281 10^3/uL (150-450); RED BLOOD COUNT 3.68 10^6/uL (3.72-5.28); RED CELL DISTRIBUTION WIDTH 14.6 % (11.5-14.0); WHITE BLOOD COUNT 4.5 10^3/uL (4.0-10.5)
[2018-04-08 05:54] LABS: ANION GAP 7 (5-19); BLOOD UREA NITROGEN 18 mg/dL (7-20); CALCIUM 9.1 mg/dL (8.4-10.2); CARBON DIOXIDE 25 mmol/L (22-30); CHLORIDE 107 mmol/L (98-107); GLUCOSE 75 mg/dL (75-110); PHOSPHORUS 4.1 mg/dL (2.5-4.5); POTASSIUM 4.5 mmol/L (3.6-5.0); SODIUM 139.2 mmol/L (137-145)
[2018-04-08] MEDS: LAMOTRIGINE 100 MG TABLET PO SCH ×2 (06:23→17:18)
[2018-04-08] MEDS: LEVOTHYROXINE SODIUM 0.05 MG TABLET PO SCH (06:23)
[2018-04-08] MEDS: LANSOPRAZOLE 15 MG TAB.RAP.DR PO SCH (06:23)
[2018-04-08] MEDS: LACTULOSE SYRUP 20 GM/30 ML UDCUP PO SCH ×2 (09:30→17:17)
[2018-04-08] MEDS: ARIPIPRAZOLE 5 MG TABLET PO SCH (09:30)
[2018-04-08] MEDS: BENZTROPINE MESYLATE 1 MG TABLET PO SCH ×2 (09:31→17:18)
[2018-04-08] MEDS: DULOXETINE HCL 30 MG CAPSULE.DR PO SCH ×2 (09:31→22:18)
[2018-04-08] MEDS: ENOXAPARIN SODIUM INJ 30 MG/0.3 ML DISP.SYRIN SUBCUT SCH (09:31)
[2018-04-08] MEDS: LOSARTAN POTASSIUM 25 MG TABLET PO SCH (09:31)
[2018-04-08] MEDS: CEFEPIME 2 GM/D5W RTU 2 GM/50 ML RTUPB IV SCH ×2 (09:59→22:18)
[2018-04-08] MEDS: CLOZAPINE 100 MG TABLET PO SCH ×2 (17:17→22:18)
[2018-04-08] MEDS ORDERED: SIMETHICONE 80 MG TAB.CHEW PO PRN (20:49)
--- NOTE | 2018-04-08 20:49 | PDOC PROGRESS REPORT ---
<LILLIANCINTHYA A - Last Filed: 04/08/18 20:47> Subjective Progress Note for:: 04/08/18 Subjective:: CAROLYN MEMBRENO is a 67 year old female who presented to [facility] from [facility] with altered mental status. Of note, the patient was recently treated (2017) at [facility] ED for urinary retention. She was discharged back to [facility] with an indwelling catheter with instructions to follow-up with urology. The patient presented to [facility] ED 04/04/2018 with a UTI. The patient was seen this morning on rounds, she is sitting up in bed on room air. Her sister is at the bedside. The patient is alert and oriented to self, able to identify her sister, but is unable to answer other orientation questions. The patient has remained afebrile and nontoxic-appearing since her admission. Urine culture positive for multidrug-resistant Pseudomonas, ID has been consulted, recommend IV antibiotics for 7 days. Plan to continue IV cefepime for a total of 7 days then discharge back to [facility]. Reason For Visit: URINARY TRACT INFECTION Physical Exam Vital Signs: Temp Pulse Resp BP Pulse Ox 97.6 F 77 18 91/61 L 100 04/08/18 12:35 04/08/18 14:00 04/08/18 12:35 04/08/18 12:35 04/08/18 12:35 Intake & Output 04/07/18 04/08/18 04/09/18 06:59 06:59 06:59 Intake Total 1320 1666 890 Output Total 2350 3975 1350 Balance -1030 -2309 -460 Weight 84.2 kg General appearance: PRESENT: no acute distress, well-developed, well-nourished Head exam: PRESENT: atraumatic, normocephalic Eye exam: PRESENT: conjunctiva pink, EOMI, PERRLA. ABSENT: scleral icterus Ear exam: PRESENT: normal external ear exam Mouth exam: PRESENT: moist, tongue midline Teeth exam: PRESENT: poor dentation Neck exam: ABSENT: carotid bruit, JVD, lymphadenopathy, thyromegaly Respiratory exam: PRESENT: clear to auscultation parviz, symmetrical, unlabored. ABSENT: rales, rhonchi, wheezes Cardiovascular exam: PRESENT: RRR, +S1, +S2. ABSENT: diastolic murmur, rubs, systolic murmur Pulses: PRESENT: normal radial pulses, normal dorsalis pedis pul Vascular exam: PRESENT: normal capillary refill GI/Abdominal exam: PRESENT: normal bowel sounds, soft, other - +Constipation. ABSENT: distended, guarding, mass, organolmegaly, rebound, tenderness Rectal exam: PRESENT: deferred Extremities exam: PRESENT: full ROM. ABSENT: calf tenderness, clubbing, pedal edema Neurological exam: PRESENT: alert, awake, oriented to person. ABSENT: oriented to place, oriented to time, oriented to situation Psychiatric exam: PRESENT: appropriate affect. ABSENT: homicidal ideation, suicidal ideation Skin exam: PRESENT: dry, intact, warm. ABSENT: cyanosis, rash Results Laboratory Results: 04/08/18 04:17 04/08/18 04:17 04/08/18 04/08/18 04:17 04:17 WBC 4.5 RBC 3.68 L Hgb 11.7 L Hct 34.8 L MCV 94 MCH 31.9 MCHC 33.8 RDW 14.6 H Plt Count 281 Sodium 139.2 Potassium 4.5 Chloride 107 Carbon Dioxide 25 Anion Gap 7 BUN 18 Creatinine 1.03 Est GFR ( Amer) > 60 Est GFR (Non-Af Amer) 53 L Glucose 75 Calcium 9.1 Phosphorus 4.1 Magnesium 2.0 Impressions: Pelvis X-Ray 04/04/18 11:04 IMPRESSION: No acute fracture or malalignment. KUB X-Ray 04/07/18 00:00 IMPRESSION: Gaseous distention of multiple bowel loops most consistent with an ileus pattern. The possibility of an underlying obstruction cannot be completely excluded however. Other findings as noted above Status: Imported from PACS Assessment & Plan - Diagnosis (1) Urinary tract infection QualifierTitle: Urinary tract infection type: catheter-associated UTI Indwelling urinary catheter type: indwelling urethral catheter Encounter type : initial encounter Qualified Code(s): T83.511A - Infection and inflammatory reaction due to indwelling urethral catheter, initial encounter; N39.0 - Urinary tract infection, site not specified; N39.0 - Urinary tract infection, site not specified Is this a current diagnosis for this admission?: Yes Plan: UA indicative of UTI. Urine culture positive for multidrug-resistant Pseudomonas Blood cultures no growth Afebrile. No leukocytosis. IV rocephin x 1 in ED Continue treatment with IV cefepime 2GM q12h for complicated UTI Patient was admitted from SNF with indwelling Gore Catheter was discontinued in ED but eventually replaced for urinary retention ID consulted,Dr. Crowell recommends IV antibiotics for 1 week. Patient will remain at [facility] for IV antibiotics and discharge to [facility] in 72 hours. (2) Altered mental status QualifierTitle: Altered mental status type: disorientation Qualified Code (s): R41.0 - Disorientation, unspecified Is this a current diagnosis for this admission?: Yes Plan: Secondary to #1 (3) Schizoaffective disorder QualifierTitle: Schizoaffective disorder type: unspecified Qualified Code (s): F25.9 - Schizoaffective disorder, unspecified Is this a current diagnosis for this admission?: Yes Plan: Continue home medications Requested PSYCH evaluation for medication recommendations PSYCH recommends waiting until UTI has been completely treated to make changes to medication regimen (4) Acute kidney injury Is this a current diagnosis for this admission?: Yes Plan: Resolved Creatinine 1.12 Secondary to UTI and dehydration 2L IVF bolus in ED Continue with maintenance IVF (5) Constipation QualifierTitle: Constipation type: unspecified constipation type Qualified Code(s): K59.00 - Constipation, unspecified Is this a current diagnosis for this admission?: Yes Plan: Nursing staff reports patient has not had a bowel movement in 3-4 days KUB obtained - reveals gaseous distention of multiple bowel loops. Moderate amount of stool in the signmoid and rectosigmoid colon. Abdominal exam is benign. Patient denies N/V Initiate PO simtheicone. - Time Time Spent with patient: 15-24 minutes Medications reviewed and adjusted accordingly: Yes Anticipated discharge: Other - [facility] Within: within 72 hours - Inpatient Certification Based on my medical assessment, after consideration of the patient's comorbidities, presenting symptoms, or acuity I expect that the services needed warrant INPATIENT care.: Yes I certify that my determination is in accordance with my understanding of Medicare's requirements for reasonable and necessary INPATIENT services [42 CFR 412.3e].: Yes Medical Necessity: Need for IV Antibiotics, Risk of Complication if Not Cared For in Hospital - Plan Summary Plan Summary: CONTINUE IV ABX. MILK OF MAG FOR CONSTIPATION. <KEVIN LUA - Last Filed: 04/10/18 06:06> Subjective Reason For Visit: URINARY TRACT INFECTION Physical Exam Vital Signs: Temp Pulse Resp BP Pulse Ox 97.9 F 62 18 124/69 99 04/10/18 04:14 04/10/18 04:14 04/10/18 04:14 04/10/18 04:14 04/10/18 04:14 Intake & Output 04/08/18 04/09/18 04/10/18 06:59 06:59 06:59 Intake Total 1666 1665 910 Output Total 3975 3150 2550 [id number] -[id number] Results Laboratory Results: 04/08/18 04:17 04/08/18 04:17 Impressions: Pelvis X-Ray 04/04/18 11:04 IMPRESSION: No acute fracture or malalignment. KUB X-Ray 04/07/18 00:00 IMPRESSION: Gaseous distention of multiple bowel loops most consistent with an ileus pattern. The possibility of an underlying obstruction cannot be completely excluded however. Other findings as noted above Provider Note Provider Note: I have discussed this patient in detail with LAW Dawkins. I am in agreement with her evaluation and plan.
[2018-04-08] MEDS: SIMVASTATIN 10 MG TABLET PO SCH (22:18)
[2018-04-09] MEDS: LEVOTHYROXINE SODIUM 0.05 MG TABLET PO SCH (05:01)
[2018-04-09] MEDS: LAMOTRIGINE 100 MG TABLET PO SCH ×2 (05:01→17:21)
[2018-04-09] MEDS: LANSOPRAZOLE 15 MG TAB.RAP.DR PO SCH (05:01)
[2018-04-09] MEDS: LACTULOSE SYRUP 20 GM/30 ML UDCUP PO SCH ×2 (09:33→17:21)
[2018-04-09] MEDS: CEFEPIME 2 GM/D5W RTU 2 GM/50 ML RTUPB IV SCH ×2 (09:33→21:00)
[2018-04-09] MEDS: DULOXETINE HCL 30 MG CAPSULE.DR PO SCH ×2 (09:33→21:00)
[2018-04-09] MEDS: ENOXAPARIN SODIUM INJ 30 MG/0.3 ML DISP.SYRIN SUBCUT SCH (09:33)
[2018-04-09] MEDS: ARIPIPRAZOLE 5 MG TABLET PO SCH (09:33)
[2018-04-09] MEDS: BENZTROPINE MESYLATE 1 MG TABLET PO SCH ×2 (09:33→17:21)
[2018-04-09] MEDS: LOSARTAN POTASSIUM 25 MG TABLET PO SCH (09:39)
[2018-04-09] MEDS: CLOZAPINE 100 MG TABLET PO SCH ×2 (17:21→21:00)
--- NOTE | 2018-04-09 18:21 | PDOC PROGRESS REPORT ---
<LILLIANCINTHYA A - Last Filed: 04/09/18 18:18> Subjective Progress Note for:: 04/09/18 Subjective:: CAROLYN MEMBRENO is a 67 year old female who [facility] with altered mental status. Of note, the patient was recently treated (2017) [facility] for urinary retention. She was discharged back to [facility] with an indwelling catheter with instructions to follow-up with urology. The patient [facility] 04/04/2018 with a UTI. The patient was seen this morning on rounds, she is sitting up in bed on room air. The patient is alert and oriented to self, unable to answer other orientation questions correctly. The patient has remained afebrile and nontoxic -appearing since her admission. Urine culture positive for multidrug-resistant Pseudomonas, ID has been consulted, recommend IV antibiotics for 7 days. Plan to continue IV cefepime for a total of 7 days (ending 04/11/2018) then discharge back to [facility]. Reason For Visit: URINARY TRACT INFECTION Physical Exam Vital Signs: Temp Pulse Resp BP Pulse Ox 97.6 F 74 17 121/51 L 100 04/09/18 16:46 04/09/18 16:46 04/09/18 16:46 04/09/18 16:46 04/09/18 16:46 Intake & Output 04/08/18 04/09/18 04/10/18 06:59 06:59 06:59 Intake Total 1666 1665 50 Output Total 3975 3150 Balance -2309 -1485 50 General appearance: PRESENT: no acute distress, well-developed, well-nourished Head exam: PRESENT: atraumatic, normocephalic Eye exam: PRESENT: conjunctiva pink, EOMI, PERRLA. ABSENT: scleral icterus Ear exam: PRESENT: normal external ear exam Mouth exam: PRESENT: moist, tongue midline Neck exam: ABSENT: carotid bruit, JVD, lymphadenopathy, thyromegaly Respiratory exam: PRESENT: clear to auscultation parviz. ABSENT: rales, rhonchi, wheezes Cardiovascular exam: PRESENT: RRR. ABSENT: diastolic murmur, rubs, systolic murmur Pulses: PRESENT: normal dorsalis pedis pul Vascular exam: PRESENT: normal capillary refill GI/Abdominal exam: PRESENT: normal bowel sounds, soft. ABSENT: distended, guarding, mass, organolmegaly, rebound, tenderness Rectal exam: PRESENT: deferred Gentrourinary exam: PRESENT: indwelling catheter Extremities exam: PRESENT: full ROM. ABSENT: calf tenderness, clubbing, pedal edema Neurological exam: PRESENT: alert, awake, oriented to person. ABSENT: oriented to place, oriented to time, oriented to situation Psychiatric exam: PRESENT: appropriate affect, normal mood Skin exam: PRESENT: dry, intact, warm. ABSENT: cyanosis, rash Results Laboratory Results: 04/08/18 04:17 04/08/18 04:17 Impressions: Pelvis X-Ray 04/04/18 11:04 IMPRESSION: No acute fracture or malalignment. KUB X-Ray 04/07/18 00:00 IMPRESSION: Gaseous distention of multiple bowel loops most consistent with an ileus pattern. The possibility of an underlying obstruction cannot be completely excluded however. Other findings as noted above Status: Imported from PACS Assessment & Plan - Diagnosis (1) Urinary tract infection QualifierTitle: Urinary tract infection type: catheter-associated UTI Indwelling urinary catheter type: indwelling urethral catheter Encounter type : initial encounter Qualified Code(s): T83.511A - Infection and inflammatory reaction due to indwelling urethral catheter, initial encounter; N39.0 - Urinary tract infection, site not specified; N39.0 - Urinary tract infection, site not specified Is this a current diagnosis for this admission?: Yes Plan: UA indicative of UTI. Urine culture positive for multidrug-resistant Pseudomonas Blood cultures no growth Afebrile. No leukocytosis. IV rocephin x 1 in ED Continue treatment with IV cefepime 2GM q12h for complicated UTI Patient was admitted from SNF with indwelling Gore Catheter was discontinued in ED but eventually replaced for urinary retention ID consulted,Dr. Crowell recommends IV antibiotics for 7 days (last day 04/11/2018) [facility] for [facility] antibiotics and discharge to [facility] in 72 hours. (2) Altered mental status QualifierTitle: Altered mental status type: disorientation Qualified Code (s): R41.0 - Disorientation, unspecified Is this a current diagnosis for this admission?: Yes Plan: Secondary to #1 (3) Schizoaffective disorder QualifierTitle: Schizoaffective disorder type: unspecified Qualified Code (s): F25.9 - Schizoaffective disorder, unspecified Is this a current diagnosis for this admission?: Yes Plan: Continue home medications Requested PSYCH evaluation for medication recommendations PSYCH recommends waiting until UTI has been completely treated to make changes to medication regimen (4) Acute kidney injury Is this a current diagnosis for this admission?: Yes Plan: Resolved Creatinine 1.1 for > 24hrs Secondary to UTI and dehydration 2L IVF bolus in ED Continue with maintenance IVF (5) Constipation QualifierTitle: Constipation type: unspecified constipation type Qualified Code(s): K59.00 - Constipation, unspecified Is this a current diagnosis for this admission?: Yes Plan: Nursing staff reports patient has not had a bowel movement in 3-4 days KUB obtained - reveals gaseous distention of multiple bowel loops. Moderate amount of stool in the signmoid and rectosigmoid colon. Abdominal exam is benign. Patient denies N/V Patient had two bowel movements overnight Continue PO simtheicone, dulcolax and lactulose - Time Time Spent with patient: 15-24 minutes Medications reviewed and adjusted accordingly: Yes Anticipated discharge: Home - Inpatient Certification Based on my medical assessment, after consideration of the patient's comorbidities, presenting symptoms, or acuity I expect that the services needed warrant INPATIENT care.: Yes I certify that my determination is in accordance with my understanding of Medicare's requirements for reasonable and necessary INPATIENT services [42 CFR 412.3e].: Yes Medical Necessity: Need for IV Antibiotics - Plan Summary Plan Summary: CONTINUE IV ABX. CONTINUE BOWEL REGIMEN. OOB TO CHAIR DAILY. D/C TO [facility] <KEVIN LUA - Last Filed: 04/10/18 06:07> Subjective Reason For Visit: URINARY TRACT INFECTION Physical Exam Vital Signs: Temp Pulse Resp BP Pulse Ox 97.9 F 62 18 124/69 99 04/10/18 04:14 04/10/18 04:14 04/10/18 04:14 04/10/18 04:14 04/10/18 04:14 Intake & Output 04/08/18 04/09/18 04/10/18 06:59 06:59 06:59 Intake Total 1666 1665 910 Output Total 0530 5458 4333 [facility] -[id number] [phone] Results Laboratory Results: 04/08/18 04:17 04/08/18 04:17 Impressions: Pelvis X-Ray 04/04/18 11:04 IMPRESSION: No acute fracture or malalignment. KUB X-Ray 04/07/18 00:00 IMPRESSION: Gaseous distention of multiple bowel loops most consistent with an ileus pattern. The possibility of an underlying obstruction cannot be completely excluded however. Other findings as noted above Provider Note Provider Note: I have discussed this patient with LAW Dawkins in detail. I am in agreement with her evaluation and plan.
[2018-04-09] MEDS: SIMVASTATIN 10 MG TABLET PO SCH (21:00)
[2018-04-10] MEDS: LEVOTHYROXINE SODIUM 0.05 MG TABLET PO SCH (05:44)
[2018-04-10] MEDS: LANSOPRAZOLE 15 MG TAB.RAP.DR PO SCH (05:44)
[2018-04-10] MEDS: LAMOTRIGINE 100 MG TABLET PO SCH ×2 (05:44→17:26)
[2018-04-10] MEDS: CEFEPIME 2 GM/D5W RTU 2 GM/50 ML RTUPB IV SCH ×2 (09:47→22:10)
[2018-04-10] MEDS: LACTULOSE SYRUP 20 GM/30 ML UDCUP PO SCH ×2 (09:47→17:28)
[2018-04-10] MEDS: ARIPIPRAZOLE 5 MG TABLET PO SCH (09:48)
[2018-04-10] MEDS: DULOXETINE HCL 30 MG CAPSULE.DR PO SCH ×2 (09:49→22:10)
[2018-04-10] MEDS: ENOXAPARIN SODIUM INJ 30 MG/0.3 ML DISP.SYRIN SUBCUT SCH (09:49)
[2018-04-10] MEDS: BENZTROPINE MESYLATE 1 MG TABLET PO SCH ×2 (09:49→17:26)
[2018-04-10] MEDS: LOSARTAN POTASSIUM 25 MG TABLET PO SCH (09:49)
[2018-04-10] MEDS ORDERED: MAGNESIUM CITRATE 296 ML BOTTLE PO ONE ×2 (11:00→15:00)
[2018-04-10] MEDS: CLOZAPINE 100 MG TABLET PO SCH ×2 (17:27→22:10)
[2018-04-10] MEDS: SIMVASTATIN 10 MG TABLET PO SCH (22:09)
--- NOTE | 2018-04-10 22:34 | PDOC PROGRESS REPORT ---
Subjective Progress Note for:: 04/10/18 Subjective:: CAROLYN MEMBRENO is a 67 year old female who presented to [facility] from [facility] with altered mental status. Of note, the patient was recently treated (2017) at [facility] ED for urinary retention. She was discharged back to [facility] with an indwelling catheter with instructions to follow-up with urology. The patient presented to [facility] ED 04/04/2018 with a UTI. The patient was seen this morning on rounds, she is sitting up in bed on room air. Sister is at the bedside. The patient is alert and oriented to self only, unable to answer other orientation questions correctly. Pleasantly confused. The patient has remained afebrile and nontoxic-appearing since her admission. Urine culture positive for multidrug-resistant Pseudomonas, ID has been consulted, recommend IV antibiotics for 7 days. Plan to continue IV cefepime for a total of 7 days (ending 04/11/2018 at 2200) then discharge back to [facility]. Reason For Visit: URINARY TRACT INFECTION Physical Exam Vital Signs: Temp Pulse Resp BP Pulse Ox 97.9 F 62 18 124/69 99 04/10/18 04:14 04/10/18 04:14 04/10/18 04:14 04/10/18 04:14 04/10/18 04:14 Intake & Output 04/09/18 04/10/18 04/11/18 06:59 06:59 06:59 Intake Total 1665 1150 Output Total 3150 5100 Balance -1485 -3950 General appearance: PRESENT: no acute distress, well-developed, well-nourished Head exam: PRESENT: atraumatic, normocephalic Eye exam: PRESENT: conjunctiva pink, EOMI, PERRLA. ABSENT: scleral icterus Ear exam: PRESENT: normal external ear exam Mouth exam: PRESENT: moist, tongue midline Neck exam: ABSENT: carotid bruit, JVD, lymphadenopathy, thyromegaly Respiratory exam: PRESENT: clear to auscultation parviz. ABSENT: rales, rhonchi, wheezes Cardiovascular exam: PRESENT: RRR. ABSENT: diastolic murmur, rubs, systolic murmur Pulses: PRESENT: normal dorsalis pedis pul Vascular exam: PRESENT: normal capillary refill GI/Abdominal exam: PRESENT: normal bowel sounds, soft. ABSENT: distended, guarding, mass, organolmegaly, rebound, tenderness Rectal exam: PRESENT: deferred Gentrourinary exam: PRESENT: indwelling catheter Extremities exam: PRESENT: full ROM. ABSENT: calf tenderness, clubbing, pedal edema Neurological exam: PRESENT: alert, awake, oriented to person. ABSENT: oriented to place, oriented to time, oriented to situation Psychiatric exam: PRESENT: appropriate affect, normal mood Skin exam: PRESENT: dry, intact, warm. ABSENT: cyanosis, rash Results Laboratory Results: 04/08/18 04:17 04/08/18 04:17 Impressions: Pelvis X-Ray 04/04/18 11:04 IMPRESSION: No acute fracture or malalignment. KUB X-Ray 04/07/18 00:00 IMPRESSION: Gaseous distention of multiple bowel loops most consistent with an ileus pattern. The possibility of an underlying obstruction cannot be completely excluded however. Other findings as noted above Status: Imported from PACS Assessment & Plan - Diagnosis (1) Urinary tract infection Qualifiers: Urinary tract infection type: catheter-associated UTI Indwelling urinary catheter type: indwelling urethral catheter Encounter type: initial encounter Qualified Code(s): T83.511A - Infection and inflammatory reaction due to indwelling urethral catheter, initial encounter; N39.0 - Urinary tract infection , site not specified; N39.0 - Urinary tract infection, site not specified Is this a current diagnosis for this admission?: Yes Plan: UA indicative of UTI. Urine culture positive for multidrug-resistant Pseudomonas Blood cultures no growth Afebrile. No leukocytosis. IV rocephin x 1 in ED Continue treatment with IV cefepime 2GM q12h for complicated UTI Patient [facility] from [facility] with indwelling Gore Catheter was discontinued in ED but eventually replaced for urinary retention ID consulted,Dr. Crowell recommends IV antibiotics for 7 days (last day 04/11/2018) Patient will remain at [facility] for IV antibiotics and discharge to [facility] in 72 hours. (2) Altered mental status Qualifiers: Altered mental status type: disorientation Qualified Code(s): R41.0 - Disorientation, unspecified Is this a current diagnosis for this admission?: Yes Plan: Secondary to #1 (3) Schizoaffective disorder Qualifiers: Schizoaffective disorder type: unspecified Qualified Code(s): F25.9 - Schizoaffective disorder, unspecified Is this a current diagnosis for this admission?: Yes Plan: Continue home medications Requested PSYCH evaluation for medication recommendations PSYCH recommends waiting until UTI has been completely treated to make changes to medication regimen (4) Acute kidney injury Is this a current diagnosis for this admission?: Yes Plan: Resolved Creatinine 1.1 for > 24hrs Secondary to UTI and dehydration 2L IVF bolus in ED Continue with maintenance IVF (5) Constipation Qualifiers: Constipation type: unspecified constipation type Qualified Code(s): K59.00 - Constipation, unspecified Is this a current diagnosis for this admission?: Yes Plan: Nursing staff reports patient has not had a bowel movement in 3-4 days KUB obtained - reveals gaseous distention of multiple bowel loops. Moderate amount of stool in the signmoid and rectosigmoid colon. Abdominal exam is benign. Patient denies N/V Nursing staff has documented three separate bowel movements Patient states she 'hasn't moved [her] bowels in 1 week' Continue PO simtheicone, dulcolax and lactulose Offered mag citrate today - Time Time Spent with patient: 15-24 minutes Medications reviewed and adjusted accordingly: Yes Anticipated discharge: Home Within: within 24 hours - Inpatient Certification Based on my medical assessment, after consideration of the patient's comorbidities, presenting symptoms, or acuity I expect that the services needed warrant INPATIENT care.: Yes I certify that my determination is in accordance with my understanding of Medicare's requirements for reasonable and necessary INPATIENT services [42 CFR 412.3e].: Yes Medical Necessity: Need for IV Antibiotics, Risk of Complication if Not Cared For in Hospital - Plan Summary Plan Summary: CONTINUE IV ABX. DISCHARGE TO [facility] ON 04/12
[2018-04-11] MEDS: LANSOPRAZOLE 15 MG TAB.RAP.DR PO SCH (05:57)
[2018-04-11] MEDS: LAMOTRIGINE 100 MG TABLET PO SCH ×2 (05:57→18:45)
[2018-04-11] MEDS: LEVOTHYROXINE SODIUM 0.05 MG TABLET PO SCH (05:58)
[2018-04-11 05:59] LABS: HEMATOCRIT 33.5 % (36.0-47.0); HEMOGLOBIN 11.4 g/dL (12.0-15.5); MEAN CORPUSCULAR HEMOGLOBIN 32.1 pg (27.0-33.4); MEAN CORPUSCULAR HGB CONC 34.1 g/dL (32.0-36.0); MEAN CORPUSCULAR VOLUME 94 fl (80-97); PLATELET COUNT 292 10^3/uL (150-450); RED BLOOD COUNT 3.56 10^6/uL (3.72-5.28); RED CELL DISTRIBUTION WIDTH 14.4 % (11.5-14.0); WHITE BLOOD COUNT 6.7 10^3/uL (4.0-10.5)
[2018-04-11 06:23] LABS: ANION GAP 5 (5-19); BLOOD UREA NITROGEN 24 mg/dL (7-20); CALCIUM 9.5 mg/dL (8.4-10.2); CARBON DIOXIDE 26 mmol/L (22-30); CHLORIDE 104 mmol/L (98-107); GLUCOSE 99 mg/dL (75-110); PHOSPHORUS 3.5 mg/dL (2.5-4.5); POTASSIUM 5.3 mmol/L (3.6-5.0); SODIUM 134.7 mmol/L (137-145)
[2018-04-11] MEDS: BENZTROPINE MESYLATE 1 MG TABLET PO SCH ×2 (09:17→18:45)
[2018-04-11] MEDS: LOSARTAN POTASSIUM 25 MG TABLET PO SCH (09:17)
[2018-04-11] MEDS: ARIPIPRAZOLE 5 MG TABLET PO SCH (09:17)
[2018-04-11] MEDS: LACTULOSE SYRUP 20 GM/30 ML UDCUP PO SCH ×2 (09:23→18:45)
[2018-04-11] MEDS: ENOXAPARIN SODIUM INJ 30 MG/0.3 ML DISP.SYRIN SUBCUT SCH (09:24)
[2018-04-11] MEDS: DULOXETINE HCL 30 MG CAPSULE.DR PO SCH ×2 (09:24→22:11)
[2018-04-11] MEDS: CEFEPIME 2 GM/D5W RTU 2 GM/50 ML RTUPB IV SCH (10:48)
[2018-04-11] MEDS ORDERED: MAGNESIUM HYDROXIDE SUSP 30 ML UDCUP PO PRN (17:20)
[2018-04-11] MEDS ORDERED: MAGNESIUM HYDROXIDE SUSP 30 ML UDCUP PO ONE (17:20)
--- NOTE | 2018-04-11 17:27 | PDOC TRANSFER SUMMARY ---
General - Admit/Disc Date/PCP Admission Date/Primary Care Provider: 04/04/18 13:51 JULIUS MAYER NP Discharge Date: 04/12/18 - Discharge Diagnosis (1) Urinary tract infection Is this a current diagnosis for this admission?: Yes Summary: UA indicative of UTI. Urine culture positive for multidrug-resistant Pseudomonas Blood cultures no growth The patient received IV rocephin x 1 in ED and was continue on IV cefepime 2GM q12h for complicated UTI. Her maddox catheter has been replaced. ID consulted; Dr. Crowell recommends IV antibiotics for 7 days (last day 04/11/2018 ) Patient will be medical stable for discharge immediately upon conclusion of her IV cefepime scheduled for 10 PM tonight; anticipate she will spend the night at [facility] and discharged to the [facility] early tomorrow morning. (2) Acute kidney injury Is this a current diagnosis for this admission?: Yes Summary: Resolved; secondary to UTI and dehydration. (3) Altered mental status Is this a current diagnosis for this admission?: Yes Summary: Improved; she now appears to be at her baseline mental status. AMS was secondary to #1 in the setting of schizoaffective disorder. (4) Constipation Is this a current diagnosis for this admission?: Yes Summary: Improved following milk of magnesia, lactulose, and Dulcolax suppositories as needed. KUB obtained - reveals gaseous distention of multiple bowel loops. Moderate amount of stool in the signmoid and rectosigmoid colon. Abdominal exam is benign. Patient denies N/V and is tolerating 75-100% of all meals. Nursing staff has documented three separate bowel movements (5) Schizoaffective disorder Is this a current diagnosis for this admission?: Yes Summary: Continue home medication regiment. - Additional Information Resuscitation Status: Full Code Home Medications: Alendronate Sodium [Fosamax] 70 mg PO FR@1000 04/04/18 Aripiprazole [Abilify 30 MG Tablet] 30 mg PO DAILY 04/04/18 Benztropine Mesylate [Cogentin 1 mg Tablet] 1 tab PO BID 04/04/18 Clozapine 50 mg PO QPM 04/04/18 Clozapine [Clozaril 100 mg Tablet] 100 mg PO QHS 04/04/18 Cyclobenzaprine HCl 5 mg PO Q8HP PRN 04/04/18 Duloxetine HCl 60 mg PO Q12 04/04/18 Lactulose 30 ml PO BID 04/04/18 Lamotrigine [Lamictal] 200 mg PO Q12 04/04/18 Levothyroxine Sodium [Synthroid 0.05 mg Tablet] 0.05 mg PO DAILY 04/04/18 Linaclotide [Linzess] 290 mcg PO DAILY 04/04/18 Losartan Potassium 25 mg PO DAILY 04/04/18 Magnesium Hydroxide [Milk of Magnesia 30 ml Udcup] 30 ml PO BIDP PRN 04/04/18 Magnesium Oxide [Mag-Oxide] 400 mg PO DAILY 04/04/18 Metformin HCl 500 mg PO BID 04/04/18 Omeprazole 20 mg PO DAILY 04/04/18 Oxybutynin Chloride 5 mg PO DAILY 04/04/18 Simvastatin [Zocor 20 mg Tablet] 20 mg PO QHS 04/04/18 Acetaminophen [Tylenol 325 mg Tablet] 650 mg PO Q4HP PRN tablet 04/11/18 Bisacodyl [Dulcolax 10 mg Supp.rect] 10 mg ND DAILYP PRN supp.rect 04/11/18 History of Present Illness Admission Date/PCP: 04/04/18 13:51 JULIUS MAYER NP History of Present Illness: Per H&P by QUETA Harrington/Dr. Javier: CAROLYN MEMBRENO is a 67 year old female who presented to [facility] from [facility] with altered mental status. Of note, the patient was recently treated (03/27/2018) at [facility] ED for urinary retention. [facility] was [facility] with [facility] indwelling catheter with instructions to follow-up with urology. Upon arrival to the ED today, the patient still had the maddox catheter in place. She is mumbling, oriented to self only and endorsing visual hallucinations ("seeing a man dressed in black" in the room). Upon arrival to the ED, the patient's vital signs were BP 121/51 HR RR 18 T 97.6 SPO2 96%RA. Laboratory studies revealed a urinalysis (+) for UTI and an RAFFI (Cr 1.5). The Maddox catheter was removed, the patient received 1 dose of Rocephin IV and 2 L IVF in the ED. Upon assessment, the patient is resting comfortably in bed on room air. She is oriented to self only. When asked other orientation questions, the patient is able to speak clearly but not in complete sentences (WORD SALAD) and her answers are inappropriate to the questions being asked. The patient is being admitted to the hospitalist service for complicated UTI and continued need for IV antibiotics. Physical Exam Vital Signs: Temp Pulse Resp BP Pulse Ox 98.3 F 86 12 93/38 L 100 04/11/18 11:45 04/11/18 14:00 04/11/18 11:45 04/11/18 11:45 04/11/18 11:45 Intake & Output 04/10/18 04/11/18 04/12/18 06:59 06:59 06:59 Intake Total 1150 1060 788 Output Total 5100 1475 900 Balance -3950 -415 -112 Weight 85.2 kg General appearance: PRESENT: no acute distress, cooperative, obese, well- developed, well-nourished Head exam: PRESENT: atraumatic, normocephalic Eye exam: PRESENT: conjunctiva pink, EOMI, PERRLA. ABSENT: scleral icterus Ear exam: PRESENT: normal external ear exam Mouth exam: PRESENT: moist, tongue midline Neck exam: ABSENT: carotid bruit, JVD, lymphadenopathy, thyromegaly Respiratory exam: PRESENT: clear to auscultation parviz, symmetrical, unlabored. ABSENT: rales, rhonchi, wheezes Cardiovascular exam: PRESENT: RRR. ABSENT: diastolic murmur, rubs, systolic murmur Pulses: PRESENT: normal dorsalis pedis pul Vascular exam: PRESENT: normal capillary refill GI/Abdominal exam: PRESENT: normal bowel sounds, soft. ABSENT: distended, guarding, mass, organolmegaly, rebound, tenderness Rectal exam: PRESENT: deferred Extremities exam: PRESENT: full ROM. ABSENT: calf tenderness, clubbing, pedal edema Neurological exam: PRESENT: alert, awake, oriented to person, CN II-XII grossly intact, other - Pleasantly confused; at baseline. ABSENT: oriented to place, oriented to time, oriented to situation, motor sensory deficit Psychiatric exam: PRESENT: appropriate affect, normal mood. ABSENT: homicidal ideation, suicidal ideation Skin exam: PRESENT: dry, intact, warm. ABSENT: cyanosis, rash Results Laboratory Results: 04/11/18 05:14 04/11/18 05:14 04/11/18 04/11/18 05:14 05:14 WBC 6.7 RBC 3.56 L Hgb 11.4 L Hct 33.5 L MCV 94 MCH 32.1 MCHC 34.1 RDW 14.4 H Plt Count 292 Sodium 134.7 L Potassium 5.3 H Chloride 104 Carbon Dioxide 26 Anion Gap 5 BUN 24 H Creatinine 1.24 Est GFR ( Amer) 52 L Est GFR (Non-Af Amer) 43 L Glucose 99 Calcium 9.5 Phosphorus 3.5 Magnesium 3.2 H Impressions: Pelvis X-Ray 04/04/18 11:04 IMPRESSION: No acute fracture or malalignment. KUB X-Ray 04/07/18 00:00 IMPRESSION: Gaseous distention of multiple bowel loops most consistent with an ileus pattern. The possibility of an underlying obstruction cannot be completely excluded however. Other findings as noted above Transfer Plan - Time Spent with Patient Time spent with patient: Less than 30 Minutes Qualifiers - * PATIENT BEING DISCHARGED WITH ANY OF THE FOLLOWING DIAGNOSIS: No Plan Discharge Plan: Discharge to the [facility] where the patient is an established resident. Time Spent: Less than 30 Minutes
[2018-04-11] MEDS: CLOZAPINE 100 MG TABLET PO SCH ×2 (18:46→22:12)
[2018-04-11] MEDS: SIMVASTATIN 10 MG TABLET PO SCH (22:11)
[2018-04-12] MEDS: LANSOPRAZOLE 15 MG TAB.RAP.DR PO SCH (05:20)
[2018-04-12] MEDS: LEVOTHYROXINE SODIUM 0.05 MG TABLET PO SCH (05:20)
[2018-04-12] MEDS: LAMOTRIGINE 100 MG TABLET PO SCH (05:20)
[2018-04-12 05:39] LABS: BLOOD UREA NITROGEN 25 mg/dL (7-20); CALCIUM 9.3 mg/dL (8.4-10.2); GLUCOSE 103 mg/dL (75-110); POTASSIUM 4.5 mmol/L (3.6-5.0)
[2018-04-12 05:45] LABS: CARBON DIOXIDE 29 mmol/L (22-30); CHLORIDE 105 mmol/L (98-107); SODIUM 139.7 mmol/L (137-145)
[2018-04-12 05:47] LABS: ANION GAP 6 (5-19)
[2018-04-12 08:06] VITALS: BP 112/44
[2018-04-12] MEDS: DULOXETINE HCL 30 MG CAPSULE.DR PO SCH (11:43)
[2018-04-12] MEDS: LOSARTAN POTASSIUM 25 MG TABLET PO SCH (11:44)
[2018-04-12] MEDS: ENOXAPARIN SODIUM INJ 30 MG/0.3 ML DISP.SYRIN SUBCUT SCH (11:48)
[2018-04-12] MEDS: ARIPIPRAZOLE 5 MG TABLET PO SCH (11:49)
[2018-04-12] MEDS: BENZTROPINE MESYLATE 1 MG TABLET PO SCH (11:49)
[2018-04-12] MEDS: LACTULOSE SYRUP 20 GM/30 ML UDCUP PO SCH (11:49)
== END 2018-04-12 12:18 | DRG 699 ==
LOC: ER 09:54 → EH 13:51 → 4N 18:30
PROVIDERS: ADMIT Internal Medicine; ATTEND Internal Medicine
DX: T83.511A Infection and inflammatory reaction due to indwelling urethral catheter, initial encounter (principal); N17.9 Acute kidney failure, unspecified; N39.0 Urinary tract infection, site not specified; Z16.24 Resistance to multiple antibiotics; B96.5 Pseudomonas (aeruginosa) (mallei) (pseudomallei) as the cause of diseases classified elsewhere; E86.0 Dehydration; K59.00 Constipation, unspecified; F25.9 Schizoaffective disorder, unspecified; Z79.899 Other long term (current) drug therapy; E78.5 Hyperlipidemia, unspecified; I10 Essential (primary) hypertension; E11.9 Type 2 diabetes mellitus without complications; E03.9 Hypothyroidism, unspecified; K21.9 Gastro-esophageal reflux disease without esophagitis; M19.90 Unspecified osteoarthritis, unspecified site; F31.9 Bipolar disorder, unspecified; R56.9 Unspecified convulsions; Z90.49 Acquired absence of other specified parts of digestive tract; Z88.8 Allergy status to other drugs, medicaments and biological substances
CPT/HCPCS: 36415; 72170; 74018; 80048; 80053; 80076; 80175; 81001; 82140; 82550; 82570; 82962; 83735; 84100; 84439; 84443; 85025; 85027; 87040; 87086; 87088; 87186; 93005; 93010; 96365; 99285; C1751; J0692; J0696; J1650; J3490; J7030; J7120

== ENCOUNTER 2018-04-20 20:45 | Emergency (ER) | payer MEDICARE, MEDICAID ==
--- NOTE | 2018-04-20 21:51 | RADIOLOGY REPORT (SQ) ---
EXAM DESCRIPTION: CT HEAD WITHOUT IV CONTRAST COMPLETED DATE/TME: 04/20/2018 00:00 CLINICAL HISTORY: 67 years, Female, fall on thinners EXAM DESCRIPTION: CLINICAL HISTORY: fall on thinners COMPARISON: None Available TECHNIQUE: Contiguous axial CT images of the head were obtained. Coronal and sagittal reconstructions were created from the axial data. This exam was performed according to our departmental dose-optimization program, which includes automated exposure control, adjustment of the mA and/or kV according to patient size and/or use of iterative reconstruction technique. FINDINGS: There is a fracture of the left zygomatic arch, slightly diastatic. There is no evidence of acute mass, mass effect, midline shift or hemorrhage. The ventricles and extra-axial CSF spaces are unremarkable. The brain parenchyma appears normal for the patient's age. No other acute abnormalities of the bones is seen. IMPRESSION: Left zygomatic arch fracture. No acute intracranial abnormality.
--- NOTE | 2018-04-20 21:53 | RADIOLOGY REPORT (SQ) ---
EXAM DESCRIPTION: CT CERVICAL SPINE WITHOUT IV CONTRAST COMPLETED DATE/TME: 04/20/2018 00:00 CLINICAL HISTORY: 67 years, Female, fall on thinners COMPARISON: None. TECHNIQUE: Images stored on PACS. All CT scanners at this facility use dose modulation, iterative reconstruction, and/or weight based dosing when appropriate to reduce radiation dose to as low as reasonably achievable (ALARA). [facility]: Dose Right [facility]: CareDose [facility]: Dose Right [facility]: Teradose 4D [facility]: [employer] LIMITATIONS: None. FINDINGS: IMPRESSION: TECHNICAL DOCUMENTATION: Quality ID # [id number]: Final reports with documentation of one or more dose reduction techniques (e.g., Automated exposure control, adjustment of the mA and/or kV according to patient size, use of iterative reconstruction technique) 2010 [employer]- All Rights Reserved PROCEDURE: CLINICAL HISTORY: 67 years Female fall on thinners COMPARISON: None. TECHNIQUE: Contiguous axial images were obtained through the chest during the infusion of IV contrast. Reformatted images obtained. MIP reformatted images obtained. This exam was performed according to our department optimization program which includes automated exposure control, adjustment of the mA and/or kv according to patient size and/or use of iterative reconstruction technique. EXAM DESCRIPTION: CLINICAL HISTORY: fall on thinners COMPARISON: None Available TECHNIQUE: Contiguous axial images of the cervical spine were obtained without the administration of intravenous contrast followed by reconstruction images. This exam was performed according to our departmental dose-optimization program, which includes automated exposure control, adjustment of the mA and/or kV according to patient size and/or use of iterative reconstruction technique. FINDINGS: There are degenerative changes. There is no acute fracture or subluxation. Prevertebral soft tissues are within normal limits. IMPRESSION: No acute fracture or subluxation
--- NOTE | 2018-04-20 21:54 | ER Document Report ---
ED General - General Chief Complaint: Fall Stated Complaint: FALL Time Seen by Provider: 04/20/18 21:25 Notes: Patient is a 67-year-old female presenting to the emergency department status post fall. Per EMS and staff at [facility] the patient was saying goodbye to another resident as she turned around staff noticed that her shoes were untied, went to go help the patient and prior to staff getting to the patient, she tripped on her untied shoelaces. Per EMS and staff they are unsure what part of the patient's head she had. Staff denied LOC to EMS, stating that the Pt. was "acting normal" after fall, just complaing of head and neck pain. EMS reported to ED that the pt. was on a blood thinner, as reported from staff at [facility]. I personally called [facility] and talked to Dara Cardoza ([employer]) about the Pt. to find a complete list of medications. After reviewing list given by Sony at [facility] it was found that the pt. was not on any blood thinners. I also talked to Sony about the Pts normal baseline mental status. Sony stated the Pt. can tell you her name, but is otherwise not oriented to time, place, or events. This is the current mentation of the Pt. in the ED. Pt. is currently denying all complains, but upon palpation of her cervical neck she grimaces in pain. Past medical history: Chest pain-atypical, hypothyroidism, diabetes mellitus, hyperlipidemia, schizophrenia, bipolar Occasions: Fosamax, Abilify, Cogentin, Clozaril, Cymbalta, lactulose, Lamictal, Synthroid, Linzess, losartan, metformin, omeprazole, Ditropan, simvastatin, Flexeril Allergies: Haldol Patient denies nausea, vomiting. There is a entered pivot note from nurse Scot, entered under the wrong patient. TRAVEL OUTSIDE OF THE [place] IN LAST 30 DAYS: No - Related Data Allergies/Adverse Reactions: haloperidol [From Haldol] Allergy (Severe, Verified 03/01/18 08:29) LOCKJAW haloperidol lactate [From Haldol] Allergy (Severe, Verified 03/01/18 08:29) LOCKJAW chlorpromazine HCl [From Thorazine] Allergy (Verified 03/01/18 08:29) chocolate Allergy (Uncoded 03/01/18 08:29) Past Medical History - General Information source: Transfer Record - Dara Cardoza @ [facility] - Social History Smoking Status: Unknown if Ever Smoked Lives with: Other Family History: CAD - dad and uncle with MIs in their 60s, DM - mom Patient has suicidal ideation: No Patient has homicidal ideation: No - Past Medical History Cardiac Medical History: Reports: Hx Hypercholesterolemia, Hx Hypertension Pulmonary Medical History: Reports: Hx Bronchitis Neurological Medical History: Reports: Hx Seizures Endocrine Medical History: Reports: Hx Diabetes Mellitus Type 2, Hx Hypothyroidism Renal/ Medical History: Denies: Hx Peritoneal Dialysis GI Medical History: Reports: Hx Gastroesophageal Reflux Disease. Denies: Hx Pancreatitis Musculoskeletal Medical History: Reports Hx Arthritis Psychiatric Medical History: Reports: Hx Bipolar Disorder, Hx Depression, Hx Schizoaffective Disorder, Hx Schizophrenia Past Surgical History: Reports: Hx Cholecystectomy, Hx Neurologic Surgery - carpal tunnel, Hx Tonsillectomy - 1956, Hx Tubal Ligation - Immunizations Hx Diphtheria, Pertussis, Tetanus Vaccination: Yes Hx Pneumococcal Vaccination: 11/08/13 Review of Systems - Review of Systems Constitutional: See HPI EENT: See HPI Cardiovascular: See HPI Respiratory: See HPI Gastrointestinal: See HPI Genitourinary: See HPI Female Genitourinary: See HPI Musculoskeletal: See HPI Skin: See HPI Hematologic/Lymphatic: See HPI Neurological/Psychological: See HPI Physical Exam - Vital signs Vitals: Temp Pulse Resp BP Pulse Ox 97.7 F 67 14 126/50 H 100 04/20/18 21:02 04/20/18 21:02 04/20/18 21:02 04/20/18 21:02 04/20/18 21:02 - Notes Notes: GENERAL: Alert, interacts well. No acute distress. HEAD: Normocephalic, atraumatic. no facial swelling/bruising noted EYES: Pupils equal, round, and reactive to light. Extraocular movements intact. ENT: Oral mucosa moist, tongue midline. NECK: C-collar in place. Trachea midline. cervical spine tenderness. LUNGS: Clear to auscultation bilaterally, no wheezes, rales, or rhonchi. No respiratory distress. HEART: Regular rate and rhythm. No murmur ABDOMEN: Soft, non-tender. Non-distended. Bowel sounds present in all 4 quadrants. EXTREMITIES: Moves all 4 extremities spontaneously. No edema, normal radial and dorsalis pedis pulses bilaterally. No cyanosis. BACK: no thoracic, lumbar midline tenderness. normal distal neurovascular exam. NEUROLOGICAL: Alert and oriented to name and date of . Patient does not know current location or current situation. SKIN: Warm, dry, normal turgor. No rashes or lesions noted. Course - Re-evaluation Re-evalutation: Pt. with Zygomatic fx, re exam of face continues to reveal no abnormalities. Palpation of facial bones elicits no pain. Patient continues at mental baseline. Will give f/u with Ortho [facility]. - Vital Signs Vital signs: Temp Pulse Resp BP Pulse Ox 97.5 F 72 14 115/61 97 04/21/18 04:37 04/21/18 04:37 04/21/18 04:37 04/21/18 04:37 04/21/18 04:37 Discharge - Discharge Clinical Impression: Zygomatic arch fracture Qualifiers: Encounter type: initial encounter Fracture type: closed Laterality: left Qualified Code(s): S02.40FA - Zygomatic fracture, left side, initial encounter for closed fracture Fall Qualifiers: Encounter type: initial encounter Qualified Code(s): W19.XXXA - Unspecified fall, initial encounter Condition: Stable Disposition: HOME, SELF-CARE Additional Instructions: You have been seen in the emergency department for a fall. As a result of her fall you have a broken bone in your face. The broken bone is under your left eye. Included in this paperwork is a phone number to a specialized Doctor who you need to follow-up with. Return to the emergency department should you have increase in headache, increased facial pain, nausea, vomiting, any other concerning symptoms. Referrals: JULIUS MAYER NP [Primary Care Provider] - Follow up as needed NEY ORTIZ MD [ACTIVE STAFF] - Follow up as needed
[2018-04-21 04:41] VITALS: BP 115/61
== END 2018-04-21 04:41 | disposition home or self-care (01) ==
LOC: ER 20:45
DX: S02.40FA Zygomatic fracture, left side, initial encounter for closed fracture (principal); R51 Headache; M54.2 Cervicalgia; W01.0XXA Fall on same level from slipping, tripping and stumbling without subsequent striking against object, initial encounter; Y92.10 Unspecified residential institution as the place of occurrence of the external cause; Z79.899 Other long term (current) drug therapy; I10 Essential (primary) hypertension; E11.9 Type 2 diabetes mellitus without complications
CPT/HCPCS: 70450; 72125; 82962; 99285

== ENCOUNTER 2018-04-21 12:01 | Emergency (ER) | payer MEDICARE, MEDICAID ==
--- NOTE | 2018-04-21 13:03 | ER Document Report ---
ED General - General Information source: Patient TRAVEL OUTSIDE OF THE [place] IN LAST 30 DAYS: No <DANIELLA BEARD - Last Filed: 04/21/18 13:38> <CHRISTIE RIOS - Last Filed: 04/21/18 15:12> - General Chief Complaint: Fall Stated Complaint: HEADACHE Time Seen by Provider: 04/21/18 12:23 Notes: 67-year-old female who presents to the emergency department today with complaints of a headache. Patient is accompanied by a catering manager that sees her frequently. Rubberizing Mechanic states that yesterday the patient was seen after a fall. Yesterday's chart states the patient is on blood thinners however she is not. There were no intracranial findings yesterday on head CT. Patient is schizophrenic so history is somewhat limited. Rubberizing Mechanic states that the patient complained of a headache today and "the note she was discharged with said if she developed a headache to come back". (DANIELLA BEARD) The catering manager is also the patient's sister. She reports that when her sister complained of headache, she indicated the right parietal region and the top of her head. When she pressed down firmly on the patient's head at the top, the patient complained quite a bit about the pain that was causing. Patient did fall and hit her head yesterday. CT scan was done. Today she does have a very tender slightly soft slightly swollen area over top of her head which is most likely related to her fall yesterday. The CT scan done yesterday on 04/20/2018 shows a left zygomatic arch fracture, but the patient is no real tenderness or bruising in this area. Reviewing records shows that she did have old ecchymosis and tenderness in that area on and at that time a CT scan did show the same left zygomatic arch fracture, was not read by the radiologist. On 03/25/2018 she was seen after falling and striking her left face and head, but the CT scan on that day does not demonstrate the fracture. It appears she has a zygomatic arch fracture that is 4 weeks old and of no clinical significance. (CHRISTIE RIOS) - Related Data Allergies/Adverse Reactions: haloperidol [From Haldol] Allergy (Severe, Verified 03/01/18 08:29) LOCKJAW haloperidol lactate [From Haldol] Allergy (Severe, Verified 03/01/18 08:29) LOCKJAW chlorpromazine HCl [From Thorazine] Allergy (Verified 03/01/18 08:29) chocolate Allergy (Uncoded 03/01/18 08:29) Past Medical History - General Information source: Patient - Social History Smoking Status: Unknown if Ever Smoked Cigarette use (# per day): No Chew tobacco use (# tins/day): No Frequency of alcohol use: None Drug Abuse: None Lives with: Family Family History: Reviewed & Not Pertinent, CAD - dad and uncle with MIs in their 60s, DM - mom Patient has suicidal ideation: No Patient has homicidal ideation: No - Past Medical History Cardiac Medical History: Reports: Hx Hypercholesterolemia, Hx Hypertension Pulmonary Medical History: Reports: Hx Bronchitis Neurological Medical History: Reports: Hx Seizures Endocrine Medical History: Reports: Hx Diabetes Mellitus Type 2, Hx Hypothyroidism GI Medical History: Reports: Hx Gastroesophageal Reflux Disease Musculoskeletal Medical History: Reports Hx Arthritis Psychiatric Medical History: Reports: Hx Bipolar Disorder, Hx Depression, Hx Schizoaffective Disorder, Hx Schizophrenia Past Surgical History: Reports: Hx Cholecystectomy, Hx Neurologic Surgery - carpal tunnel, Hx Tonsillectomy - 1956, Hx Tubal Ligation - Immunizations Hx Diphtheria, Pertussis, Tetanus Vaccination: Yes Hx Pneumococcal Vaccination: 11/08/13 <DANIELLA BEARD - Last Filed: 04/21/18 13:38> Review of Systems - Review of Systems Constitutional: No symptoms reported EENT: No symptoms reported Cardiovascular: No symptoms reported Respiratory: No symptoms reported Gastrointestinal: No symptoms reported Genitourinary: No symptoms reported Female Genitourinary: No symptoms reported Musculoskeletal: No symptoms reported Skin: No symptoms reported Hematologic/Lymphatic: No symptoms reported Neurological/Psychological: See HPI, Headaches -: Yes All other systems reviewed and negative <DANIELLA BEARD - Last Filed: 04/21/18 13:38> Physical Exam <DANIELLA BEARD - Last Filed: 04/21/18 13:38> <CHRISTIE RIOS - Last Filed: 04/21/18 15:12> - Notes Notes: Physical Exam: General: Alert, drowsy but arousable. HEENT: Normocephalic. Contusion over lower lip. PERRL. Extraocular movements intact. Oropharynx clear. Swelling over the top of the head with associated tenderness with palpation. No tenderness over zygomatic arch. Neck: Supple. Non-tender. Respiratory: No respiratory distress. Clear and equal breath sounds bilaterally. Cardiovascular: Regular rate and rhythm. Abdominal: Obese. Non-tender. No distension. Normal Bowel Sounds. Back: Non-tender. No deformity or step off. Extremities: Moves all four extremities. Upper extremities: Normal inspection. Normal ROM. Lower extremities: Normal inspection. No edema. Normal ROM. Neurological: Normal cognition. AAOx4. Normal speech. Psychological: Normal affect. Normal Mood. Skin: Warm. Dry. Normal color. (DANIELLA BEARD) Course <DANIELLA BEARD - Last Filed: 04/21/18 13:38> - Laboratory Result Diagrams: 04/21/18 14:05 04/21/18 14:05 <CHRISTIE RIOS - Last Filed: 04/21/18 15:12> - Re-evaluation Re-evalutation: 04/21/18 15:11 CBC and chemistries are normal today, the urine is clean today. It appears the visit today was related to the sister pressing on the tender area at the top of the patient's head that was a result of a fall and contusion yesterday. She will be discharged back to [facility]. (CHRISTIE RIOS) - Laboratory Laboratory results interpreted by me: 04/21/18 04/21/18 04/21/18 14:05 14:05 14:05 RBC 3.60 L Hgb 11.4 L Hct 34.1 L RDW 14.5 H Est GFR ( Amer) 59 L Est GFR (Non-Af Amer) 49 L Glucose 72 L Total Protein 5.6 L Albumin 2.9 L Urine Urobilinogen 2.0 H Discharge <DANIELLA BEARD - Last Filed: 04/21/18 13:38> <CHRISTIE RIOS - Last Filed: 04/21/18 15:12> - Discharge Clinical Impression: Scalp contusion Qualifiers: Encounter type: initial encounter Qualified Code(s): S00.03XA - Contusion of scalp, initial encounter Condition: Stable Disposition: HOME, SELF-CARE Additional Instructions: Scalp Hematoma: You have a scalp hematoma on the top of your head. This is a bump caused by blood underneath the scalp. This is a common injury, and usually causes only mild local pain or headache. There is no evidence of a skull fracture or of a brain injury. A scalp hematoma will usually disappear after a few days. Put cold packs on the swollen area for 20-30 minutes every 2-3 hours until the swelling improves. Use acetaminophen or ibuprofen for pain. Avoid aspirin because this may increase bleeding under the scalp. You may have a mild headache for a few days. Call the doctor or return if there is severe headache, confusion, personality changes, vomiting, severe dizziness, or difficulty with balance or coordination. Scribe Attestation: 04/21/18 14:54 I personally performed the services described in the documentation, reviewed and edited the documentation which was dictated to the scribe in my presence, and it accurately records my words and actions. (CHRISTIE RIOS) Scribe Documentation - Scribe Written by El:: El Hernandez, 04/21/2018 [id number] acting as scribe for :: Yusra <DANIELLA BEARD - Last Filed: 04/21/18 13:38>
[2018-04-21 14:20] LABS: ABSOLUTE EOSINOPHILS # (AUTO) 0.1 10^3/uL (0.0-0.6); ABSOLUTE LYMPHOCYTES (AUTO) 1.1 10^3/uL (0.5-4.7); ABSOLUTE MONOCYTES (AUTO) 0.3 10^3/uL (0.1-1.4); BASOPHILS % (AUTO) 0.4 % (0-2); EOSINOPHILS % (AUTO) 2.1 % (0-6); HEMATOCRIT 34.1 % (36.0-47.0); HEMOGLOBIN 11.4 g/dL (12.0-15.5); LYMPHOCYTES % (AUTO) 24.7 % (13-45); MEAN CORPUSCULAR HEMOGLOBIN 31.6 pg (27.0-33.4); MEAN CORPUSCULAR HGB CONC 33.4 g/dL (32.0-36.0); MEAN CORPUSCULAR VOLUME 95 fl (80-97); MONOCYTES % (AUTO) 7.3 % (3-13); PLATELET COUNT 271 10^3/uL (150-450); RED CELL DISTRIBUTION WIDTH 14.5 % (11.5-14.0); SEGMENTED NEUTROPHILS % (AUTO) 65.5 % (42-78); TOTAL CELLS COUNTED % (AUTO) 100 %; WHITE BLOOD COUNT 4.6 10^3/uL (4.0-10.5)
[2018-04-21 14:34] LABS: APPEARANCE,URINE CLEAR; BILIRUBIN,URINE NEGATIVE (NEGATIVE); COLOR,URINE YELLOW; GLUCOSE, URINE NEGATIVE (NEGATIVE); KETONES,URINE NEGATIVE (NEGATIVE); LEUKOCYTE ESTERASE,URINE NEGATIVE (NEGATIVE); NITRITE,URINE NEGATIVE (NEGATIVE); PROTEIN,URINE NEGATIVE (NEGATIVE); URINE SPECIFIC GRAVITY 1.015
[2018-04-21 14:49] LABS: ALANINE AMINOTRANSFERASE 27 U/L (9-52); ALBUMIN 2.9 g/dL (3.5-5.0); ALKALINE PHOSPHATASE 75 U/L (38-126); ANION GAP 6 (5-19); ASPARTATE AMINO TRANSFERASE 22 U/L (14-36); BILIRUBIN,DIRECT 0.4 mg/dL (0.0-0.4); BILIRUBIN,TOTAL 0.5 mg/dL (0.2-1.3); BLOOD UREA NITROGEN 20 mg/dL (7-20); CALCIUM 9.4 mg/dL (8.4-10.2); CARBON DIOXIDE 28 mmol/L (22-30); CHLORIDE 106 mmol/L (98-107); GLUCOSE 72 mg/dL (75-110); POTASSIUM 4.3 mmol/L (3.6-5.0); SODIUM 140.3 mmol/L (137-145); TOTAL PROTEIN 5.6 g/dL (6.3-8.2)
[2018-04-21 16:04] VITALS: BP 113/78
== END 2018-04-21 16:04 | disposition home or self-care (01) ==
LOC: ER 12:01
DX: S00.03XA Contusion of scalp, initial encounter (principal); S00.531A Contusion of lip, initial encounter; W19.XXXA Unspecified fall, initial encounter
CPT/HCPCS: 36415; 51701; 80053; 81001; 85025; 99284

== ENCOUNTER 2018-04-30 14:30 | Emergency (ER) | payer MEDICARE, MEDICAID ==
--- NOTE | 2018-04-30 15:14 | RADIOLOGY REPORT (SQ) ---
EXAM DESCRIPTION: CT HEAD WITHOUT COMPLETED DATE/TIME: 04/30/2018 2:55 pm REASON FOR STUDY: Fall, Right sided facial droop COMPARISON: 04/20/2018. TECHNIQUE: Axial images acquired through the brain without intravenous contrast. Images reviewed wi th bone, brain and subdural windows. Additional sagittal and coronal reconstructions were generated. Images stored on PACS. All CT scanners at this facility use dose modulation, iterative reconstruction, and/or weight based d osing when appropriate to reduce radiation dose to as low as reasonably achievable (ALARA). [facility]: Dose Right [facility]: CareDose [facility]: Dose Right [facility]: Teradose 4D [facility]: [employer] Alaris RADIATION DOSE: CT Rad equipment meets quality standard of care and radiation dose reduction techniq ues were employed. CTDIvol: 53.2 - 55.2 mGy. DLP: 1522 mGy-cm. mGy. LIMITATIONS: None. FINDINGS: VENTRICLES: Normal size and contour. CEREBRUM: No masses. No hemorrhage. No midline shift. No evidence for acute infarction. Normal gra y/white matter differentiation. No areas of low density in the white matter. CEREBELLUM: No masses. No hemorrhage. No alteration of density. No evidence for acute infarction. EXTRAAXIAL SPACES: No fluid collections. No masses. ORBITS AND GLOBE: No intra- or extraconal masses. Normal contour of globe without masses. CALVARIUM: No new fractures. PARANASAL SINUSES: No fluid or mucosal thickening. SOFT TISSUES: No mass or hematoma. OTHER: No other significant finding. IMPRESSION: No acute intracranial abnormality. EVIDENCE OF ACUTE STROKE: NO. COMMENT: Quality ID # [id number]: Final reports with documentation of one or more dose reduction techniques (e.g., Automated exposure control, adjustment of the mA and/or kV according to patient size, use of iterative reconstruction technique) TECHNICAL DOCUMENTATION: JOB ID: [id number] [employer]- All Rights Reserved Reading location - IP/workstation name: [email or web address]
[2018-04-30 15:22] LABS: ABSOLUTE EOSINOPHILS # (AUTO) 0.1 10^3/uL (0.0-0.6); ABSOLUTE LYMPHOCYTES (AUTO) 1.3 10^3/uL (0.5-4.7); ABSOLUTE MONOCYTES (AUTO) 0.4 10^3/uL (0.1-1.4); BASOPHILS % (AUTO) 0.3 % (0-2); HEMATOCRIT 35.8 % (36.0-47.0); MEAN CORPUSCULAR HEMOGLOBIN 31.8 pg (27.0-33.4); MEAN CORPUSCULAR HGB CONC 33.5 g/dL (32.0-36.0); MEAN CORPUSCULAR VOLUME 95 fl (80-97); MONOCYTES % (AUTO) 8.1 % (3-13); PLATELET COUNT 254 10^3/uL (150-450); RED BLOOD COUNT 3.78 10^6/uL (3.72-5.28); RED CELL DISTRIBUTION WIDTH 14.2 % (11.5-14.0); SEGMENTED NEUTROPHILS % (AUTO) 62.6 % (42-78); TOTAL CELLS COUNTED % (AUTO) 100 %; WHITE BLOOD COUNT 4.8 10^3/uL (4.0-10.5)
[2018-04-30 15:27] LABS: INTERNATIONAL RATION (INR) 0.95; PROTHROMBIN TIME 13.2 SEC (11.4-15.4)
[2018-04-30 15:28] LABS: PARTIAL THROMBOPLASTIN TIME 39.5 SEC (23.5-35.8)
--- NOTE | 2018-04-30 15:43 | RADIOLOGY REPORT (SQ) ---
EXAM DESCRIPTION: CHEST SINGLE VIEW COMPLETED DATE/TIME: 04/30/2018 3:23 pm REASON FOR STUDY: stroke alert COMPARISON: 03/27/2018. NUMBER OF VIEWS: One view. TECHNIQUE: Single frontal radiographic view of the chest acquired. LIMITATIONS: None. FINDINGS: LUNGS AND PLEURA: No opacities, masses or pneumothorax. No pleural effusion. MEDIASTINUM AND HILAR STRUCTURES: No masses. Contour normal. HEART AND VASCULAR STRUCTURES: Heart normal in size. Normal vasculature. BONES: No acute findings. HARDWARE: None in the chest. OTHER: No other significant finding. IMPRESSION: NO SIGNIFICANT RADIOGRAPHIC FINDING IN THE CHEST. TECHNICAL DOCUMENTATION: JOB ID: [id number] [employer]- All Rights Reserved Reading location - IP/workstation name: [email or web address]
--- NOTE | 2018-04-30 15:43 | ER Document Report ---
ED Fall - General Mode of Arrival: Ambulatory Information source: Patient TRAVEL OUTSIDE OF THE [place] IN LAST 30 DAYS: No <MÓNICA ANAND - Last Filed: 05/01/18 00:25> <LEONILA GARCÍA - Last Filed: 05/01/18 00:26> - General Chief Complaint: Fall Stated Complaint: FALL,HEAD INJURY Time Seen by Provider: 04/30/18 15:17 Notes: Patient is a 67 year old female presenting to the emergency department via EMS from [facility] complaining of a fall. Nurse states the patients roommates in pen[facility]entiary hear a thud this morning and found the patient laying on the floor. Nurse reports a laceration to the top of the head of the patient. Staff at penitentiary reports the patient is wheelchair bound and normally able to communicate. No further history was obtained due to patients mental status. EMS reports the patient being alert and oriented x2 further reporting the patient was mumbling and appeared confused. (MÓNICA ANAND) - Related data Allergies/Adverse Reactions: haloperidol [From Haldol] Allergy (Severe, Verified 03/01/18 08:29) LOCKJAW haloperidol lactate [From Haldol] Allergy (Severe, Verified 03/01/18 08:29) LOCKJAW chlorpromazine HCl [From Thorazine] Allergy (Verified 03/01/18 08:29) chocolate Allergy (Uncoded 03/01/18 08:29) Past Medical History - General Information source: Emergency Med Personnel, [facility] Records - Social History Family History: Reviewed & Not Pertinent, CAD - dad and uncle with MIs in their 60s, DM - mom - Past Medical History Cardiac Medical History: Reports: Hx Hypercholesterolemia, Hx Hypertension Pulmonary Medical History: Reports: Hx Bronchitis Neurological Medical History: Reports: Hx Seizures Endocrine Medical History: Reports: Hx Diabetes Mellitus Type 2, Hx Hypothyroidism GI Medical History: Reports: Hx Gastroesophageal Reflux Disease Musculoskeletal Medical History: Reports Hx Arthritis Psychiatric Medical History: Reports: Hx Bipolar Disorder, Hx Depression, Hx Schizoaffective Disorder, Hx Schizophrenia Past Surgical History: Reports: Hx Cholecystectomy, Hx Neurologic Surgery - carpal tunnel, Hx Tonsillectomy - 1956, Hx Tubal Ligation - Immunizations Hx Diphtheria, Pertussis, Tetanus Vaccination: Yes Hx Pneumococcal Vaccination: 11/08/13 <MÓNICA ANAND - Last Filed: 05/01/18 00:25> - Social History Smoking Status: Former Smoker <LEONILA GARCÍA - Last Filed: 05/01/18 00:26> Review of Systems - Review of Systems Constitutional: No symptoms reported EENT: No symptoms reported Cardiovascular: No symptoms reported Respiratory: No symptoms reported Gastrointestinal: No symptoms reported Genitourinary: No symptoms reported Female Genitourinary: No symptoms reported Musculoskeletal: See HPI Skin: No symptoms reported Hematologic/Lymphatic: No symptoms reported Neurological/Psychological: See HPI -: Yes All other systems reviewed and negative <MÓNICA ANAND - Last Filed: 05/01/18 00:25> <LEONILA GARCÍA - Last Filed: 05/01/18 00:26> - Review of Systems Notes: ROS per penitentiary staff and EMS (MÓNICA ANAND) Physical Exam <MÓNICA ANAND - Last Filed: 05/01/18 00:25> <LEONILA GARCÍA - Last Filed: 05/01/18 00:26> - Vital signs Vitals: Temp Pulse Resp BP Pulse Ox 98.1 F 81 16 137/64 H 95 04/30/18 14:30 04/30/18 14:30 04/30/18 14:30 04/30/18 14:30 04/30/18 14:30 - Notes Notes: GENERAL: Sleeping and difficult to arouse. No acute distress. HEAD: Normocephalic. 1 cm non-gaping laceration right to midline on the upper parietal scalp anteriorly. EYES: Pupils equal, round, and reactive to light. Extraocular movements intact. ENT: Oral mucosa moist, tongue midline. NECK: Full range of motion. Supple. Trachea midline. LUNGS: Clear to auscultation bilaterally, no wheezes, rales, or rhonchi. No respiratory distress. HEART: Regular rate and rhythm. No murmurs, gallops, or rubs. ABDOMEN: Soft, non-tender. Non-distended. Bowel sounds present in all 4 quadrants. EXTREMITIES: Moves all 4 extremities spontaneously. 5/5 muscle strength in BUE. No edema, radial and dorsalis pedis pulses 2/4 bilaterally. No cyanosis. NEUROLOGICAL: Somnolent. Mumbles. Resists assistance to move in sitting position. Withdraws from noxious stimuli to the BLE but will not follow commands to move BLE. Facial droop which is resolved when smiling and moving head midline. Biceps and patellar DTRs 2+ bilaterally. SKIN: Warm, dry, normal turgor. Superficial abrasion to the right knee. (MÓNICA ANAND) Course - Laboratory Result Diagrams: 04/30/18 15:04/30/18 15:09 <MÓNICA NAAND - Last Filed: 05/01/18 00:25> - Laboratory Result Diagrams: 04/30/18 15:04/30/18 15:09 <LEONILA GARCÍA - Last Filed: 05/01/18 00:26> - Re-evaluation Re-evalutation: 04/30/18 19:02 CBC unremarkable, coags unremarkable, arterial blood gas shows slightly elevated CO2 but it is only 47.2, pH is normal, CMP shows mild renal failure, ammonia is undetectable, cardiac enzymes negative, T3 slightly low at TSH and T4 normal, urinalysis unremarkable, limited level is a send note. CT scan of the head is negative for acute process, chest x-ray is negative. Laceration was cleansed with ChloraPrep and then repaired with 2 christo. Patient was sleeping for a large amount of the visit, patient has woken up however several times and is back to the baseline that is listed in prior visits to the emergency department particularly from the past month. Patient [facility] be [facility]. Patient does have a history of recurrent falls. No evidence of stroke or sepsis. (LEONILA GARCÍA) - Vital Signs Vital signs: Temp Pulse Resp BP Pulse Ox 98.1 F 81 14 123/58 L 99 04/30/18 14:30 04/30/18 14:35 04/30/18 19:34 04/30/18 19:00 04/30/18 19:34 - Laboratory Laboratory results interpreted by me: 04/30/18 04/30/18 04/30/18 15:09 15:09 15:09 Hct 35.8 L RDW 14.2 H APTT 39.5 H Carbonic Acid ABG pCO2 ABG pO2 ABG HCO3 ABG Total CO2 ABG O2 Saturation BUN 31 H Est GFR ( Amer) 54 L Est GFR (Non-Af Amer) 44 L Direct Bilirubin 0.6 H Ammonia Creatine Kinase 152 H Total Protein 5.6 L Albumin 3.0 L Free T3 pg/mL Urine Urobilinogen 04/30/18 04/30/18 04/30/18 15:09 16:13 16:13 Hct RDW APTT Carbonic Acid 1.42 H ABG pCO2 47.2 H ABG pO2 143.8 H ABG HCO3 26.6 H ABG Total CO2 28.0 H ABG O2 Saturation 98.8 H BUN Est GFR ( Amer) Est GFR (Non-Af Amer) Direct Bilirubin Ammonia < 8.7 L Creatine Kinase Total Protein Albumin Free T3 pg/mL 2.59 L Urine Urobilinogen 04/30/18 17:22 Hct RDW APTT Carbonic Acid ABG pCO2 ABG pO2 ABG HCO3 ABG Total CO2 ABG O2 Saturation BUN Est GFR ( Amer) Est GFR (Non-Af Amer) Direct Bilirubin Ammonia Creatine Kinase Total Protein Albumin Free T3 pg/mL Urine Urobilinogen 2.0 H - EKG Interpretation by Me Additional EKG results interpreted by me: 04/30/18 19:03 EKG shows sinus rhythm at a rate of 75, left axis deviation, first-degree AV block, poor R wave progression, no ST segment elevations or depressions, there is T wave flattening in lead III per my interpretation. (LEONILA GARCÍA) Procedures - Laceration/Wound Repair right parietal scalp Wound length (cm): 1 Wound's Depth, Shape: Superficial, Linear Laceration pre-procedure: Sterile PPE donned, Sterile drapes applied Anesthetic type: Other - L.E.T. Wound explored: Clean, No foreign body removed Wound Repaired With: [place] Number of Sutures: 2 Post-procedure NV exam normal: Yes Complications: No <LEONILA GARCÍA - Last Filed: 05/01/18 00:26> Discharge <MÓNICA ANAND - Last Filed: 05/01/18 00:25> <LEONILA GARCÍA - Last Filed: 05/01/18 00:26> - Discharge Clinical Impression: Scalp laceration Qualifiers: Encounter type: initial encounter Qualified Code(s): S01.01XA - Laceration without foreign body of scalp, initial encounter [facility] at [facility] Qualifiers: Encounter type: initial encounter Qualified Code(s): W19.XXXA - Unspecified fall, initial encounter Condition: Stable Disposition: HOME, SELF-CARE Additional Instructions: Scalp Laceration A scalp laceration requires little care. Dressings are applied only if severe bleeding or a large flap are present. Usually, once the cut is sutured, you can ignore it. Simply comb the hair over top of it to hide the stitches and go about your usual routine. You can shampoo your hair as needed starting tomorrow. If you need to wear a special hat or protective helmet for work, be careful that it doesn't press on the area. If crusting is bothersome, you can soften the crusts with Polysporin ointment, then shampoo. Infection in a scalp laceration is rare. If any signs of infection occur ( swelling, redness, increasing tenderness, red streaks, tender lumps in the neck on the side of the laceration, or fever), see the doctor immediately. Please return to your primary care physician or the emergency department to have the christo removed in approximately 7 days. Referrals: MORENO OHARA, DO [Primary Care Provider] - Follow up as needed Scribe Attestation: 05/01/18 00:25 I personally performed the services described in the documentation, reviewed and edited the documentation which was dictated to the scribe in my presence, and it accurately records my words and actions. (LEONILA GARCÍA) Scribe Documentation - Scribe Written by El:: El Peralta, 04/30/2018 15:53 acting as scribe for :: Martha <MÓNICA ANAND - Last Filed: 05/01/18 00:25>
[2018-04-30 15:46] LABS: ALANINE AMINOTRANSFERASE 27 U/L (9-52); ALKALINE PHOSPHATASE 85 U/L (38-126); ASPARTATE AMINO TRANSFERASE 27 U/L (14-36); BILIRUBIN,DIRECT 0.6 mg/dL (0.0-0.4); BILIRUBIN,TOTAL 0.7 mg/dL (0.2-1.3); BLOOD UREA NITROGEN 31 mg/dL (7-20); CALCIUM 9.4 mg/dL (8.4-10.2); CARBON DIOXIDE 30 mmol/L (22-30); CHLORIDE 105 mmol/L (98-107); CREATINE KINASE 152 U/L (30-135); GLUCOSE 89 mg/dL (75-110); POTASSIUM 4.4 mmol/L (3.6-5.0); TOTAL PROTEIN 5.6 g/dL (6.3-8.2)
[2018-04-30 15:54] LABS: SODIUM 139.3 mmol/L (137-145)
[2018-04-30 15:55] LABS: ANION GAP 5 (5-19); CREATINE KINASE MB 3.08 ng/mL (<4.55)
[2018-04-30 15:57] LABS: TROPONIN I < 0.012 ng/mL
[2018-04-30 16:40] LABS: FREE T3 2.59 pg/mL (2.77-5.27); FREE T4 (FREE THYROXINE) 1.55 ng/dL (0.78-2.19)
[2018-04-30 16:43] LABS: ARTERIAL BLOOD BASE EXCESS 0.6 mmol/L; ARTERIAL BLOOD H2CO3 1.42 mmol/L (1.05-1.35); ARTERIAL BLOOD HCO3 26.6 mmol/L (20-24); ARTERIAL BLOOD O2 SATURATION 98.8 % (94-98); ARTERIAL BLOOD PCO2 47.2 mmHg (35-45); ARTERIAL BLOOD PH 7.37 (7.35-7.45); ARTERIAL BLOOD PO2 143.8 mmHg (80-100)
[2018-04-30 16:44] LABS: ARTERIAL BLOOD FIO2 2L
--- NOTE | 2018-04-30 16:54 | EKG REPORT ---
SEVERITY:- NORMAL ECG - SINUS RHYTHM : Confirmed by: Janie Pulido MD 30-Apr-2018 16:53:50
[2018-04-30] MEDS ORDERED: LIDOCAINE 4%/TETRACAINE 0.5%/EPI 0.18% 5 ML TOPICAL SOLN TOP ONE (17:27)
[2018-04-30 17:38] LABS: APPEARANCE,URINE CLEAR; BILIRUBIN,URINE NEGATIVE (NEGATIVE); COLOR,URINE YELLOW; GLUCOSE, URINE NEGATIVE (NEGATIVE); KETONES,URINE NEGATIVE (NEGATIVE); LEUKOCYTE ESTERASE,URINE NEGATIVE (NEGATIVE); NITRITE,URINE NEGATIVE (NEGATIVE); PROTEIN,URINE NEGATIVE (NEGATIVE); URINE SPECIFIC GRAVITY 1.016
[2018-05-01 06:16] VITALS: BP 131/81
== END 2018-04-30 20:45 | disposition home or self-care (01) ==
LOC: ER 14:30
DX: S01.01XA Laceration without foreign body of scalp, initial encounter (principal); S80.211A Abrasion, right knee, initial encounter; W19.XXXA Unspecified fall, initial encounter; Y92.129 Unspecified place in nursing home as the place of occurrence of the external cause; N19 Unspecified kidney failure; R29.810 Facial weakness; I44.0 Atrioventricular block, first degree; I10 Essential (primary) hypertension; E11.9 Type 2 diabetes mellitus without complications; Z99.3 Dependence on wheelchair; Z88.8 Allergy status to other drugs, medicaments and biological substances; Z91.018 Allergy to other foods
CPT/HCPCS: 36415; 70450; 71045; 80053; 80175; 81001; 82140; 82550; 82553; 82803; 82962; 83605; 84439; 84443; 84481; 84484; 85025; 85610; 85730; 93005; 93010; 99285; J3490

== ENCOUNTER 2018-05-01 17:42 | Emergency (ER) | payer MEDICARE, MEDICAID ==
--- NOTE | 2018-05-01 18:24 | ER Document Report ---
ED General - General Chief Complaint: Urinary Problem Stated Complaint: URINARY PROBLEM Time Seen by Provider: 05/01/18 18:24 Notes: Patient is a 68 year old female that presents to the emergency department for chief complaint of constipation. Patient comes from a [facility] facility for chief complaint of nausea. Patient states that she has been having constipation for several days and cannot remember her last bowel movement. She does have a history of dementia and apparently has been confused over the past few days, and has been seen in the emergency department multiple times, with extensive workups, and be discharged home. Her only complaint to me she has been constipated, states she has had some abdominal cramping but otherwise denies significant abdominal pain. Denies having any vomiting, dysuria or hematuria. Past Medical History: Dementia, hypertension Past Surgical History: Not obtainable at this time Social History: Currently resides at a [facility] facility Family History: Reviewed and noncontributory for presenting illness Allergies: Reviewed, see documented allergy list. REVIEW OF SYSTEMS: Unless otherwise stated in this report the patient's positive and negative responses for review of systems for constitutional, eyes, ENT, cardiovascular, respiratory, gastrointestinal, neurological, genitourinary, musculoskeletal, and integumentary systems and related systems to the presenting problem are either as stated in the HPI or were not pertinent or were negative for the symptoms and/or complaints related to the presenting medical problem. PHYSICAL EXAMINATION: Vital signs reviewed, nursing noted reviewed. GENERAL: Elderly female, no acute distress HEAD: Atraumatic, normocephalic. EYES: Eyes appear normal, extraocular movements intact, sclera anicteric, conjunctiva are normal. ENT: nares patent, oropharynx clear without exudates. Moist mucous membranes. NECK: Normal range of motion, supple without lymphadenopathy LUNGS: Breath sounds clear to auscultation bilaterally and equal. No wheezes rales or rhonchi. HEART: Regular rate and rhythm without murmurs ABDOMEN: Soft, nondistended, nontender, normoactive bowel sounds. No rebound, guarding, or rigidity. No masses appreciated. EXTREMITIES: Nontender, good range of motion, no pitting or edema. NEUROLOGICAL: No focal neurological deficits. Moves all extremities spontaneously Motor and sensory grossly intact on exam. PSYCH: Normal mood, normal affect. SKIN: Warm, Dry, normal turgor, no rashes or lesions noted on exposed skin TRAVEL OUTSIDE OF THE [place] IN LAST 30 DAYS: No - Related Data Allergies/Adverse Reactions: haloperidol [From Haldol] Allergy (Severe, Verified 05/01/18 18:08) LOCKJAW haloperidol lactate [From Haldol] Allergy (Severe, Verified 05/01/18 18:08) LOCKJAW chlorpromazine HCl [From Thorazine] Allergy (Verified 05/01/18 18:08) chocolate Allergy (Uncoded 05/01/18 18:08) Past Medical History - Social History Smoking Status: Unknown if Ever Smoked Family History: Reviewed & Not Pertinent, CAD - dad and uncle with MIs in their 60s, DM - mom Patient has suicidal ideation: No Patient has homicidal ideation: No - Past Medical History Cardiac Medical History: Reports: Hx Hypercholesterolemia, Hx Hypertension Pulmonary Medical History: Reports: Hx Bronchitis Neurological Medical History: Reports: Hx Seizures Endocrine Medical History: Reports: Hx Diabetes Mellitus Type 2, Hx Hypothyroidism Renal/ Medical History: Denies: Hx Peritoneal Dialysis GI Medical History: Reports: Hx Gastroesophageal Reflux Disease. Denies: Hx Pancreatitis Musculoskeletal Medical History: Reports Hx Arthritis Psychiatric Medical History: Reports: Hx Bipolar Disorder, Hx Depression, Hx Schizoaffective Disorder, Hx Schizophrenia Past Surgical History: Reports: Hx Cholecystectomy, Hx Neurologic Surgery - carpal tunnel, Hx Tonsillectomy - 1956, Hx Tubal Ligation - Immunizations Hx Diphtheria, Pertussis, Tetanus Vaccination: Yes Hx Pneumococcal Vaccination: 11/08/13 Physical Exam - Vital signs Vitals: Temp Pulse Resp BP Pulse Ox 98.9 F 74 18 123/55 L 99 05/01/18 18:10 05/01/18 18:10 05/01/18 18:10 05/01/18 18:10 05/01/18 18:10 Course - Re-evaluation Re-evalutation: Patient seen and examined vital signs reviewed. Laboratory data and imaging were ordered as appropriate for the patient's presenting symptoms and complaint, with consideration of any critical or life threatening conditions that may be associated with their obtained history and exam as noted above. I reviewed the patient's significant workup over the last 2 days, and it has been unremarkable, the patient is complaining of constipation, and we will check a KUB, otherwise I feel that the patient can be discharged, there is no evidence of urinary tract infection on her last 2 urinalysis. Patient was treated with magnesium citrate Results were reviewed when available and demonstrated KUB demonstrated moderate constipation, and minimally dilated loops of bowel, however clinically the patient did not present with bowel obstruction, she has a soft nondistended abdomen, most likely related to the patient's constipation which she has been complaining of, we will treat her with magnesium citrate, and advised the nursing facility, to start MiraLAX twice daily. The patient was re-evaluated and was stable Evaluation was most consistent with constipation Results were discussed with the patient at this point, after careful consideration I feel that that patient can be discharged from the emergency department, the patient was educated treatments and reasons to return to the emergency department based on their presumed diagnosis as noted above, they were advised to followup with a primary care physician in 2-3 days. Patient was agreeable to plan of care. *Note is created using voice recognition software and may contain spelling, syntax or grammatical errors. KUB X-Ray 05/01/18 18:43 IMPRESSION: Minimally dilated small bowel loops throughout the abdomen. Consider additional evaluation with upright views to further evaluate. Moderate constipation. - Vital Signs Vital signs: Temp Pulse Resp BP Pulse Ox 98.9 F 62 20 98/48 L 96 05/01/18 18:10 05/01/18 22:49 05/01/18 22:49 05/01/18 22:49 05/01/18 22:49 Discharge - Discharge Clinical Impression: Constipation Qualifiers: Constipation type: other constipation type Qualified Code(s): K59.09 - Other constipation Condition: Stable Disposition: SNF-Other Instructions: Constipation ([facility]) Additional Instructions: Please start the patient on MiraLAX 17 g twice daily to help with her constipation, then reduce after 1 week to 17 g daily, then follow-up with a primary care physician. Prescriptions: Polyethylene Glycol 3350 [Miralax] 17 gm PO BID #[id number] powder Referrals: MORENO OHARA DO [Primary Care Provider] - Follow up in 3-5 days
--- NOTE | 2018-05-01 19:09 | RADIOLOGY REPORT (SQ) ---
EXAM DESCRIPTION: KUB/ABDOMEN (SINGLE VIEW) COMPLETED DATE/TIME: 05/01/2018 6:54 pm REASON FOR STUDY: abdominal cramping COMPARISON: 06/01/2017 NUMBER OF VIEWS: One view. TECHNIQUE: Supine radiographic image of the abdomen acquired. LIMITATIONS: None. FINDINGS: BOWEL GAS PATTERN: Minimally dilated small bowel loops throughout the abdomen. CONSTIPATION: moderate CALCIFICATIONS: No suspicious calcifications. SOFT TISSUES: No gross mass or suggestion of organomegaly. HARDWARE: None in the abdomen. BONES: No acute fracture. OTHER: No other significant finding. IMPRESSION: Minimally dilated small bowel loops throughout the abdomen. Consider additional evaluat ion with upright views to further evaluate. Moderate constipation. TECHNICAL DOCUMENTATION: JOB ID: [id number] [place]-72 2010 [employer]- All Rights Reserved Reading location - IP/workstation name: [email or web address]
[2018-05-01] MEDS ORDERED: MAGNESIUM CITRATE 296 ML BOTTLE PO ONE ×2 (19:36→22:00)
[2018-05-01 22:50] VITALS: BP 98/48
== END 2018-05-01 22:51 ==
LOC: ER 17:42
DX: K59.00 Constipation, unspecified (principal); R11.0 Nausea; R10.9 Unspecified abdominal pain; I10 Essential (primary) hypertension; E11.9 Type 2 diabetes mellitus without complications; Z88.8 Allergy status to other drugs, medicaments and biological substances; Z91.018 Allergy to other foods
CPT/HCPCS: 99283; 74018; J3490

== ENCOUNTER 2018-05-09 09:45 | Emergency (ER) | payer MEDICARE, MEDICAID ==
[2018-05-09] MEDS ORDERED: NORMAL SALINE 1000 ML 1,000 ML IV ONE (10:39)
[2018-05-09 10:50] LABS: ABSOLUTE EOSINOPHILS # (AUTO) 0.1 10^3/uL (0.0-0.6); ABSOLUTE LYMPHOCYTES (AUTO) 2.3 10^3/uL (0.5-4.7); ABSOLUTE MONOCYTES (AUTO) 0.4 10^3/uL (0.1-1.4); ABSOLUTE NEUT (AUTO) 4.7 10^3/uL (1.7-8.2); BASOPHILS % (AUTO) 0.3 % (0-2); EOSINOPHILS % (AUTO) 1.3 % (0-6); HEMATOCRIT 38.3 % (36.0-47.0); LYMPHOCYTES % (AUTO) 30.5 % (13-45); MEAN CORPUSCULAR HEMOGLOBIN 31.8 pg (27.0-33.4); MEAN CORPUSCULAR VOLUME 94 fl (80-97); MONOCYTES % (AUTO) 5.7 % (3-13); PLATELET COUNT 396 10^3/uL (150-450); RED BLOOD COUNT 4.09 10^6/uL (3.72-5.28); RED CELL DISTRIBUTION WIDTH 14.2 % (11.5-14.0); SEGMENTED NEUTROPHILS % (AUTO) 62.2 % (42-78); TOTAL CELLS COUNTED % (AUTO) 100 %; WHITE BLOOD COUNT 7.5 10^3/uL (4.0-10.5)
[2018-05-09 10:51] LABS: INTERNATIONAL RATION (INR) 0.91; PROTHROMBIN TIME 12.7 SEC (11.4-15.4)
[2018-05-09 10:52] LABS: PARTIAL THROMBOPLASTIN TIME 33.2 SEC (23.5-35.8)
[2018-05-09 11:05] LABS: ALANINE AMINOTRANSFERASE 34 U/L (9-52); ALBUMIN 3.3 g/dL (3.5-5.0); ALKALINE PHOSPHATASE 115 U/L (38-126); ANION GAP 8 (5-19); ASPARTATE AMINO TRANSFERASE 31 U/L (14-36); BILIRUBIN,DIRECT 0.6 mg/dL (0.0-0.4); BILIRUBIN,TOTAL 0.6 mg/dL (0.2-1.3); BLOOD UREA NITROGEN 31 mg/dL (7-20); CALCIUM 9.8 mg/dL (8.4-10.2); CARBON DIOXIDE 28 mmol/L (22-30); CHLORIDE 102 mmol/L (98-107); GLUCOSE 108 mg/dL (75-110); POTASSIUM 4.6 mmol/L (3.6-5.0); SODIUM 137.9 mmol/L (137-145)
--- NOTE | 2018-05-09 11:18 | RADIOLOGY REPORT (SQ) ---
EXAM DESCRIPTION: CT HEAD WITHOUT COMPLETED DATE/TIME: 05/09/2018 11:09 am REASON FOR STUDY: Altered mental status COMPARISON: Multiple, most recent 04/30/2018 TECHNIQUE: Axial images acquired through the brain without intravenous contrast. Images reviewed wi th bone, brain and subdural windows. Additional sagittal and coronal reconstructions were generated. Images stored on PACS. All CT scanners at this facility use dose modulation, iterative reconstruction, and/or weight based d osing when appropriate to reduce radiation dose to as low as reasonably achievable (ALARA). [facility]: Dose Right [facility]: CareDose [facility]: Dose Right [facility]: Teradose 4D [facility]: Curio RADIATION DOSE: CT Rad equipment meets quality standard of care and radiation dose reduction techniq ues were employed. CTDIvol: 53.2 mGy. DLP: 1875 mGy-cm. mGy. LIMITATIONS: Motion artifact. FINDINGS: VENTRICLES: Prominent. CEREBRUM: No masses. No hemorrhage. No midline shift. Areas of low density in the white matter mos t likely due to chronic micro-vascular ischemic change. No evidence for acute infarction. CEREBELLUM: No masses. No hemorrhage. No alteration of density. No evidence for acute infarction. EXTRAAXIAL SPACES: Mild age-related involutional change. No fluid collections. No masses. ORBITS AND GLOBE: No intra- or extraconal masses. Normal contour of globe without masses. CALVARIUM: No fracture. PARANASAL SINUSES: No fluid or mucosal thickening. SOFT TISSUES: No mass or hematoma. OTHER: No other significant finding. IMPRESSION: MILD CHRONIC CHANGES OF ATROPHY AND MICROVASCULAR ISCHEMIA. NO ACUTE PROCESS. EVIDENCE OF ACUTE STROKE: NO. TECHNICAL DOCUMENTATION: JOB ID: [id number] Quality ID # [id number]: Final reports with documentation of one or more dose reduction techniques (e.g., Au tomated exposure control, adjustment of the mA and/or kV according to patient size, use of iterative reconstruction technique) 2010 [employer]- All Rights Reserved Reading location - IP/workstation name: [email or web address]
[2018-05-09 13:49] LABS: APPEARANCE,URINE CLEAR; BILIRUBIN,URINE SMALL (NEGATIVE); COLOR,URINE YELLOW; GLUCOSE, URINE NEGATIVE (NEGATIVE); KETONES,URINE NEGATIVE (NEGATIVE); LEUKOCYTE ESTERASE,URINE NEGATIVE (NEGATIVE); NITRITE,URINE NEGATIVE (NEGATIVE); PROTEIN,URINE NEGATIVE (NEGATIVE)
[2018-05-09 13:56] LABS: URINE SPECIFIC GRAVITY 1.016
--- NOTE | 2018-05-09 15:10 | ER Document Report ---
ED General - General Chief Complaint: Altered Mental Status Stated Complaint: ALTERED MENTAL STATUS Time Seen by Provider: 05/09/18 10:26 Mode of Arrival: Medic Information source: Emergency Med Personnel, [facility] Records Notes: Patient is a 60-year-old female who really appears much older today H. She was brought in by EMS for altered mental status. Patient is been seen down in the emergency room multiple times for similar presentations. It was reported by the EMS that the [facility] people cannot tell us when patient was her normal the last time. They state that she usually can tell you her name but most the time she is confused because of the dementia. Reason the center today where she is more somnolent than usual. The skilled facility also did not send all the records is very difficult to piece together everything. Patient is arousable and she will tell you her name she knows she is in a hospital but she does not know what year it is. She denies any pain and says she is tired. TRAVEL OUTSIDE OF THE [place] IN LAST 30 DAYS: No - HPI Onset: Other - Unknown as per [facility] they do not know the last time she was her baseline. Severity: Moderate Pain Level: 3 Context: Altered mental status secondary to we do not know what. She has a history of dementia and the only thing is change that she is more somnolent. Associated symptoms: Productive cough, Nausea, Sore throat Similar symptoms previously: No - Related Data Allergies/Adverse Reactions: haloperidol [From Haldol] Allergy (Severe, Verified 05/01/18 18:08) LOCKJAW haloperidol lactate [From Haldol] Allergy (Severe, Verified 05/01/18 18:08) LOCKJAW chlorpromazine HCl [From Thorazine] Allergy (Verified 05/01/18 18:08) chocolate Allergy (Uncoded 05/01/18 18:08) Past Medical History - General Information source: Patient, Emergency Med Personnel, [facility] Records - Social History Smoking Status: Former Smoker Cigarette use (# per day): No Chew tobacco use (# tins/day): No Smoking Education Provided: No Frequency of alcohol use: None Drug Abuse: None Lives with: [facility] Family History: Reviewed & Not Pertinent, CAD - dad and uncle with MIs in their 60s, DM - mom Patient has suicidal ideation: No Patient has homicidal ideation: No - Past Medical History Cardiac Medical History: Reports: Hx Hypercholesterolemia, Hx Hypertension Pulmonary Medical History: Reports: Hx Bronchitis Neurological Medical History: Reports: Hx Seizures Endocrine Medical History: Reports: Hx Diabetes Mellitus Type 2, Hx Hypothyroidism Renal/ Medical History: Denies: Hx Peritoneal Dialysis GI Medical History: Reports: Hx Gastroesophageal Reflux Disease. Denies: Hx Pancreatitis Musculoskeletal Medical History: Reports Hx Arthritis Psychiatric Medical History: Reports: Hx Bipolar Disorder, Hx Depression, Hx Schizoaffective Disorder, Hx Schizophrenia Past Surgical History: Reports: Hx Cholecystectomy, Hx Neurologic Surgery - carpal tunnel, Hx Tonsillectomy - 1956, Hx Tubal Ligation - Immunizations Hx Diphtheria, Pertussis, Tetanus Vaccination: Yes Hx Pneumococcal Vaccination: 11/08/13 Review of Systems - Review of Systems Constitutional: Malaise, Weakness, Weight loss EENT: No symptoms reported Cardiovascular: No symptoms reported Respiratory: No symptoms reported Gastrointestinal: No symptoms reported Genitourinary: No symptoms reported Female Genitourinary: No symptoms reported Musculoskeletal: No symptoms reported Skin: No symptoms reported Hematologic/Lymphatic: No symptoms reported Neurological/Psychological: See HPI, Dementia, Depression, Anxiety Physical Exam - Vital signs Vitals: Temp Resp BP Pulse Ox 97.6 F 13 104/53 L 94 05/09/18 09:57 10 09:57 05/09/18 09:57 05/09/18 09:57 Interpretation: Hypotensive - Notes Notes: Patient's original blood pressure was 104/70 something. Her heart rate was 90. Not documented. Is a 68-year-old female who is confused although answers questions or attempts to.. Baseline dementia more somnolent than usual. Arousable - HEENT Head: Normocephalic, Atraumatic Eyes: Normal Nasal: Normal Mouth/Lips: Other - Patient's lips are chapped and dry. Mucous membranes: Dry, Other - Patient's oral cavity shows that her tongue is Pharynx: Normal, Other - Just the mucosal is dry throughout the entire oropharynx.. No: Blood in hypopharynx, Erythema, Exudate, Peritonsillar abscess , Post nasal drainage, Retropharyngeal abscess, Tonsillar hypertrophy, Uvular edema, Potential airway comprom. Neck: Normal - Respiratory Respiratory status: No respiratory distress Chest status: Nontender Breath sounds: Normal Chest palpation: Normal - Cardiovascular Rhythm: Regular Heart sounds: Normal auscultation Murmur: No - Abdominal Inspection: Normal Distension: No distension Bowel sounds: Normal Tenderness: Nontender Organomegaly: No organomegaly - Genitourinary External exam: Normal Speculum exam: Normal, Products of conception Bimanuel exam: Normal - Neurological Cognition: Short term memory loss Orientation: Disoriented to person, Disoriented to place, Disoriented to time Mechelle Coma Scale Eye Opening: To Voice Sutton Coma Scale Verbal: Confused Mechelle Coma Scale Motor: Obeys Commands Mechelle Coma Scale Total: 13 Course - Re-evaluation Re-evalutation: 05/09/18 15:15 Believe patient's altered mental status is primarily due to her dehydrated State. Her numbers do not support dehydration very well renal functions are off. Give her a liter of fluids and they perked her up for a good hour to 2 hours and brought her blood pressure up to 149/90. Heart rate still running about 74. I do not believe at this time we need to admit patient. She is [facility] facility where they can hopefully do better job on her oral hygiene and hydration status. Patient's urine is clean chest is normal CT of head is negative no chest pain EKG looks good at this point I think patient is baseline with just a little fatigued because of her dehydration's presentation. 05/09/18 15:16 At this time the benefits of being in her own bed versus in the hospital I think outweigh everything else. Again she will answer me our attempt to in the eye. She does not seem to be in pain and she says she is not. 05/09/18 15:22 Also to make notice her mention of is that a few the nurses have taken care of patient passes that this is her baseline at least very close to her baseline when she has been gone back to the facility before. She is not a portion of high energy. And she sleeps a lot. - Vital Signs Vital signs: Temp Pulse Resp BP Pulse Ox 97.6 F 22 H 119/99 H 99 05/09/18 09:57 05/09/18 14:01 05/09/18 14:01 05/09/18 14:01 - Laboratory Result Diagrams: 05/09/18 09:38 05/09/18 09:38 Laboratory results interpreted by me: 05/09/18 05/09/18 05/09/18 09:38 09:38 11:14 RDW 14.2 H BUN 31 H Creatinine 1.44 H Est GFR ( Amer) 44 L Est GFR (Non-Af Amer) 36 L Direct Bilirubin 0.6 H Ammonia < 8.7 L Total Protein 6.0 L Albumin 3.3 L Urine Bilirubin Urine Urobilinogen 05/09/18 12:18 RDW BUN Creatinine Est GFR ( Amer) Est GFR (Non-Af Amer) Direct Bilirubin Ammonia Total Protein Albumin Urine Bilirubin SMALL H Urine Urobilinogen 2.0 H - Diagnostic Test Radiology reviewed: Reports reviewed Discharge - Discharge Clinical Impression: Acute renal failure Qualifiers: Acute renal failure type: unspecified Qualified Code(s): N17.9 - Acute kidney failure, unspecified Condition: Stable Disposition: SNF-Other Instructions: Dehydration ([facility]), Kidney Failure ([facility]) Additional Instructions: I am sending patient back to her that her facility which is [facility] suggestions of doing oral hygiene and hydrating patient better. If patient is having difficult time keeping fluids down or if she is having difficult time with with solids highly suggest that you do a swallow study in house. Again at this point is just monitoring patient and everything we have done in the emergency room was negative. Referrals: MORENO OHARA, [Primary Care Provider] - Follow up as needed
[2018-05-09] MEDS ORDERED: NORMAL SALINE 500 ML IV ONE (15:21)
[2018-05-09 15:49] VITALS: BP 149/90
== END 2018-05-09 16:06 ==
LOC: ER 09:45
DX: R40.0 Somnolence (principal); E86.0 Dehydration; N17.9 Acute kidney failure, unspecified; F03.90 Unspecified dementia, unspecified severity, without behavioral disturbance, psychotic disturbance, mood disturbance, and anxiety; R05 Cough; R11.0 Nausea; J02.9 Acute pharyngitis, unspecified; I10 Essential (primary) hypertension; E11.9 Type 2 diabetes mellitus without complications; R53.81 Other malaise; R53.1 Weakness; R63.4 Abnormal weight loss; F32.9 Major depressive disorder, single episode, unspecified; F41.9 Anxiety disorder, unspecified; Z88.8 Allergy status to other drugs, medicaments and biological substances; Z91.018 Allergy to other foods; Z87.891 Personal history of nicotine dependence
CPT/HCPCS: 99285; 96360; 96361; 51701; 36415; 82140; 83690; 85025; 85610; 85730; 80053; 81001; 84484; 83605; 70450; J7030; J7040